=== PATIENT | male | born 1955 | race Caucasian/White ===

== ENCOUNTER 2017-02-24 18:42 | Inpatient (IN) | payer MEDICARE ==
[~2017-02-24] VITALS: Ht 177.8 cm; Wt 99.8 kg
[~2017-02-24 18:42] MED LIST: ACET-1574 PO; ACET325T9 PO; ACET500T68 PO; ATOR20TA58 PO; BUPR150T15 PO; BUSP10TA PO; CHLO15MO2 SWSP; CHOL20002 PO; CHOL4000 PO; CLON0.5T3 PO; CYAN10002 IM; DIVA125C3 PO; FLUV100T2 PO; HALO0.5T PO; HALO1TAB PO; HYDR-2758 PO; HYDR-2762 PO; HYDR25CA PO; HYDR25CA75 PO; HYDR25TA PO; LEVO112T4 PO; LEVO125T5 PO; LEVO175T5 PO; LEVO200T5 PO; LEVO750T31 PO; LEVO75TA5 PO; LORA0.5T PO; LORA1TAB PO; LORA2ORA8 PO; LORA2ORA8 SL; LORA2TAB PO; MAG30ORA2 PO; MAG355OR17 PO; MAGN2400 PO; MAGN400O7 PO; METH29OI TP; MIRT15TA PO; OLAN2.5T3 PO; OLAN5TAB5 PO; QUET25TA5 PO; TOPI25CA6 PO; TRAZ-90 PO; TRAZ50TA15 PO; TROL85CR14 TP; TROL90CR TP; VENL37.56 PO; VENL75CA PO; VENL75TA PO; [UNRECOGNIZED DRUG - CODE] TP
--- NOTE | 2017-02-24 19:00 | PHYS DOC ---
Past History Past Medical History: Anxiety, Dementia, High Cholesterol, Hypothyroid, Other Past Surgical History: Other Alcohol Use: None Drug Use: None Adult General Chief Complaint Chief Complaint: PSYCH EVALUATION HPI HPI Patient is a 61 year old male who presents to the emergency department for medical clearance prior to admission to psychiatric unit. Patient does not report any complaints at this time. The patient per report from [facility] in [place] has had behavioral disturbance with increase in aggressive behavior including yelling, crying, and trying to strike other patients and staff. He has history of Love's disease. Patient states that he did engage in this behavior because he was very angry. Patient also reportedly had a fall onto his knees. It is unclear if patient struck his head but there are no reports that patient had any known loss of consciousness. Patient denies any shortness of breath, chest pain, vomiting, or abdominal pain. The patient was accepted to the geropsychiatric unit here at [facility] and is in the emergency department to receive medical clearance. Review of Systems Review of Systems Constitutional: Denies fever or chills [] Eyes: Denies change in visual acuity, redness, or eye pain [] HENT: Denies nasal congestion or sore throat [] Respiratory: Denies cough or shortness of breath [] Cardiovascular: Denies chest pain or edema [] GI: Denies abdominal pain, nausea, vomiting, bloody stools or diarrhea [] : Denies dysuria or hematuria [] Musculoskeletal: Denies back pain or joint pain [] Integument: Denies rash or skin lesions [] Neurologic: Denies headache, focal weakness or sensory changes [] Allergies Allergies Allergies Coded Allergies Type Severity Reaction Last Updated Verified No Known Drug Allergies 12/27/13 No Physical Exam Physical Exam Constitutional: Alert, afebrile, cooperative with exam, no acute distress. [] HENT: Normocephalic, atraumatic, bilateral external ears normal, oropharynx moist, no oral exudates, nose normal. [] Eyes: PERRLA, EOMI, conjunctiva normal, no discharge. [] Neck: Normal range of motion, no tenderness, supple, no stridor. [] Cardiovascular:Heart rate regular rhythm, no murmur [] Lungs & Thorax: Bilateral breath sounds clear to auscultation [] Abdomen: Bowel sounds normal, soft, no tenderness, no masses, no pulsatile masses. [] Skin: Warm, dry, no erythema, no rash. [] Back: No tenderness, no CVA tenderness. [] Extremities: Superficial abrasions to bilateral knees, no tenderness, no cyanosis, no clubbing, ROM intact, no edema. [] Neurologic: Alert and oriented X 3, normal motor function, normal sensory function, no focal deficits noted. [] Current Patient Data Vital Signs Vital Signs Date Time Temp Pulse Resp B/P (MAP) Pulse Ox O2 Delivery O2 Flow Rate FiO2 02/24/17 21:02 97.8 83 18 147/91 (109) 93 Room Air Lab Results Laboratory Tests Test 02/24/17 18:55 White Blood Count 8.3 x10^3/uL Red Blood Count 4.59 x10^6/uL Hemoglobin 13.5 g/dL Hematocrit 40.3 % Mean Corpuscular Volume 88 fL Mean Corpuscular Hemoglobin 29 pg Mean Corpuscular Hemoglobin Concent 34 g/dL Red Cell Distribution Width 15.6 % Platelet Count 206 x10^3/uL Neutrophils (%) (Auto) 58 % Lymphocytes (%) (Auto) 24 % Monocytes (%) (Auto) 13 % Eosinophils (%) (Auto) 4 % Basophils (%) (Auto) 1 % Neutrophils # (Auto) 4.8 x10^3uL Lymphocytes # (Auto) 2.0 x10^3/uL Monocytes # (Auto) 1.1 x10^3/uL Eosinophils # (Auto) 0.3 x10^3/uL Basophils # (Auto) 0.1 x10^3/uL Sodium Level 140 mmol/L Potassium Level 4.5 mmol/L Chloride Level 101 mmol/L Carbon Dioxide Level 33 mmol/L Anion Gap 6 Blood Urea Nitrogen 19 mg/dL Creatinine 1.1 mg/dL Estimated GFR (Cockcroft-Gault) 68.5 Glucose Level 146 mg/dL Calcium Level 8.9 mg/dL Magnesium Level 1.9 mg/dL Total Bilirubin 0.2 mg/dL Direct Bilirubin 0.1 mg/dL Aspartate Amino Transf (AST/SGOT) 11 U/L Alanine Aminotransferase (ALT/SGPT) 16 U/L Alkaline Phosphatase 91 U/L Total Protein 7.4 g/dL Albumin 3.6 g/dL Urine Opiates Screen Neg Urine Methadone Screen Neg Urine Barbiturates Neg Phenytoin (Dilantin) Level 0.5 mcg/mL Phenytoin Last Dose Date 02/24/17 Phenytoin Last Dose Time 0800 Urine Phencyclidine Screen Neg Urine Amphetamine/Methamphetamine Neg Urine Benzodiazepines Screen Neg Urine Cocaine Screen Neg Urine Cannabinoids Screen Neg Urine Ethyl Alcohol Neg EKG EKG Interpreted by me: Heart rate 89, sinus rhythm, normal intervals, normal axis, no acute ST/T-wave abnormalities present [] Radiology/Procedures Radiology/Procedures [address] [address] IMAGING REPORT Signed PATIENT: YOGI CAMACHO ACCOUNT: [id number] : 1955 LOCATION: ER AGE: 61 SEX: M EXAM STATUS: PRE ER ORD. PHYSICIAN: SILVIA SIMMONS MD REASON: behavioral disturbance, reported fall earlier today PROCEDURE: CT HEAD WO CONTRAST CT head without intravenous contrast History: Behavioral issues, fall, dementia, Ashwini's. Comparison: None. Technique: Axial images are obtained of the head from the skull base through the vertex without IV contrast. Exposure: One or more of the following individualized dose reduction techniques were utilized for this examination: 1. Automated exposure control 2. Adjustment of the mA and/or kV according to patient size 3. Use of iterative reconstruction technique Findings: There is mild diffuse cerebral volume loss, greater than expected for patient age. The ventricles are otherwise appropriate. No obvious intracranial mass, mass-effect, midline shift, hemorrhage or obvious acute infarction is identified. Basilar cisterns are patent. Bone windows demonstrate no acute calvarial abnormality. The visualized paranasal sinuses appear clear. Mild left supraorbital scalp soft tissue swelling is seen. Impression: No acute intracranial process. Please note that CT can be relatively insensitive to acute ischemic infarction for up to 24 hours after symptom onset. Electronically signed by: Sergio Trujillo MD (02/24/2017 7:27 PM) DICTATED AND SIGNED BY: SERGIO TRUJILLO MD DATE: 02/24/171925 CC: SILVIA SIMMONS MD; FLORENCIA MATTHEWS ~ [] Course & Med Decision Making Course & Med Decision Making Pertinent Labs and Imaging studies reviewed. (See chart for details) Patient was observed in the emergency room with no remarkable events reported. Patient's initial lab work shows no significant acute abnormalities. The patient is medically cleared at this time to proceed to the geropsychiatric unit for further evaluation and care. Dragon Disclaimer Dragon Disclaimer This chart was dictated in whole or in part using Voice Recognition software in a busy, high-work load, and often noisy Emergency Department environment. It may contain unintended and wholly unrecognized errors or omissions. 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
[2017-02-24 19:17] LABS: BASO # 0.1 x10^3/uL (0.0-0.2); BASO % 1 % (0-3); EOS # 0.3 x10^3/uL (0.0-0.7); EOS % 4 % (0-3); HEMATOCRIT 40.3 % (39.0-53.0); HEMOGLOBIN 13.5 g/dL (13.0-17.5); LYMPH % 24 % (24-48); MEAN CORPUSCULAR HEMOGLOBIN 29 pg (25-35); MEAN CORPUSCULAR HGB CONC 34 g/dL (31-37); MEAN CORPUSCULAR VOLUME 88 fL (79-100); MONO # 1.1 x10^3/uL (0.0-1.1); MONO % 13 % (0-9); NEUT # 4.8 x10^3uL (1.8-7.7); NEUT % 58 % (31-73); PLATELET COUNT 206 x10^3/uL (140-400); RED BLOOD COUNT 4.59 x10^6/uL (4.30-5.70); RED CELL DISTRIBUTION WIDTH 15.6 % (11.5-14.5); WHITE BLOOD COUNT 8.3 x10^3/uL (4.0-11.0)
[2017-02-24 19:30] LABS: ALBUMIN 3.6 g/dL (3.4-5.0); ALK PHOS 91 U/L (46-116); ALT (SGPT) 16 U/L (16-63); ANION GAP 6 (6-14); AST (SGOT) 11 U/L (15-37); BLOOD UREA NITROGEN 19 mg/dL (8-26); CALCIUM 8.9 mg/dL (8.5-10.1); CARBON DIOXIDE 33 mmol/L (21-32); CHLORIDE 101 mmol/L (98-107); CREATININE 1.1 mg/dL (0.7-1.3); DIRECT BILIRUBIN 0.1 mg/dL (0.0-0.2); GFR 68.5; GLUCOSE 146 mg/dL (70-99); MAGNESIUM 1.9 mg/dL (1.8-2.4); PHENY 0.5 mcg/mL (10.0-20.0); POTASSIUM 4.5 mmol/L (3.5-5.1); SODIUM 140 mmol/L (136-145); TOTAL BILIRUBIN 0.2 mg/dL (0.2-1.0); TOTAL PROTEIN 7.4 g/dL (6.4-8.2)
--- NOTE | 2017-02-24 19:31 | RAD ---
CT head without intravenous contrast History: Behavioral issues, fall, dementia, Ashwini's. Comparison: None. Technique: Axial images are obtained of the head from the skull base through the vertex without IV contrast. Exposure: One or more of the following individualized dose reduction techniques were utilized for this examination: 1. Automated exposure control 2. Adjustment of the mA and/or kV according to patient size 3. Use of iterative reconstruction technique Findings: There is mild diffuse cerebral volume loss, greater than expected for patient age. The ventricles are otherwise appropriate. No obvious intracranial mass, mass-effect, midline shift, hemorrhage or obvious acute infarction is identified. Basilar cisterns are patent. Bone windows demonstrate no acute calvarial abnormality. The visualized paranasal sinuses appear clear. Mild left supraorbital scalp soft tissue swelling is seen. Impression: No acute intracranial process. Please note that CT can be relatively insensitive to acute ischemic infarction for up to 24 hours after symptom onset. Electronically signed by: Sergio Boone MD (02/24/2017 7:27 PM)
[2017-02-24 19:33] LABS: AMPHETAMINE/METHAMPHETAMINE NEG (NEG); BARBITURATES NEG (NEG); BENZODIAZEPINES NEG (NEG); CANNABINOIDS NEG (NEG); COCAINE NEG (NEG); METHADONE NEG (NEG); OPIATES NEG (NEG); PHENCYCLIDINE NEG (NEG)
--- NOTE | 2017-02-24 19:36 | EKG ---
[address] [address] Test Date: 2017-02-24 Test Time: 19:06:02 Pat Name: YOGI CAMACHO Department: Room: Gender: M [employer] Specialist: : 1955 Requested By: SILVIA SIMMONS Order Number: [id number] Reading MD: Measurements Intervals [place] Rate: 89 P: 31 TX: 164 QRS: 4 QRSD: 86 T: 10 QT: 404 QTc: 493 Interpretive Statements SINUS RHYTHM LOW LIMB LEAD VOLTAGE NON SPECIFIC T ABNORMALITY PROLONGED QT RI6.01 Unconfirmed report No previous ECG available for comparison
[2017-02-24 21:02] VITALS: BP 147/91
[2017-02-24] MEDS ORDERED: TAMS0.4C2 PO (21:06)
[2017-02-24] MEDS ORDERED: DEXT1CAP PO (21:06)
[2017-02-24] MEDS ORDERED: POTA10CA PO (21:06)
[2017-02-24] MEDS ORDERED: QUET100T4 PO (21:06)
[2017-02-24] MEDS ORDERED: CELE100C PO (21:06)
[2017-02-24] MEDS ORDERED: FURO40TA4 PO (21:06)
[2017-02-24] MEDS ORDERED: ACET500T68 PO (21:06)
[2017-02-24] MEDS ORDERED: SENN-6 PO (21:06)
[2017-02-24] MEDS ORDERED: CHOL5000 PO (21:06)
[2017-02-24] MEDS ORDERED: OLAN20TA7 PO (21:06)
[2017-02-24] MEDS ORDERED: SPIR25TA3 PO (21:06)
[2017-02-24] MEDS ORDERED: BUPR75TA6 PO (21:06)
[2017-02-24] MEDS ORDERED: METHYL SALICYLATE/MENTHOL TOPICAL OINTMENT 29GM TUBE. TP PRN (21:15)
[2017-02-24] MEDS ORDERED: MAGNESIUM HYDROXIDE 2,400 MG/30 ML ORAL.SUSP. PO PRN (21:15)
[2017-02-24] MEDS ORDERED: MAG HYDROX/AL HYDROX/SIMETH 30 ML ORAL.SUSP PO PRN (21:15)
[2017-02-24] MEDS: buPROPion 75 MG TABLET PO SCH (22:16)
[2017-02-24] MEDS: MIRTAZAPINE 7.5 MG TABLET. PO SCH (22:16)
[2017-02-25 06:15] VITALS: BP 139/81
[2017-02-25] MEDS: LEVOTHYROXINE 175 MCG TABLET PO SCH (06:39)
[2017-02-25 07:10] LABS: VAL ACID 60 mcg/mL (50-100)
[2017-02-25] MEDS: SENNOSIDES/DOCUSATE 8.6/50MG TABLET. PO SCH ×2 (08:23→17:59)
[2017-02-25] MEDS: busPIRone 10 MG TABLET. PO SCH ×3 (08:23→17:59)
[2017-02-25] MEDS: buPROPion 75 MG TABLET PO SCH ×2 (08:23→20:42)
[2017-02-25] MEDS: FUROSEMIDE 40 MG TABLET PO SCH (08:23)
[2017-02-25] MEDS: QUEtiapine 100 MG TABLET. PO SCH ×3 (08:23→17:59)
[2017-02-25] MEDS: LORazepam 1 MG TABLET PO SCH ×2 (08:23→17:59)
[2017-02-25] MEDS: OLANZapine 10 MG TABLET PO SCH (08:23)
[2017-02-25] MEDS: DEXTROMETHORPHAN HBR/QUINIDINE 1 CAPSULE. PO SCH ×2 (08:24→17:59)
[2017-02-25] MEDS: DIVALPROEX 125 MG CAP.SPRINK PO SCH ×2 (08:24→17:58)
[2017-02-25] MEDS: ACETAMINOPHEN 500 MG TABLET PO SCH ×4 (08:25→20:42)
[2017-02-25] MEDS: CELECOXIB 100 MG CAPSULE PO SCH ×2 (08:29→17:59)
[2017-02-25 12:35] VITALS: BP 116/80
[2017-02-25] MEDS: TAMSULOSIN 0.4 MG CAP.ER.24H. PO SCH (12:39)
[2017-02-25] MEDS: SPIRONOLACTONE 25 MG TABLET PO SCH (12:40)
[2017-02-25] MEDS: POTASSIUM CHLORIDE 10 MEQ TABLET.ER. PO SCH (12:40)
[2017-02-25 13:50] LABS: BACTERIA,URINE 0 /HPF (0-FEW); BILIRUBIN,URINE NEG (NEG); CLARITY,URINE CLEAR; COLOR,URINE YELLOW; GLUCOSE,URINE NEG (NEG); NITRITE,URINE NEG (NEG); SQUAMOUS EPITHELIAL CELL,UR OCC /LPF; UROBILINOGEN,URINE 0.2 mg/dL (0.2 mg/dL)
[2017-02-25 13:51] LABS: HYALINE CASTS, URINE FEW /HPF
[2017-02-25 15:21] VITALS: BP 129/85
[2017-02-25] MEDS: CHOLECALCIFEROL (VITAMIN D3) 1,000 UNIT TABLET PO SCH (17:58)
[2017-02-25 19:10] LABS: T3 TOTAL 92 ng/dL (71-180); THYROXINE 7.6 ug/dL (4.5-12.0)
[2017-02-25] MEDS: MIRTAZAPINE 7.5 MG TABLET. PO SCH (20:42)
[2017-02-25] MEDS: ATORVASTATIN CALCIUM 20 MG TABLET PO SCH (20:47)
[2017-02-26] MEDS: LEVOTHYROXINE 175 MCG TABLET PO SCH (05:40)
[2017-02-26 05:43] VITALS: BP 138/89
[2017-02-26] MEDS: DEXTROMETHORPHAN HBR/QUINIDINE 1 CAPSULE. PO SCH ×2 (08:14→16:31)
[2017-02-26] MEDS: SENNOSIDES/DOCUSATE 8.6/50MG TABLET. PO SCH ×2 (08:14→16:30)
[2017-02-26] MEDS: OLANZapine 10 MG TABLET PO SCH (08:14)
[2017-02-26] MEDS: DIVALPROEX 125 MG CAP.SPRINK PO SCH ×2 (08:14→19:39)
[2017-02-26] MEDS: ACETAMINOPHEN 500 MG TABLET PO SCH ×4 (08:14→19:39)
[2017-02-26] MEDS: busPIRone 10 MG TABLET. PO SCH ×3 (08:14→16:30)
[2017-02-26] MEDS: FUROSEMIDE 40 MG TABLET PO SCH (08:14)
[2017-02-26] MEDS: CELECOXIB 100 MG CAPSULE PO SCH ×2 (08:14→16:31)
[2017-02-26] MEDS: QUEtiapine 100 MG TABLET. PO SCH ×3 (08:14→16:30)
[2017-02-26] MEDS: buPROPion 75 MG TABLET PO SCH ×2 (08:15→19:37)
[2017-02-26] MEDS: LORazepam 1 MG TABLET PO SCH ×2 (08:16→16:30)
[2017-02-26] MEDS: TAMSULOSIN 0.4 MG CAP.ER.24H. PO SCH (12:54)
[2017-02-26] MEDS: SPIRONOLACTONE 25 MG TABLET PO SCH (12:54)
[2017-02-26] MEDS: POTASSIUM CHLORIDE 10 MEQ TABLET.ER. PO SCH (12:54)
[2017-02-26 16:00] VITALS: BP 128/89
[2017-02-26] MEDS: CHOLECALCIFEROL (VITAMIN D3) 1,000 UNIT TABLET PO SCH (16:30)
[2017-02-26] MEDS: ATORVASTATIN CALCIUM 20 MG TABLET PO SCH (19:36)
[2017-02-26] MEDS: MIRTAZAPINE 7.5 MG TABLET. PO SCH (19:36)
[2017-02-27 05:58] VITALS: BP 135/85
[2017-02-27] MEDS: LEVOTHYROXINE 175 MCG TABLET PO SCH (05:59)
[2017-02-27] MEDS: FUROSEMIDE 40 MG TABLET PO SCH (08:09)
[2017-02-27] MEDS: busPIRone 10 MG TABLET. PO SCH ×3 (08:09→17:11)
[2017-02-27] MEDS: SENNOSIDES/DOCUSATE 8.6/50MG TABLET. PO SCH ×2 (08:09→17:11)
[2017-02-27] MEDS: buPROPion 75 MG TABLET PO SCH ×2 (08:10→20:35)
[2017-02-27] MEDS: ACETAMINOPHEN 500 MG TABLET PO SCH ×4 (08:10→21:56)
[2017-02-27] MEDS: QUEtiapine 100 MG TABLET. PO SCH ×3 (08:10→17:11)
[2017-02-27] MEDS: OLANZapine 10 MG TABLET PO SCH (08:11)
[2017-02-27] MEDS: DIVALPROEX 125 MG CAP.SPRINK PO SCH ×2 (08:13→20:35)
[2017-02-27] MEDS: DEXTROMETHORPHAN HBR/QUINIDINE 1 CAPSULE. PO SCH ×2 (08:14→17:12)
[2017-02-27] MEDS: CELECOXIB 100 MG CAPSULE PO SCH ×2 (08:14→17:11)
[2017-02-27] MEDS: LORazepam 1 MG TABLET PO SCH ×2 (08:14→17:11)
[2017-02-27] MEDS: SPIRONOLACTONE 25 MG TABLET PO SCH (12:37)
[2017-02-27] MEDS: TAMSULOSIN 0.4 MG CAP.ER.24H. PO SCH (12:37)
[2017-02-27] MEDS: POTASSIUM CHLORIDE 10 MEQ TABLET.ER. PO SCH (12:38)
--- NOTE | 2017-02-27 13:00 | PDOC ---
Exam Bran Demential Exam: Bran Note: Please also refer to the separate dictated note~for this date of service dictated separately.~Patient seen individually. Discussed the patient with Nursing staff reviewed the chart.~Reviewed interim history and current functioning. Reviewed vital signs,~Labs/ Radiology~and current medications noted below. Continue current treatment with the changes noted in the dictated addendum note Assessment: Vital Signs: Vital Signs Date Time Temp Pulse Resp B/P (MAP) Pulse Ox O2 Delivery O2 Flow Rate FiO2 02/27/17 05:58 97.3 97 16 135/85 (102) 98 02/26/17 05:43 Room Air I&O Intake and Output 02/27/17 07:00 Intake Total 3120 ml Balance 3120 ml Intake Oral 3120 ml Current Medications: Meds: Current Medications Fluvoxamine Maleate (Luvox) 150 mg BID PO Last administered on 02/27/17 08:08; Start 02/24/17 at 22:00 Mirtazapine (Remeron) 7.5 mg QHS PO Last administered on 02/26/17 19:36; Start 02/24/17 at 22:00 Olanzapine (ZyPREXA) 20 mg DAILY PO Last administered on 02/27/17 08:11; Start 02/25/17 at 09:00 Bupropion HCl (Wellbutrin) 75 mg BID PO Last administered on 02/27/17 08:10; Start 02/24/17 at 22:00 Buspirone HCl (Buspar) 10 mg TIDWMEALS PO Last administered on 02/27/17 12:37; Start 02/25/17 at 08:00 Divalproex Sodium (Depakote Sprinkles) 750 mg BID94 PO Last administered on 08:14; Start 02/25/17 at 09:00; Stop 02/26/17 at 14:46; Status DC Lorazepam (Ativan) 1 mg BID94 PO Last administered on 02/27/17 08:14; Start at 09:00 Quetiapine Fumarate (SEROquel) 100 mg TIDWMEALS PO Last administered on 12:39; Start 02/25/17 at 08:00 Acetaminophen (Tylenol) 650 mg PRN Q6HRS PRN PO PAIN / TEMP; Start 02/24/17 at 21:15 Multi-Ingredient Ointment (Analgesic [place]) 1 alistair PRN QID PRN TP MUSCLE PAIN; Start 02/24/17 at 21:15 Al Hydroxide/Mg Hydroxide (Mylanta Plus Xs) 15 ml PRN AFTMEALHC PRN PO DYSPEPSIA; Start 02/24/17 at 21:15 Magnesium Hydroxide (Milk Of Magnesia) 2,400 mg PRN QHS PRN PO CONSTIPATION; Start 02/24/17 at 21:15 Acetaminophen (Tylenol) 1,000 mg TIDWMEALHC PO Last administered on 02/27/17 12 :37; Start 02/25/17 at 08:00 Atorvastatin Calcium (Lipitor) 20 mg HS PO Last administered on 02/26/17 19:36 ; Start 02/25/17 at 21:00 Celecoxib (CeleBREX) 100 mg BIDWMEALS PO Last administered on 02/27/17 08:14; Start 02/25/17 at 08:00 Furosemide (Lasix) 40 mg DAILY PO Last administered on 02/27/17 08:09; Start at 09:00 Levothyroxine Sodium (Synthroid) 175 mcg DAILY06 PO Last administered on 05:59; Start 02/25/17 at 06:00 Potassium Chloride (Klor-Con) 10 meq DAILYWLUN PO Last administered on 12:38; Start 02/25/17 at 12:00 Senna/Docusate Sodium (Senna Plus) 1 tab BID94 PO Last administered on 08:09; Start 02/25/17 at 09:00 Spironolactone (Aldactone) 25 mg DAILYWLUN PO Last administered on 02/27/17 12: 37; Start 02/25/17 at 12:00 Tamsulosin HCl (Flomax) 0.4 mg DAILYWLUN PO Last administered on 02/27/17 12:37 ; Start 02/25/17 at 12:00 Vitamin D (Vitamin D3) 5,000 unit DAILY16 PO Last administered on 02/26/17 16: 30; Start 02/25/17 at 16:00 Divalproex Sodium (Depakote Sprinkles) 750 mg DAILY PO Last administered on 02/27 08:13; Start 02/27/17 at 09:00 Divalproex Sodium (Depakote Sprinkles) 1,000 mg HS PO Last administered on 02/26 19:39; Start 02/26/17 at 21:00 Active Scripts Active Reported Olanzapine 20 Mg Tablet 20 Mg PO DAILY Celebrex (Celecoxib) 100 Mg Capsule 100 Mg PO BID Potassium Chloride 10 Meq Capsule.er 10 Meq PO DAILYWLUN Spironolactone 25 Mg Tablet 25 Mg PO DAILYWLUN Senna S Tablet (Sennosides/Docusate Sodium) 1 Each Tablet 1 Tab PO BID94 Furosemide 40 Mg Tablet 40 Mg PO DAILY Tamsulosin Hcl 0.4 Mg Cap.er.24h 0.4 Mg PO DAILYWLUN Nuedexta 20-10 Mg Capsule (Dextromethorphan Hbr/Quinidine) 1 Each Capsule 1 Cap PO BID94 Seroquel (Quetiapine Fumarate) 100 Mg Tablet 100 Mg PO TIDWMEALS Bupropion Hcl 75 Mg Tablet 75 Mg PO BID Acetaminophen 500 Mg Tablet 1,000 Mg PO TIDWMEALHC Vitamin D3 (Cholecalciferol (Vitamin D3)) 5,000 Unit Capsule 5,000 Unit PO DAILY16 Buspirone Hcl 10 Mg Tablet 10 Mg PO TIDWMEALS Remeron (Mirtazapine) 15 Mg Tablet 7.5 Mg PO QHS Levothyroxine Sodium 175 Mcg Tablet 175 Mcg PO DAILY06 Lorazepam 1 Mg Tablet 1 Mg PO BID94 Fluvoxamine Maleate 100 Mg Tablet 150 Mg PO BID Atorvastatin Calcium 20 Mg Tablet 20 Mg PO HS Divalproex Sodium 125 Mg Cap.sprink 750 Mg PO BID94 Diagnosis: Problems: (1) [place]'s chorea (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
[2017-02-27 16:20] VITALS: BP 124/75
[2017-02-27] MEDS: CHOLECALCIFEROL (VITAMIN D3) 1,000 UNIT TABLET PO SCH (17:11)
[2017-02-27] MEDS: MIRTAZAPINE 7.5 MG TABLET. PO SCH (20:35)
[2017-02-27] MEDS: ATORVASTATIN CALCIUM 20 MG TABLET PO SCH (20:35)
--- NOTE | 2017-02-27 21:32 | PDOC ---
Exam Bran Demential Exam: Bran Note: Please also refer to the separate dictated note~for this date of service dictated separately.~Patient seen individually. Discussed the patient with Nursing staff reviewed the chart.~Reviewed interim history and current functioning. Reviewed vital signs,~Labs/ Radiology~and current medications noted below. Continue current treatment with the changes noted in the dictated addendum note Assessment: Vital Signs: Vital Signs Date Time Temp Pulse Resp B/P (MAP) Pulse Ox O2 Delivery O2 Flow Rate FiO2 02/27/17 16:20 97.9 89 18 124/75 (91) 94 02/26/17 05:43 Room Air I&O Intake and Output 02/27/17 07:00 Intake Total 3120 ml Balance 3120 ml Intake Oral 3120 ml Current Medications: Meds: Current Medications Fluvoxamine Maleate (Luvox) 150 mg BID PO Last administered on 02/27/17 20:35; Start 02/24/17 at 22:00 Mirtazapine (Remeron) 7.5 mg QHS PO Last administered on 02/27/17 20:35; Start 02/24/17 at 22:00 Olanzapine (ZyPREXA) 20 mg DAILY PO Last administered on 02/27/17 08:11; Start 02/25/17 at 09:00 Bupropion HCl (Wellbutrin) 75 mg BID PO Last administered on 02/27/17 20:35; Start 02/24/17 at 22:00 Buspirone HCl (Buspar) 10 mg TIDWMEALS PO Last administered on 02/27/17 17:11; Start 02/25/17 at 08:00 Divalproex Sodium (Depakote Sprinkles) 750 mg BID94 PO Last administered on 08:14; Start 02/25/17 at 09:00; Stop 02/26/17 at 14:46; Status DC Lorazepam (Ativan) 1 mg BID94 PO Last administered on 02/27/17 17:11; Start at 09:00 Quetiapine Fumarate (SEROquel) 100 mg TIDWMEALS PO Last administered on 17:11; Start 02/25/17 at 08:00 Acetaminophen (Tylenol) 650 mg PRN Q6HRS PRN PO PAIN / TEMP; Start 02/24/17 at 21:15 Multi-Ingredient Ointment (Analgesic [place]) 1 alistair PRN QID PRN TP MUSCLE PAIN; Start 02/24/17 at 21:15 Al Hydroxide/Mg Hydroxide (Mylanta Plus Xs) 15 ml PRN AFTMEALHC PRN PO DYSPEPSIA; Start 02/24/17 at 21:15 Magnesium Hydroxide (Milk Of Magnesia) 2,400 mg PRN QHS PRN PO CONSTIPATION; Start 02/24/17 at 21:15 Acetaminophen (Tylenol) 1,000 mg TIDWMEALHC PO Last administered on 02/27/17 17 :19; Start 02/25/17 at 08:00 Atorvastatin Calcium (Lipitor) 20 mg HS PO Last administered on 02/27/17 20:35 ; Start 02/25/17 at 21:00 Celecoxib (CeleBREX) 100 mg BIDWMEALS PO Last administered on 02/27/17 17:11; Start 02/25/17 at 08:00 Furosemide (Lasix) 40 mg DAILY PO Last administered on 02/27/17 08:09; Start at 09:00 Levothyroxine Sodium (Synthroid) 175 mcg DAILY06 PO Last administered on 05:59; Start 02/25/17 at 06:00 Potassium Chloride (Klor-Con) 10 meq DAILYWLUN PO Last administered on 12:38; Start 02/25/17 at 12:00 Senna/Docusate Sodium (Senna Plus) 1 tab BID94 PO Last administered on 17:11; Start 02/25/17 at 09:00 Spironolactone (Aldactone) 25 mg DAILYWLUN PO Last administered on 02/27/17 12: 37; Start 02/25/17 at 12:00 Tamsulosin HCl (Flomax) 0.4 mg DAILYWLUN PO Last administered on 02/27/17 12:37 ; Start 02/25/17 at 12:00 Vitamin D (Vitamin D3) 5,000 unit DAILY16 PO Last administered on 02/27/17 17: 11; Start 02/25/17 at 16:00 Divalproex Sodium (Depakote Sprinkles) 750 mg DAILY PO Last administered on 02/27 08:13; Start 02/27/17 at 09:00 Divalproex Sodium (Depakote Sprinkles) 1,000 mg HS PO Last administered on 20:35; Start 02/26/17 at 21:00 Active Scripts Active Reported Olanzapine 20 Mg Tablet 20 Mg PO DAILY Celebrex (Celecoxib) 100 Mg Capsule 100 Mg PO BID Potassium Chloride 10 Meq Capsule.er 10 Meq PO DAILYWLUN Spironolactone 25 Mg Tablet 25 Mg PO DAILYWLUN Senna S Tablet (Sennosides/Docusate Sodium) 1 Each Tablet 1 Tab PO BID94 Furosemide 40 Mg Tablet 40 Mg PO DAILY Tamsulosin Hcl 0.4 Mg Cap.er.24h 0.4 Mg PO DAILYWLUN Nuedexta 20-10 Mg Capsule (Dextromethorphan Hbr/Quinidine) 1 Each Capsule 1 Cap PO BID94 Seroquel (Quetiapine Fumarate) 100 Mg Tablet 100 Mg PO TIDWMEALS Bupropion Hcl 75 Mg Tablet 75 Mg PO BID Acetaminophen 500 Mg Tablet 1,000 Mg PO TIDWMEALHC Vitamin D3 (Cholecalciferol (Vitamin D3)) 5,000 Unit Capsule 5,000 Unit PO DAILY16 Buspirone Hcl 10 Mg Tablet 10 Mg PO TIDWMEALS Remeron (Mirtazapine) 15 Mg Tablet 7.5 Mg PO QHS Levothyroxine Sodium 175 Mcg Tablet 175 Mcg PO DAILY06 Lorazepam 1 Mg Tablet 1 Mg PO BID94 Fluvoxamine Maleate 100 Mg Tablet 150 Mg PO BID Atorvastatin Calcium 20 Mg Tablet 20 Mg PO HS Divalproex Sodium 125 Mg Cap.sprink 750 Mg PO BID94 Diagnosis: Problems: (1) Dementia in [place]'s disease with behavioral disturbance (2) Anxiety disorder (3) Impulse control disorder (4) Major depressive disorder, recurrent episode (5) Dementia due to [place] chorea (6) [place]'s chorea LIDIA GARRIDO MD Feb 27, 2017 21:32
[2017-02-28] MEDS: LEVOTHYROXINE 175 MCG TABLET PO SCH (05:14)
[2017-02-28 06:19] VITALS: BP 151/81
[2017-02-28] MEDS: LORazepam 1 MG TABLET PO SCH ×2 (07:25→16:15)
[2017-02-28] MEDS: CELECOXIB 100 MG CAPSULE PO SCH ×2 (07:26→16:16)
[2017-02-28] MEDS: DEXTROMETHORPHAN HBR/QUINIDINE 1 CAPSULE. PO SCH ×2 (07:26→16:16)
[2017-02-28] MEDS: OLANZapine 10 MG TABLET PO SCH (07:26)
[2017-02-28] MEDS: QUEtiapine 100 MG TABLET. PO SCH ×3 (07:26→16:16)
[2017-02-28] MEDS: DIVALPROEX 125 MG CAP.SPRINK PO SCH ×2 (07:26→20:29)
[2017-02-28] MEDS: ACETAMINOPHEN 500 MG TABLET PO SCH ×4 (07:26→20:31)
[2017-02-28] MEDS: busPIRone 10 MG TABLET. PO SCH ×3 (07:26→16:15)
[2017-02-28] MEDS: FUROSEMIDE 40 MG TABLET PO SCH (07:26)
[2017-02-28] MEDS: buPROPion 75 MG TABLET PO SCH ×2 (07:26→20:29)
[2017-02-28] MEDS: SENNOSIDES/DOCUSATE 8.6/50MG TABLET. PO SCH ×2 (07:26→16:15)
[2017-02-28] MEDS: TAMSULOSIN 0.4 MG CAP.ER.24H. PO SCH (12:00)
[2017-02-28] MEDS: POTASSIUM CHLORIDE 10 MEQ TABLET.ER. PO SCH (12:00)
[2017-02-28] MEDS: SPIRONOLACTONE 25 MG TABLET PO SCH (12:00)
[2017-02-28 15:57] VITALS: BP 133/75
[2017-02-28] MEDS: CHOLECALCIFEROL (VITAMIN D3) 1,000 UNIT TABLET PO SCH (16:15)
[2017-02-28] MEDS: ATORVASTATIN CALCIUM 20 MG TABLET PO SCH (20:29)
[2017-02-28] MEDS: MIRTAZAPINE 7.5 MG TABLET. PO SCH (20:29)
--- NOTE | 2017-02-28 21:08 | PDOC ---
Exam Bran Demential Exam: Bran Note: Please also refer to the separate dictated note~for this date of service dictated separately.~Patient seen individually. Discussed the patient with Nursing staff reviewed the chart.~Reviewed interim history and current functioning. Reviewed vital signs,~Labs/ Radiology~and current medications noted below. Continue current treatment with the changes noted in the dictated addendum note Assessment: Vital Signs: Vital Signs Date Time Temp Pulse Resp B/P (MAP) Pulse Ox O2 Delivery O2 Flow Rate FiO2 02/28/17 15:57 97.8 102 16 133/75 (94) 99 02/26/17 05:43 Room Air I&O Intake and Output 02/28/17 07:00 Intake Total 1580 ml Balance 1580 ml Intake Oral 1580 ml Current Medications: Meds: Current Medications Fluvoxamine Maleate (Luvox) 150 mg BID PO Last administered on 02/28/17 20:29; Start 02/24/17 at 22:00 Mirtazapine (Remeron) 7.5 mg QHS PO Last administered on 02/28/17 20:29; Start 02/24/17 at 22:00 Olanzapine (ZyPREXA) 20 mg DAILY PO Last administered on 02/28/17 07:26; Start 02/25/17 at 09:00 Bupropion HCl (Wellbutrin) 75 mg BID PO Last administered on 02/28/17 20:29; Start 02/24/17 at 22:00 Buspirone HCl (Buspar) 10 mg TIDWMEALS PO Last administered on 02/28/17 16:15; Start 02/25/17 at 08:00 Divalproex Sodium (Depakote Sprinkles) 750 mg BID94 PO Last administered on 08:14; Start 02/25/17 at 09:00; Stop 02/26/17 at 14:46; Status DC Lorazepam (Ativan) 1 mg BID94 PO Last administered on 02/28/17 16:15; Start at 09:00 Quetiapine Fumarate (SEROquel) 100 mg TIDWMEALS PO Last administered on 16:16; Start 02/25/17 at 08:00 Acetaminophen (Tylenol) 650 mg PRN Q6HRS PRN PO PAIN / TEMP; Start 02/24/17 at 21:15 Multi-Ingredient Ointment (Analgesic [place]) 1 alistair PRN QID PRN TP MUSCLE PAIN; Start 02/24/17 at 21:15 Al Hydroxide/Mg Hydroxide (Mylanta Plus Xs) 15 ml PRN AFTMEALHC PRN PO DYSPEPSIA; Start 02/24/17 at 21:15 Magnesium Hydroxide (Milk Of Magnesia) 2,400 mg PRN QHS PRN PO CONSTIPATION; Start 02/24/17 at 21:15 Acetaminophen (Tylenol) 1,000 mg TIDWMEALHC PO Last administered on 02/28/17 20 :31; Start 02/25/17 at 08:00 Atorvastatin Calcium (Lipitor) 20 mg HS PO Last administered on 02/28/17 20:29 ; Start 02/25/17 at 21:00 Celecoxib (CeleBREX) 100 mg BIDWMEALS PO Last administered on 02/28/17 16:16; Start 02/25/17 at 08:00 Furosemide (Lasix) 40 mg DAILY PO Last administered on 02/28/17 07:26; Start at 09:00 Levothyroxine Sodium (Synthroid) 175 mcg DAILY06 PO Last administered on 05:14; Start 02/25/17 at 06:00 Potassium Chloride (Klor-Con) 10 meq DAILYWLUN PO Last administered on 12:00; Start 02/25/17 at 12:00 Senna/Docusate Sodium (Senna Plus) 1 tab BID94 PO Last administered on 16:15; Start 02/25/17 at 09:00 Spironolactone (Aldactone) 25 mg DAILYWLUN PO Last administered on 02/28/17 12: 00; Start 02/25/17 at 12:00 Tamsulosin HCl (Flomax) 0.4 mg DAILYWLUN PO Last administered on 02/28/17 12:00 ; Start 02/25/17 at 12:00 Vitamin D (Vitamin D3) 5,000 unit DAILY16 PO Last administered on 02/28/17 16: 15; Start 02/25/17 at 16:00 Divalproex Sodium (Depakote Sprinkles) 750 mg DAILY PO Last administered on 02/28 07:26; Start 02/27/17 at 09:00 Divalproex Sodium (Depakote Sprinkles) 1,000 mg HS PO Last administered on 20:29; Start 02/26/17 at 21:00 Active Scripts Active Reported Olanzapine 20 Mg Tablet 20 Mg PO DAILY Celebrex (Celecoxib) 100 Mg Capsule 100 Mg PO BID Potassium Chloride 10 Meq Capsule.er 10 Meq PO DAILYWLUN Spironolactone 25 Mg Tablet 25 Mg PO DAILYWLUN Senna S Tablet (Sennosides/Docusate Sodium) 1 Each Tablet 1 Tab PO BID94 Furosemide 40 Mg Tablet 40 Mg PO DAILY Tamsulosin Hcl 0.4 Mg Cap.er.24h 0.4 Mg PO DAILYWLUN Nuedexta 20-10 Mg Capsule (Dextromethorphan Hbr/Quinidine) 1 Each Capsule 1 Cap PO BID94 Seroquel (Quetiapine Fumarate) 100 Mg Tablet 100 Mg PO TIDWMEALS Bupropion Hcl 75 Mg Tablet 75 Mg PO BID Acetaminophen 500 Mg Tablet 1,000 Mg PO TIDWMEALHC Vitamin D3 (Cholecalciferol (Vitamin D3)) 5,000 Unit Capsule 5,000 Unit PO DAILY16 Buspirone Hcl 10 Mg Tablet 10 Mg PO TIDWMEALS Remeron (Mirtazapine) 15 Mg Tablet 7.5 Mg PO QHS Levothyroxine Sodium 175 Mcg Tablet 175 Mcg PO DAILY06 Lorazepam 1 Mg Tablet 1 Mg PO BID94 Fluvoxamine Maleate 100 Mg Tablet 150 Mg PO BID Atorvastatin Calcium 20 Mg Tablet 20 Mg PO HS Divalproex Sodium 125 Mg Cap.sprink 750 Mg PO BID94 Diagnosis: Problems: (1) Dementia in [place]'s disease with behavioral disturbance (2) Anxiety disorder (3) Impulse control disorder (4) Major depressive disorder, recurrent episode (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
[2017-03-01] MEDS: LEVOTHYROXINE 175 MCG TABLET PO SCH (05:45)
[2017-03-01 06:44] VITALS: BP 154/99
[2017-03-01 07:47] LABS: BASO # 0.1 x10^3/uL (0.0-0.2); BASO % 1 % (0-3); EOS # 0.3 x10^3/uL (0.0-0.7); EOS % 3 % (0-3); HEMATOCRIT 42.4 % (39.0-53.0); HEMOGLOBIN 14.1 g/dL (13.0-17.5); LYMPH # 1.1 x10^3/uL (1.0-4.8); LYMPH % 14 % (24-48); MEAN CORPUSCULAR HEMOGLOBIN 29 pg (25-35); MEAN CORPUSCULAR HGB CONC 33 g/dL (31-37); MEAN CORPUSCULAR VOLUME 87 fL (79-100); MONO # 1.2 x10^3/uL (0.0-1.1); MONO % 14 % (0-9); NEUT # 5.7 x10^3uL (1.8-7.7); NEUT % 68 % (31-73); PLATELET COUNT 228 x10^3/uL (140-400); RED BLOOD COUNT 4.88 x10^6/uL (4.30-5.70); RED CELL DISTRIBUTION WIDTH 15.4 % (11.5-14.5); WHITE BLOOD COUNT 8.4 x10^3/uL (4.0-11.0)
[2017-03-01 07:57] LABS: ALBUMIN 3.7 g/dL (3.4-5.0); ALBUMIN/GLOBULIN RATIO 0.9 (1.0-1.7); ALK PHOS 87 U/L (46-116); ALT (SGPT) 15 U/L (16-63); ANION GAP 6 (6-14); AST (SGOT) 8 U/L (15-37); BLOOD UREA NITROGEN 18 mg/dL (8-26); BUN/CREATININE RATIO 18 (6-20); CALCIUM 9.2 mg/dL (8.5-10.1); CARBON DIOXIDE 33 mmol/L (21-32); CHLORIDE 100 mmol/L (98-107); GFR 76.5; GLUCOSE 123 mg/dL (70-99); POTASSIUM 5.1 mmol/L (3.5-5.1); SODIUM 139 mmol/L (136-145); TOTAL BILIRUBIN 0.2 mg/dL (0.2-1.0); TOTAL PROTEIN 7.7 g/dL (6.4-8.2)
[2017-03-01 08:00] LABS: VAL ACID 81 mcg/mL (50-100)
[2017-03-01] MEDS: buPROPion 75 MG TABLET PO SCH ×2 (09:17→19:33)
[2017-03-01] MEDS: DEXTROMETHORPHAN HBR/QUINIDINE 1 CAPSULE. PO SCH ×2 (09:18→17:18)
[2017-03-01] MEDS: FUROSEMIDE 40 MG TABLET PO SCH (09:18)
[2017-03-01] MEDS: busPIRone 10 MG TABLET. PO SCH ×4 (09:18→19:34)
[2017-03-01] MEDS: SENNOSIDES/DOCUSATE 8.6/50MG TABLET. PO SCH ×2 (09:18→17:18)
[2017-03-01] MEDS: CELECOXIB 100 MG CAPSULE PO SCH ×2 (09:18→17:18)
[2017-03-01] MEDS: OLANZapine 10 MG TABLET PO SCH (09:18)
[2017-03-01] MEDS: ACETAMINOPHEN 500 MG TABLET PO SCH ×4 (09:18→19:35)
[2017-03-01] MEDS: QUEtiapine 100 MG TABLET. PO SCH ×4 (09:18→19:34)
[2017-03-01] MEDS: DIVALPROEX 125 MG CAP.SPRINK PO SCH ×2 (09:19→19:33)
[2017-03-01] MEDS: LORazepam 1 MG TABLET PO SCH ×2 (09:22→17:18)
[2017-03-01 12:56] VITALS: BP 127/91
[2017-03-01] MEDS: SPIRONOLACTONE 25 MG TABLET PO SCH (12:57)
[2017-03-01] MEDS: TAMSULOSIN 0.4 MG CAP.ER.24H. PO SCH (12:57)
[2017-03-01] MEDS: POTASSIUM CHLORIDE 10 MEQ TABLET.ER. PO SCH (12:58)
[2017-03-01 15:50] VITALS: BP 102/75
[2017-03-01] MEDS: CHOLECALCIFEROL (VITAMIN D3) 1,000 UNIT TABLET PO SCH (17:18)
[2017-03-01] MEDS: MIRTAZAPINE 7.5 MG TABLET. PO SCH (19:33)
[2017-03-01] MEDS: ATORVASTATIN CALCIUM 20 MG TABLET PO SCH (19:34)
--- NOTE | 2017-03-01 20:45 | PDOC ---
Exam Bran Demential Exam: Bran Note: Please also refer to the separate dictated note~for this date of service dictated separately.~Patient seen individually. Discussed the patient with Nursing staff reviewed the chart.~Reviewed interim history and current functioning. Reviewed vital signs,~Labs/ Radiology~and current medications noted below. Continue current treatment with the changes noted in the dictated addendum note S/O: This is late entry for date of service 02/27/2017. This note covers elements not covered in my note of February 27. Reviewed information with Dr. Christianson. The patient is being tearful, labile in his mood, anxious, repeatedly stating that he wanted "tea". He is compliant with his medications. He does have [place] movements in a Broda chair. Impaired ambulation. Review of Systems: No CV, , Pulmonary, Eye system symptoms on review. Reliability poor. MSE: Oriented to himself. Insight, judgment, recent memory is impaired. Language function intact. Attention span short. Mood and affect labile. Plan: Diagnosis mentioned in my note. Continue current psychotropics. Valproic acid level is 60 therapeutic. May need to increase BuSpar. Assessment: Vital Signs: Vital Signs Date Time Temp Pulse Resp B/P (MAP) Pulse Ox O2 Delivery O2 Flow Rate FiO2 03/01/17 15:50 98.2 97 20 102/75 (84) 91 Room Air I&O Intake and Output 03/01/17 07:00 Intake Total 1800 ml Balance 1800 ml Intake Oral 1800 ml # Voids 1 Labs: Laboratory Tests Test 03/01/17 07:27 White Blood Count 8.4 x10^3/uL (4.0-11.0) Red Blood Count 4.88 x10^6/uL (4.30-5.70) Hemoglobin 14.1 g/dL (13.0-17.5) Hematocrit 42.4 % (39.0-53.0) Mean Corpuscular Volume 87 fL (79-100) Mean Corpuscular Hemoglobin 29 pg (25-35) Mean Corpuscular Hemoglobin Concent 33 g/dL (31-37) Red Cell Distribution Width 15.4 % (11.5-14.5) H Platelet Count 228 x10^3/uL (140-400) Neutrophils (%) (Auto) 68 % (31-73) Lymphocytes (%) (Auto) 14 % (24-48) L Monocytes (%) (Auto) 14 % (0-9) H Eosinophils (%) (Auto) 3 % (0-3) Basophils (%) (Auto) 1 % (0-3) Neutrophils # (Auto) 5.7 x10^3uL (1.8-7.7) Lymphocytes # (Auto) 1.1 x10^3/uL (1.0-4.8) Monocytes # (Auto) 1.2 x10^3/uL (0.0-1.1) H Eosinophils # (Auto) 0.3 x10^3/uL (0.0-0.7) Basophils # (Auto) 0.1 x10^3/uL (0.0-0.2) Sodium Level 139 mmol/L (136-145) Potassium Level 5.1 mmol/L (3.5-5.1) Chloride Level 100 mmol/L (98-107) Carbon Dioxide Level 33 mmol/L (21-32) H Anion Gap 6 (6-14) Blood Urea Nitrogen 18 mg/dL (8-26) Creatinine 1.0 mg/dL (0.7-1.3) Estimated GFR (Cockcroft-Gault) 76.5 BUN/Creatinine Ratio 18 (6-20) Glucose Level 123 mg/dL (70-99) H Calcium Level 9.2 mg/dL (8.5-10.1) Total Bilirubin 0.2 mg/dL (0.2-1.0) Aspartate Amino Transferase (AST) 8 U/L (15-37) L Alanine Aminotransferase (ALT) 15 U/L (16-63) L Alkaline Phosphatase 87 U/L (46-116) Total Protein 7.7 g/dL (6.4-8.2) Albumin 3.7 g/dL (3.4-5.0) Albumin/Globulin Ratio 0.9 (1.0-1.7) L Valproic Acid Level 81 mcg/mL (50-100) Valproic Acid Last Dose Date 02/28/17 Valproic Acid Last Dose Time 2100 Current Medications: Meds: Current Medications Fluvoxamine Maleate (Luvox) 150 mg BID PO Last administered on 03/01/17t 19:34; Start 02/24/17 at 22:00 Mirtazapine (Remeron) 7.5 mg QHS PO Last administered on 03/01/17 19:33; Start 02/24/17 at 22:00 Olanzapine (ZyPREXA) 20 mg DAILY PO Last administered on 03/01/17 09:18; Start 02/25/17 at 09:00 Bupropion HCl (Wellbutrin) 75 mg BID PO Last administered on 03/01/17 19:33; Start 02/24/17 at 22:00 Buspirone HCl (Buspar) 10 mg TIDWMEALS PO Last administered on 03/01/17 17:18; Start 02/25/17 at 08:00; Stop 03/01/17 at 18:03; Status DC Divalproex Sodium (Depakote Sprinkles) 750 mg BID94 PO Last administered on 08:14; Start 02/25/17 at 09:00; Stop 02/26/17 at 14:46; Status DC Lorazepam (Ativan) 1 mg BID94 PO Last administered on 03/01/17 17:18; Start at 09:00 Quetiapine Fumarate (SEROquel) 100 mg TIDWMEALS PO Last administered on 17:18; Start 02/25/17 at 08:00; Stop 03/01/17 at 18:03; Status DC Acetaminophen (Tylenol) 650 mg PRN Q6HRS PRN PO PAIN / TEMP; Start 02/24/17 at 21:15 Multi-Ingredient Ointment (Analgesic [place]) 1 alistair PRN QID PRN TP MUSCLE PAIN; Start 02/24/17 at 21:15 Al Hydroxide/Mg Hydroxide (Mylanta Plus Xs) 15 ml PRN AFTMEALHC PRN PO DYSPEPSIA; Start 02/24/17 at 21:15 Magnesium Hydroxide (Milk Of Magnesia) 2,400 mg PRN QHS PRN PO CONSTIPATION; Start 02/24/17 at 21:15 Acetaminophen (Tylenol) 1,000 mg TIDWMEALHC PO Last administered on 03/01/17 19 :35; Start 02/25/17 at 08:00 Atorvastatin Calcium (Lipitor) 20 mg HS PO Last administered on 03/01/17 19:34 ; Start 02/25/17 at 21:00 Celecoxib (CeleBREX) 100 mg BIDWMEALS PO Last administered on 03/01/17 17:18; Start 02/25/17 at 08:00 Furosemide (Lasix) 40 mg DAILY PO Last administered on 03/01/17 09:18; Start at 09:00 Levothyroxine Sodium (Synthroid) 175 mcg DAILY06 PO Last administered on 05:45; Start 02/25/17 at 06:00 Potassium Chloride (Klor-Con) 10 meq DAILYWLUN PO Last administered on 12:58; Start 02/25/17 at 12:00 Senna/Docusate Sodium (Senna Plus) 1 tab BID94 PO Last administered on 17:18; Start 02/25/17 at 09:00 Spironolactone (Aldactone) 25 mg DAILYWLUN PO Last administered on 03/01/17 12: 57; Start 02/25/17 at 12:00 Tamsulosin HCl (Flomax) 0.4 mg DAILYWLUN PO Last administered on 03/01/17 12:57 ; Start 02/25/17 at 12:00 Vitamin D (Vitamin D3) 5,000 unit DAILY16 PO Last administered on 03/01/17 17: 18; Start 02/25/17 at 16:00 Divalproex Sodium (Depakote Sprinkles) 750 mg DAILY PO Last administered on 03/01 09:19; Start 02/27/17 at 09:00 Divalproex Sodium (Depakote Sprinkles) 1,000 mg HS PO Last administered on 19:33; Start 02/26/17 at 21:00 Lorazepam (Ativan) 0.25 mg PRN Q2HR PRN PO ANXIETY / AGITATION; Start 02/28/17 at 22:15 Buspirone HCl (Buspar) 10 mg BID@1400,2100 PO Last administered on 03/01/17 19: 34; Start 03/01/17 at 21:00 Quetiapine Fumarate (SEROquel) 100 mg QHS PO Last administered on 03/01/17 19: 34; Start 03/01/17 at 21:00 Buspirone HCl (Buspar) 15 mg DAILY PO ; Start 03/02/17 at 09:00 Quetiapine Fumarate (SEROquel) 100 mg QHS PO ; Start 03/01/17 at 21:00; Status UNV Quetiapine Fumarate (SEROquel) 112.5 mg BID92 PO ; Start 03/02/17 at 09:00 Active Scripts Active Reported Olanzapine 20 Mg Tablet 20 Mg PO DAILY Celebrex (Celecoxib) 100 Mg Capsule 100 Mg PO BID Potassium Chloride 10 Meq Capsule.er 10 Meq PO DAILYWLUN Spironolactone 25 Mg Tablet 25 Mg PO DAILYWLUN Senna S Tablet (Sennosides/Docusate Sodium) 1 Each Tablet 1 Tab PO BID94 Furosemide 40 Mg Tablet 40 Mg PO DAILY Tamsulosin Hcl 0.4 Mg Cap.er.24h 0.4 Mg PO DAILYWLUN Nuedexta 20-10 Mg Capsule (Dextromethorphan Hbr/Quinidine) 1 Each Capsule 1 Cap PO BID94 Seroquel (Quetiapine Fumarate) 100 Mg Tablet 100 Mg PO TIDWMEALS Bupropion Hcl 75 Mg Tablet 75 Mg PO BID Acetaminophen 500 Mg Tablet 1,000 Mg PO TIDWMEALHC Vitamin D3 (Cholecalciferol (Vitamin D3)) 5,000 Unit Capsule 5,000 Unit PO DAILY16 Buspirone Hcl 10 Mg Tablet 10 Mg PO TIDWMEALS Remeron (Mirtazapine) 15 Mg Tablet 7.5 Mg PO QHS Levothyroxine Sodium 175 Mcg Tablet 175 Mcg PO DAILY06 Lorazepam 1 Mg Tablet 1 Mg PO BID94 Fluvoxamine Maleate 100 Mg Tablet 150 Mg PO BID Atorvastatin Calcium 20 Mg Tablet 20 Mg PO HS Divalproex Sodium 125 Mg Cap.sprink 750 Mg PO BID94 LIDIA GARRIDO MD Mar 01, 2017 20:45
[2017-03-01] MEDS ORDERED: QUEtiapine 25 MG TABLET. PO SCH (21:00)
[2017-03-02] MEDS: LEVOTHYROXINE 175 MCG TABLET PO SCH (05:27)
[2017-03-02 06:01] VITALS: BP 132/89
[2017-03-02] MEDS: OLANZapine 10 MG TABLET PO SCH (07:55)
[2017-03-02] MEDS: buPROPion 75 MG TABLET PO SCH ×2 (07:55→19:36)
[2017-03-02] MEDS: FUROSEMIDE 40 MG TABLET PO SCH (07:55)
[2017-03-02] MEDS: SENNOSIDES/DOCUSATE 8.6/50MG TABLET. PO SCH ×2 (07:55→16:56)
[2017-03-02] MEDS: DIVALPROEX 125 MG CAP.SPRINK PO SCH ×2 (07:56→19:35)
[2017-03-02] MEDS: ACETAMINOPHEN 500 MG TABLET PO SCH ×4 (07:57→19:38)
[2017-03-02] MEDS: CELECOXIB 100 MG CAPSULE PO SCH ×2 (07:58→16:56)
[2017-03-02] MEDS: LORazepam 1 MG TABLET PO SCH ×2 (08:00→16:56)
[2017-03-02] MEDS: QUEtiapine 25 MG TABLET. PO SCH ×2 (08:00→15:06)
[2017-03-02] MEDS: busPIRone 15 MG TABLET. PO SCH (08:00)
[2017-03-02] MEDS: busPIRone 10 MG TABLET. PO SCH ×2 (15:05→19:35)
[2017-03-02] MEDS: TAMSULOSIN 0.4 MG CAP.ER.24H. PO SCH (15:05)
[2017-03-02] MEDS: SPIRONOLACTONE 25 MG TABLET PO SCH (15:05)
[2017-03-02] MEDS: POTASSIUM CHLORIDE 10 MEQ TABLET.ER. PO SCH (15:07)
[2017-03-02 16:22] VITALS: BP 125/85
[2017-03-02] MEDS: CHOLECALCIFEROL (VITAMIN D3) 1,000 UNIT TABLET PO SCH (16:57)
[2017-03-02] MEDS: ATORVASTATIN CALCIUM 20 MG TABLET PO SCH (19:36)
[2017-03-02] MEDS: MIRTAZAPINE 7.5 MG TABLET. PO SCH (19:36)
[2017-03-02] MEDS: QUEtiapine 100 MG TABLET. PO SCH (19:36)
--- NOTE | 2017-03-02 20:03 | PDOC ---
Exam Bran Demential Exam: Bran Note: Please also refer to the separate dictated note~for this date of service dictated separately.~Patient seen individually. Discussed the patient with Nursing staff reviewed the chart.~Reviewed interim history and current functioning. Reviewed vital signs,~Labs/ Radiology~and current medications noted below. Continue current treatment with the changes noted in the dictated addendum note DATE OF SERVICE: 02/28/2017. PSYCHIATRIC PROGRESS NOTE This is a late entry for Date of Service 02/28/2017 and covers elements not covered in my initial note of 02/28/2017. Per nursing report the patient has been anxious, crying, tearful, restless at times, paranoid, does not want to . Thinks staff is going to kill him. No p.r.n. is given today. REVIEW OF SYSTEMS: Ambulation impaired and has wheelchair. No CV, , pulmonary, eye, ENT systems symptoms, on review. Reliability poor. MENTAL STATUS EXAM: Oriented to himself. Insight and judgment, recent and remote memory, attention and concentration, fund of knowledge poor consistent with his diagnoses mentioned in my initial note. IMPRESSION: Major neurocognitive disorder, multifactorial, secondary to [place]; Alzheimer vascular with delusion, depression, behavioral disturbance; obsessive compulsive disorder; anxiety disorder, unspecified; impulse control disorder, unspecified. PLAN: Continue current psychotropics mentioned in my initial note. Add Ativan p.r.n. Valproic acid level is 60. Continue Depakote at current dosage. May need to increase Seroquel in due course. Assessment: Vital Signs: Vital Signs Date Time Temp Pulse Resp B/P (MAP) Pulse Ox O2 Delivery O2 Flow Rate FiO2 03/02/17 16:22 97.8 101 22 125/85 (98) 93 03/01/17 15:50 Room Air I&O Intake and Output 03/02/17 07:00 Intake Total 1680 ml Balance 1680 ml Intake Oral 1680 ml # Bowel Movements 1 Current Medications: Meds: Current Medications Fluvoxamine Maleate (Luvox) 150 mg BID PO Last administered on 03/02/17 19:35; Start 02/24/17 at 22:00 Mirtazapine (Remeron) 7.5 mg QHS PO Last administered on 03/02/17 19:36; Start 02/24/17 at 22:00 Olanzapine (ZyPREXA) 20 mg DAILY PO Last administered on 03/02/17 07:55; Start 02/25/17 at 09:00 Bupropion HCl (Wellbutrin) 75 mg BID PO Last administered on 03/02/17 19:36; Start 02/24/17 at 22:00 Buspirone HCl (Buspar) 10 mg TIDWMEALS PO Last administered on 03/01/17 17:18; Start 02/25/17 at 08:00; Stop 03/01/17 at 18:03; Status DC Divalproex Sodium (Depakote Sprinkles) 750 mg BID94 PO Last administered on 08:14; Start 02/25/17 at 09:00; Stop 02/26/17 at 14:46; Status DC Lorazepam (Ativan) 1 mg BID94 PO Last administered on 03/02/17 16:56; Start at 09:00 Quetiapine Fumarate (SEROquel) 100 mg TIDWMEALS PO Last administered on 17:18; Start 02/25/17 at 08:00; Stop 03/01/17 at 18:03; Status DC Acetaminophen (Tylenol) 650 mg PRN Q6HRS PRN PO PAIN / TEMP; Start 02/24/17 at 21:15 Multi-Ingredient Ointment (Analgesic [place]) 1 alistair PRN QID PRN TP MUSCLE PAIN; Start 02/24/17 at 21:15 Al Hydroxide/Mg Hydroxide (Mylanta Plus Xs) 15 ml PRN AFTMEALHC PRN PO DYSPEPSIA; Start 02/24/17 at 21:15 Magnesium Hydroxide (Milk Of Magnesia) 2,400 mg PRN QHS PRN PO CONSTIPATION; Start 02/24/17 at 21:15 Acetaminophen (Tylenol) 1,000 mg TIDWMEALHC PO Last administered on 03/02/17 19 :38; Start 02/25/17 at 08:00 Atorvastatin Calcium (Lipitor) 20 mg HS PO Last administered on 03/02/17 19:36 ; Start 02/25/17 at 21:00 Celecoxib (CeleBREX) 100 mg BIDWMEALS PO Last administered on 03/02/17 16:56; Start 02/25/17 at 08:00 Furosemide (Lasix) 40 mg DAILY PO Last administered on 03/02/17 07:55; Start at 09:00 Levothyroxine Sodium (Synthroid) 175 mcg DAILY06 PO Last administered on 05:27; Start 02/25/17 at 06:00 Potassium Chloride (Klor-Con) 10 meq DAILYWLUN PO Last administered on 15:07; Start 02/25/17 at 12:00 Senna/Docusate Sodium (Senna Plus) 1 tab BID94 PO Last administered on 16:56; Start 02/25/17 at 09:00 Spironolactone (Aldactone) 25 mg DAILYWLUN PO Last administered on 03/02/17 15: 05; Start 02/25/17 at 12:00 Tamsulosin HCl (Flomax) 0.4 mg DAILYWLUN PO Last administered on 03/02/17 15:05 ; Start 02/25/17 at 12:00 Vitamin D (Vitamin D3) 5,000 unit DAILY16 PO Last administered on 03/02/17 16: 57; Start 02/25/17 at 16:00 Divalproex Sodium (Depakote Sprinkles) 750 mg DAILY PO Last administered on 03/02 07:56; Start 02/27/17 at 09:00 Divalproex Sodium (Depakote Sprinkles) 1,000 mg HS PO Last administered on 19:35; Start 02/26/17 at 21:00 Lorazepam (Ativan) 0.25 mg PRN Q2HR PRN PO ANXIETY / AGITATION; Start 02/28/17 at 22:15 Buspirone HCl (Buspar) 10 mg BID@1400,2100 PO Last administered on 03/02/17 19: 35; Start 03/01/17 at 21:00 Quetiapine Fumarate (SEROquel) 100 mg QHS PO Last administered on 03/02/17 19: 36; Start 03/01/17 at 21:00 Buspirone HCl (Buspar) 15 mg DAILY PO Last administered on 03/02/17 08:00; Start 03/02/17 at 09:00 Quetiapine Fumarate (SEROquel) 100 mg QHS PO ; Start 03/01/17 at 21:00; Status UNV Quetiapine Fumarate (SEROquel) 112.5 mg BID92 PO Last administered on 03/02/17t 15:06; Start 03/02/17 at 09:00 Active Scripts Active Reported Olanzapine 20 Mg Tablet 20 Mg PO DAILY Celebrex (Celecoxib) 100 Mg Capsule 100 Mg PO BID Potassium Chloride 10 Meq Capsule.er 10 Meq PO DAILYWLUN Spironolactone 25 Mg Tablet 25 Mg PO DAILYWLUN Senna S Tablet (Sennosides/Docusate Sodium) 1 Each Tablet 1 Tab PO BID94 Furosemide 40 Mg Tablet 40 Mg PO DAILY Tamsulosin Hcl 0.4 Mg Cap.er.24h 0.4 Mg PO DAILYWLUN Nuedexta 20-10 Mg Capsule (Dextromethorphan Hbr/Quinidine) 1 Each Capsule 1 Cap PO BID94 Seroquel (Quetiapine Fumarate) 100 Mg Tablet 100 Mg PO TIDWMEALS Bupropion Hcl 75 Mg Tablet 75 Mg PO BID Acetaminophen 500 Mg Tablet 1,000 Mg PO TIDWMEALHC Vitamin D3 (Cholecalciferol (Vitamin D3)) 5,000 Unit Capsule 5,000 Unit PO DAILY16 Buspirone Hcl 10 Mg Tablet 10 Mg PO TIDWMEALS Remeron (Mirtazapine) 15 Mg Tablet 7.5 Mg PO QHS Levothyroxine Sodium 175 Mcg Tablet 175 Mcg PO DAILY06 Lorazepam 1 Mg Tablet 1 Mg PO BID94 Fluvoxamine Maleate 100 Mg Tablet 150 Mg PO BID Atorvastatin Calcium 20 Mg Tablet 20 Mg PO HS Divalproex Sodium 125 Mg Cap.sprink 750 Mg PO BID94 LIDIA GARRIDO MD Mar 02, 2017 20:03
--- NOTE | 2017-03-02 20:43 | PDOC ---
Exam Bran Demential Exam: Bran Note: Please also refer to the separate dictated note~for this date of service dictated separately.~Patient seen individually. Discussed the patient with Nursing staff reviewed the chart.~Reviewed interim history and current functioning. Reviewed vital signs,~Labs/ Radiology~and current medications noted below. Continue current treatment with the changes noted in the dictated addendum note Assessment: Vital Signs: Vital Signs Date Time Temp Pulse Resp B/P (MAP) Pulse Ox O2 Delivery O2 Flow Rate FiO2 03/02/17 16:22 97.8 101 22 125/85 (98) 93 03/01/17 15:50 Room Air I&O Intake and Output 03/02/17 07:00 Intake Total 1680 ml Balance 1680 ml Intake Oral 1680 ml # Bowel Movements 1 Current Medications: Meds: Current Medications Fluvoxamine Maleate (Luvox) 150 mg BID PO Last administered on 03/02/17 19:35; Start 02/24/17 at 22:00 Mirtazapine (Remeron) 7.5 mg QHS PO Last administered on 03/02/17 19:36; Start 02/24/17 at 22:00 Olanzapine (ZyPREXA) 20 mg DAILY PO Last administered on 03/02/17 07:55; Start 02/25/17 at 09:00 Bupropion HCl (Wellbutrin) 75 mg BID PO Last administered on 03/02/17 19:36; Start 02/24/17 at 22:00 Buspirone HCl (Buspar) 10 mg TIDWMEALS PO Last administered on 03/01/17 17:18; Start 02/25/17 at 08:00; Stop 03/01/17 at 18:03; Status DC Divalproex Sodium (Depakote Sprinkles) 750 mg BID94 PO Last administered on 08:14; Start 02/25/17 at 09:00; Stop 02/26/17 at 14:46; Status DC Lorazepam (Ativan) 1 mg BID94 PO Last administered on 03/02/17 16:56; Start at 09:00 Quetiapine Fumarate (SEROquel) 100 mg TIDWMEALS PO Last administered on 17:18; Start 02/25/17 at 08:00; Stop 03/01/17 at 18:03; Status DC Acetaminophen (Tylenol) 650 mg PRN Q6HRS PRN PO PAIN / TEMP; Start 02/24/17 at 21:15 Multi-Ingredient Ointment (Analgesic [place]) 1 alistair PRN QID PRN TP MUSCLE PAIN; Start 02/24/17 at 21:15 Al Hydroxide/Mg Hydroxide (Mylanta Plus Xs) 15 ml PRN AFTMEALHC PRN PO DYSPEPSIA; Start 02/24/17 at 21:15 Magnesium Hydroxide (Milk Of Magnesia) 2,400 mg PRN QHS PRN PO CONSTIPATION; Start 02/24/17 at 21:15 Acetaminophen (Tylenol) 1,000 mg TIDWMEALHC PO Last administered on 03/02/17 19 :38; Start 02/25/17 at 08:00 Atorvastatin Calcium (Lipitor) 20 mg HS PO Last administered on 03/02/17 19:36 ; Start 02/25/17 at 21:00 Celecoxib (CeleBREX) 100 mg BIDWMEALS PO Last administered on 03/02/17 16:56; Start 02/25/17 at 08:00 Furosemide (Lasix) 40 mg DAILY PO Last administered on 03/02/17 07:55; Start at 09:00 Levothyroxine Sodium (Synthroid) 175 mcg DAILY06 PO Last administered on 05:27; Start 02/25/17 at 06:00 Potassium Chloride (Klor-Con) 10 meq DAILYWLUN PO Last administered on 15:07; Start 02/25/17 at 12:00 Senna/Docusate Sodium (Senna Plus) 1 tab BID94 PO Last administered on 16:56; Start 02/25/17 at 09:00 Spironolactone (Aldactone) 25 mg DAILYWLUN PO Last administered on 03/02/17 15: 05; Start 02/25/17 at 12:00 Tamsulosin HCl (Flomax) 0.4 mg DAILYWLUN PO Last administered on 03/02/17 15:05 ; Start 02/25/17 at 12:00 Vitamin D (Vitamin D3) 5,000 unit DAILY16 PO Last administered on 03/02/17 16: 57; Start 02/25/17 at 16:00 Divalproex Sodium (Depakote Sprinkles) 750 mg DAILY PO Last administered on 03/02 07:56; Start 02/27/17 at 09:00 Divalproex Sodium (Depakote Sprinkles) 1,000 mg HS PO Last administered on 19:35; Start 02/26/17 at 21:00 Lorazepam (Ativan) 0.25 mg PRN Q2HR PRN PO ANXIETY / AGITATION; Start 02/28/17 at 22:15 Buspirone HCl (Buspar) 10 mg BID@1400,2100 PO Last administered on 03/02/17 19: 35; Start 03/01/17 at 21:00 Quetiapine Fumarate (SEROquel) 100 mg QHS PO Last administered on 03/02/17 19: 36; Start 03/01/17 at 21:00 Buspirone HCl (Buspar) 15 mg DAILY PO Last administered on 03/02/17 08:00; Start 03/02/17 at 09:00 Quetiapine Fumarate (SEROquel) 100 mg QHS PO ; Start 03/01/17 at 21:00; Status UNV Quetiapine Fumarate (SEROquel) 112.5 mg BID92 PO Last administered on 03/02/17 15:06; Start 03/02/17 at 09:00 Active Scripts Active Reported Olanzapine 20 Mg Tablet 20 Mg PO DAILY Celebrex (Celecoxib) 100 Mg Capsule 100 Mg PO BID Potassium Chloride 10 Meq Capsule.er 10 Meq PO DAILYWLUN Spironolactone 25 Mg Tablet 25 Mg PO DAILYWLUN Senna S Tablet (Sennosides/Docusate Sodium) 1 Each Tablet 1 Tab PO BID94 Furosemide 40 Mg Tablet 40 Mg PO DAILY Tamsulosin Hcl 0.4 Mg Cap.er.24h 0.4 Mg PO DAILYWLUN Nuedexta 20-10 Mg Capsule (Dextromethorphan Hbr/Quinidine) 1 Each Capsule 1 Cap PO BID94 Seroquel (Quetiapine Fumarate) 100 Mg Tablet 100 Mg PO TIDWMEALS Bupropion Hcl 75 Mg Tablet 75 Mg PO BID Acetaminophen 500 Mg Tablet 1,000 Mg PO TIDWMEALHC Vitamin D3 (Cholecalciferol (Vitamin D3)) 5,000 Unit Capsule 5,000 Unit PO DAILY16 Buspirone Hcl 10 Mg Tablet 10 Mg PO TIDWMEALS Remeron (Mirtazapine) 15 Mg Tablet 7.5 Mg PO QHS Levothyroxine Sodium 175 Mcg Tablet 175 Mcg PO DAILY06 Lorazepam 1 Mg Tablet 1 Mg PO BID94 Fluvoxamine Maleate 100 Mg Tablet 150 Mg PO BID Atorvastatin Calcium 20 Mg Tablet 20 Mg PO HS Divalproex Sodium 125 Mg Cap.sprink 750 Mg PO BID94 Diagnosis: Problems: (1) Dementia in [place]'s disease with behavioral disturbance (2) Anxiety disorder (3) Impulse control disorder (4) Major depressive disorder, recurrent episode (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
[2017-03-03] MEDS: LEVOTHYROXINE 175 MCG TABLET PO SCH (05:01)
[2017-03-03 05:59] VITALS: BP 152/90
[2017-03-03] MEDS: ACETAMINOPHEN 500 MG TABLET PO SCH ×4 (07:55→19:59)
[2017-03-03] MEDS: SENNOSIDES/DOCUSATE 8.6/50MG TABLET. PO SCH ×2 (07:55→16:06)
[2017-03-03] MEDS: DIVALPROEX 125 MG CAP.SPRINK PO SCH ×2 (07:56→19:58)
[2017-03-03] MEDS: QUEtiapine 25 MG TABLET. PO SCH ×2 (07:56→16:06)
[2017-03-03] MEDS: OLANZapine 10 MG TABLET PO SCH (07:56)
[2017-03-03] MEDS: busPIRone 15 MG TABLET. PO SCH (07:56)
[2017-03-03] MEDS: buPROPion 75 MG TABLET PO SCH ×2 (07:56→19:58)
[2017-03-03] MEDS: FUROSEMIDE 40 MG TABLET PO SCH (07:57)
[2017-03-03] MEDS: LORazepam 1 MG TABLET PO SCH ×2 (07:58→16:06)
[2017-03-03] MEDS: CELECOXIB 100 MG CAPSULE PO SCH ×2 (07:58→16:07)
[2017-03-03] MEDS: POTASSIUM CHLORIDE 10 MEQ TABLET.ER. PO SCH (12:00)
[2017-03-03] MEDS: SPIRONOLACTONE 25 MG TABLET PO SCH (12:04)
[2017-03-03] MEDS: TAMSULOSIN 0.4 MG CAP.ER.24H. PO SCH (12:04)
[2017-03-03 13:07] LABS: BASO # 0.1 x10^3/uL (0.0-0.2); BASO % 1 % (0-3); EOS # 0.4 x10^3/uL (0.0-0.7); EOS % 4 % (0-3); HEMATOCRIT 41.4 % (39.0-53.0); HEMOGLOBIN 13.8 g/dL (13.0-17.5); LYMPH % 21 % (24-48); MEAN CORPUSCULAR HEMOGLOBIN 29 pg (25-35); MEAN CORPUSCULAR HGB CONC 33 g/dL (31-37); MEAN CORPUSCULAR VOLUME 88 fL (79-100); MONO # 1.1 x10^3/uL (0.0-1.1); MONO % 12 % (0-9); NEUT # 5.8 x10^3uL (1.8-7.7); NEUT % 62 % (31-73); PLATELET COUNT 223 x10^3/uL (140-400); RED BLOOD COUNT 4.71 x10^6/uL (4.30-5.70); RED CELL DISTRIBUTION WIDTH 15.4 % (11.5-14.5); WHITE BLOOD COUNT 9.4 x10^3/uL (4.0-11.0)
[2017-03-03 13:14] LABS: ALBUMIN 3.6 g/dL (3.4-5.0); ALBUMIN/GLOBULIN RATIO 0.9 (1.0-1.7); CALCIUM 8.9 mg/dL (8.5-10.1); CREATININE 1.1 mg/dL (0.7-1.3); GFR 68.5; POTASSIUM 4.4 mmol/L (3.5-5.1); TOTAL BILIRUBIN 0.2 mg/dL (0.2-1.0); TOTAL PROTEIN 7.5 g/dL (6.4-8.2)
--- NOTE | 2017-03-03 13:48 | RAD ---
Portable chest, 03/03/2017: History: Possible aspiration Comparison is made to a study from 07/09/2016. The patient positioning is kyphotic and rotated. The heart is probably within normal limits in size. The pulmonary vascularity is normal. There are mild streaky pulmonary opacities in the perihilar regions and lung bases suggesting atelectasis/infiltrate. Pleural thickening inferolaterally on the left was also present on the previous study and may be due to scarring or pleural fluid. The right lateral costophrenic angle is obscured. IMPRESSION: 1. Mild bilateral streaky atelectasis/infiltrate. 2. Possible small pleural effusions.
[2017-03-03] MEDS: busPIRone 10 MG TABLET. PO SCH ×2 (16:06→19:57)
[2017-03-03] MEDS: CHOLECALCIFEROL (VITAMIN D3) 1,000 UNIT TABLET PO SCH (16:06)
[2017-03-03 16:10] VITALS: BP 118/82
--- NOTE | 2017-03-03 19:50 | PDOC ---
Exam Bran Demential Exam: Bran Note: Please also refer to the separate dictated note~for this date of service dictated separately.~Patient seen individually. Discussed the patient with Nursing staff reviewed the chart.~Reviewed interim history and current functioning. Reviewed vital signs,~Labs/ Radiology~and current medications noted below. Continue current treatment with the changes noted in the dictated addendum note Assessment: Vital Signs: Vital Signs Date Time Temp Pulse Resp B/P (MAP) Pulse Ox O2 Delivery O2 Flow Rate FiO2 03/03/17 16:10 97.8 85 20 118/82 (94) 92 03/01/17 15:50 Room Air I&O Intake and Output 03/03/17 07:00 Intake Total 2160 ml Balance 2160 ml Intake Oral 2160 ml Labs: Laboratory Tests Test 03/03/17 12:52 White Blood Count 9.4 x10^3/uL (4.0-11.0) Red Blood Count 4.71 x10^6/uL (4.30-5.70) Hemoglobin 13.8 g/dL (13.0-17.5) Hematocrit 41.4 % (39.0-53.0) Mean Corpuscular Volume 88 fL (79-100) Mean Corpuscular Hemoglobin 29 pg (25-35) Mean Corpuscular Hemoglobin Concent 33 g/dL (31-37) Red Cell Distribution Width 15.4 % (11.5-14.5) H Platelet Count 223 x10^3/uL (140-400) Neutrophils (%) (Auto) 62 % (31-73) Lymphocytes (%) (Auto) 21 % (24-48) L Monocytes (%) (Auto) 12 % (0-9) H Eosinophils (%) (Auto) 4 % (0-3) H Basophils (%) (Auto) 1 % (0-3) Neutrophils # (Auto) 5.8 x10^3uL (1.8-7.7) Lymphocytes # (Auto) 2.0 x10^3/uL (1.0-4.8) Monocytes # (Auto) 1.1 x10^3/uL (0.0-1.1) Eosinophils # (Auto) 0.4 x10^3/uL (0.0-0.7) Basophils # (Auto) 0.1 x10^3/uL (0.0-0.2) Sodium Level 142 mmol/L (136-145) Potassium Level 4.4 mmol/L (3.5-5.1) Chloride Level 102 mmol/L (98-107) Carbon Dioxide Level 34 mmol/L (21-32) H Anion Gap 6 (6-14) Blood Urea Nitrogen 24 mg/dL (8-26) Creatinine 1.1 mg/dL (0.7-1.3) Estimated GFR (Cockcroft-Gault) 68.5 BUN/Creatinine Ratio 22 (6-20) H Glucose Level 126 mg/dL (70-99) H Calcium Level 8.9 mg/dL (8.5-10.1) Total Bilirubin 0.2 mg/dL (0.2-1.0) Aspartate Amino Transferase (AST) 12 U/L (15-37) L Alanine Aminotransferase (ALT) 16 U/L (16-63) Alkaline Phosphatase 86 U/L (46-116) Total Protein 7.5 g/dL (6.4-8.2) Albumin 3.6 g/dL (3.4-5.0) Albumin/Globulin Ratio 0.9 (1.0-1.7) L Current Medications: Meds: Current Medications Fluvoxamine Maleate (Luvox) 150 mg BID PO Last administered on 03/03/17 07:56; Start 02/24/17 at 22:00 Mirtazapine (Remeron) 7.5 mg QHS PO Last administered on 03/02/17 19:36; Start 02/24/17 at 22:00 Olanzapine (ZyPREXA) 20 mg DAILY PO Last administered on 03/03/17 07:56; Start 02/25/17 at 09:00 Bupropion HCl (Wellbutrin) 75 mg BID PO Last administered on 03/03/17 07:56; Start 02/24/17 at 22:00 Buspirone HCl (Buspar) 10 mg TIDWMEALS PO Last administered on 03/01/17 17:18; Start 02/25/17 at 08:00; Stop 03/01/17 at 18:03; Status DC Divalproex Sodium (Depakote Sprinkles) 750 mg BID94 PO Last administered on 08:14; Start 02/25/17 at 09:00; Stop 02/26/17 at 14:46; Status DC Lorazepam (Ativan) 1 mg BID94 PO Last administered on 03/03/17 16:06; Start at 09:00 Quetiapine Fumarate (SEROquel) 100 mg TIDWMEALS PO Last administered on 17:18; Start 02/25/17 at 08:00; Stop 03/01/17 at 18:03; Status DC Acetaminophen (Tylenol) 650 mg PRN Q6HRS PRN PO PAIN / TEMP; Start 02/24/17 at 21:15 Multi-Ingredient Ointment (Analgesic [place]) 1 alistair PRN QID PRN TP MUSCLE PAIN; Start 02/24/17 at 21:15 Al Hydroxide/Mg Hydroxide (Mylanta Plus Xs) 15 ml PRN AFTMEALHC PRN PO DYSPEPSIA; Start 02/24/17 at 21:15 Magnesium Hydroxide (Milk Of Magnesia) 2,400 mg PRN QHS PRN PO CONSTIPATION; Start 02/24/17 at 21:15 Acetaminophen (Tylenol) 1,000 mg TIDWMEALHC PO Last administered on 03/03/17 16 :06; Start 02/25/17 at 08:00 Atorvastatin Calcium (Lipitor) 20 mg HS PO Last administered on 03/02/17 19:36 ; Start 02/25/17 at 21:00 Celecoxib (CeleBREX) 100 mg BIDWMEALS PO Last administered on 03/03/17 16:07; Start 02/25/17 at 08:00 Furosemide (Lasix) 40 mg DAILY PO Last administered on 03/03/17 07:57; Start at 09:00 Levothyroxine Sodium (Synthroid) 175 mcg DAILY06 PO Last administered on 05:01; Start 02/25/17 at 06:00 Potassium Chloride (Klor-Con) 10 meq DAILYWLUN PO Last administered on 15:07; Start 02/25/17 at 12:00 Senna/Docusate Sodium (Senna Plus) 1 tab BID94 PO Last administered on 16:06; Start 02/25/17 at 09:00 Spironolactone (Aldactone) 25 mg DAILYWLUN PO Last administered on 03/03/17 12: 04; Start 02/25/17 at 12:00 Tamsulosin HCl (Flomax) 0.4 mg DAILYWLUN PO Last administered on 03/03/17 12:04 ; Start 02/25/17 at 12:00 Vitamin D (Vitamin D3) 5,000 unit DAILY16 PO Last administered on 03/03/17 16: 06; Start 02/25/17 at 16:00 Divalproex Sodium (Depakote Sprinkles) 750 mg DAILY PO Last administered on 03/03 07:56; Start 02/27/17 at 09:00 Divalproex Sodium (Depakote Sprinkles) 1,000 mg HS PO Last administered on 19:35; Start 02/26/17 at 21:00 Lorazepam (Ativan) 0.25 mg PRN Q2HR PRN PO ANXIETY / AGITATION; Start 02/28/17 at 22:15 Buspirone HCl (Buspar) 10 mg BID@1400,2100 PO Last administered on 03/03/17 16: 06; Start 03/01/17 at 21:00 Quetiapine Fumarate (SEROquel) 100 mg QHS PO Last administered on 03/02/17 19: 36; Start 03/01/17 at 21:00 Buspirone HCl (Buspar) 15 mg DAILY PO Last administered on 03/03/17 07:56; Start 03/02/17 at 09:00 Quetiapine Fumarate (SEROquel) 100 mg QHS PO ; Start 03/01/17 at 21:00; Status UNV Quetiapine Fumarate (SEROquel) 112.5 mg BID92 PO Last administered on 03/03/17 16:06; Start 03/02/17 at 09:00 Active Scripts Active Reported Olanzapine 20 Mg Tablet 20 Mg PO DAILY Celebrex (Celecoxib) 100 Mg Capsule 100 Mg PO BID Potassium Chloride 10 Meq Capsule.er 10 Meq PO DAILYWLUN Spironolactone 25 Mg Tablet 25 Mg PO DAILYWLUN Senna S Tablet (Sennosides/Docusate Sodium) 1 Each Tablet 1 Tab PO BID94 Furosemide 40 Mg Tablet 40 Mg PO DAILY Tamsulosin Hcl 0.4 Mg Cap.er.24h 0.4 Mg PO DAILYWLUN Nuedexta 20-10 Mg Capsule (Dextromethorphan Hbr/Quinidine) 1 Each Capsule 1 Cap PO BID94 Seroquel (Quetiapine Fumarate) 100 Mg Tablet 100 Mg PO TIDWMEALS Bupropion Hcl 75 Mg Tablet 75 Mg PO BID Acetaminophen 500 Mg Tablet 1,000 Mg PO TIDWMEALHC Vitamin D3 (Cholecalciferol (Vitamin D3)) 5,000 Unit Capsule 5,000 Unit PO DAILY16 Buspirone Hcl 10 Mg Tablet 10 Mg PO TIDWMEALS Remeron (Mirtazapine) 15 Mg Tablet 7.5 Mg PO QHS Levothyroxine Sodium 175 Mcg Tablet 175 Mcg PO DAILY06 Lorazepam 1 Mg Tablet 1 Mg PO BID94 Fluvoxamine Maleate 100 Mg Tablet 150 Mg PO BID Atorvastatin Calcium 20 Mg Tablet 20 Mg PO HS Divalproex Sodium 125 Mg Cap.sprink 750 Mg PO BID94 Diagnosis: Problems: (1) Dementia in [place]'s disease with behavioral disturbance (2) Anxiety disorder (3) Impulse control disorder (4) Major depressive disorder, recurrent episode LIDIA GARRIDO MD Mar 03, 2017 19:50
[2017-03-03] MEDS: MIRTAZAPINE 7.5 MG TABLET. PO SCH (19:58)
[2017-03-03] MEDS: ATORVASTATIN CALCIUM 20 MG TABLET PO SCH (19:58)
[2017-03-03] MEDS: QUEtiapine 100 MG TABLET. PO SCH (19:58)
[2017-03-04] MEDS: LEVOTHYROXINE 175 MCG TABLET PO SCH (05:09)
[2017-03-04 06:07] VITALS: BP 139/94
[2017-03-04] MEDS: busPIRone 15 MG TABLET. PO SCH (08:40)
[2017-03-04] MEDS: CELECOXIB 100 MG CAPSULE PO SCH ×2 (08:40→15:52)
[2017-03-04] MEDS: LORazepam 1 MG TABLET PO SCH ×2 (08:40→15:53)
[2017-03-04] MEDS: DIVALPROEX 125 MG CAP.SPRINK PO SCH ×2 (08:41→19:42)
[2017-03-04] MEDS: QUEtiapine 25 MG TABLET. PO SCH ×2 (08:41→14:15)
[2017-03-04] MEDS: FUROSEMIDE 40 MG TABLET PO SCH (08:42)
[2017-03-04] MEDS: OLANZapine 10 MG TABLET PO SCH (08:43)
[2017-03-04] MEDS: buPROPion 75 MG TABLET PO SCH ×2 (08:44→19:42)
[2017-03-04] MEDS: SENNOSIDES/DOCUSATE 8.6/50MG TABLET. PO SCH ×2 (08:44→15:52)
[2017-03-04] MEDS: ACETAMINOPHEN 500 MG TABLET PO SCH ×4 (08:44→19:42)
[2017-03-04] MEDS: POTASSIUM CHLORIDE 10 MEQ TABLET.ER. PO SCH (12:23)
[2017-03-04] MEDS: TAMSULOSIN 0.4 MG CAP.ER.24H. PO SCH (12:23)
[2017-03-04] MEDS: SPIRONOLACTONE 25 MG TABLET PO SCH (12:23)
[2017-03-04] MEDS: busPIRone 10 MG TABLET. PO SCH ×2 (14:14→19:41)
[2017-03-04] MEDS: LORazepam 0.5 MG TABLET PO PRN (14:15)
[2017-03-04 15:30] VITALS: BP 119/82
[2017-03-04] MEDS: CHOLECALCIFEROL (VITAMIN D3) 1,000 UNIT TABLET PO SCH (15:52)
[2017-03-04] MEDS: QUEtiapine 100 MG TABLET. PO SCH (19:42)
[2017-03-04] MEDS: MIRTAZAPINE 7.5 MG TABLET. PO SCH (19:42)
[2017-03-04] MEDS: ATORVASTATIN CALCIUM 20 MG TABLET PO SCH (19:42)
--- NOTE | 2017-03-04 20:09 | PDOC ---
Exam Bran Demential Exam: Bran Note: Please also refer to the separate dictated note~for this date of service dictated separately.~Patient seen individually. Discussed the patient with Nursing staff reviewed the chart.~Reviewed interim history and current functioning. Reviewed vital signs,~Labs/ Radiology~and current medications noted below. Continue current treatment with the changes noted in the dictated addendum note S/O: This is a late entry for date of service 03/01/2017. This note covers elements not covered in my initial note of March 01. The patient slept 7 hours last night, was agitated this morning, swinging at nursing staff and later apologizing because of his impulsivity. He has been tearful, compliant with his medications, quite labile, aggressive at times. His daughter visited this evening and I met with him late this evening of March 01. Review of Systems: Ambulation impaired in [place]da chair. No CV, , Pulmonary, Eye, ENT system symptoms on review. Reliability poor. MSE: Oriented to himself. Insight, judgment, recent and remote memory, attention, concentration, fund of knowledge are poor consistent with his diagnosis, unchanged from initial note. Plan: Increase Seroquel from 100 mg three times a day to 112.5 mg morning and afternoon, 100 mg in the evening and BuSpar from 10 mg three times a day to 15 mg in the morning and 10 mg twice a day. Continue rest of the psychotropics, adjust as clinically indicated. Assessment: Vital Signs: Vital Signs Date Time Temp Pulse Resp B/P (MAP) Pulse Ox O2 Delivery O2 Flow Rate FiO2 03/04/17 15:30 97.3 87 20 119/82 (94) 94 03/04/17 06:07 Room Air I&O Intake and Output 03/04/17 07:00 Intake Total 1440 ml Balance 1440 ml Intake Oral 1440 ml # Bowel Movements 1 Current Medications: Meds: Current Medications Fluvoxamine Maleate (Luvox) 150 mg BID PO Last administered on 03/04/17 19:42; Start 02/24/17 at 22:00 Mirtazapine (Remeron) 7.5 mg QHS PO Last administered on 03/04/17 19:42; Start 02/24/17 at 22:00 Olanzapine (ZyPREXA) 20 mg DAILY PO Last administered on 03/04/17 08:43; Start 02/25/17 at 09:00 Bupropion HCl (Wellbutrin) 75 mg BID PO Last administered on 03/04/17 19:42; Start 02/24/17 at 22:00 Buspirone HCl (Buspar) 10 mg TIDWMEALS PO Last administered on 03/01/17 17:18; Start 02/25/17 at 08:00; Stop 03/01/17 at 18:03; Status DC Divalproex Sodium (Depakote Sprinkles) 750 mg BID94 PO Last administered on 08:14; Start 02/25/17 at 09:00; Stop 02/26/17 at 14:46; Status DC Lorazepam (Ativan) 1 mg BID94 PO Last administered on 03/04/17 15:53; Start at 09:00 Quetiapine Fumarate (SEROquel) 100 mg TIDWMEALS PO Last administered on 17:18; Start 02/25/17 at 08:00; Stop 03/01/17 at 18:03; Status DC Acetaminophen (Tylenol) 650 mg PRN Q6HRS PRN PO PAIN / TEMP; Start 02/24/17 at 21:15 Multi-Ingredient Ointment (Analgesic [place]) 1 alistair PRN QID PRN TP MUSCLE PAIN; Start 02/24/17 at 21:15 Al Hydroxide/Mg Hydroxide (Mylanta Plus Xs) 15 ml PRN AFTMEALHC PRN PO DYSPEPSIA; Start 02/24/17 at 21:15 Magnesium Hydroxide (Milk Of Magnesia) 2,400 mg PRN QHS PRN PO CONSTIPATION; Start 02/24/17 at 21:15 Acetaminophen (Tylenol) 1,000 mg TIDWMEALHC PO Last administered on 03/04/17 19 :42; Start 02/25/17 at 08:00 Atorvastatin Calcium (Lipitor) 20 mg HS PO Last administered on 03/04/17 19:42 ; Start 02/25/17 at 21:00 Celecoxib (CeleBREX) 100 mg BIDWMEALS PO Last administered on 03/04/17 15:52; Start 02/25/17 at 08:00 Furosemide (Lasix) 40 mg DAILY PO Last administered on 03/04/17 08:42; Start at 09:00 Levothyroxine Sodium (Synthroid) 175 mcg DAILY06 PO Last administered on 05:09; Start 02/25/17 at 06:00 Potassium Chloride (Klor-Con) 10 meq DAILYWLUN PO Last administered on 12:23; Start 02/25/17 at 12:00 Senna/Docusate Sodium (Senna Plus) 1 tab BID94 PO Last administered on 15:52; Start 02/25/17 at 09:00 Spironolactone (Aldactone) 25 mg DAILYWLUN PO Last administered on 03/04/17 12: 23; Start 02/25/17 at 12:00 Tamsulosin HCl (Flomax) 0.4 mg DAILYWLUN PO Last administered on 03/04/17 12:23 ; Start 02/25/17 at 12:00 Vitamin D (Vitamin D3) 5,000 unit DAILY16 PO Last administered on 03/04/17 15: 52; Start 02/25/17 at 16:00 Divalproex Sodium (Depakote Sprinkles) 750 mg DAILY PO Last administered on 03/04 08:41; Start 02/27/17 at 09:00 Divalproex Sodium (Depakote Sprinkles) 1,000 mg HS PO Last administered on 19:42; Start 02/26/17 at 21:00 Lorazepam (Ativan) 0.25 mg PRN Q2HR PRN PO ANXIETY / AGITATION Last administered on 03/04/17 14:15; Start 02/28/17 at 22:15 Buspirone HCl (Buspar) 10 mg BID@1400,2100 PO Last administered on 03/04/17 19: 41; Start 03/01/17 at 21:00 Quetiapine Fumarate (SEROquel) 100 mg QHS PO Last administered on 03/04/17 19: 42; Start 03/01/17 at 21:00 Buspirone HCl (Buspar) 15 mg DAILY PO Last administered on 03/04/17 08:40; Start 03/02/17 at 09:00 Quetiapine Fumarate (SEROquel) 100 mg QHS PO ; Start 03/01/17 at 21:00; Status UNV Quetiapine Fumarate (SEROquel) 112.5 mg BID92 PO Last administered on 03/04/17t 14:15; Start 03/02/17 at 09:00; Stop 03/04/17 at 18:48; Status DC Quetiapine Fumarate (SEROquel) 125 mg BID92 PO ; Start 03/05/17 at 09:00 Active Scripts Active Reported Olanzapine 20 Mg Tablet 20 Mg PO DAILY Celebrex (Celecoxib) 100 Mg Capsule 100 Mg PO BID Potassium Chloride 10 Meq Capsule.er 10 Meq PO DAILYWLUN Spironolactone 25 Mg Tablet 25 Mg PO DAILYWLUN Senna S Tablet (Sennosides/Docusate Sodium) 1 Each Tablet 1 Tab PO BID94 Furosemide 40 Mg Tablet 40 Mg PO DAILY Tamsulosin Hcl 0.4 Mg Cap.er.24h 0.4 Mg PO DAILYWLUN Nuedexta 20-10 Mg Capsule (Dextromethorphan Hbr/Quinidine) 1 Each Capsule 1 Cap PO BID94 Seroquel (Quetiapine Fumarate) 100 Mg Tablet 100 Mg PO TIDWMEALS Bupropion Hcl 75 Mg Tablet 75 Mg PO BID Acetaminophen 500 Mg Tablet 1,000 Mg PO TIDWMEALHC Vitamin D3 (Cholecalciferol (Vitamin D3)) 5,000 Unit Capsule 5,000 Unit PO DAILY16 Buspirone Hcl 10 Mg Tablet 10 Mg PO TIDWMEALS Remeron (Mirtazapine) 15 Mg Tablet 7.5 Mg PO QHS Levothyroxine Sodium 175 Mcg Tablet 175 Mcg PO DAILY06 Lorazepam 1 Mg Tablet 1 Mg PO BID94 Fluvoxamine Maleate 100 Mg Tablet 150 Mg PO BID Atorvastatin Calcium 20 Mg Tablet 20 Mg PO HS Divalproex Sodium 125 Mg Cap.sprink 750 Mg PO BID94 LIDIA GARRIDO MD Mar 04, 2017 20:09
--- NOTE | 2017-03-04 20:36 | PDOC ---
Exam Bran Demential Exam: Bran Note: Please also refer to the separate dictated note~for this date of service dictated separately.~Patient seen individually. Discussed the patient with Nursing staff reviewed the chart.~Reviewed interim history and current functioning. Reviewed vital signs,~Labs/ Radiology~and current medications noted below. Continue current treatment with the changes noted in the dictated addendum note DATE OF SERVICE: 03/02/2017. PSYCHIATRIC PROGRESS NOTE This is a late entry for Date of Service 03/02/2017. The patient seen individually on rounds the evening of 03/02/2017. Discussed with nursing staff. Reviewed the chart. Per nursing report the patient was tearful in the morning but not aggressive. He has been somewhat drowsy later in the morning but quite alert, awake as I met with him in the evening of March 02, 2017. REVIEW OF SYSTEMS Ambulation impaired. No CV, , pulmonary, eye, ENT systems symptoms on review. Reliability varies. MENTAL STATUS EXAM: The patient knew it was March 02, 2017, , . He has the movement disorder consequent to [place]. Abstraction fair. Computation impaired. Language function intact. Short-term memory is impaired. Mood and affect lability is improved. LABS Reviewed. IMPRESSION: Unchanged from initial note. PLAN: Continue psychotropics mentioned in my initial note. Assessment: Vital Signs: Vital Signs Date Time Temp Pulse Resp B/P (MAP) Pulse Ox O2 Delivery O2 Flow Rate FiO2 03/04/17 15:30 97.3 87 20 119/82 (94) 94 03/04/17 06:07 Room Air I&O Intake and Output 03/04/17 07:00 Intake Total 1440 ml Balance 1440 ml Intake Oral 1440 ml # Bowel Movements 1 Current Medications: Meds: Current Medications Fluvoxamine Maleate (Luvox) 150 mg BID PO Last administered on 03/04/17 19:42; Start 02/24/17 at 22:00 Mirtazapine (Remeron) 7.5 mg QHS PO Last administered on 03/04/17 19:42; Start 02/24/17 at 22:00 Olanzapine (ZyPREXA) 20 mg DAILY PO Last administered on 03/04/17 08:43; Start 02/25/17 at 09:00 Bupropion HCl (Wellbutrin) 75 mg BID PO Last administered on 03/04/17 19:42; Start 02/24/17 at 22:00 Buspirone HCl (Buspar) 10 mg TIDWMEALS PO Last administered on 03/01/17 17:18; Start 02/25/17 at 08:00; Stop 03/01/17 at 18:03; Status DC Divalproex Sodium (Depakote Sprinkles) 750 mg BID94 PO Last administered on 08:14; Start 02/25/17 at 09:00; Stop 02/26/17 at 14:46; Status DC Lorazepam (Ativan) 1 mg BID94 PO Last administered on 03/04/17 15:53; Start at 09:00 Quetiapine Fumarate (SEROquel) 100 mg TIDWMEALS PO Last administered on 17:18; Start 02/25/17 at 08:00; Stop 03/01/17 at 18:03; Status DC Acetaminophen (Tylenol) 650 mg PRN Q6HRS PRN PO PAIN / TEMP; Start 02/24/17 at 21:15 Multi-Ingredient Ointment (Analgesic [place]) 1 alistair PRN QID PRN TP MUSCLE PAIN; Start 02/24/17 at 21:15 Al Hydroxide/Mg Hydroxide (Mylanta Plus Xs) 15 ml PRN AFTMEALHC PRN PO DYSPEPSIA; Start 02/24/17 at 21:15 Magnesium Hydroxide (Milk Of Magnesia) 2,400 mg PRN QHS PRN PO CONSTIPATION; Start 02/24/17 at 21:15 Acetaminophen (Tylenol) 1,000 mg TIDWMEALHC PO Last administered on 03/04/17 19 :42; Start 02/25/17 at 08:00 Atorvastatin Calcium (Lipitor) 20 mg HS PO Last administered on 03/04/17 19:42 ; Start 02/25/17 at 21:00 Celecoxib (CeleBREX) 100 mg BIDWMEALS PO Last administered on 03/04/17 15:52; Start 02/25/17 at 08:00 Furosemide (Lasix) 40 mg DAILY PO Last administered on 03/04/17 08:42; Start at 09:00 Levothyroxine Sodium (Synthroid) 175 mcg DAILY06 PO Last administered on 05:09; Start 02/25/17 at 06:00 Potassium Chloride (Klor-Con) 10 meq DAILYWLUN PO Last administered on 12:23; Start 02/25/17 at 12:00 Senna/Docusate Sodium (Senna Plus) 1 tab BID94 PO Last administered on 15:52; Start 02/25/17 at 09:00 Spironolactone (Aldactone) 25 mg DAILYWLUN PO Last administered on 03/04/17 12: 23; Start 02/25/17 at 12:00 Tamsulosin HCl (Flomax) 0.4 mg DAILYWLUN PO Last administered on 03/04/17 12:23 ; Start 02/25/17 at 12:00 Vitamin D (Vitamin D3) 5,000 unit DAILY16 PO Last administered on 03/04/17 15: 52; Start 02/25/17 at 16:00 Divalproex Sodium (Depakote Sprinkles) 750 mg DAILY PO Last administered on 03/04 08:41; Start 02/27/17 at 09:00 Divalproex Sodium (Depakote Sprinkles) 1,000 mg HS PO Last administered on 19:42; Start 02/26/17 at 21:00 Lorazepam (Ativan) 0.25 mg PRN Q2HR PRN PO ANXIETY / AGITATION Last administered on 03/04/17 14:15; Start 02/28/17 at 22:15 Buspirone HCl (Buspar) 10 mg BID@1400,2100 PO Last administered on 03/04/17 19: 41; Start 03/01/17 at 21:00 Quetiapine Fumarate (SEROquel) 100 mg QHS PO Last administered on 03/04/17 19: 42; Start 03/01/17 at 21:00 Buspirone HCl (Buspar) 15 mg DAILY PO Last administered on 03/04/17 08:40; Start 03/02/17 at 09:00 Quetiapine Fumarate (SEROquel) 100 mg QHS PO ; Start 03/01/17 at 21:00; Status UNV Quetiapine Fumarate (SEROquel) 112.5 mg BID92 PO Last administered on 03/04/17t 14:15; Start 03/02/17 at 09:00; Stop 03/04/17 at 18:48; Status DC Quetiapine Fumarate (SEROquel) 125 mg BID92 PO ; Start 03/05/17 at 09:00 Active Scripts Active Reported Olanzapine 20 Mg Tablet 20 Mg PO DAILY Celebrex (Celecoxib) 100 Mg Capsule 100 Mg PO BID Potassium Chloride 10 Meq Capsule.er 10 Meq PO DAILYWLUN Spironolactone 25 Mg Tablet 25 Mg PO DAILYWLUN Senna S Tablet (Sennosides/Docusate Sodium) 1 Each Tablet 1 Tab PO BID94 Furosemide 40 Mg Tablet 40 Mg PO DAILY Tamsulosin Hcl 0.4 Mg Cap.er.24h 0.4 Mg PO DAILYWLUN Nuedexta 20-10 Mg Capsule (Dextromethorphan Hbr/Quinidine) 1 Each Capsule 1 Cap PO BID94 Seroquel (Quetiapine Fumarate) 100 Mg Tablet 100 Mg PO TIDWMEALS Bupropion Hcl 75 Mg Tablet 75 Mg PO BID Acetaminophen 500 Mg Tablet 1,000 Mg PO TIDWMEALHC Vitamin D3 (Cholecalciferol (Vitamin D3)) 5,000 Unit Capsule 5,000 Unit PO DAILY16 Buspirone Hcl 10 Mg Tablet 10 Mg PO TIDWMEALS Remeron (Mirtazapine) 15 Mg Tablet 7.5 Mg PO QHS Levothyroxine Sodium 175 Mcg Tablet 175 Mcg PO DAILY06 Lorazepam 1 Mg Tablet 1 Mg PO BID94 Fluvoxamine Maleate 100 Mg Tablet 150 Mg PO BID Atorvastatin Calcium 20 Mg Tablet 20 Mg PO HS Divalproex Sodium 125 Mg Cap.sprink 750 Mg PO BID94 LIDIA GARRIDO MD Mar 04, 2017 20:36
--- NOTE | 2017-03-04 21:15 | PDOC ---
Exam Bran Demential Exam: Bran Note: Please also refer to the separate dictated note~for this date of service dictated separately.~Patient seen individually. Discussed the patient with Nursing staff reviewed the chart.~Reviewed interim history and current functioning. Reviewed vital signs,~Labs/ Radiology~and current medications noted below. Continue current treatment with the changes noted in the dictated addendum note Assessment: Vital Signs: Vital Signs Date Time Temp Pulse Resp B/P (MAP) Pulse Ox O2 Delivery O2 Flow Rate FiO2 03/04/17 15:30 97.3 87 20 119/82 (94) 94 03/04/17 06:07 Room Air I&O Intake and Output 03/04/17 07:00 Intake Total 1440 ml Balance 1440 ml Intake Oral 1440 ml # Bowel Movements 1 Current Medications: Meds: Current Medications Fluvoxamine Maleate (Luvox) 150 mg BID PO Last administered on 03/04/17 19:42; Start 02/24/17 at 22:00 Mirtazapine (Remeron) 7.5 mg QHS PO Last administered on 03/04/17 19:42; Start 02/24/17 at 22:00 Olanzapine (ZyPREXA) 20 mg DAILY PO Last administered on 03/04/17 08:43; Start 02/25/17 at 09:00 Bupropion HCl (Wellbutrin) 75 mg BID PO Last administered on 03/04/17 19:42; Start 02/24/17 at 22:00 Buspirone HCl (Buspar) 10 mg TIDWMEALS PO Last administered on 03/01/17 17:18; Start 02/25/17 at 08:00; Stop 03/01/17 at 18:03; Status DC Divalproex Sodium (Depakote Sprinkles) 750 mg BID94 PO Last administered on 08:14; Start 02/25/17 at 09:00; Stop 02/26/17 at 14:46; Status DC Lorazepam (Ativan) 1 mg BID94 PO Last administered on 03/04/17 15:53; Start at 09:00 Quetiapine Fumarate (SEROquel) 100 mg TIDWMEALS PO Last administered on 17:18; Start 02/25/17 at 08:00; Stop 03/01/17 at 18:03; Status DC Acetaminophen (Tylenol) 650 mg PRN Q6HRS PRN PO PAIN / TEMP; Start 02/24/17 at 21:15 Multi-Ingredient Ointment (Analgesic [place]) 1 alistair PRN QID PRN TP MUSCLE PAIN; Start 02/24/17 at 21:15 Al Hydroxide/Mg Hydroxide (Mylanta Plus Xs) 15 ml PRN AFTMEALHC PRN PO DYSPEPSIA; Start 02/24/17 at 21:15 Magnesium Hydroxide (Milk Of Magnesia) 2,400 mg PRN QHS PRN PO CONSTIPATION; Start 02/24/17 at 21:15 Acetaminophen (Tylenol) 1,000 mg TIDWMEALHC PO Last administered on 03/04/17 19 :42; Start 02/25/17 at 08:00 Atorvastatin Calcium (Lipitor) 20 mg HS PO Last administered on 03/04/17 19:42 ; Start 02/25/17 at 21:00 Celecoxib (CeleBREX) 100 mg BIDWMEALS PO Last administered on 03/04/17 15:52; Start 02/25/17 at 08:00 Furosemide (Lasix) 40 mg DAILY PO Last administered on 03/04/17 08:42; Start at 09:00 Levothyroxine Sodium (Synthroid) 175 mcg DAILY06 PO Last administered on 05:09; Start 02/25/17 at 06:00 Potassium Chloride (Klor-Con) 10 meq DAILYWLUN PO Last administered on 12:23; Start 02/25/17 at 12:00 Senna/Docusate Sodium (Senna Plus) 1 tab BID94 PO Last administered on 15:52; Start 02/25/17 at 09:00 Spironolactone (Aldactone) 25 mg DAILYWLUN PO Last administered on 03/04/17 12: 23; Start 02/25/17 at 12:00 Tamsulosin HCl (Flomax) 0.4 mg DAILYWLUN PO Last administered on 03/04/17 12:23 ; Start 02/25/17 at 12:00 Vitamin D (Vitamin D3) 5,000 unit DAILY16 PO Last administered on 03/04/17 15: 52; Start 02/25/17 at 16:00 Divalproex Sodium (Depakote Sprinkles) 750 mg DAILY PO Last administered on 03/04 08:41; Start 02/27/17 at 09:00 Divalproex Sodium (Depakote Sprinkles) 1,000 mg HS PO Last administered on 19:42; Start 02/26/17 at 21:00 Lorazepam (Ativan) 0.25 mg PRN Q2HR PRN PO ANXIETY / AGITATION Last administered on 03/04/17 14:15; Start 02/28/17 at 22:15 Buspirone HCl (Buspar) 10 mg BID@1400,2100 PO Last administered on 03/04/17 19: 41; Start 03/01/17 at 21:00 Quetiapine Fumarate (SEROquel) 100 mg QHS PO Last administered on 03/04/17 19: 42; Start 03/01/17 at 21:00 Buspirone HCl (Buspar) 15 mg DAILY PO Last administered on 03/04/17 08:40; Start 03/02/17 at 09:00 Quetiapine Fumarate (SEROquel) 100 mg QHS PO ; Start 03/01/17 at 21:00; Status UNV Quetiapine Fumarate (SEROquel) 112.5 mg BID92 PO Last administered on 03/04/17 14:15; Start 03/02/17 at 09:00; Stop 03/04/17 at 18:48; Status DC Quetiapine Fumarate (SEROquel) 125 mg BID92 PO ; Start 03/05/17 at 09:00 Active Scripts Active Reported Olanzapine 20 Mg Tablet 20 Mg PO DAILY Celebrex (Celecoxib) 100 Mg Capsule 100 Mg PO BID Potassium Chloride 10 Meq Capsule.er 10 Meq PO DAILYWLUN Spironolactone 25 Mg Tablet 25 Mg PO DAILYWLUN Senna S Tablet (Sennosides/Docusate Sodium) 1 Each Tablet 1 Tab PO BID94 Furosemide 40 Mg Tablet 40 Mg PO DAILY Tamsulosin Hcl 0.4 Mg Cap.er.24h 0.4 Mg PO DAILYWLUN Nuedexta 20-10 Mg Capsule (Dextromethorphan Hbr/Quinidine) 1 Each Capsule 1 Cap PO BID94 Seroquel (Quetiapine Fumarate) 100 Mg Tablet 100 Mg PO TIDWMEALS Bupropion Hcl 75 Mg Tablet 75 Mg PO BID Acetaminophen 500 Mg Tablet 1,000 Mg PO TIDWMEALHC Vitamin D3 (Cholecalciferol (Vitamin D3)) 5,000 Unit Capsule 5,000 Unit PO DAILY16 Buspirone Hcl 10 Mg Tablet 10 Mg PO TIDWMEALS Remeron (Mirtazapine) 15 Mg Tablet 7.5 Mg PO QHS Levothyroxine Sodium 175 Mcg Tablet 175 Mcg PO DAILY06 Lorazepam 1 Mg Tablet 1 Mg PO BID94 Fluvoxamine Maleate 100 Mg Tablet 150 Mg PO BID Atorvastatin Calcium 20 Mg Tablet 20 Mg PO HS Divalproex Sodium 125 Mg Cap.sprink 750 Mg PO BID94 Diagnosis: Problems: (1) Dementia in [place]'s disease with behavioral disturbance (2) Anxiety disorder (3) Impulse control disorder (4) Major depressive disorder, recurrent episode LIDIA GARRIDO MD Mar 04, 2017 21:15
[2017-03-05] MEDS: LEVOTHYROXINE 175 MCG TABLET PO SCH (05:01)
[2017-03-05 05:44] VITALS: BP 133/88
[2017-03-05] MEDS: SENNOSIDES/DOCUSATE 8.6/50MG TABLET. PO SCH ×2 (08:34→17:25)
[2017-03-05] MEDS: ACETAMINOPHEN 500 MG TABLET PO SCH ×4 (08:34→20:03)
[2017-03-05] MEDS: LORazepam 1 MG TABLET PO SCH ×2 (08:34→17:23)
[2017-03-05] MEDS: OLANZapine 10 MG TABLET PO SCH (08:34)
[2017-03-05] MEDS: FUROSEMIDE 40 MG TABLET PO SCH (08:35)
[2017-03-05] MEDS: busPIRone 15 MG TABLET. PO SCH (08:35)
[2017-03-05] MEDS: DIVALPROEX 125 MG CAP.SPRINK PO SCH ×2 (08:35→20:02)
[2017-03-05] MEDS: buPROPion 75 MG TABLET PO SCH ×2 (08:35→20:03)
[2017-03-05] MEDS: QUEtiapine 25 MG TABLET. PO SCH ×2 (08:38→14:36)
[2017-03-05] MEDS: CELECOXIB 100 MG CAPSULE PO SCH ×2 (08:39→17:24)
[2017-03-05] MEDS: LORazepam 0.5 MG TABLET PO PRN (10:54)
[2017-03-05] MEDS: POTASSIUM CHLORIDE 10 MEQ TABLET.ER. PO SCH (12:02)
[2017-03-05] MEDS: TAMSULOSIN 0.4 MG CAP.ER.24H. PO SCH (12:02)
[2017-03-05] MEDS: SPIRONOLACTONE 25 MG TABLET PO SCH (12:03)
[2017-03-05] MEDS: busPIRone 10 MG TABLET. PO SCH ×2 (14:36→20:03)
[2017-03-05 15:52] VITALS: BP 113/83
[2017-03-05] MEDS: CHOLECALCIFEROL (VITAMIN D3) 1,000 UNIT TABLET PO SCH (17:25)
[2017-03-05] MEDS: ATORVASTATIN CALCIUM 20 MG TABLET PO SCH (20:02)
[2017-03-05] MEDS: MIRTAZAPINE 7.5 MG TABLET. PO SCH (20:03)
[2017-03-05] MEDS: QUEtiapine 100 MG TABLET. PO SCH (20:03)
--- NOTE | 2017-03-05 20:06 | PDOC ---
Exam Bran Demential Exam: Bran Note: Please also refer to the separate dictated note~for this date of service dictated separately.~Patient seen individually. Discussed the patient with Nursing staff reviewed the chart.~Reviewed interim history and current functioning. Reviewed vital signs,~Labs/ Radiology~and current medications noted below. Continue current treatment with the changes noted in the dictated addendum note Assessment: Vital Signs: Vital Signs Date Time Temp Pulse Resp B/P (MAP) Pulse Ox O2 Delivery O2 Flow Rate FiO2 03/05/17 15:52 97.3 69 18 113/83 (93) 97 03/04/17 06:07 Room Air I&O Intake and Output 03/05/17 07:00 Intake Total 600 ml Balance 600 ml Intake Oral 600 ml # Voids 1 # Bowel Movements 3 Current Medications: Meds: Current Medications Fluvoxamine Maleate (Luvox) 150 mg BID PO Last administered on 03/05/17 20:03; Start 02/24/17 at 22:00 Mirtazapine (Remeron) 7.5 mg QHS PO Last administered on 03/05/17 20:03; Start 02/24/17 at 22:00 Olanzapine (ZyPREXA) 20 mg DAILY PO Last administered on 03/05/17 08:34; Start 02/25/17 at 09:00 Bupropion HCl (Wellbutrin) 75 mg BID PO Last administered on 03/05/17 20:03; Start 02/24/17 at 22:00 Buspirone HCl (Buspar) 10 mg TIDWMEALS PO Last administered on 03/01/17 17:18; Start 02/25/17 at 08:00; Stop 03/01/17 at 18:03; Status DC Divalproex Sodium (Depakote Sprinkles) 750 mg BID94 PO Last administered on 08:14; Start 02/25/17 at 09:00; Stop 02/26/17 at 14:46; Status DC Lorazepam (Ativan) 1 mg BID94 PO Last administered on 03/05/17 17:23; Start at 09:00 Quetiapine Fumarate (SEROquel) 100 mg TIDWMEALS PO Last administered on 17:18; Start 02/25/17 at 08:00; Stop 03/01/17 at 18:03; Status DC Acetaminophen (Tylenol) 650 mg PRN Q6HRS PRN PO PAIN / TEMP; Start 02/24/17 at 21:15 Multi-Ingredient Ointment (Analgesic [place]) 1 alistair PRN QID PRN TP MUSCLE PAIN; Start 02/24/17 at 21:15 Al Hydroxide/Mg Hydroxide (Mylanta Plus Xs) 15 ml PRN AFTMEALHC PRN PO DYSPEPSIA; Start 02/24/17 at 21:15 Magnesium Hydroxide (Milk Of Magnesia) 2,400 mg PRN QHS PRN PO CONSTIPATION; Start 02/24/17 at 21:15 Acetaminophen (Tylenol) 1,000 mg TIDWMEALHC PO Last administered on 03/05/17 20 :03; Start 02/25/17 at 08:00 Atorvastatin Calcium (Lipitor) 20 mg HS PO Last administered on 03/05/17 20:02 ; Start 02/25/17 at 21:00 Celecoxib (CeleBREX) 100 mg BIDWMEALS PO Last administered on 03/05/17 17:24; Start 02/25/17 at 08:00 Furosemide (Lasix) 40 mg DAILY PO Last administered on 03/05/17 08:35; Start at 09:00 Levothyroxine Sodium (Synthroid) 175 mcg DAILY06 PO Last administered on 05:01; Start 02/25/17 at 06:00 Potassium Chloride (Klor-Con) 10 meq DAILYWLUN PO Last administered on 12:02; Start 02/25/17 at 12:00 Senna/Docusate Sodium (Senna Plus) 1 tab BID94 PO Last administered on 17:25; Start 02/25/17 at 09:00 Spironolactone (Aldactone) 25 mg DAILYWLUN PO Last administered on 03/05/17 12: 03; Start 02/25/17 at 12:00 Tamsulosin HCl (Flomax) 0.4 mg DAILYWLUN PO Last administered on 03/05/17 12:02 ; Start 02/25/17 at 12:00 Vitamin D (Vitamin D3) 5,000 unit DAILY16 PO Last administered on 03/05/17 17: 25; Start 02/25/17 at 16:00 Divalproex Sodium (Depakote Sprinkles) 750 mg DAILY PO Last administered on 03/05 08:35; Start 02/27/17 at 09:00 Divalproex Sodium (Depakote Sprinkles) 1,000 mg HS PO Last administered on 20:02; Start 02/26/17 at 21:00 Lorazepam (Ativan) 0.25 mg PRN Q2HR PRN PO ANXIETY / AGITATION Last administered on 03/05/17 10:54; Start 02/28/17 at 22:15 Buspirone HCl (Buspar) 10 mg BID@1400,2100 PO Last administered on 03/05/17 20: 03; Start 03/01/17 at 21:00 Quetiapine Fumarate (SEROquel) 100 mg QHS PO Last administered on 03/05/17 20: 03; Start 03/01/17 at 21:00 Buspirone HCl (Buspar) 15 mg DAILY PO Last administered on 03/05/17 08:35; Start 03/02/17 at 09:00 Quetiapine Fumarate (SEROquel) 100 mg QHS PO ; Start 03/01/17 at 21:00; Status UNV Quetiapine Fumarate (SEROquel) 112.5 mg BID92 PO Last administered on 03/04/17 14:15; Start 03/02/17 at 09:00; Stop 03/04/17 at 18:48; Status DC Quetiapine Fumarate (SEROquel) 125 mg BID92 PO Last administered on 03/05/17 14 :36; Start 03/05/17 at 09:00 Active Scripts Active Reported Olanzapine 20 Mg Tablet 20 Mg PO DAILY Celebrex (Celecoxib) 100 Mg Capsule 100 Mg PO BID Potassium Chloride 10 Meq Capsule.er 10 Meq PO DAILYWLUN Spironolactone 25 Mg Tablet 25 Mg PO DAILYWLUN Senna S Tablet (Sennosides/Docusate Sodium) 1 Each Tablet 1 Tab PO BID94 Furosemide 40 Mg Tablet 40 Mg PO DAILY Tamsulosin Hcl 0.4 Mg Cap.er.24h 0.4 Mg PO DAILYWLUN Nuedexta 20-10 Mg Capsule (Dextromethorphan Hbr/Quinidine) 1 Each Capsule 1 Cap PO BID94 Seroquel (Quetiapine Fumarate) 100 Mg Tablet 100 Mg PO TIDWMEALS Bupropion Hcl 75 Mg Tablet 75 Mg PO BID Acetaminophen 500 Mg Tablet 1,000 Mg PO TIDWMEALHC Vitamin D3 (Cholecalciferol (Vitamin D3)) 5,000 Unit Capsule 5,000 Unit PO DAILY16 Buspirone Hcl 10 Mg Tablet 10 Mg PO TIDWMEALS Remeron (Mirtazapine) 15 Mg Tablet 7.5 Mg PO QHS Levothyroxine Sodium 175 Mcg Tablet 175 Mcg PO DAILY06 Lorazepam 1 Mg Tablet 1 Mg PO BID94 Fluvoxamine Maleate 100 Mg Tablet 150 Mg PO BID Atorvastatin Calcium 20 Mg Tablet 20 Mg PO HS Divalproex Sodium 125 Mg Cap.sprink 750 Mg PO BID94 Diagnosis: Problems: (1) Anxiety disorder (2) Dementia in [place]'s disease with behavioral disturbance (3) Impulse control disorder (4) Major depressive disorder, recurrent episode (5) Disorder of vitamin D LIDIA GARRIDO MD Mar 05, 2017 20:06
[2017-03-06] MEDS: LEVOTHYROXINE 175 MCG TABLET PO SCH (06:07)
[2017-03-06 06:11] VITALS: BP 144/96
[2017-03-06] MEDS: CELECOXIB 100 MG CAPSULE PO SCH ×2 (07:37→17:03)
[2017-03-06] MEDS: buPROPion 75 MG TABLET PO SCH ×2 (07:37→19:56)
[2017-03-06] MEDS: busPIRone 15 MG TABLET. PO SCH (07:37)
[2017-03-06] MEDS: QUEtiapine 25 MG TABLET. PO SCH ×2 (07:37→12:25)
[2017-03-06] MEDS: ACETAMINOPHEN 500 MG TABLET PO SCH ×4 (07:37→19:57)
[2017-03-06] MEDS: FUROSEMIDE 40 MG TABLET PO SCH (07:37)
[2017-03-06] MEDS: SENNOSIDES/DOCUSATE 8.6/50MG TABLET. PO SCH ×2 (07:37→17:03)
[2017-03-06] MEDS: DIVALPROEX 125 MG CAP.SPRINK PO SCH ×2 (07:38→19:56)
[2017-03-06] MEDS: LORazepam 1 MG TABLET PO SCH ×2 (07:40→17:03)
[2017-03-06] MEDS: OLANZapine 10 MG TABLET PO SCH (07:40)
[2017-03-06] MEDS: busPIRone 10 MG TABLET. PO SCH ×2 (12:24→19:56)
[2017-03-06] MEDS: SPIRONOLACTONE 25 MG TABLET PO SCH (12:24)
[2017-03-06] MEDS: ACETAMINOPHEN 325 MG TABLET PO PRN ×2 (12:24→12:25)
[2017-03-06] MEDS: TAMSULOSIN 0.4 MG CAP.ER.24H. PO SCH (12:24)
[2017-03-06] MEDS: POTASSIUM CHLORIDE 10 MEQ TABLET.ER. PO SCH (12:24)
[2017-03-06 15:53] VITALS: BP 128/83
[2017-03-06] MEDS: CHOLECALCIFEROL (VITAMIN D3) 1,000 UNIT TABLET PO SCH (17:04)
[2017-03-06] MEDS: MIRTAZAPINE 7.5 MG TABLET. PO SCH (19:56)
[2017-03-06] MEDS: QUEtiapine 100 MG TABLET. PO SCH (19:56)
[2017-03-06] MEDS: ATORVASTATIN CALCIUM 20 MG TABLET PO SCH (19:56)
--- NOTE | 2017-03-06 23:20 | PDOC ---
Exam Bran Demential Exam: Bran Note: Please also refer to the separate dictated note~for this date of service dictated separately.~Patient seen individually. Discussed the patient with Nursing staff reviewed the chart.~Reviewed interim history and current functioning. Reviewed vital signs,~Labs/ Radiology~and current medications noted below. Continue current treatment with the changes noted in the dictated addendum note Assessment: Vital Signs: Vital Signs Date Time Temp Pulse Resp B/P (MAP) Pulse Ox O2 Delivery O2 Flow Rate FiO2 03/06/17 15:53 98.9 82 16 128/83 (98) 93 Room Air I&O Intake and Output 03/06/17 07:00 Intake Total 1440 ml Balance 1440 ml Intake Oral 1440 ml # Voids 1 # Bowel Movements 2 Current Medications: Meds: Current Medications Fluvoxamine Maleate (Luvox) 150 mg BID PO Last administered on 03/06/17 19:56; Start 02/24/17 at 22:00 Mirtazapine (Remeron) 7.5 mg QHS PO Last administered on 03/06/17 19:56; Start 02/24/17 at 22:00 Olanzapine (ZyPREXA) 20 mg DAILY PO Last administered on 03/06/17 07:40; Start 02/25/17 at 09:00 Bupropion HCl (Wellbutrin) 75 mg BID PO Last administered on 03/06/17 19:56; Start 02/24/17 at 22:00 Buspirone HCl (Buspar) 10 mg TIDWMEALS PO Last administered on 03/01/17 17:18; Start 02/25/17 at 08:00; Stop 03/01/17 at 18:03; Status DC Divalproex Sodium (Depakote Sprinkles) 750 mg BID94 PO Last administered on 08:14; Start 02/25/17 at 09:00; Stop 02/26/17 at 14:46; Status DC Lorazepam (Ativan) 1 mg BID94 PO Last administered on 03/06/17 17:03; Start at 09:00 Quetiapine Fumarate (SEROquel) 100 mg TIDWMEALS PO Last administered on 17:18; Start 02/25/17 at 08:00; Stop 03/01/17 at 18:03; Status DC Acetaminophen (Tylenol) 650 mg PRN Q6HRS PRN PO PAIN / TEMP; Start 02/24/17 at 21:15 Multi-Ingredient Ointment (Analgesic [place]) 1 alistair PRN QID PRN TP MUSCLE PAIN; Start 02/24/17 at 21:15 Al Hydroxide/Mg Hydroxide (Mylanta Plus Xs) 15 ml PRN AFTMEALHC PRN PO DYSPEPSIA; Start 02/24/17 at 21:15 Magnesium Hydroxide (Milk Of Magnesia) 2,400 mg PRN QHS PRN PO CONSTIPATION; Start 02/24/17 at 21:15 Acetaminophen (Tylenol) 1,000 mg TIDWMEALHC PO Last administered on 03/06/17 19 :57; Start 02/25/17 at 08:00 Atorvastatin Calcium (Lipitor) 20 mg HS PO Last administered on 03/06/17 19:56 ; Start 02/25/17 at 21:00 Celecoxib (CeleBREX) 100 mg BIDWMEALS PO Last administered on 03/06/17 17:03; Start 02/25/17 at 08:00 Furosemide (Lasix) 40 mg DAILY PO Last administered on 03/06/17 07:37; Start at 09:00 Levothyroxine Sodium (Synthroid) 175 mcg DAILY06 PO Last administered on 06:07; Start 02/25/17 at 06:00 Potassium Chloride (Klor-Con) 10 meq DAILYWLUN PO Last administered on 12:24; Start 02/25/17 at 12:00 Senna/Docusate Sodium (Senna Plus) 1 tab BID94 PO Last administered on 17:03; Start 02/25/17 at 09:00 Spironolactone (Aldactone) 25 mg DAILYWLUN PO Last administered on 03/06/17 12: 24; Start 02/25/17 at 12:00 Tamsulosin HCl (Flomax) 0.4 mg DAILYWLUN PO Last administered on 03/06/17 12:24 ; Start 02/25/17 at 12:00 Vitamin D (Vitamin D3) 5,000 unit DAILY16 PO Last administered on 03/06/17 17: 04; Start 02/25/17 at 16:00 Divalproex Sodium (Depakote Sprinkles) 750 mg DAILY PO Last administered on 03/06 07:38; Start 02/27/17 at 09:00 Divalproex Sodium (Depakote Sprinkles) 1,000 mg HS PO Last administered on 19:56; Start 02/26/17 at 21:00 Lorazepam (Ativan) 0.25 mg PRN Q2HR PRN PO ANXIETY / AGITATION Last administered on 03/05/17 10:54; Start 02/28/17 at 22:15 Buspirone HCl (Buspar) 10 mg BID@1400,2100 PO Last administered on 03/06/17 19: 56; Start 03/01/17 at 21:00; Stop 03/06/17 at 21:28; Status DC Quetiapine Fumarate (SEROquel) 100 mg QHS PO Last administered on 03/06/17 19: 56; Start 03/01/17 at 21:00 Buspirone HCl (Buspar) 15 mg DAILY PO Last administered on 03/06/17 07:37; Start 03/02/17 at 09:00 Quetiapine Fumarate (SEROquel) 100 mg QHS PO ; Start 03/01/17 at 21:00; Status UNV Quetiapine Fumarate (SEROquel) 112.5 mg BID92 PO Last administered on 03/04/17 14:15; Start 03/02/17 at 09:00; Stop 03/04/17 at 18:48; Status DC Quetiapine Fumarate (SEROquel) 125 mg BID92 PO Last administered on 03/06/17 12 :25; Start 03/05/17 at 09:00 Buspirone HCl (Buspar) 15 mg BID@1400,2100 PO ; Start 03/07/17 at 14:00 Active Scripts Active Reported Olanzapine 20 Mg Tablet 20 Mg PO DAILY Celebrex (Celecoxib) 100 Mg Capsule 100 Mg PO BID Potassium Chloride 10 Meq Capsule.er 10 Meq PO DAILYWLUN Spironolactone 25 Mg Tablet 25 Mg PO DAILYWLUN Senna S Tablet (Sennosides/Docusate Sodium) 1 Each Tablet 1 Tab PO BID94 Furosemide 40 Mg Tablet 40 Mg PO DAILY Tamsulosin Hcl 0.4 Mg Cap.er.24h 0.4 Mg PO DAILYWLUN Nuedexta 20-10 Mg Capsule (Dextromethorphan Hbr/Quinidine) 1 Each Capsule 1 Cap PO BID94 Seroquel (Quetiapine Fumarate) 100 Mg Tablet 100 Mg PO TIDWMEALS Bupropion Hcl 75 Mg Tablet 75 Mg PO BID Acetaminophen 500 Mg Tablet 1,000 Mg PO TIDWMEALHC Vitamin D3 (Cholecalciferol (Vitamin D3)) 5,000 Unit Capsule 5,000 Unit PO DAILY16 Buspirone Hcl 10 Mg Tablet 10 Mg PO TIDWMEALS Remeron (Mirtazapine) 15 Mg Tablet 7.5 Mg PO QHS Levothyroxine Sodium 175 Mcg Tablet 175 Mcg PO DAILY06 Lorazepam 1 Mg Tablet 1 Mg PO BID94 Fluvoxamine Maleate 100 Mg Tablet 150 Mg PO BID Atorvastatin Calcium 20 Mg Tablet 20 Mg PO HS Divalproex Sodium 125 Mg Cap.sprink 750 Mg PO BID94 Diagnosis: Problems: (1) Dementia in [place] disease with behavioral disturbance (2) Anxiety disorder (3) Impulse control disorder (4) Major depressive disorder, recurrent episode (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
[2017-03-07] MEDS: LEVOTHYROXINE 175 MCG TABLET PO SCH (05:56)
[2017-03-07 06:18] VITALS: BP 141/86
[2017-03-07] MEDS: ACETAMINOPHEN 500 MG TABLET PO SCH ×4 (07:38→19:56)
[2017-03-07] MEDS: busPIRone 15 MG TABLET. PO SCH (07:38)
[2017-03-07] MEDS: buPROPion 75 MG TABLET PO SCH ×2 (07:38→19:54)
[2017-03-07] MEDS: LORazepam 1 MG TABLET PO SCH ×2 (07:38→16:24)
[2017-03-07] MEDS: CELECOXIB 100 MG CAPSULE PO SCH ×2 (07:38→16:25)
[2017-03-07] MEDS: FUROSEMIDE 40 MG TABLET PO SCH (07:38)
[2017-03-07] MEDS: SENNOSIDES/DOCUSATE 8.6/50MG TABLET. PO SCH ×2 (07:38→16:24)
[2017-03-07] MEDS: QUEtiapine 25 MG TABLET. PO SCH ×2 (07:38→12:40)
[2017-03-07] MEDS: DIVALPROEX 125 MG CAP.SPRINK PO SCH ×2 (07:39→19:54)
[2017-03-07] MEDS: OLANZapine 10 MG TABLET PO SCH (07:39)
[2017-03-07] MEDS: TAMSULOSIN 0.4 MG CAP.ER.24H. PO SCH (12:39)
[2017-03-07] MEDS: SPIRONOLACTONE 25 MG TABLET PO SCH (12:40)
[2017-03-07] MEDS: POTASSIUM CHLORIDE 10 MEQ TABLET.ER. PO SCH (12:40)
[2017-03-07] MEDS: busPIRone 10 MG TABLET. PO SCH ×2 (12:42→19:54)
[2017-03-07] MEDS: CHOLECALCIFEROL (VITAMIN D3) 1,000 UNIT TABLET PO SCH (16:24)
[2017-03-07 16:39] VITALS: BP 113/81
[2017-03-07] MEDS: ATORVASTATIN CALCIUM 20 MG TABLET PO SCH (19:53)
[2017-03-07] MEDS: MIRTAZAPINE 7.5 MG TABLET. PO SCH (19:55)
[2017-03-07] MEDS: QUEtiapine 100 MG TABLET. PO SCH (19:55)
--- NOTE | 2017-03-07 20:14 | PDOC ---
Exam Bran Demential Exam: Bran Note: Please also refer to the separate dictated note~for this date of service dictated separately.~Patient seen individually. Discussed the patient with Nursing staff reviewed the chart.~Reviewed interim history and current functioning. Reviewed vital signs,~Labs/ Radiology~and current medications noted below. Continue current treatment with the changes noted in the dictated addendum note Assessment: Vital Signs: Vital Signs Date Time Temp Pulse Resp B/P (MAP) Pulse Ox O2 Delivery O2 Flow Rate FiO2 03/07/17 16:39 96.7 92 18 113/81 (92) 92 03/07/17 06:18 Room Air I&O Intake and Output 03/07/17 07:00 Intake Total 1240 ml Balance 1240 ml Intake Oral 1240 ml # Voids 2 # Bowel Movements 1 Current Medications: Meds: Current Medications Fluvoxamine Maleate (Luvox) 150 mg BID PO Last administered on 03/07/17 19:54; Start 02/24/17 at 22:00 Mirtazapine (Remeron) 7.5 mg QHS PO Last administered on 03/07/17 19:55; Start 02/24/17 at 22:00 Olanzapine (ZyPREXA) 20 mg DAILY PO Last administered on 03/07/17 07:39; Start 02/25/17 at 09:00 Bupropion HCl (Wellbutrin) 75 mg BID PO Last administered on 03/07/17 19:54; Start 02/24/17 at 22:00 Buspirone HCl (Buspar) 10 mg TIDWMEALS PO Last administered on 03/01/17 17:18; Start 02/25/17 at 08:00; Stop 03/01/17 at 18:03; Status DC Divalproex Sodium (Depakote Sprinkles) 750 mg BID94 PO Last administered on 08:14; Start 02/25/17 at 09:00; Stop 02/26/17 at 14:46; Status DC Lorazepam (Ativan) 1 mg BID94 PO Last administered on 03/07/17 16:24; Start at 09:00 Quetiapine Fumarate (SEROquel) 100 mg TIDWMEALS PO Last administered on 17:18; Start 02/25/17 at 08:00; Stop 03/01/17 at 18:03; Status DC Acetaminophen (Tylenol) 650 mg PRN Q6HRS PRN PO PAIN / TEMP; Start 02/24/17 at 21:15 Multi-Ingredient Ointment (Analgesic [place]) 1 alistair PRN QID PRN TP MUSCLE PAIN; Start 02/24/17 at 21:15 Al Hydroxide/Mg Hydroxide (Mylanta Plus Xs) 15 ml PRN AFTMEALHC PRN PO DYSPEPSIA; Start 02/24/17 at 21:15 Magnesium Hydroxide (Milk Of Magnesia) 2,400 mg PRN QHS PRN PO CONSTIPATION; Start 02/24/17 at 21:15 Acetaminophen (Tylenol) 1,000 mg TIDWMEALHC PO Last administered on 03/07/17 19 :56; Start 02/25/17 at 08:00 Atorvastatin Calcium (Lipitor) 20 mg HS PO Last administered on 03/07/17 19:53 ; Start 02/25/17 at 21:00 Celecoxib (CeleBREX) 100 mg BIDWMEALS PO Last administered on 03/07/17 16:25; Start 02/25/17 at 08:00 Furosemide (Lasix) 40 mg DAILY PO Last administered on 03/07/17 07:38; Start at 09:00 Levothyroxine Sodium (Synthroid) 175 mcg DAILY06 PO Last administered on 05:56; Start 02/25/17 at 06:00 Potassium Chloride (Klor-Con) 10 meq DAILYWLUN PO Last administered on 12:40; Start 02/25/17 at 12:00 Senna/Docusate Sodium (Senna Plus) 1 tab BID94 PO Last administered on 16:24; Start 02/25/17 at 09:00 Spironolactone (Aldactone) 25 mg DAILYWLUN PO Last administered on 03/07/17 12: 40; Start 02/25/17 at 12:00 Tamsulosin HCl (Flomax) 0.4 mg DAILYWLUN PO Last administered on 03/07/17 12:39 ; Start 02/25/17 at 12:00 Vitamin D (Vitamin D3) 5,000 unit DAILY16 PO Last administered on 03/07/17 16: 24; Start 02/25/17 at 16:00 Divalproex Sodium (Depakote Sprinkles) 750 mg DAILY PO Last administered on 03/07 07:39; Start 02/27/17 at 09:00 Divalproex Sodium (Depakote Sprinkles) 1,000 mg HS PO Last administered on 19:54; Start 02/26/17 at 21:00 Lorazepam (Ativan) 0.25 mg PRN Q2HR PRN PO ANXIETY / AGITATION Last administered on 03/05/17 10:54; Start 02/28/17 at 22:15 Buspirone HCl (Buspar) 10 mg BID@1400,2100 PO Last administered on 03/06/17 19: 56; Start 03/01/17 at 21:00; Stop 03/06/17 at 21:28; Status DC Quetiapine Fumarate (SEROquel) 100 mg QHS PO Last administered on 03/07/17 19: 55; Start 03/01/17 at 21:00 Buspirone HCl (Buspar) 15 mg DAILY PO Last administered on 03/07/17 07:38; Start 03/02/17 at 09:00 Quetiapine Fumarate (SEROquel) 100 mg QHS PO ; Start 03/01/17 at 21:00; Status UNV Quetiapine Fumarate (SEROquel) 112.5 mg BID92 PO Last administered on 03/04/17 14:15; Start 03/02/17 at 09:00; Stop 03/04/17 at 18:48; Status DC Quetiapine Fumarate (SEROquel) 125 mg BID92 PO Last administered on 03/07/17 12 :40; Start 03/05/17 at 09:00 Buspirone HCl (Buspar) 15 mg BID@1400,2100 PO Last administered on 03/07/17 19: 54; Start 03/07/17 at 14:00 Active Scripts Active Reported Olanzapine 20 Mg Tablet 20 Mg PO DAILY Celebrex (Celecoxib) 100 Mg Capsule 100 Mg PO BID Potassium Chloride 10 Meq Capsule.er 10 Meq PO DAILYWLUN Spironolactone 25 Mg Tablet 25 Mg PO DAILYWLUN Senna S Tablet (Sennosides/Docusate Sodium) 1 Each Tablet 1 Tab PO BID94 Furosemide 40 Mg Tablet 40 Mg PO DAILY Tamsulosin Hcl 0.4 Mg Cap.er.24h 0.4 Mg PO DAILYWLUN Nuedexta 20-10 Mg Capsule (Dextromethorphan Hbr/Quinidine) 1 Each Capsule 1 Cap PO BID94 Seroquel (Quetiapine Fumarate) 100 Mg Tablet 100 Mg PO TIDWMEALS Bupropion Hcl 75 Mg Tablet 75 Mg PO BID Acetaminophen 500 Mg Tablet 1,000 Mg PO TIDWMEALHC Vitamin D3 (Cholecalciferol (Vitamin D3)) 5,000 Unit Capsule 5,000 Unit PO DAILY16 Buspirone Hcl 10 Mg Tablet 10 Mg PO TIDWMEALS Remeron (Mirtazapine) 15 Mg Tablet 7.5 Mg PO QHS Levothyroxine Sodium 175 Mcg Tablet 175 Mcg PO DAILY06 Lorazepam 1 Mg Tablet 1 Mg PO BID94 Fluvoxamine Maleate 100 Mg Tablet 150 Mg PO BID Atorvastatin Calcium 20 Mg Tablet 20 Mg PO HS Divalproex Sodium 125 Mg Cap.sprink 750 Mg PO BID94 Diagnosis: Problems: (1) Dementia in [place]'s disease with behavioral disturbance (2) Anxiety disorder (3) Impulse control disorder (4) Major depressive disorder, recurrent episode (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
[2017-03-08 05:52] VITALS: BP 128/87
[2017-03-08] MEDS: LEVOTHYROXINE 175 MCG TABLET PO SCH (06:04)
[2017-03-08] MEDS: FUROSEMIDE 40 MG TABLET PO SCH (07:53)
[2017-03-08] MEDS: buPROPion 75 MG TABLET PO SCH ×2 (07:53→19:23)
[2017-03-08] MEDS: LORazepam 1 MG TABLET PO SCH ×2 (07:55→16:46)
[2017-03-08] MEDS: QUEtiapine 25 MG TABLET. PO SCH ×2 (07:55→13:38)
[2017-03-08] MEDS: busPIRone 15 MG TABLET. PO SCH (07:55)
[2017-03-08] MEDS: DIVALPROEX 125 MG CAP.SPRINK PO SCH ×2 (07:55→19:22)
[2017-03-08] MEDS: SENNOSIDES/DOCUSATE 8.6/50MG TABLET. PO SCH ×2 (07:55→16:45)
[2017-03-08] MEDS: OLANZapine 10 MG TABLET PO SCH (07:55)
[2017-03-08] MEDS: ACETAMINOPHEN 500 MG TABLET PO SCH ×4 (07:55→19:24)
[2017-03-08] MEDS: CELECOXIB 100 MG CAPSULE PO SCH ×2 (07:56→16:45)
[2017-03-08] MEDS: TAMSULOSIN 0.4 MG CAP.ER.24H. PO SCH (13:37)
[2017-03-08] MEDS: POTASSIUM CHLORIDE 10 MEQ TABLET.ER. PO SCH (13:37)
[2017-03-08] MEDS: SPIRONOLACTONE 25 MG TABLET PO SCH (13:37)
[2017-03-08] MEDS: busPIRone 10 MG TABLET. PO SCH (13:38)
[2017-03-08 15:33] VITALS: BP 139/81
[2017-03-08] MEDS: CHOLECALCIFEROL (VITAMIN D3) 1,000 UNIT TABLET PO SCH (16:45)
[2017-03-08] MEDS: ATORVASTATIN CALCIUM 20 MG TABLET PO SCH (19:22)
[2017-03-08] MEDS: MIRTAZAPINE 7.5 MG TABLET. PO SCH (19:23)
[2017-03-08] MEDS: QUEtiapine 100 MG TABLET. PO SCH (19:23)
--- NOTE | 2017-03-08 20:10 | PDOC ---
Exam Bran Demential Exam: Bran Note: Please also refer to the separate dictated note~for this date of service dictated separately.~Patient seen individually. Discussed the patient with Nursing staff reviewed the chart.~Reviewed interim history and current functioning. Reviewed vital signs,~Labs/ Radiology~and current medications noted below. Continue current treatment with the changes noted in the dictated addendum note Assessment: Vital Signs: Vital Signs Date Time Temp Pulse Resp B/P (MAP) Pulse Ox O2 Delivery O2 Flow Rate FiO2 03/08/17 15:33 97.0 88 17 139/81 (100) 90 03/07/17 06:18 Room Air I&O Intake and Output 03/08/17 07:00 Intake Total 1560 ml Balance 1560 ml Intake Oral 1560 ml Current Medications: Meds: Current Medications Fluvoxamine Maleate (Luvox) 150 mg BID PO Last administered on 03/08/17 19:22 ; Start 02/24/17 at 22:00 Mirtazapine (Remeron) 7.5 mg QHS PO Last administered on 03/08/17 19:23; Start 02/24/17 at 22:00 Olanzapine (ZyPREXA) 20 mg DAILY PO Last administered on 03/08/17 07:55; Start 02/25/17 at 09:00 Bupropion HCl (Wellbutrin) 75 mg BID PO Last administered on 03/08/17 19:23; Start 02/24/17 at 22:00 Buspirone HCl (Buspar) 10 mg TIDWMEALS PO Last administered on 03/01/17 17:18; Start 02/25/17 at 08:00; Stop 03/01/17 at 18:03; Status DC Divalproex Sodium (Depakote Sprinkles) 750 mg BID94 PO Last administered on 08:14; Start 02/25/17 at 09:00; Stop 02/26/17 at 14:46; Status DC Lorazepam (Ativan) 1 mg BID94 PO Last administered on 03/08/17 16:46; Start at 09:00 Quetiapine Fumarate (SEROquel) 100 mg TIDWMEALS PO Last administered on 17:18; Start 02/25/17 at 08:00; Stop 03/01/17 at 18:03; Status DC Acetaminophen (Tylenol) 650 mg PRN Q6HRS PRN PO PAIN / TEMP; Start 02/24/17 at 21:15 Multi-Ingredient Ointment (Analgesic [place]) 1 alistair PRN QID PRN TP MUSCLE PAIN; Start 02/24/17 at 21:15 Al Hydroxide/Mg Hydroxide (Mylanta Plus Xs) 15 ml PRN AFTMEALHC PRN PO DYSPEPSIA; Start 02/24/17 at 21:15 Magnesium Hydroxide (Milk Of Magnesia) 2,400 mg PRN QHS PRN PO CONSTIPATION; Start 02/24/17 at 21:15 Acetaminophen (Tylenol) 1,000 mg TIDWMEALHC PO Last administered on 03/08/17 19:24; Start 02/25/17 at 08:00 Atorvastatin Calcium (Lipitor) 20 mg HS PO Last administered on 03/08/17 19:22 ; Start 02/25/17 at 21:00 Celecoxib (CeleBREX) 100 mg BIDWMEALS PO Last administered on 03/08/17 16:45; Start 02/25/17 at 08:00 Furosemide (Lasix) 40 mg DAILY PO Last administered on 03/08/17 07:53; Start 02/25/17 at 09:00 Levothyroxine Sodium (Synthroid) 175 mcg DAILY06 PO Last administered on 06:04; Start 02/25/17 at 06:00 Potassium Chloride (Klor-Con) 10 meq DAILYWLUN PO Last administered on 13:37; Start 02/25/17 at 12:00 Senna/Docusate Sodium (Senna Plus) 1 tab BID94 PO Last administered on 16:45; Start 02/25/17 at 09:00 Spironolactone (Aldactone) 25 mg DAILYWLUN PO Last administered on 03/08/17 13 :37; Start 02/25/17 at 12:00 Tamsulosin HCl (Flomax) 0.4 mg DAILYWLUN PO Last administered on 03/08/17 13: 37; Start 02/25/17 at 12:00 Vitamin D (Vitamin D3) 5,000 unit DAILY16 PO Last administered on 03/08/17 16: 45; Start 02/25/17 at 16:00 Divalproex Sodium (Depakote Sprinkles) 750 mg DAILY PO Last administered on 07:55; Start 02/27/17 at 09:00 Divalproex Sodium (Depakote Sprinkles) 1,000 mg HS PO Last administered on 03/08 19:22; Start 02/26/17 at 21:00 Lorazepam (Ativan) 0.25 mg PRN Q2HR PRN PO ANXIETY / AGITATION Last administered on 03/05/17 10:54; Start 02/28/17 at 22:15 Buspirone HCl (Buspar) 10 mg BID@1400,2100 PO Last administered on 03/06/17 19: 56; Start 03/01/17 at 21:00; Stop 03/06/17 at 21:28; Status DC Quetiapine Fumarate (SEROquel) 100 mg QHS PO Last administered on 03/08/17 19: 23; Start 03/01/17 at 21:00 Buspirone HCl (Buspar) 15 mg DAILY PO Last administered on 03/08/17 07:55; Start 03/02/17 at 09:00 Quetiapine Fumarate (SEROquel) 100 mg QHS PO ; Start 03/01/17 at 21:00; Status UNV Quetiapine Fumarate (SEROquel) 112.5 mg BID92 PO Last administered on 03/04/17 14:15; Start 03/02/17 at 09:00; Stop 03/04/17 at 18:48; Status DC Quetiapine Fumarate (SEROquel) 125 mg BID92 PO Last administered on 03/08/17 13:38; Start 03/05/17 at 09:00 Buspirone HCl (Buspar) 15 mg BID@1400,2100 PO Last administered on 03/08/17 13 :38; Start 03/07/17 at 14:00; Stop 03/08/17 at 14:20; Status DC Buspirone HCl (Buspar) 15 mg BID@1400,2100 PO Last administered on 03/08/17 19 :21; Start 03/08/17 at 21:00 Active Scripts Active Reported Olanzapine 20 Mg Tablet 20 Mg PO DAILY Celebrex (Celecoxib) 100 Mg Capsule 100 Mg PO BID Potassium Chloride 10 Meq Capsule.er 10 Meq PO DAILYWLUN Spironolactone 25 Mg Tablet 25 Mg PO DAILYWLUN Senna S Tablet (Sennosides/Docusate Sodium) 1 Each Tablet 1 Tab PO BID94 Furosemide 40 Mg Tablet 40 Mg PO DAILY Tamsulosin Hcl 0.4 Mg Cap.er.24h 0.4 Mg PO DAILYWLUN Nuedexta 20-10 Mg Capsule (Dextromethorphan Hbr/Quinidine) 1 Each Capsule 1 Cap PO BID94 Seroquel (Quetiapine Fumarate) 100 Mg Tablet 100 Mg PO TIDWMEALS Bupropion Hcl 75 Mg Tablet 75 Mg PO BID Acetaminophen 500 Mg Tablet 1,000 Mg PO TIDWMEALHC Vitamin D3 (Cholecalciferol (Vitamin D3)) 5,000 Unit Capsule 5,000 Unit PO DAILY16 Buspirone Hcl 10 Mg Tablet 10 Mg PO TIDWMEALS Remeron (Mirtazapine) 15 Mg Tablet 7.5 Mg PO QHS Levothyroxine Sodium 175 Mcg Tablet 175 Mcg PO DAILY06 Lorazepam 1 Mg Tablet 1 Mg PO BID94 Fluvoxamine Maleate 100 Mg Tablet 150 Mg PO BID Atorvastatin Calcium 20 Mg Tablet 20 Mg PO HS Divalproex Sodium 125 Mg Cap.sprink 750 Mg PO BID94 Diagnosis: Problems: (1) Dementia in [place]'s disease with behavioral disturbance (2) Anxiety disorder (3) Impulse control disorder (4) Major depressive disorder, recurrent episode (

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
[2017-03-08] MEDS ORDERED: busPIRone 15 MG TABLET. PO SCH (21:00)
[2017-03-08] MEDS ORDERED: BUSP15TA PO ×2 (22:00→22:02)
[2017-03-08] MEDS ORDERED: DIVA125C PO (22:05)
[2017-03-08] MEDS ORDERED: ACET325T9 PO (22:06)
[2017-03-08] MEDS ORDERED: LORA0.5T PO (22:08)
[2017-03-08] MEDS ORDERED: MAG30ORA PO (22:09)
[2017-03-08] MEDS ORDERED: MAGN2400 PO (22:10)
[2017-03-08] MEDS ORDERED: METH29OI TP (22:11)
[2017-03-08] MEDS ORDERED: QUET50TA5 PO (22:14)
[2017-03-09] MEDS: LEVOTHYROXINE 175 MCG TABLET PO SCH (05:37)
[2017-03-09 06:04] VITALS: BP 171/94
[2017-03-09] MEDS: QUEtiapine 25 MG TABLET. PO SCH (08:08)
[2017-03-09] MEDS: OLANZapine 10 MG TABLET PO SCH (08:08)
[2017-03-09] MEDS: ACETAMINOPHEN 500 MG TABLET PO SCH (08:08)
[2017-03-09] MEDS: DIVALPROEX 125 MG CAP.SPRINK PO SCH (08:08)
[2017-03-09] MEDS: buPROPion 75 MG TABLET PO SCH (08:09)
[2017-03-09] MEDS: FUROSEMIDE 40 MG TABLET PO SCH (08:10)
[2017-03-09] MEDS: busPIRone 15 MG TABLET. PO SCH (08:10)
[2017-03-09] MEDS: SENNOSIDES/DOCUSATE 8.6/50MG TABLET. PO SCH (08:10)
[2017-03-09] MEDS: CELECOXIB 100 MG CAPSULE PO SCH (08:11)
[2017-03-09] MEDS: LORazepam 1 MG TABLET PO SCH (08:11)
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
--- NOTE | 2017-03-09 21:20 | PDOC ---
Exam Bran Demential Exam: Bran Note: Please also refer to the separate dictated note~for this date of service dictated separately.~Patient seen individually. Discussed the patient with Nursing staff reviewed the chart.~Reviewed interim history and current functioning. Reviewed vital signs,~Labs/ Radiology~and current medications noted below. Continue current treatment with the changes noted in the dictated addendum note S/O: This is a late entry for date of service 03/05/2017. The patient was seen individually in the evening of March 05, discussed with nursing staff, and reviewed the chart. This note covers elements not covered in my initial note. Per nursing report, the patient received p.r.n. Ativan earlier in the day. He has not been physically striking out at others. His daughter visited him in the afternoon. Review of Systems: Ambulation impaired, in his wheelchair. No CV, , Pulmonary, Eye system symptoms on review. Reliability poor. MSE: Oriented to himself, at times to situation. Speech often responses monosyllabic. Abstraction fair. Computation impaired. Language function intact. Mood and affect somewhat labile. Labs: Reviewed. Imp: Unchanged from initial note. Plan: Continue current psychotropics mentioned in my initial note. Assessment: Vital Signs: Vital Signs Date Time Temp Pulse Resp B/P (MAP) Pulse Ox O2 Delivery O2 Flow Rate FiO2 03/09/17 06:04 97.4 95 20 171/94 (119) 92 03/07/17 06:18 Room Air I&O Intake and Output 03/09/17 07:00 Intake Total 1440 ml Output Total 1 ml Balance 1439 ml Intake Oral 1440 ml Output Stool Total 1 ml # Bowel Movements 3 Current Medications: Meds: Current Medications Fluvoxamine Maleate (Luvox) 150 mg BID PO Last administered on 03/09/17 08:09 ; Start 02/24/17 at 22:00; Stop 03/09/17 at 11:13; Status DC Mirtazapine (Remeron) 7.5 mg QHS PO Last administered on 03/08/17 19:23; Start 02/24/17 at 22:00; Stop 03/09/17 at 11:13; Status DC Olanzapine (ZyPREXA) 20 mg DAILY PO Last administered on 03/09/17 08:08; Start 02/25/17 at 09:00; Stop 03/09/17 at 11:13; Status DC Bupropion HCl (Wellbutrin) 75 mg BID PO Last administered on 03/09/17 08:09; Start 02/24/17 at 22:00; Stop 03/09/17 at 11:13; Status DC Buspirone HCl (Buspar) 10 mg TIDWMEALS PO Last administered on 03/01/17 17:18; Start 02/25/17 at 08:00; Stop 03/01/17 at 18:03; Status DC Divalproex Sodium (Depakote Sprinkles) 750 mg BID94 PO Last administered on 08:14; Start 02/25/17 at 09:00; Stop 02/26/17 at 14:46; Status DC Lorazepam (Ativan) 1 mg BID94 PO Last administered on 03/09/17 08:11; Start at 09:00; Stop 03/09/17 at 11:13; Status DC Quetiapine Fumarate (SEROquel) 100 mg TIDWMEALS PO Last administered on 17:18; Start 02/25/17 at 08:00; Stop 03/01/17 at 18:03; Status DC Acetaminophen (Tylenol) 650 mg PRN Q6HRS PRN PO PAIN / TEMP; Start 02/24/17 at 21:15; Stop 03/09/17 at 11:13; Status DC Multi-Ingredient Ointment (Analgesic [place]) 1 berkley PRN QID PRN TP MUSCLE PAIN; Start 02/24/17 at 21:15; Stop 03/09/17 at 11:13; Status DC Al Hydroxide/Mg Hydroxide (Mylanta Plus Xs) 15 ml PRN AFTMEALHC PRN PO DYSPEPSIA; Start 02/24/17 at 21:15; Stop 03/09/17 at 11:13; Status DC Magnesium Hydroxide (Milk Of Magnesia) 2,400 mg PRN QHS PRN PO CONSTIPATION; Start 02/24/17 at 21:15; Stop 03/09/17 at 11:13; Status DC Acetaminophen (Tylenol) 1,000 mg TIDWMEALHC PO Last administered on 03/09/17 08:08; Start 02/25/17 at 08:00; Stop 03/09/17 at 11:13; Status DC Atorvastatin Calcium (Lipitor) 20 mg HS PO Last administered on 03/08/17 19:22 ; Start 02/25/17 at 21:00; Stop 03/09/17 at 11:13; Status DC Celecoxib (CeleBREX) 100 mg BIDWMEALS PO Last administered on 03/09/17 08:11; Start 02/25/17 at 08:00; Stop 03/09/17 at 11:13; Status DC Furosemide (Lasix) 40 mg DAILY PO Last administered on 03/09/17 08:10; Start 02/25/17 at 09:00; Stop 03/09/17 at 11:13; Status DC Levothyroxine Sodium (Synthroid) 175 mcg DAILY06 PO Last administered on 05:37; Start 02/25/17 at 06:00; Stop 03/09/17 at 11:13; Status DC Potassium Chloride (Klor-Con) 10 meq DAILYWLUN PO Last administered on 13:37; Start 02/25/17 at 12:00; Stop 03/09/17 at 11:13; Status DC Senna/Docusate Sodium (Senna Plus) 1 tab BID94 PO Last administered on 08:10; Start 02/25/17 at 09:00; Stop 03/09/17 at 11:13; Status DC Spironolactone (Aldactone) 25 mg DAILYWLUN PO Last administered on 03/08/17 13 :37; Start 02/25/17 at 12:00; Stop 03/09/17 at 11:13; Status DC Tamsulosin HCl (Flomax) 0.4 mg DAILYWLUN PO Last administered on 03/08/17 13: 37; Start 02/25/17 at 12:00; Stop 03/09/17 at 11:13; Status DC Vitamin D (Vitamin D3) 5,000 unit DAILY16 PO Last administered on 03/08/17 16: 45; Start 02/25/17 at 16:00; Stop 03/09/17 at 11:13; Status DC Divalproex Sodium (Depakote Sprinkles) 750 mg DAILY PO Last administered on 08:08; Start 02/27/17 at 09:00; Stop 03/09/17 at 11:13; Status DC Divalproex Sodium (Depakote Sprinkles) 1,000 mg HS PO Last administered on 03/08 19:22; Start 02/26/17 at 21:00; Stop 03/09/17 at 11:13; Status DC Lorazepam (Ativan) 0.25 mg PRN Q2HR PRN PO ANXIETY / AGITATION Last administered on 03/05/17 10:54; Start 02/28/17 at 22:15; Stop 03/09/17 at 11:13; Status DC Buspirone HCl (Buspar) 10 mg BID@1400,2100 PO Last administered on 03/06/17 19: 56; Start 03/01/17 at 21:00; Stop 03/06/17 at 21:28; Status DC Quetiapine Fumarate (SEROquel) 100 mg QHS PO Last administered on 03/08/17 19: 23; Start 03/01/17 at 21:00; Stop 03/09/17 at 11:13; Status DC Buspirone HCl (Buspar) 15 mg DAILY PO Last administered on 03/09/17 08:10; Start 03/02/17 at 09:00; Stop 03/09/17 at 11:13; Status DC Quetiapine Fumarate (SEROquel) 100 mg QHS PO ; Start 03/01/17 at 21:00; Status UNV Quetiapine Fumarate (SEROquel) 112.5 mg BID92 PO Last administered on 03/04/17 14:15; Start 03/02/17 at 09:00; Stop 03/04/17 at 18:48; Status DC Quetiapine Fumarate (SEROquel) 125 mg BID92 PO Last administered on 03/09/17 08:08; Start 03/05/17 at 09:00; Stop 03/09/17 at 11:13; Status DC Buspirone HCl (Buspar) 15 mg BID@1400,2100 PO Last administered on 03/08/17 13 :38; Start 03/07/17 at 14:00; Stop 03/08/17 at 14:20; Status DC Buspirone HCl (Buspar) 15 mg BID@1400,2100 PO Last administered on 03/08/17t 19 :21; Start 03/08/17 at 21:00; Stop 03/09/17 at 11:13; Status DC Active Scripts Active Reported Seroquel (Quetiapine Fumarate) 50 Mg Tablet 125 Mg PO BID92 Analgesic [place] (Methyl Salicylate/Menthol) 28 Gm Oint...g. 1 Berkley TP PRN QID PRN Milk Of Magnesia (Magnesium Hydroxide) 2,400 Mg/10 Ml Oral.susp 2,400 Mg PO PRN QHS PRN Mag-Al Plus Suspension (Mag Hydrox/Al Hydrox/Simeth) 30 Ml Oral.susp 15 Ml PO PRN AFTMEALHC PRN Lorazepam 0.5 Mg Tablet 0.25 Mg PO PRN Q4HRS PRN Tylenol (Acetaminophen) 325 Mg Tablet 650 Mg PO PRN Q6HRS PRN Depakote Sprinkle (Divalproex Sodium) 125 Mg Cap.sprink 1,000 Mg PO HS Buspirone Hcl 15 Mg Tablet 15 Mg PO BID 1400, 2100 Buspirone Hcl 15 Mg Tablet 15 Mg PO DAILY Olanzapine 20 Mg Tablet 20 Mg PO DAILY Celebrex (Celecoxib) 100 Mg Capsule 100 Mg PO BIDWMEALS Potassium Chloride 10 Meq Capsule.er 10 Meq PO DAILYWLUN Spironolactone 25 Mg Tablet 25 Mg PO DAILYWLUN Senna S Tablet (Sennosides/Docusate Sodium) 1 Each Tablet 1 Tab PO BID94 Furosemide 40 Mg Tablet 40 Mg PO DAILY Tamsulosin Hcl 0.4 Mg Cap.er.24h 0.4 Mg PO DAILYWLUN Seroquel (Quetiapine Fumarate) 100 Mg Tablet 100 Mg PO HS Bupropion Hcl 75 Mg Tablet 75 Mg PO BID Acetaminophen 500 Mg Tablet 1,000 Mg PO TIDWMEALHC Vitamin D3 (Cholecalciferol (Vitamin D3)) 5,000 Unit Capsule 5,000 Unit PO DAILY16 Remeron (Mirtazapine) 15 Mg Tablet 7.5 Mg PO QHS Levothyroxine Sodium 175 Mcg Tablet 175 Mcg PO DAILY06 Lorazepam 1 Mg Tablet 1 Mg PO BID94 Fluvoxamine Maleate 100 Mg Tablet 150 Mg PO BID Atorvastatin Calcium 20 Mg Tablet 20 Mg PO HS Divalproex Sodium 125 Mg Cap.sprink 750 Mg PO DAILY LIDIA GARRIDO MD Mar 09, 2017 21:20
--- NOTE | 2017-03-10 20:13 | PDOC ---
Exam Bran Demential Exam: Bran Note: Please also refer to the separate dictated note~for this date of service dictated separately.~Patient seen individually. Discussed the patient with Nursing staff reviewed the chart.~Reviewed interim history and current functioning. Reviewed vital signs,~Labs/ Radiology~and current medications noted below. Continue current treatment with the changes noted in the dictated addendum note S/O: This is a late entry for date of service 03/06/2017 and covers elements not covered in my initial note. Per nursing report at lunch time, the patient sat upright and swept three trays off the table, knocked meds out of the hand of the staff members. As I met with the patient, he admitted to doing this and said he got agitated and "pushed the table." The patient seems to remember these things but unable to control it at that time. Review of Systems: Ambulation impaired in wheelchair. No CV, , Pulmonary, Eye systems symptoms on review. MSE: Speech often responses monosyllabic. Insight, judgment, and recent memory have been impairing. Language function is intact. Mood and affect is somewhat anxious, labile at times. Labs: Reviewed. Impression: Unchanged from initial note. Plan: Continue current psychotropics. Increase BuSpar to 50 mg three times a day and maintain the rest unchanged. Valproic acid level is 81. Assessment: Vital Signs: Vital Signs Date Time Temp Pulse Resp B/P (MAP) Pulse Ox O2 Delivery O2 Flow Rate FiO2 03/09/17 06:04 97.4 95 20 171/94 (119) 92 03/07/17 06:18 Room Air I&O Intake and Output 03/10/17 07:00 Intake Total 360 ml Balance 360 ml Intake Oral 360 ml Current Medications: Meds: Current Medications Fluvoxamine Maleate (Luvox) 150 mg BID PO Last administered on 03/09/17 08:09 ; Start 02/24/17 at 22:00; Stop 03/09/17 at 11:13; Status DC Mirtazapine (Remeron) 7.5 mg QHS PO Last administered on 03/08/17 19:23; Start 02/24/17 at 22:00; Stop 03/09/17 at 11:13; Status DC Olanzapine (ZyPREXA) 20 mg DAILY PO Last administered on 03/09/17 08:08; Start 02/25/17 at 09:00; Stop 03/09/17 at 11:13; Status DC Bupropion HCl (Wellbutrin) 75 mg BID PO Last administered on 03/09/17 08:09; Start 02/24/17 at 22:00; Stop 03/09/17 at 11:13; Status DC Buspirone HCl (Buspar) 10 mg TIDWMEALS PO Last administered on 03/01/17 17:18; Start 02/25/17 at 08:00; Stop 03/01/17 at 18:03; Status DC Divalproex Sodium (Depakote Sprinkles) 750 mg BID94 PO Last administered on 08:14; Start 02/25/17 at 09:00; Stop 02/26/17 at 14:46; Status DC Lorazepam (Ativan) 1 mg BID94 PO Last administered on 03/09/17 08:11; Start at 09:00; Stop 03/09/17 at 11:13; Status DC Quetiapine Fumarate (SEROquel) 100 mg TIDWMEALS PO Last administered on 17:18; Start 02/25/17 at 08:00; Stop 03/01/17 at 18:03; Status DC Acetaminophen (Tylenol) 650 mg PRN Q6HRS PRN PO PAIN / TEMP; Start 02/24/17 at 21:15; Stop 03/09/17 at 11:13; Status DC Multi-Ingredient Ointment (Analgesic [place]) 1 berkley PRN QID PRN TP MUSCLE PAIN; Start 02/24/17 at 21:15; Stop 03/09/17 at 11:13; Status DC Al Hydroxide/Mg Hydroxide (Mylanta Plus Xs) 15 ml PRN AFTMEALHC PRN PO DYSPEPSIA; Start 02/24/17 at 21:15; Stop 03/09/17 at 11:13; Status DC Magnesium Hydroxide (Milk Of Magnesia) 2,400 mg PRN QHS PRN PO CONSTIPATION; Start 02/24/17 at 21:15; Stop 03/09/17 at 11:13; Status DC Acetaminophen (Tylenol) 1,000 mg TIDWMEALHC PO Last administered on 03/09/17 08:08; Start 02/25/17 at 08:00; Stop 03/09/17 at 11:13; Status DC Atorvastatin Calcium (Lipitor) 20 mg HS PO Last administered on 03/08/17 19:22 ; Start 02/25/17 at 21:00; Stop 03/09/17 at 11:13; Status DC Celecoxib (CeleBREX) 100 mg BIDWMEALS PO Last administered on 03/09/17 08:11; Start 02/25/17 at 08:00; Stop 03/09/17 at 11:13; Status DC Furosemide (Lasix) 40 mg DAILY PO Last administered on 03/09/17 08:10; Start 02/25/17 at 09:00; Stop 03/09/17 at 11:13; Status DC Levothyroxine Sodium (Synthroid) 175 mcg DAILY06 PO Last administered on 05:37; Start 02/25/17 at 06:00; Stop 03/09/17 at 11:13; Status DC Potassium Chloride (Klor-Con) 10 meq DAILYWLUN PO Last administered on 13:37; Start 02/25/17 at 12:00; Stop 03/09/17 at 11:13; Status DC Senna/Docusate Sodium (Senna Plus) 1 tab BID94 PO Last administered on 08:10; Start 02/25/17 at 09:00; Stop 03/09/17 at 11:13; Status DC Spironolactone (Aldactone) 25 mg DAILYWLUN PO Last administered on 03/08/17 13 :37; Start 02/25/17 at 12:00; Stop 03/09/17 at 11:13; Status DC Tamsulosin HCl (Flomax) 0.4 mg DAILYWLUN PO Last administered on 03/08/17 13: 37; Start 02/25/17 at 12:00; Stop 03/09/17 at 11:13; Status DC Vitamin D (Vitamin D3) 5,000 unit DAILY16 PO Last administered on 03/08/17 16: 45; Start 02/25/17 at 16:00; Stop 03/09/17 at 11:13; Status DC Divalproex Sodium (Depakote Sprinkles) 750 mg DAILY PO Last administered on 08:08; Start 02/27/17 at 09:00; Stop 03/09/17 at 11:13; Status DC Divalproex Sodium (Depakote Sprinkles) 1,000 mg HS PO Last administered on 03/08 19:22; Start 02/26/17 at 21:00; Stop 03/09/17 at 11:13; Status DC Lorazepam (Ativan) 0.25 mg PRN Q2HR PRN PO ANXIETY / AGITATION Last administered on 03/05/17 10:54; Start 02/28/17 at 22:15; Stop 03/09/17 at 11:13; Status DC Buspirone HCl (Buspar) 10 mg BID@1400,2100 PO Last administered on 03/06/17 19: 56; Start 03/01/17 at 21:00; Stop 03/06/17 at 21:28; Status DC Quetiapine Fumarate (SEROquel) 100 mg QHS PO Last administered on 03/08/17 19: 23; Start 03/01/17 at 21:00; Stop 03/09/17 at 11:13; Status DC Buspirone HCl (Buspar) 15 mg DAILY PO Last administered on 03/09/17 08:10; Start 03/02/17 at 09:00; Stop 03/09/17 at 11:13; Status DC Quetiapine Fumarate (SEROquel) 100 mg QHS PO ; Start 03/01/17 at 21:00; Status UNV Quetiapine Fumarate (SEROquel) 112.5 mg BID92 PO Last administered on 03/04/17 14:15; Start 03/02/17 at 09:00; Stop 03/04/17 at 18:48; Status DC Quetiapine Fumarate (SEROquel) 125 mg BID92 PO Last administered on 03/09/17 08:08; Start 03/05/17 at 09:00; Stop 03/09/17 at 11:13; Status DC Buspirone HCl (Buspar) 15 mg BID@1400,2100 PO Last administered on 03/08/17 13 :38; Start 03/07/17 at 14:00; Stop 03/08/17 at 14:20; Status DC Buspirone HCl (Buspar) 15 mg BID@1400,2100 PO Last administered on 03/08/17t 19 :21; Start 03/08/17 at 21:00; Stop 03/09/17 at 11:13; Status DC Active Scripts Active Reported Seroquel (Quetiapine Fumarate) 50 Mg Tablet 125 Mg PO BID92 Analgesic [place] (Methyl Salicylate/Menthol) 28 Gm Oint...g. 1 Berkley TP PRN QID PRN Milk Of Magnesia (Magnesium Hydroxide) 2,400 Mg/10 Ml Oral.susp 2,400 Mg PO PRN QHS PRN Mag-Al Plus Suspension (Mag Hydrox/Al Hydrox/Simeth) 30 Ml Oral.susp 15 Ml PO PRN AFTMEALHC PRN Lorazepam 0.5 Mg Tablet 0.25 Mg PO PRN Q4HRS PRN Tylenol (Acetaminophen) 325 Mg Tablet 650 Mg PO PRN Q6HRS PRN Depakote Sprinkle (Divalproex Sodium) 125 Mg Cap.sprink 1,000 Mg PO HS Buspirone Hcl 15 Mg Tablet 15 Mg PO BID 1400, 2100 Buspirone Hcl 15 Mg Tablet 15 Mg PO DAILY Olanzapine 20 Mg Tablet 20 Mg PO DAILY Celebrex (Celecoxib) 100 Mg Capsule 100 Mg PO BIDWMEALS Potassium Chloride 10 Meq Capsule.er 10 Meq PO DAILYWLUN Spironolactone 25 Mg Tablet 25 Mg PO DAILYWLUN Senna S Tablet (Sennosides/Docusate Sodium) 1 Each Tablet 1 Tab PO BID94 Furosemide 40 Mg Tablet 40 Mg PO DAILY Tamsulosin Hcl 0.4 Mg Cap.er.24h 0.4 Mg PO DAILYWLUN Seroquel (Quetiapine Fumarate) 100 Mg Tablet 100 Mg PO HS Bupropion Hcl 75 Mg Tablet 75 Mg PO BID Acetaminophen 500 Mg Tablet 1,000 Mg PO TIDWMEALHC Vitamin D3 (Cholecalciferol (Vitamin D3)) 5,000 Unit Capsule 5,000 Unit PO DAILY16 Remeron (Mirtazapine) 15 Mg Tablet 7.5 Mg PO QHS Levothyroxine Sodium 175 Mcg Tablet 175 Mcg PO DAILY06 Lorazepam 1 Mg Tablet 1 Mg PO BID94 Fluvoxamine Maleate 100 Mg Tablet 150 Mg PO BID Atorvastatin Calcium 20 Mg Tablet 20 Mg PO HS Divalproex Sodium 125 Mg Cap.sprink 750 Mg PO DAILY RADHIKA,MAN M MD Mar 10, 2017 20:13
--- NOTE | 2017-03-10 20:49 | PDOC ---
Exam Bran Demential Exam: Bran Note: Please also refer to the separate dictated note~for this date of service dictated separately.~Patient seen individually. Discussed the patient with Nursing staff reviewed the chart.~Reviewed interim history and current functioning. Reviewed vital signs,~Labs/ Radiology~and current medications noted below. Continue current treatment with the changes noted in the dictated addendum note S/O: This is a late entry for date of service 03/07/2017 and covers the elements that are not covered in my initial note. The patient continues to have marked mood labilities and crying spells but not agitated and aggressive today. He has had good rest of the day per nursing report. Review of Systems: Ambulation, impaired, in a Broda chair. No CV, , Eye, ENT , Pulmonary system symptoms on review. He has abnormal movements consistent with Hinds's. MSE: Oriented to himself and situation. Speech moderate, latency, often responses monosyllabic. Abstraction, fair. Computation, impaired. Language function, intact. Mood and affect lability is improved. No active suicidal or homicidal ideation. Labs: Reviewed. Imp: Unchanged from initial note. Plan: Continue psychotropics mentioned in my initial note. Assessment: Vital Signs: Vital Signs Date Time Temp Pulse Resp B/P (MAP) Pulse Ox O2 Delivery O2 Flow Rate FiO2 03/09/17 06:04 97.4 95 20 171/94 (119) 92 03/07/17 06:18 Room Air I&O Intake and Output 03/10/17 07:00 Intake Total 360 ml Balance 360 ml Intake Oral 360 ml Current Medications: Meds: Current Medications Fluvoxamine Maleate (Luvox) 150 mg BID PO Last administered on 03/09/17 08:09 ; Start 02/24/17 at 22:00; Stop 03/09/17 at 11:13; Status DC Mirtazapine (Remeron) 7.5 mg QHS PO Last administered on 03/08/17 19:23; Start 02/24/17 at 22:00; Stop 03/09/17 at 11:13; Status DC Olanzapine (ZyPREXA) 20 mg DAILY PO Last administered on 03/09/17 08:08; Start 02/25/17 at 09:00; Stop 03/09/17 at 11:13; Status DC Bupropion HCl (Wellbutrin) 75 mg BID PO Last administered on 03/09/17 08:09; Start 02/24/17 at 22:00; Stop 03/09/17 at 11:13; Status DC Buspirone HCl (Buspar) 10 mg TIDWMEALS PO Last administered on 03/01/17 17:18; Start 02/25/17 at 08:00; Stop 03/01/17 at 18:03; Status DC Divalproex Sodium (Depakote Sprinkles) 750 mg BID94 PO Last administered on 08:14; Start 02/25/17 at 09:00; Stop 02/26/17 at 14:46; Status DC Lorazepam (Ativan) 1 mg BID94 PO Last administered on 03/09/17 08:11; Start at 09:00; Stop 03/09/17 at 11:13; Status DC Quetiapine Fumarate (SEROquel) 100 mg TIDWMEALS PO Last administered on 17:18; Start 02/25/17 at 08:00; Stop 03/01/17 at 18:03; Status DC Acetaminophen (Tylenol) 650 mg PRN Q6HRS PRN PO PAIN / TEMP; Start 02/24/17 at 21:15; Stop 03/09/17 at 11:13; Status DC Multi-Ingredient Ointment (Analgesic [place]) 1 berkley PRN QID PRN TP MUSCLE PAIN; Start 02/24/17 at 21:15; Stop 03/09/17 at 11:13; Status DC Al Hydroxide/Mg Hydroxide (Mylanta Plus Xs) 15 ml PRN AFTMEALHC PRN PO DYSPEPSIA; Start 02/24/17 at 21:15; Stop 03/09/17 at 11:13; Status DC Magnesium Hydroxide (Milk Of Magnesia) 2,400 mg PRN QHS PRN PO CONSTIPATION; Start 02/24/17 at 21:15; Stop 03/09/17 at 11:13; Status DC Acetaminophen (Tylenol) 1,000 mg TIDWMEALHC PO Last administered on 03/09/17 08:08; Start 02/25/17 at 08:00; Stop 03/09/17 at 11:13; Status DC Atorvastatin Calcium (Lipitor) 20 mg HS PO Last administered on 03/08/17 19:22 ; Start 02/25/17 at 21:00; Stop 03/09/17 at 11:13; Status DC Celecoxib (CeleBREX) 100 mg BIDWMEALS PO Last administered on 03/09/17 08:11; Start 02/25/17 at 08:00; Stop 03/09/17 at 11:13; Status DC Furosemide (Lasix) 40 mg DAILY PO Last administered on 03/09/17 08:10; Start 02/25/17 at 09:00; Stop 03/09/17 at 11:13; Status DC Levothyroxine Sodium (Synthroid) 175 mcg DAILY06 PO Last administered on 05:37; Start 02/25/17 at 06:00; Stop 03/09/17 at 11:13; Status DC Potassium Chloride (Klor-Con) 10 meq DAILYWLUN PO Last administered on 13:37; Start 02/25/17 at 12:00; Stop 03/09/17 at 11:13; Status DC Senna/Docusate Sodium (Senna Plus) 1 tab BID94 PO Last administered on 08:10; Start 02/25/17 at 09:00; Stop 03/09/17 at 11:13; Status DC Spironolactone (Aldactone) 25 mg DAILYWLUN PO Last administered on 03/08/17 13 :37; Start 02/25/17 at 12:00; Stop 03/09/17 at 11:13; Status DC Tamsulosin HCl (Flomax) 0.4 mg DAILYWLUN PO Last administered on 03/08/17 13: 37; Start 02/25/17 at 12:00; Stop 03/09/17 at 11:13; Status DC Vitamin D (Vitamin D3) 5,000 unit DAILY16 PO Last administered on 03/08/17 16: 45; Start 02/25/17 at 16:00; Stop 03/09/17 at 11:13; Status DC Divalproex Sodium (Depakote Sprinkles) 750 mg DAILY PO Last administered on 08:08; Start 02/27/17 at 09:00; Stop 03/09/17 at 11:13; Status DC Divalproex Sodium (Depakote Sprinkles) 1,000 mg HS PO Last administered on 03/08 19:22; Start 02/26/17 at 21:00; Stop 03/09/17 at 11:13; Status DC Lorazepam (Ativan) 0.25 mg PRN Q2HR PRN PO ANXIETY / AGITATION Last administered on 03/05/17 10:54; Start 02/28/17 at 22:15; Stop 03/09/17 at 11:13; Status DC Buspirone HCl (Buspar) 10 mg BID@1400,2100 PO Last administered on 03/06/17 19: 56; Start 03/01/17 at 21:00; Stop 03/06/17 at 21:28; Status DC Quetiapine Fumarate (SEROquel) 100 mg QHS PO Last administered on 03/08/17 19: 23; Start 03/01/17 at 21:00; Stop 03/09/17 at 11:13; Status DC Buspirone HCl (Buspar) 15 mg DAILY PO Last administered on 03/09/17 08:10; Start 03/02/17 at 09:00; Stop 03/09/17 at 11:13; Status DC Quetiapine Fumarate (SEROquel) 100 mg QHS PO ; Start 03/01/17 at 21:00; Status UNV Quetiapine Fumarate (SEROquel) 112.5 mg BID92 PO Last administered on 03/04/17 14:15; Start 03/02/17 at 09:00; Stop 03/04/17 at 18:48; Status DC Quetiapine Fumarate (SEROquel) 125 mg BID92 PO Last administered on 03/09/17 08:08; Start 03/05/17 at 09:00; Stop 03/09/17 at 11:13; Status DC Buspirone HCl (Buspar) 15 mg BID@1400,2100 PO Last administered on 03/08/17 13 :38; Start 03/07/17 at 14:00; Stop 03/08/17 at 14:20; Status DC Buspirone HCl (Buspar) 15 mg BID@1400,2100 PO Last administered on 7/10/17at 19 :21; Start 03/08/17 at 21:00; Stop 03/09/17 at 11:13; Status DC Active Scripts Active Reported Seroquel (Quetiapine Fumarate) 50 Mg Tablet 125 Mg PO BID92 Analgesic [place] (Methyl Salicylate/Menthol) 28 Gm Oint...g. 1 [place] TP PRN QID PRN Milk Of Magnesia (Magnesium Hydroxide) 2,400 Mg/10 Ml Oral.susp 2,400 Mg PO PRN QHS PRN Mag-Al Plus Suspension (Mag Hydrox/Al Hydrox/Simeth) 30 Ml Oral.susp 15 Ml PO PRN AFTMEALHC PRN Lorazepam 0.5 Mg Tablet 0.25 Mg PO PRN Q4HRS PRN Tylenol (Acetaminophen) 325 Mg Tablet 650 Mg PO PRN Q6HRS PRN Depakote Sprinkle (Divalproex Sodium) 125 Mg Cap.sprink 1,000 Mg PO HS Buspirone Hcl 15 Mg Tablet 15 Mg PO BID 1400, 2100 Buspirone Hcl 15 Mg Tablet 15 Mg PO DAILY Olanzapine 20 Mg Tablet 20 Mg PO DAILY Celebrex (Celecoxib) 100 Mg Capsule 100 Mg PO BIDWMEALS Potassium Chloride 10 Meq Capsule.er 10 Meq PO DAILYWLUN Spironolactone 25 Mg Tablet 25 Mg PO DAILYWLUN Senna S Tablet (Sennosides/Docusate Sodium) 1 Each Tablet 1 Tab PO BID94 Furosemide 40 Mg Tablet 40 Mg PO DAILY Tamsulosin Hcl 0.4 Mg Cap.er.24h 0.4 Mg PO DAILYWLUN Seroquel (Quetiapine Fumarate) 100 Mg Tablet 100 Mg PO HS Bupropion Hcl 75 Mg Tablet 75 Mg PO BID Acetaminophen 500 Mg Tablet 1,000 Mg PO TIDWMEALHC Vitamin D3 (Cholecalciferol (Vitamin D3)) 5,000 Unit Capsule 5,000 Unit PO DAILY16 Remeron (Mirtazapine) 15 Mg Tablet 7.5 Mg PO QHS Levothyroxine Sodium 175 Mcg Tablet 175 Mcg PO DAILY06 Lorazepam 1 Mg Tablet 1 Mg PO BID94 Fluvoxamine Maleate 100 Mg Tablet 150 Mg PO BID Atorvastatin Calcium 20 Mg Tablet 20 Mg PO HS Divalproex Sodium 125 Mg Cap.sprink 750 Mg PO DAILY LIDIA GARRIDO MD Mar 10, 2017 20:49
== END 2017-03-09 11:13 | DRG 57 ==
LOC: ER 18:42 → GEROPSY 20:33
PROVIDERS: ADMIT Psychiatry & Neurology Psychiatry; ATTEND Psychiatry & Neurology Psychiatry
DX: G10 Huntington's disease (principal); F02.81 Dementia in other diseases classified elsewhere, unspecified severity, with behavioral disturbance; F33.9 Major depressive disorder, recurrent, unspecified; E03.9 Hypothyroidism, unspecified; E78.00 Pure hypercholesterolemia, unspecified; F41.9 Anxiety disorder, unspecified; F42.9 Obsessive-compulsive disorder, unspecified; F63.9 Impulse disorder, unspecified; R13.10 Dysphagia, unspecified; I50.9 Heart failure, unspecified; G30.9 Alzheimer's disease, unspecified; W19.XXXA Unspecified fall, initial encounter; Y93.89 Activity, other specified; Y92.89 Other specified places as the place of occurrence of the external cause; Y99.8 Other external cause status
CPT/HCPCS: 36415; 70450; 71010; 80048; 80053; 80061; 80076; 80164; 80185; 81001; 82306; 82607; 83036; 83540; 83550; 83735; 84436; 84443; 84480; 85027; 86592; 86593; 93005; G0481; 99285-25

== ENCOUNTER 2017-04-21 19:20 | Inpatient (IN) | payer MEDICARE ==
[~2017-04-21] VITALS: Ht 177.8 cm; Wt 99.0 kg
[~2017-04-21 19:20] MED LIST changes: +BUPR75TA6 PO; +BUSP15TA PO; +CELE100C PO; +CHOL5000 PO; +DEXT1CAP PO; +DIVA125C PO; +FURO40TA4 PO; +MAG30ORA PO; +OLAN20TA7 PO; +POTA10CA PO; +QUET100T4 PO; +QUET50TA5 PO; +SENN-6 PO; +SPIR25TA3 PO; +TAMS0.4C2 PO
[2017-04-21] MEDS ORDERED: LORazepam 2 MG/ML VIAL IM ONE (19:45)
[2017-04-21] MEDS ORDERED: OLANZapine IM 10 MG VIAL. IM ONE (19:45)
[2017-04-21 20:34] LABS: BASO # 0.1 x10^3/uL (0.0-0.2); BASO % 1 % (0-3); EOS # 0.4 x10^3/uL (0.0-0.7); EOS % 4 % (0-3); HEMOGLOBIN 13.3 g/dL (13.0-17.5); LYMPH # 1.4 x10^3/uL (1.0-4.8); LYMPH % 18 % (24-48); MEAN CORPUSCULAR HEMOGLOBIN 30 pg (25-35); MEAN CORPUSCULAR HGB CONC 33 g/dL (31-37); MEAN CORPUSCULAR VOLUME 89 fL (79-100); MONO % 13 % (0-9); NEUT # 5.2 x10^3uL (1.8-7.7); NEUT % 64 % (31-73); PLATELET COUNT 216 x10^3/uL (140-400); RED BLOOD COUNT 4.49 x10^6/uL (4.30-5.70); RED CELL DISTRIBUTION WIDTH 15.7 % (11.5-14.5); WHITE BLOOD COUNT 8.1 x10^3/uL (4.0-11.0)
[2017-04-21 20:46] LABS: ALBUMIN 3.3 g/dL (3.4-5.0); ALBUMIN/GLOBULIN RATIO 0.9 (1.0-1.7); CALCIUM 8.7 mg/dL (8.5-10.1); CREATININE 1.1 mg/dL (0.7-1.3); GFR 68.5; TOTAL BILIRUBIN 0.2 mg/dL (0.2-1.0)
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
[2017-04-21 22:00] VITALS: BP 124/78
--- NOTE | 2017-04-22 00:15 | EKG ---
[address] [address] Test Date: 2017-04-21 Test Time: 19:50:43 Pat Name: YOGI CAMACHO Department: Room: [address] [place] [address] Gender: M Pcat Instructor: : [id number] Requested By: SANDER SOTELO Order Number: [id number] Reading MD: Solo Beauchamp Measurements Intervals [place] Rate: 90 P: 43 TX: 168 QRS: 5 QRSD: 84 T: 0 QT: 346 QTc: 427 Interpretive Statements SINUS RHYTHM NON SPECIFIC T ABNORMALITY LEFT AXIS DEVIATION Electronically Signed On 04-26-2017 14:30:57 CDT by Solo Beauchamp
[2017-04-22] MEDS ORDERED: TAMS0.4C2 PO (00:49)
[2017-04-22] MEDS ORDERED: ATOR20TA58 PO (00:49)
[2017-04-22] MEDS ORDERED: DIVA125C PO (00:49)
[2017-04-22] MEDS ORDERED: LEVO175T5 PO (00:49)
[2017-04-22] MEDS ORDERED: LORA-434 PO (00:49)
[2017-04-22] MEDS ORDERED: OLAN20TA7 PO (00:49)
[2017-04-22] MEDS ORDERED: CHOL500016 PO (00:49)
[2017-04-22] MEDS ORDERED: FURO-68 PO (00:49)
[2017-04-22] MEDS ORDERED: SENN1TAB15 PO (00:49)
[2017-04-22] MEDS ORDERED: POTASSIUM CHLORIDE PO (00:49)
[2017-04-22] MEDS ORDERED: FLUV100T2 PO (00:49)
[2017-04-22] MEDS ORDERED: ACET500T68 PO (00:49)
[2017-04-22] MEDS ORDERED: CELE100C PO (00:49)
[2017-04-22] MEDS ORDERED: MIRT15TA3 PO (00:49)
[2017-04-22] MEDS ORDERED: SPIR25TA PO (00:49)
[2017-04-22] MEDS ORDERED: BUPROPION HCL PO (00:49)
[2017-04-22] MEDS ORDERED: MAG HYDROX/AL HYDROX/SIMETH 30 ML ORAL.SUSP PO PRN (01:00)
[2017-04-22] MEDS ORDERED: ACETAMINOPHEN 325 MG TABLET PO PRN (01:00)
[2017-04-22] MEDS ORDERED: METHYL SALICYLATE/MENTHOL TOPICAL OINTMENT 29GM TUBE. TP PRN (01:00)
[2017-04-22] MEDS ORDERED: MAGNESIUM HYDROXIDE 2,400 MG/30 ML ORAL.SUSP. PO PRN (01:00)
[2017-04-22] MEDS ORDERED: HALO2TAB PO (01:15)
[2017-04-22] MEDS ORDERED: QUET300T5 PO (01:15)
--- NOTE | 2017-04-22 01:40 | ACF ---
Admission Criteria Forms PSYCHIATRIC DISORDERS Clinical Indications for Inpatient Care (Place 'X' for any and all applicable criteria): Ongoing inpatient care may be needed for 1 or more of the following(1)(2)(3)(4)( 6)(7)(8): [X]I. Danger to self or others not manageable at lower level of care. [ ]II. Grave disability (eg, inability to perform self care necessary at lower level of care) [ ]III. Agitation or inappropriate behavior interfering with care for primary condition (eg, attempting to discontinue lines or drains prematurely, unable to cooperate with respiratory care) [ ]IV. Severe disability or disorder indicated by ALL of the following: [ ]a) Severe behavioral health disorder-related symptoms or condition indicated by 1 or more of the following: [ ]i) Severe problem with cognition, memory, judgment, or impulse control [ ]ii) Severe clinical manifestations (eg, hallucinations, delusions, other acute psychotic symptoms, dayanara, extreme agitation or anxiety) [ ]b) Patient management at lower level of care is not feasible until acute intervention or modification is initiated. Extended stay beyond goal length of stay for the primary condition may be needed untilALLof the following are present(1)(2)(3)(4)7)63)(23): [ ]a) Danger to self or others is absent or manageable at lower level of care [ ]b) Behavior crisis management, including physical or chemical restraints, is required and is not available at a lower level of care. [ ]c) Behavioral symptoms (e.g., agitation, somnolence, inappropriate behavior) are present, and are not manageable at a lower level of care. [ ]d) Patient cannot understand follow-up treatment and crisis plan. [ ]e) Provider and supports are sufficiently available at lower level of care. [ ]f) Patient can participate (e.g., verify absence of plan for harm) and is in needed of monitoring. The original [facility] [employer] content created by [facility] [employer] has been revised. The portions of the content which have been revised are identified through the use of italic text, and [facility] [employer] has neither reviewed nor approved the modified material. All other unmodified content is copyright [facility]. Please see references footnoted in the original [facility] edition 2015 Admission Criteria Met?: Yes SALMA HOOD Apr 22, 2017 01:40
[2017-04-22 01:43] LABS: VAL ACID 101 mcg/mL (50-100)
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
--- NOTE | 2017-04-22 03:30 | NUR ---
Lying quietly in bed, no shouting or trying to get oob.
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
[2017-04-22 06:22] VITALS: BP 126/83
--- NOTE | 2017-04-22 07:46 | NUR ---
Patient in isolation hallway at shift change. Yelling out and crawling into hallway trying to pull up on chair. This nurse talked to patient and set some ground rules. Patient agreed to stop yelling and sit in his broda in the day room. Assisted patient to the Broda chair. Pt now in dayroom watching TV with peers. Will continue to monitor.
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
[2017-04-22] MEDS: LORazepam 1 MG TABLET PO SCH ×2 (08:16→19:28)
[2017-04-22] MEDS: buPROPion 75 MG TABLET PO SCH ×2 (08:16→19:24)
[2017-04-22] MEDS: QUEtiapine 100 MG TABLET. PO SCH ×2 (08:17→19:24)
[2017-04-22] MEDS: MIRTAZAPINE 15 MG TABLET PO SCH (08:17)
[2017-04-22] MEDS: HALOPERIDOL 2 MG TABLET PO SCH ×3 (08:17→19:24)
[2017-04-22] MEDS: DIVALPROEX 125 MG CAP.SPRINK PO SCH (08:18)
[2017-04-22] MEDS ORDERED: OLANZapine 10 MG TABLET PO SCH (09:00)
--- NOTE | 2017-04-22 10:00 | NUR ---
THERAPEUTIC RECREATION GROUP NOTE TITLE :SRIDHARGO- Led by [employer] ACTIVITY : Activities and Games GOAL : Increase alertness, focus, morale, decrease stress, team building, positive communication DURATION : 60 Minutes RESPONSE : No participation.
--- NOTE | 2017-04-22 11:51 | NUR ---
Behavior Intervention Response and Plan: BIRP Note: Behavior: Assumed Care of patient, patient located in Hallway at shift change. Patient exhibited the following behavior Disorganized, Disorganized, Combative. Brief assessment on rounds of vital signs, medication needs, lab studies, and pain. Treatment plan problems 1 and 2. Intervention: Patient assessed and the following interventions initiated safety checks 15 Minute Checks Cognitive Assessment , Personal Alarm in place , Head to toe Assessment. Response: After interactions and interventions patient responded in the following manner, Disorganized , Combative ,Disorganized. Continue to assess behaviors and condition will continue to monitor throughout the shift as needed. Patient educated on ADL's, and hand hygiene. Plan: Continue to monitor Master Treatment Plan for patient's progress toward short term goals of Decreased Agitation, Decreased Aggression, extermination inspector goals to return to previous living setting vs placement. Continue to assess patient for changes in above assessment. Monitor for medication needs, pain, and safety concerns. Hourly rounding performed to ensure safe environment.
[2017-04-22] MEDS: POTASSIUM CHLORIDE 10 MEQ TABLET.ER. PO SCH (12:03)
[2017-04-22] MEDS: ACETAMINOPHEN 500 MG TABLET PO SCH ×3 (12:03→19:24)
[2017-04-22] MEDS: CHOLECALCIFEROL (VITAMIN D3) 1,000 UNIT TABLET PO SCH (12:03)
[2017-04-22] MEDS: LEVOTHYROXINE 175 MCG TABLET PO SCH (12:03)
[2017-04-22] MEDS: SPIRONOLACTONE 25 MG TABLET PO SCH (12:04)
[2017-04-22] MEDS: TAMSULOSIN 0.4 MG CAP.ER.24H. PO SCH (12:04)
[2017-04-22] MEDS: SENNOSIDES/DOCUSATE 8.6/50MG TABLET. PO SCH ×2 (12:04→19:24)
[2017-04-22] MEDS: FUROSEMIDE 40 MG TABLET PO SCH (12:04)
[2017-04-22] MEDS: CELECOXIB 100 MG CAPSULE PO SCH ×2 (12:05→21:00)
--- NOTE | 2017-04-22 14:00 | NUR ---
THERAPEUTIC RECREATION GROUP NOTE TITLE :Song Susu Interpretation ACTIVITY : Music, Cognitive Stimulation GOAL : Increase socialization, elevate mood, stimulate memory. Maintain or improve cognitive functioning and memory. DURATION : 90 Minutes RESPONSE : No participation.
[2017-04-22 14:32] LABS: THYROID STIM HORMONE (TSH) 0.371 uIU/mL (0.358-3.740)
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
--- NOTE | 2017-04-22 16:09 | NUR ---
SW received call from Pt's dtrMacy regarding issues w/Pt. returning to [facility]. Pt's facility has stated they do not feel as though they can meet Pt's needs. They have not provided family w/a 30 day notice. SW encouraged family to keep Pt's belongings at [facility] as if placement can not be secured by dc, Pt. will need to return to [facility]. Family had questions specific to rules and regs around 30 day notices. SW addressed many of the questions and stated SW would touch base w/[facility] to coordinate the search for new placement. Family received call from Pt's previously facility, [facility] and family absolutely is against PT. returning there. Family stated PT. is on wait list for [facility].
[2017-04-22 16:18] VITALS: BP 122/87
[2017-04-22] MEDS ORDERED: traZODone 100 MG TABLET. PO PRN (18:15)
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
[2017-04-22] MEDS: traZODone 100 MG TABLET. PO SCH (19:29)
[2017-04-22] MEDS: ATORVASTATIN CALCIUM 20 MG TABLET PO SCH (19:48)
[2017-04-22 20:08] LABS: T3 TOTAL 79 ng/dL (71-180); THYROXINE 5.9 ug/dL (4.5-12.0)
--- NOTE | 2017-04-22 20:48 | PDOC ---
Exam Bran Demential Exam: Bran Note: Please also refer to the separate dictated note~for this date of service dictated separately.~Patient seen individually. Discussed the patient with Nursing staff reviewed the chart.~Reviewed interim history and current functioning. Reviewed vital signs,~Labs/ Radiology~and current medications noted below. Continue current treatment with the changes noted in the dictated addendum note Assessment: Vital Signs: Vital Signs Date Time Temp Pulse Resp B/P (MAP) Pulse Ox O2 Delivery O2 Flow Rate FiO2 04/22/17 16:18 97.2 96 18 122/87 (99) 93 04/21/17 20:00 Room Air I&O Intake and Output 04/22/17 06:59 # Voids 1 Current Medications: Meds: Current Medications Olanzapine (ZyPREXA ZYDIS) 5 mg 1X ONCE PO ; Start 04/21/17 at 19:45; Stop at 19:46; Status DC Olanzapine (ZyPREXA IM) 10 mg 1X ONCE IM Last administered on 04/21/17 19:36 ; Start 04/21/17 at 19:45; Stop 04/21/17 at 19:46; Status DC Lorazepam (Ativan) 1 mg 1X ONCE IM Last administered on 04/21/17 20:10; Start 04/21/17 at 19:45; Stop 04/21/17 at 19:46; Status DC Divalproex Sodium (Depakote Sprinkles) 750 mg DAILY PO Last administered on 08:18; Start 04/22/17 at 09:00 Fluvoxamine Maleate (Luvox) 150 mg BID PO Last administered on 04/22/17 19:24 ; Start 04/22/17 at 09:00 Lorazepam (Ativan) 1 mg BID PO Last administered on 04/22/17 19:28; Start at 09:00 Mirtazapine (Remeron) 7.5 mg DAILY PO Last administered on 04/22/17 08:17; Start 04/22/17 at 09:00 Olanzapine (ZyPREXA) 20 mg DAILY PO Last administered on 04/22/17 08:17; Start 04/22/17 at 09:00; Stop 04/22/17 at 18:13; Status DC Bupropion HCl (Wellbutrin) 75 mg BID PO Last administered on 04/22/17 19:24; Start 04/22/17 at 09:00 Acetaminophen (Tylenol) 650 mg PRN Q6HRS PRN PO PAIN / TEMP; Start 04/22/17 at 01:00 Multi-Ingredient Ointment (Analgesic Spreckels) 1 alistair PRN QID PRN TP MUSCLE PAIN; Start 04/22/17 at 01:00 Al Hydroxide/Mg Hydroxide (Mylanta Plus Xs) 15 ml PRN AFTMEALHC PRN PO DYSPEPSIA; Start 04/22/17 at 01:00 Magnesium Hydroxide (Milk Of Magnesia) 2,400 mg PRN QHS PRN PO CONSTIPATION; Start 04/22/17 at 01:00 Haloperidol (Haldol) 2 mg TID PO Last administered on 04/22/17 19:24; Start at 09:00 Quetiapine Fumarate (SEROquel) 300 mg BID PO Last administered on 04/22/17 19: 24; Start 04/22/17 at 09:00 Olanzapine (ZyPREXA ZYDIS) 2.5 mg PRN Q2HR PRN PO PSYCHOSIS Last administered on 04/22/17 05:33; Start 04/22/17 at 01:30 Acetaminophen (Tylenol) 1,000 mg TID PO Last administered on 04/22/17 19:24; Start 04/22/17 at 09:00 Atorvastatin Calcium (Lipitor) 20 mg QHS PO Last administered on 04/22/17 19: 48; Start 04/22/17 at 21:00 Celecoxib (CeleBREX) 100 mg BID PO Last administered on 04/22/17 12:05; Start 04/22/17 at 09:00 Furosemide (Lasix) 40 mg DAILY PO Last administered on 04/22/17 12:04; Start 04/22/17 at 09:00 Levothyroxine Sodium (Synthroid) 175 mcg DAILYAC PO Last administered on 12:03; Start 04/22/17 at 08:45 Senna/Docusate Sodium (Senna Plus) 1 tab BID PO Last administered on 04/22/17 19:24; Start 04/22/17 at 09:00 Spironolactone (Aldactone) 25 mg DAILY PO Last administered on 04/22/17 12:04 ; Start 04/22/17 at 09:00 Tamsulosin HCl (Flomax) 0.4 mg DAILY PO Last administered on 04/22/17 12:04; Start 04/22/17 at 09:00 Vitamin D (Vitamin D3) 5,000 unit DAILY PO Last administered on 04/22/17 12:03 ; Start 04/22/17 at 09:00 Potassium Chloride (Klor-Con) 10 meq DAILYWBKFT PO Last administered on 12:03; Start 04/22/17 at 08:45 Olanzapine (ZyPREXA) 10 mg DAILY PO ; Start 04/23/17 at 09:00 Trazodone HCl (Desyrel) 100 mg QHS PO Last administered on 04/22/17 19:29; Start 04/22/17 at 21:00 Trazodone HCl (Desyrel) 100 mg QHS PRN PO INSOMNIA; Start 04/22/17 at 18:15 Trazodone HCl (Desyrel) 12.5 mg TID@0900,1300,1700 PO ; Start 04/23/17 at 09:00 Active Scripts Active Reported Seroquel (Quetiapine Fumarate) 300 Mg Tablet 300 Mg PO BID Haloperidol 2 Mg Tablet 2 Mg PO TID Atorvastatin Calcium 20 Mg Tablet 20 Mg PO QHS Vitamin D3 (Cholecalciferol (Vitamin D3)) 5,000 Unit Tablet 5,000 Unit PO DAILY [KCL sprinkles] 10 Meq PO DAILY Aldactone (Spironolactone) 25 Mg Tablet 25 Mg PO DAILY Tamsulosin Hcl 0.4 Mg Cap.er.24h 0.4 Mg PO DAILY Celebrex (Celecoxib) 100 Mg Capsule 100 Mg PO BID Senna-S Tablet (Sennosides/Docusate Sodium) 1 Each Tablet 1 Each PO BID Lasix (Furosemide) 40 Mg Tablet 40 Mg PO DAILY Depakote Sprinkle (Divalproex Sodium) 125 Mg Cap.sprink 1,000 Mg PO BID Acetaminophen 500 Mg Tablet 1,000 Mg PO TID Levothyroxine Sodium 175 Mcg Tablet 175 Mcg PO DAILYAC Olanzapine 20 Mg Tablet 20 Mg PO DAILY Ativan (Lorazepam) 1 Mg Tablet 1 Mg PO BID [bupropion hcl] 75 Mg PO BID Fluvoxamine Maleate 100 Mg Tablet 150 Mg PO BID Mirtazapine 15 Mg Tablet 7.5 Mg PO DAILY Diagnosis: Problems: (1) Anxiety disorder (2) Impulse control disorder (3) Major depressive disorder, recurrent episode (4) Dementia in Amberson's disease with behavioral disturbance (5) Dementia due to [place] chorea LIDIA GARRIDO MD Apr 22, 2017 20:48
--- NOTE | 2017-04-22 21:40 | NUR ---
Behavior Intervention Response and Plan: BIRP Note: Behavior: Assumed Care of patient, patient located in Day Room at shift change. Patient exhibited the following behavior Disorganized, Compulsive, Compliant. Brief assessment on rounds of vital signs, medication needs, lab studies, and pain. Treatment plan problems . Intervention: Patient assessed and the following interventions initiated safety checks 15 Minute Checks Head to toe Assessment , Medications , Cognitive Assessment. Response: After interactions and interventions patient responded in the following manner, Delusions , Restless ,Attention Seeking. Continue to assess behaviors and condition will continue to monitor throughout the shift as needed. Patient educated on ADL's, and hand hygiene. Plan: Continue to monitor Master Treatment Plan for patient's progress toward short term goals of Improved Mood, Medication Compliance, superintendent container terminal goals to return to previous living setting vs placement. Continue to assess patient for changes in above assessment. Monitor for medication needs, pain, and safety concerns. Hourly rounding performed to ensure safe environment.
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
[2017-04-23 04:01] LABS: BILIRUBIN,URINE NEG (NEG); CLARITY,URINE CLEAR; COLOR,URINE YELLOW; GLUCOSE,URINE NEG (NEG); NITRITE,URINE NEG (NEG); UROBILINOGEN,URINE 0.2 mg/dL (0.2 mg/dL)
[2017-04-23 04:02] LABS: BACTERIA,URINE FEW /HPF (0-FEW); SQUAMOUS EPITHELIAL CELL,UR OCC /LPF; WBC,URINE OCC /HPF (0-4)
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
[2017-04-23 06:08] VITALS: BP 124/84
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
[2017-04-23] MEDS: buPROPion 75 MG TABLET PO SCH ×2 (08:07→19:20)
[2017-04-23] MEDS: HALOPERIDOL 2 MG TABLET PO SCH ×3 (08:07→19:21)
[2017-04-23] MEDS: FUROSEMIDE 40 MG TABLET PO SCH (08:07)
[2017-04-23] MEDS: DIVALPROEX 125 MG CAP.SPRINK PO SCH (08:07)
[2017-04-23] MEDS: QUEtiapine 100 MG TABLET. PO SCH ×2 (08:08→19:21)
[2017-04-23] MEDS: MIRTAZAPINE 15 MG TABLET PO SCH (08:08)
[2017-04-23] MEDS: CHOLECALCIFEROL (VITAMIN D3) 1,000 UNIT TABLET PO SCH (08:08)
[2017-04-23] MEDS: ACETAMINOPHEN 500 MG TABLET PO SCH ×3 (08:08→19:20)
[2017-04-23] MEDS: TAMSULOSIN 0.4 MG CAP.ER.24H. PO SCH (08:08)
[2017-04-23] MEDS: SPIRONOLACTONE 25 MG TABLET PO SCH (08:09)
[2017-04-23] MEDS: POTASSIUM CHLORIDE 10 MEQ TABLET.ER. PO SCH (08:09)
[2017-04-23] MEDS: SENNOSIDES/DOCUSATE 8.6/50MG TABLET. PO SCH ×2 (08:09→19:21)
[2017-04-23] MEDS: LORazepam 2 MG/ML VIAL IM SCH (08:10)
[2017-04-23] MEDS: LEVOTHYROXINE 175 MCG TABLET PO SCH (08:13)
[2017-04-23] MEDS: LORazepam 1 MG TABLET PO SCH ×2 (08:13→19:23)
[2017-04-23] MEDS: CELECOXIB 100 MG CAPSULE PO SCH ×2 (08:14→19:23)
[2017-04-23] MEDS: traZODone 50 MG TABLET. PO SCH ×3 (08:14→18:11)
[2017-04-23] MEDS: OLANZapine 10 MG TABLET PO SCH (08:15)
[2017-04-23] MEDS ORDERED: LORazepam 2 MG/ML VIAL IV SCH (09:00)
--- NOTE | 2017-04-23 09:15 | NUR ---
THERAPEUTIC RECREATION GROUP NOTE TITLE :Balloon Bump with Pool Noodles ACTIVITY : Activities and Games GOAL : Increase alertness, focus, morale, decrease stress DURATION : 60 Minutes RESPONSE : No participation.
--- NOTE | 2017-04-23 10:21 | PDOC ---
Exam Bran Demential Exam: Bran Note: Please also refer to the separate dictated note~for this date of service dictated separately.~Patient seen individually. Discussed the patient with Nursing staff reviewed the chart.~Reviewed interim history and current functioning. Reviewed vital signs,~Labs/ Radiology~and current medications noted below. Continue current treatment with the changes noted in the dictated addendum note Assessment: Vital Signs: Vital Signs Date Time Temp Pulse Resp B/P (MAP) Pulse Ox O2 Delivery O2 Flow Rate FiO2 04/23/17 06:08 97.2 74 22 124/84 (97) 92 04/21/17 20:00 Room Air I&O Intake and Output 04/23/17 06:59 Intake Total 1200 ml Output Total 1 ml Balance 1199 ml Intake Oral 1200 ml Output Stool Total 1 ml # Bowel Movements 1 Labs: Laboratory Tests Test 04/23/17 03:10 Urine Collection Type Unknown Urine Color Yellow Urine Clarity Clear Urine pH 6.0 Urine Specific [place] >=1.030 Urine Protein Neg (NEG-TRACE) Urine Glucose (UA) Neg mg/dL (NEG) Urine Ketones (Stick) Trace mg/dL (NEG) Urine Blood Small (NEG) Urine Nitrite Neg (NEG) Urine Bilirubin Neg (NEG) Urine Urobilinogen Dipstick 0.2 mg/dL (0.2 mg/dL) Urine Leukocyte Esterase Neg (NEG) Urine RBC 6-10 /HPF (0-2) Urine WBC Occ /HPF (0-4) Urine Squamous Epithelial Cells Occ /LPF Urine Bacteria Few /HPF (0-FEW) Current Medications: Meds: Current Medications Olanzapine (ZyPREXA ZYDIS) 5 mg 1X ONCE PO ; Start 04/21/17 at 19:45; Stop at 19:46; Status DC Olanzapine (ZyPREXA IM) 10 mg 1X ONCE IM Last administered on 04/21/17 19:36 ; Start 04/21/17 at 19:45; Stop 04/21/17 at 19:46; Status DC Lorazepam (Ativan) 1 mg 1X ONCE IM Last administered on 04/21/17 20:10; Start 04/21/17 at 19:45; Stop 04/21/17 at 19:46; Status DC Divalproex Sodium (Depakote Sprinkles) 750 mg DAILY PO Last administered on 08:07; Start 04/22/17 at 09:00 Fluvoxamine Maleate (Luvox) 150 mg BID PO Last administered on 04/23/17 08:09 ; Start 04/22/17 at 09:00 Lorazepam (Ativan) 1 mg BID PO Last administered on 04/23/17 08:13; Start at 09:00 Mirtazapine (Remeron) 7.5 mg DAILY PO Last administered on 04/23/17 08:08; Start 04/22/17 at 09:00 Olanzapine (ZyPREXA) 20 mg DAILY PO Last administered on 04/22/17 08:17; Start 04/22/17 at 09:00; Stop 04/22/17 at 18:13; Status DC Bupropion HCl (Wellbutrin) 75 mg BID PO Last administered on 04/23/17 08:07; Start 04/22/17 at 09:00 Acetaminophen (Tylenol) 650 mg PRN Q6HRS PRN PO PAIN / TEMP; Start 04/22/17 at 01:00 Multi-Ingredient Ointment (Analgesic [place]) 1 alistair PRN QID PRN TP MUSCLE PAIN; Start 04/22/17 at 01:00 Al Hydroxide/Mg Hydroxide (Mylanta Plus Xs) 15 ml PRN AFTMEALHC PRN PO DYSPEPSIA; Start 04/22/17 at 01:00 Magnesium Hydroxide (Milk Of Magnesia) 2,400 mg PRN QHS PRN PO CONSTIPATION; Start 04/22/17 at 01:00 Haloperidol (Haldol) 2 mg TID PO Last administered on 04/23/17 08:07; Start at 09:00 Quetiapine Fumarate (SEROquel) 300 mg BID PO Last administered on 04/23/17 08: 08; Start 04/22/17 at 09:00 Olanzapine (ZyPREXA ZYDIS) 2.5 mg PRN Q2HR PRN PO PSYCHOSIS Last administered on 04/23/17 06:05; Start 04/22/17 at 01:30 Acetaminophen (Tylenol) 1,000 mg TID PO Last administered on 04/23/17 08:08; Start 04/22/17 at 09:00 Atorvastatin Calcium (Lipitor) 20 mg QHS PO Last administered on 04/22/17 19: 48; Start 04/22/17 at 21:00 Celecoxib (CeleBREX) 100 mg BID PO Last administered on 04/23/17 08:14; Start 04/22/17 at 09:00 Furosemide (Lasix) 40 mg DAILY PO Last administered on 04/23/17 08:07; Start 04/22/17 at 09:00 Levothyroxine Sodium (Synthroid) 175 mcg DAILYAC PO Last administered on 08:13; Start 04/22/17 at 08:45 Senna/Docusate Sodium (Senna Plus) 1 tab BID PO Last administered on 04/23/17 08:09; Start 04/22/17 at 09:00 Spironolactone (Aldactone) 25 mg DAILY PO Last administered on 04/23/17 08:09 ; Start 04/22/17 at 09:00 Tamsulosin HCl (Flomax) 0.4 mg DAILY PO Last administered on 04/23/17 08:08; Start 04/22/17 at 09:00 Vitamin D (Vitamin D3) 5,000 unit DAILY PO Last administered on 04/23/17 08:08 ; Start 04/22/17 at 09:00 Potassium Chloride (Klor-Con) 10 meq DAILYWBKFT PO Last administered on 08:09; Start 04/22/17 at 08:45 Olanzapine (ZyPREXA) 10 mg DAILY PO Last administered on 04/23/17 08:15; Start 04/23/17 at 09:00 Trazodone HCl (Desyrel) 100 mg QHS PO Last administered on 04/22/17 19:29; Start 04/22/17 at 21:00 Trazodone HCl (Desyrel) 100 mg QHS PRN PO INSOMNIA; Start 04/22/17 at 18:15 Trazodone HCl (Desyrel) 12.5 mg TID@0900,1300,1700 PO Last administered on 04/23 08:14; Start 04/23/17 at 09:00 Lorazepam (Ativan) 1 mg DAILY IV ; Start 04/23/17 at 09:00; Stop 04/23/17 at 09: 00; Status DC Lorazepam (Ativan) 1 mg DAILY IM Last administered on 04/23/17t 08:10; Start at 09:00 Active Scripts Active Reported Seroquel (Quetiapine Fumarate) 300 Mg Tablet 300 Mg PO BID Haloperidol 2 Mg Tablet 2 Mg PO TID Atorvastatin Calcium 20 Mg Tablet 20 Mg PO QHS Vitamin D3 (Cholecalciferol (Vitamin D3)) 5,000 Unit Tablet 5,000 Unit PO DAILY [KCL sprinkles] 10 Meq PO DAILY Aldactone (Spironolactone) 25 Mg Tablet 25 Mg PO DAILY Tamsulosin Hcl 0.4 Mg Cap.er.24h 0.4 Mg PO DAILY Celebrex (Celecoxib) 100 Mg Capsule 100 Mg PO BID Senna-S Tablet (Sennosides/Docusate Sodium) 1 Each Tablet 1 Each PO BID Lasix (Furosemide) 40 Mg Tablet 40 Mg PO DAILY Depakote Sprinkle (Divalproex Sodium) 125 Mg Cap.sprink 1,000 Mg PO BID Acetaminophen 500 Mg Tablet 1,000 Mg PO TID Levothyroxine Sodium 175 Mcg Tablet 175 Mcg PO DAILYAC Olanzapine 20 Mg Tablet 20 Mg PO DAILY Ativan (Lorazepam) 1 Mg Tablet 1 Mg PO BID [bupropion hcl] 75 Mg PO BID Fluvoxamine Maleate 100 Mg Tablet 150 Mg PO BID Mirtazapine 15 Mg Tablet 7.5 Mg PO DAILY Diagnosis: Problems: (1) 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
--- NOTE | 2017-04-23 10:45 | NUR ---
SW received call from Pt's dtr, Macy, regarding additional facilities to send admit referral to when ready for dc. Thi Aguilar, TIAGO Macias.
--- NOTE | 2017-04-23 11:00 | NUR ---
Behavior Intervention Response and Plan: BIRP Note: Behavior: Assumed Care of patient, patient located in Hallway at shift change. Patient exhibited the following behavior Compulsive, Restless, Agitated. Brief assessment on rounds of vital signs, medication needs, lab studies, and pain. Treatment plan problems 1-2. Intervention: Patient assessed and the following interventions initiated safety checks 15 Minute Checks Cognitive Assessment , Head to toe Assessment , Personal Alarm in place. Response: After interactions and interventions patient responded in the following manner, Compulsive , Agitated ,Combative. Continue to assess behaviors and condition will continue to monitor throughout the shift as needed. Patient educated on ADL's, and hand hygiene. Plan: Continue to monitor Master Treatment Plan for patient's progress toward short term goals of Decreased Agitation, Decreased Aggression, rat exterminator goals to return to previous living setting vs placement. Continue to assess patient for changes in above assessment. Monitor for medication needs, pain, and safety concerns. Hourly rounding performed to ensure safe environment.
--- NOTE | 2017-04-23 11:15 | NUR ---
CRISTOPHER received call from Joceline and CRISTOPHER Zhang from [facility] stating they have discharged Pt. from facility. SW reviewed State Guidelines on emergency discharges and educated them on the specifics of those guidelines. SW stated they can not dc a resident to a Hospital as a Hospital is not considered placement. Pt's current facility along w/Hospital are to work in conjunction to securing new placement by discharge. If this can not happen by dc, Pt. is to return to Facility and they can continue to look for placement. Joceline stated they had already completed the DC paperwork and submitted to the State. SW encouraged them to contact their Ombudsman for clarification on the information provided by this SW. They stated they can not have Pt. return as it is a danger to other residents. SW again encouraged them to follow up w/the guidelines.
--- NOTE | 2017-04-23 11:29 | NUR ---
CRISTOPHER left message for Kourtney Rios [facility] regarding current situation w/[facility] refusing to take Pt. back. CRISTOPHER also contacted the [facility] office at [phone] who stated Kourtney is out of the office today and there is not currently anyone scheduled to cover that area. The admin secretary took this CRISTOPHER's contact information to send to a person that can follow up this afternoon.
--- NOTE | 2017-04-23 13:15 | NUR ---
THERAPEUTIC RECREATION GROUP NOTE TITLE :CoCollage OUTSIDE ACTIVITY : Activities and Games GOAL : Increase alertness, focus, morale, decrease stress DURATION : 45 Minutes RESPONSE : No participation.
--- NOTE | 2017-04-23 15:03 | NUR ---
CRISTOPHER received return call from ROBERTA Rowland regarding the current situation w/[facility] not accepting Pt. back at pa from this facility. [facility] did submit Involuntary Discharge paperwork to the critical access hospital under the complaint Pt. is too aggressive and a danger to other residents. Per Ladan, they did not follow proper protocol w/the information submitted to the state: They still have not provided family w/written notice, only verbal, they did not provide family w/information on their right to appeal and contact information for the appeal, and they did not write out the paperwork submitted correctly (some things were not completed). Ladan encouraged this SW to move forward w/contacting [facility] and to provide the family w/the phone number to begin the Appeal Process. Ladan has left a message for the Slot Floorperson at [facility]. During the Appeal process, the facility is not able to "discharge a patient", thus ensuring Pt. can return throughout the appeal process if new placement is not secured by dc. CRISTOPHER contacted [facility] and filed a complaint against [facility] for not providing family w/proper dc notice and for refusing to take Pt. back at pa. CRISTOPHER then contacted PT's dtr, Macy, and provided her w/all of the guideline information and procedural process. CRISTOPHER gave Macy the Appeal number to the [facility] Office [facility] at [phone]. Macy verified she had still not received written notification from [facility] discharging Pt, only verbal notice. However, she did received a call from Yumiko in the business office of [facility] on 04/22 at 3:48 pm asking if family wanted a bed hold for Pt. to return and Macy stated yes. Cristopher will provide update to Dr. Lara as to the dc time line.
--- NOTE | 2017-04-23 15:34 | NUR ---
Psychosocial Assessment completed from previous admits. Pt. born and raised in [place], [place] w/1 older sister who in a very tragic car accident shortly after high school. 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 Pt. and , but maintains a positive relationship w/ex . Pt. has 2 dtrs named José and Macy who are very involved in Pt's care. No none family or personal history of alcohol/drug abuse. Pt. went on permanent disability in 2002 related to his Ashwini's diagnosis. Pt. has admitted to this facility x8 since 2013 and has required new placement during many of those admits as a result of Pt's increase in aggressive behaviors. Pt. is now in a broda chair per suggestion from the [employer] for best practice. SW will continue to work w/Pt's family on placement. Pt. is no longer private pay and is currently Medicaid Pending status. GOALS: Placement 1. Great family support 2. Well known to this facility to assist w/transition to new placement
--- NOTE | 2017-04-23 15:50 | NUR ---
Attempted to meet and complete Activity Therapy Assessment. Pt was laying outside and originally said he would talk with RN OPERATING ROOM; however, when RN OPERATING ROOM left to get a wipe for his face, Pt. said he didn't want to talk and wanted to wait for his family. He did not want RN OPERATING ROOM to wipe his face. RN OPERATING ROOM will try again later today or tomorrow.
[2017-04-23 15:59] VITALS: BP 96/59
--- NOTE | 2017-04-23 17:17 | NUR ---
SW left note for Dr. Marco vera/information pertaining to discharge issues and placement.
[2017-04-23] MEDS: ATORVASTATIN CALCIUM 20 MG TABLET PO SCH (19:20)
[2017-04-23] MEDS: traZODone 100 MG TABLET. PO SCH (19:20)
--- NOTE | 2017-04-23 19:59 | PDOC ---
Exam Bran Demential Exam: Bran Note: Please also refer to the separate dictated note~for this date of service dictated separately.~Patient seen individually. Discussed the patient with Nursing staff reviewed the chart.~Reviewed interim history and current functioning. Reviewed vital signs,~Labs/ Radiology~and current medications noted below. Continue current treatment with the changes noted in the dictated addendum note Assessment: Vital Signs: Vital Signs Date Time Temp Pulse Resp B/P (MAP) Pulse Ox O2 Delivery O2 Flow Rate FiO2 04/23/17 15:59 99.2 93 17 96/59 (71) 90 04/21/17 20:00 Room Air I&O Intake and Output 04/23/17 07:00 Intake Total 1200 ml Output Total 1 ml Balance 1199 ml Intake Oral 1200 ml Output Stool Total 1 ml # Bowel Movements 1 Labs: Laboratory Tests Test 04/23/17 03:10 Urine Collection Type Unknown Urine Color Yellow Urine Clarity Clear Urine pH 6.0 Urine Specific [place] >=1.030 Urine Protein Neg (NEG-TRACE) Urine Glucose (UA) Neg mg/dL (NEG) Urine Ketones (Stick) Trace mg/dL (NEG) Urine Blood Small (NEG) Urine Nitrite Neg (NEG) Urine Bilirubin Neg (NEG) Urine Urobilinogen Dipstick 0.2 mg/dL (0.2 mg/dL) Urine Leukocyte Esterase Neg (NEG) Urine RBC 6-10 /HPF (0-2) Urine WBC Occ /HPF (0-4) Urine Squamous Epithelial Cells Occ /LPF Urine Bacteria Few /HPF (0-FEW) Current Medications: Meds: Current Medications Olanzapine (ZyPREXA ZYDIS) 5 mg 1X ONCE PO ; Start 04/21/17 at 19:45; Stop at 19:46; Status DC Olanzapine (ZyPREXA IM) 10 mg 1X ONCE IM Last administered on 04/21/17 19:36 ; Start 04/21/17 at 19:45; Stop 04/21/17 at 19:46; Status DC Lorazepam (Ativan) 1 mg 1X ONCE IM Last administered on 04/21/17 20:10; Start 04/21/17 at 19:45; Stop 04/21/17 at 19:46; Status DC Divalproex Sodium (Depakote Sprinkles) 750 mg DAILY PO Last administered on 08:07; Start 04/22/17 at 09:00 Fluvoxamine Maleate (Luvox) 150 mg BID PO Last administered on 04/23/17 19:21 ; Start 04/22/17 at 09:00 Lorazepam (Ativan) 1 mg BID PO Last administered on 04/23/17 19:23; Start at 09:00 Mirtazapine (Remeron) 7.5 mg DAILY PO Last administered on 04/23/17 08:08; Start 04/22/17 at 09:00 Olanzapine (ZyPREXA) 20 mg DAILY PO Last administered on 04/22/17 08:17; Start 04/22/17 at 09:00; Stop 04/22/17 at 18:13; Status DC Bupropion HCl (Wellbutrin) 75 mg BID PO Last administered on 04/23/17 19:20; Start 04/22/17 at 09:00 Acetaminophen (Tylenol) 650 mg PRN Q6HRS PRN PO PAIN / TEMP; Start 04/22/17 at 01:00 Multi-Ingredient Ointment (Analgesic [place]) 1 alistair PRN QID PRN TP MUSCLE PAIN; Start 04/22/17 at 01:00 Al Hydroxide/Mg Hydroxide (Mylanta Plus Xs) 15 ml PRN AFTMEALHC PRN PO DYSPEPSIA; Start 04/22/17 at 01:00 Magnesium Hydroxide (Milk Of Magnesia) 2,400 mg PRN QHS PRN PO CONSTIPATION; Start 04/22/17 at 01:00 Haloperidol (Haldol) 2 mg TID PO Last administered on 04/23/17 19:21; Start at 09:00 Quetiapine Fumarate (SEROquel) 300 mg BID PO Last administered on 04/23/17 19: 21; Start 04/22/17 at 09:00 Olanzapine (ZyPREXA ZYDIS) 2.5 mg PRN Q2HR PRN PO PSYCHOSIS Last administered on 04/23/17 06:05; Start 04/22/17 at 01:30 Acetaminophen (Tylenol) 1,000 mg TID PO Last administered on 04/23/17 19:20; Start 04/22/17 at 09:00 Atorvastatin Calcium (Lipitor) 20 mg QHS PO Last administered on 04/23/17 19: 20; Start 04/22/17 at 21:00 Celecoxib (CeleBREX) 100 mg BID PO Last administered on 04/23/17 19:23; Start 04/22/17 at 09:00 Furosemide (Lasix) 40 mg DAILY PO Last administered on 04/23/17 08:07; Start 04/22/17 at 09:00 Levothyroxine Sodium (Synthroid) 175 mcg DAILYAC PO Last administered on 08:13; Start 04/22/17 at 08:45 Senna/Docusate Sodium (Senna Plus) 1 tab BID PO Last administered on 04/23/17 19:21; Start 04/22/17 at 09:00 Spironolactone (Aldactone) 25 mg DAILY PO Last administered on 04/23/17 08:09 ; Start 04/22/17 at 09:00 Tamsulosin HCl (Flomax) 0.4 mg DAILY PO Last administered on 04/23/17 08:08; Start 04/22/17 at 09:00 Vitamin D (Vitamin D3) 5,000 unit DAILY PO Last administered on 04/23/17 08:08 ; Start 04/22/17 at 09:00 Potassium Chloride (Klor-Con) 10 meq DAILYWBKFT PO Last administered on 08:09; Start 04/22/17 at 08:45 Olanzapine (ZyPREXA) 10 mg DAILY PO Last administered on 04/23/17 08:15; Start 04/23/17 at 09:00 Trazodone HCl (Desyrel) 100 mg QHS PO Last administered on 04/23/17 19:20; Start 04/22/17 at 21:00 Trazodone HCl (Desyrel) 100 mg QHS PRN PO INSOMNIA; Start 04/22/17 at 18:15 Trazodone HCl (Desyrel) 12.5 mg TID@0900,1300,1700 PO Last administered on 04/23 18:11; Start 04/23/17 at 09:00 Lorazepam (Ativan) 1 mg DAILY IV ; Start 04/23/17 at 09:00; Stop 04/23/17 at 09: 00; Status DC Lorazepam (Ativan) 1 mg DAILY IM Last administered on 04/23/17t 08:10; Start at 09:00 Active Scripts Active Reported Seroquel (Quetiapine Fumarate) 300 Mg Tablet 300 Mg PO BID Haloperidol 2 Mg Tablet 2 Mg PO TID Atorvastatin Calcium 20 Mg Tablet 20 Mg PO QHS Vitamin D3 (Cholecalciferol (Vitamin D3)) 5,000 Unit Tablet 5,000 Unit PO DAILY [KCL sprinkles] 10 Meq PO DAILY Aldactone (Spironolactone) 25 Mg Tablet 25 Mg PO DAILY Tamsulosin Hcl 0.4 Mg Cap.er.24h 0.4 Mg PO DAILY Celebrex (Celecoxib) 100 Mg Capsule 100 Mg PO BID Senna-S Tablet (Sennosides/Docusate Sodium) 1 Each Tablet 1 Each PO BID Lasix (Furosemide) 40 Mg Tablet 40 Mg PO DAILY Depakote Sprinkle (Divalproex Sodium) 125 Mg Cap.sprink 1,000 Mg PO BID Acetaminophen 500 Mg Tablet 1,000 Mg PO TID Levothyroxine Sodium 175 Mcg Tablet 175 Mcg PO DAILYAC Olanzapine 20 Mg Tablet 20 Mg PO DAILY Ativan (Lorazepam) 1 Mg Tablet 1 Mg PO BID [bupropion hcl] 75 Mg PO BID Fluvoxamine Maleate 100 Mg Tablet 150 Mg PO BID Mirtazapine 15 Mg Tablet 7.5 Mg PO DAILY Diagnosis: Problems: (1) Dementia in [place]'s disease with behavioral disturbance (2) Anxiety disorder (3) Impulse control disorder (4) Major depressive disorder, recurrent episode (5) Disorder of vitamin D (6) Dementia due to [place] chorea LIDIA GARRIDO MD Apr 23, 2017 19:59
--- NOTE | 2017-04-23 21:45 | NUR ---
Behavior Intervention Response and Plan: BIRP Note: Behavior: Assumed Care of patient, patient located in Day Room at shift change. Patient exhibited the following behavior Combative, Anxious, Resistive. Brief assessment on rounds of vital signs, medication needs, lab studies, and pain. Treatment plan problems . Intervention: Patient assessed and the following interventions initiated safety checks 15 Minute Checks Head to toe Assessment , Cognitive Assessment , Medications. Response: After interactions and interventions patient responded in the following manner, Compulsive , Demanding ,Combative. Continue to assess behaviors and condition will continue to monitor throughout the shift as needed. Patient educated on ADL's, and hand hygiene. Plan: Continue to monitor Master Treatment Plan for patient's progress toward short term goals of Improved Mood, Decreased Aggression, senior living goals to return to previous living setting vs placement. Continue to assess patient for changes in above assessment. Monitor for medication needs, pain, and safety concerns. Hourly rounding performed to ensure safe environment.
--- NOTE | 2017-04-24 04:31 | PN ---
DATE: 04/23/2017 This note covers elements not covered in my initial note of 04/23/2017. SUBJECTIVE: I met with the patient in the morning of 04/23/2017. I have been called by the nursing staff several times since my last visit with the patient. He remains labile, agitated, aggressive. I was called early this morning at 07:00 a.m. The patient states he is sorry after he acts out and becomes aggressive over little things. REVIEW OF SYSTEMS: Ambulation impaired, in wheelchair. No CV, , pulmonary, eye, ENT system symptoms on review. Reliability poor. MENTAL STATUS EXAM: Oriented to himself. Insight, judgment, recent memory is impaired. Language function intact. Attention span short. Mood and affect labile. LABORATORY DATA: Reviewed. IMPRESSION: Unchanged from initial note. PLAN: Continue current psychotropics. We started scheduled Ativan 1 mg IM daily since the oral route is ineffective . Reviewed drug interactions. Make further adjustments as clinically indicated. LIDIA GARRIDO MD DR: MEME/giana JOB#: [id number] / [id number]
[2017-04-24 06:10] VITALS: BP 149/82
[2017-04-24] MEDS: LORazepam 2 MG/ML VIAL IM SCH (07:47)
--- NOTE | 2017-04-24 07:49 | NUR ---
Pt was in dayroom and demanded tea from staff. Staff reminded pt that it was almost breakfast time and tea was not available yet. Pt became agitated and attempted to get out of his broda chair unassisted which resulted in tilting his broda chair forward and pt sitting on the floor. Staff assisted pt to the quiet room. While staff was assisting pt to the quiet room pt began to punch, hit, slap, kick and yell at staff. Staff was able to assist pt to the quiet room and redirect him. Daily IM ativan given and staff will offer pt his breakfast with tea when pt has deecalated and is more calm and receptive to redirection as pt is currently yelling out and crying.
[2017-04-24] MEDS: LEVOTHYROXINE 175 MCG TABLET PO SCH (08:02)
[2017-04-24] MEDS: SPIRONOLACTONE 25 MG TABLET PO SCH (08:03)
[2017-04-24] MEDS: POTASSIUM CHLORIDE 10 MEQ TABLET.ER. PO SCH (08:03)
[2017-04-24] MEDS: LORazepam 1 MG TABLET PO SCH (08:03)
[2017-04-24] MEDS: DIVALPROEX 125 MG CAP.SPRINK PO SCH (08:04)
[2017-04-24] MEDS: traZODone 50 MG TABLET. PO SCH (08:05)
[2017-04-24] MEDS: FUROSEMIDE 40 MG TABLET PO SCH (08:05)
[2017-04-24] MEDS: TAMSULOSIN 0.4 MG CAP.ER.24H. PO SCH (08:05)
[2017-04-24] MEDS: HALOPERIDOL 2 MG TABLET PO SCH (08:05)
[2017-04-24] MEDS: ACETAMINOPHEN 500 MG TABLET PO SCH ×3 (08:06→18:57)
[2017-04-24] MEDS: buPROPion 75 MG TABLET PO SCH ×2 (08:06→18:59)
[2017-04-24] MEDS: CHOLECALCIFEROL (VITAMIN D3) 1,000 UNIT TABLET PO SCH (08:06)
[2017-04-24] MEDS: QUEtiapine 100 MG TABLET. PO SCH ×2 (08:06→19:04)
[2017-04-24] MEDS: SENNOSIDES/DOCUSATE 8.6/50MG TABLET. PO SCH ×2 (08:08→19:04)
[2017-04-24] MEDS: MIRTAZAPINE 15 MG TABLET PO SCH (08:08)
[2017-04-24] MEDS: OLANZapine 10 MG TABLET PO SCH (08:09)
[2017-04-24] MEDS: CELECOXIB 100 MG CAPSULE PO SCH ×2 (08:10→19:04)
[2017-04-24 15:46] VITALS: BP 113/68
--- NOTE | 2017-04-24 18:43 | NUR ---
Behavior Intervention Response and Plan: BIRP Note: Behavior: Assumed Care of patient, patient located in dayroom at shift change. Patient exhibited the following behavior Compulsive, Restless, Agitated. Brief assessment on rounds of vital signs, medication needs, lab studies, and pain. Treatment plan problems 1-2. Intervention: Patient assessed and the following interventions initiated safety checks 15 Minute Checks Cognitive Assessment , Head to toe Assessment , Personal Alarm in place. Response: After interactions and interventions patient responded in the following manner, Calm , Compliant ,Relaxed. Continue to assess behaviors and condition will continue to monitor throughout the shift as needed. Patient educated on ADL's, and hand hygiene. Plan: Continue to monitor Master Treatment Plan for patient's progress toward short term goals of Decreased Agitation, Decreased Aggression, intermediate accountant goals to return to previous living setting vs placement. Continue to assess patient for changes in above assessment. Monitor for medication needs, pain, and safety concerns. Hourly rounding performed to ensure safe environment.
[2017-04-24] MEDS: ATORVASTATIN CALCIUM 20 MG TABLET PO SCH (18:58)
[2017-04-24] MEDS: traZODone 100 MG TABLET. PO SCH (18:59)
--- NOTE | 2017-04-24 20:29 | PN ---
DATE: 04/24/2017 REASON FOR VISIT: Altered mental status. 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 Nursing staff alerted me that they are quite concerned because he cannot even stay awake and is lying. He had to be placed in a quiet room because of combativeness, but after receiving these medications, became very, very sedated. OBJECTIVE: VITAL SIGNS: Blood pressure 149/82, respirations 20, pulse ox 95% on room air, temperature 96.7. GENERAL: The patient is lying down on the mat. He is arousable, but very sedated. He is able to swallow, breathing. Speech is garbled, not making much sense. ASSESSMENT: Oversedation. PLAN: Medications have been adjusted. We will monitor him closely. COLLIN CARRIZALES DO DR: FOREIGN/giana JOB#: [id number] / [id number]
--- NOTE | 2017-04-24 21:40 | NUR ---
Behavior Intervention Response and Plan: BIRP Note: Behavior: Assumed Care of patient, patient located in Day Room at shift change. Patient exhibited the following behavior Compulsive, Demanding, Agitated. Brief assessment on rounds of vital signs, medication needs, lab studies, and pain. Treatment plan problems . Intervention: Patient assessed and the following interventions initiated safety checks 15 Minute Checks Head to toe Assessment , Cognitive Assessment , Medications. Response: After interactions and interventions patient responded in the following manner, Compliant , Cooperative ,Combative. Continue to assess behaviors and condition will continue to monitor throughout the shift as needed. Patient educated on ADL's, and hand hygiene. Plan: Continue to monitor Master Treatment Plan for patient's progress toward short term goals of Improved Mood, Decreased Aggression, usp goals to return to previous living setting vs placement. Continue to assess patient for changes in above assessment. Monitor for medication needs, pain, and safety concerns. Hourly rounding performed to ensure safe environment.
[2017-04-25 06:44] VITALS: BP 131/85
[2017-04-25] MEDS: LEVOTHYROXINE 175 MCG TABLET PO SCH (10:50)
[2017-04-25] MEDS: CHOLECALCIFEROL (VITAMIN D3) 1,000 UNIT TABLET PO SCH (10:51)
[2017-04-25] MEDS: DIVALPROEX 125 MG CAP.SPRINK PO SCH (10:51)
[2017-04-25] MEDS: ACETAMINOPHEN 500 MG TABLET PO SCH ×3 (10:52→19:10)
[2017-04-25] MEDS: SENNOSIDES/DOCUSATE 8.6/50MG TABLET. PO SCH ×2 (10:52→19:11)
[2017-04-25] MEDS: FUROSEMIDE 40 MG TABLET PO SCH (10:52)
[2017-04-25] MEDS: ATORVASTATIN CALCIUM 20 MG TABLET PO SCH (10:52)
[2017-04-25] MEDS: SPIRONOLACTONE 25 MG TABLET PO SCH (10:52)
[2017-04-25] MEDS: buPROPion 75 MG TABLET PO SCH ×2 (10:52→19:10)
[2017-04-25] MEDS: TAMSULOSIN 0.4 MG CAP.ER.24H. PO SCH (10:53)
[2017-04-25] MEDS: OLANZapine 10 MG TABLET PO SCH (10:53)
[2017-04-25] MEDS: MIRTAZAPINE 15 MG TABLET PO SCH (10:55)
[2017-04-25] MEDS: POTASSIUM CHLORIDE 10 MEQ TABLET.ER. PO SCH (10:55)
[2017-04-25] MEDS: QUEtiapine 100 MG TABLET. PO SCH ×2 (10:56→19:10)
[2017-04-25] MEDS: CELECOXIB 100 MG CAPSULE PO SCH ×2 (10:56→19:11)
--- NOTE | 2017-04-25 11:30 | NUR ---
THERAPEUTIC RECREATION GROUP NOTE TITLE :Movement to Music:Flexibility ACTIVITY : Movement/ Exercise GOAL : Increase morale, attention, flexibility. Decrease stress/anxiety. DURATION : 30 Minutes RESPONSE : Moderate participation. Pt. needed prompting and encouragement throughout the session but he was quick to comply. Pt. followed along with about half of the moves.
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
--- NOTE | 2017-04-25 14:30 | NUR ---
THERAPEUTIC RECREATION GROUP NOTE TITLE :Movie, Popcorn, Cookies and Coffee ACTIVITY : Activities and Games GOAL : Increase alertness, focus, morale, decrease stress DURATION : 90 minutes RESPONSE : Full participation. Pt. watched the movie throughout the entire session. He enjoyed the cookies with milk and was able to express himself clearly. He was calm the entire time.
[2017-04-25 16:47] VITALS: BP 127/78
--- NOTE | 2017-04-25 18:46 | NUR ---
Behavior Intervention Response and Plan: BIRP Note: Behavior: Assumed Care of patient, patient located in dayroom at shift change. Patient exhibited the following behavior Calm, compliant, relaxed. Brief assessment on rounds of vital signs, medication needs, lab studies, and pain. Treatment plan problems 1-2. Intervention: Patient assessed and the following interventions initiated safety checks 15 Minute Checks Cognitive Assessment , Head to toe Assessment , Personal Alarm in place. Response: After interactions and interventions patient responded in the following manner, Calm , Compliant ,Relaxed. Continue to assess behaviors and condition will continue to monitor throughout the shift as needed. Patient educated on ADL's, and hand hygiene. Plan: Continue to monitor Master Treatment Plan for patient's progress toward short term goals of Decreased Agitation, Decreased Aggression, jail goals to return to previous living setting vs placement. Continue to assess patient for changes in above assessment. Monitor for medication needs, pain, and safety concerns. Hourly rounding performed to ensure safe environment.
[2017-04-25] MEDS: traZODone 100 MG TABLET. PO SCH (19:09)
--- NOTE | 2017-04-25 19:52 | PDOC ---
Exam Bran Demential Exam: Bran Note: Please also refer to the separate dictated note~for this date of service dictated separately.~Patient seen individually. Discussed the patient with Nursing staff reviewed the chart.~Reviewed interim history and current functioning. Reviewed vital signs,~Labs/ Radiology~and current medications noted below. Continue current treatment with the changes noted in the dictated addendum note Assessment: Vital Signs: Vital Signs Date Time Temp Pulse Resp B/P (MAP) Pulse Ox O2 Delivery O2 Flow Rate FiO2 04/25/17 16:47 97.7 88 18 127/78 (94) 90 04/24/17 15:46 Room Air I&O Intake and Output 04/25/17 06:59 Intake Total 1080 ml Balance 1080 ml Intake Oral 1080 ml # Bowel Movements 1 Current Medications: Meds: Current Medications Olanzapine (ZyPREXA ZYDIS) 5 mg 1X ONCE PO ; Start 04/21/17 at 19:45; Stop at 19:46; Status DC Olanzapine (ZyPREXA IM) 10 mg 1X ONCE IM Last administered on 04/21/17 19:36 ; Start 04/21/17 at 19:45; Stop 04/21/17 at 19:46; Status DC Lorazepam (Ativan) 1 mg 1X ONCE IM Last administered on 04/21/17 20:10; Start 04/21/17 at 19:45; Stop 04/21/17 at 19:46; Status DC Divalproex Sodium (Depakote Sprinkles) 750 mg DAILY PO Last administered on 10:51; Start 04/22/17 at 09:00 Fluvoxamine Maleate (Luvox) 150 mg BID PO Last administered on 04/25/17 19:10 ; Start 04/22/17 at 09:00 Lorazepam (Ativan) 1 mg BID PO Last administered on 04/23/17 19:23; Start at 09:00; Stop 04/25/17 at 19:38; Status DC Mirtazapine (Remeron) 7.5 mg DAILY PO Last administered on 04/25/17 10:55; Start 04/22/17 at 09:00; Stop 04/25/17 at 19:37; Status DC Olanzapine (ZyPREXA) 20 mg DAILY PO Last administered on 04/22/17 08:17; Start 04/22/17 at 09:00; Stop 04/22/17 at 18:13; Status DC Bupropion HCl (Wellbutrin) 75 mg BID PO Last administered on 04/25/17 19:10; Start 04/22/17 at 09:00 Acetaminophen (Tylenol) 650 mg PRN Q6HRS PRN PO PAIN / TEMP; Start 04/22/17 at 01:00 Multi-Ingredient Ointment (Analgesic [place]) 1 alistair PRN QID PRN TP MUSCLE PAIN; Start 04/22/17 at 01:00 Al Hydroxide/Mg Hydroxide (Mylanta Plus Xs) 15 ml PRN AFTMEALHC PRN PO DYSPEPSIA; Start 04/22/17 at 01:00 Magnesium Hydroxide (Milk Of Magnesia) 2,400 mg PRN QHS PRN PO CONSTIPATION; Start 04/22/17 at 01:00 Haloperidol (Haldol) 2 mg TID PO Last administered on 04/24/17 08:05; Start at 09:00; Stop 04/24/17 at 11:02; Status DC Quetiapine Fumarate (SEROquel) 300 mg BID PO Last administered on 04/25/17 19: 10; Start 04/22/17 at 09:00; Stop 04/25/17 at 19:37; Status DC Olanzapine (ZyPREXA ZYDIS) 2.5 mg PRN Q2HR PRN PO PSYCHOSIS Last administered on 04/23/17 06:05; Start 04/22/17 at 01:30 Acetaminophen (Tylenol) 1,000 mg TID PO Last administered on 04/25/17 19:10; Start 04/22/17 at 09:00 Atorvastatin Calcium (Lipitor) 20 mg QHS PO Last administered on 04/25/17 10: 52; Start 04/22/17 at 21:00 Celecoxib (CeleBREX) 100 mg BID PO Last administered on 04/25/17 19:11; Start 04/22/17 at 09:00 Furosemide (Lasix) 40 mg DAILY PO Last administered on 04/25/17 10:52; Start 04/22/17 at 09:00 Levothyroxine Sodium (Synthroid) 175 mcg DAILYAC PO Last administered on 10:50; Start 04/22/17 at 08:45 Senna/Docusate Sodium (Senna Plus) 1 tab BID PO Last administered on 04/25/17 19:11; Start 04/22/17 at 09:00 Spironolactone (Aldactone) 25 mg DAILY PO Last administered on 04/25/17 10:52 ; Start 04/22/17 at 09:00 Tamsulosin HCl (Flomax) 0.4 mg DAILY PO Last administered on 04/25/17 10:53; Start 04/22/17 at 09:00 Vitamin D (Vitamin D3) 5,000 unit DAILY PO Last administered on 04/25/17 10:51 ; Start 04/22/17 at 09:00 Potassium Chloride (Klor-Con) 10 meq DAILYWBKFT PO Last administered on 10:55; Start 04/22/17 at 08:45 Olanzapine (ZyPREXA) 10 mg DAILY PO Last administered on 04/25/17 10:53; Start 04/23/17 at 09:00 Trazodone HCl (Desyrel) 100 mg QHS PO Last administered on 04/25/17 19:09; Start 04/22/17 at 21:00; Stop 04/25/17 at 19:37; Status DC Trazodone HCl (Desyrel) 100 mg QHS PRN PO INSOMNIA; Start 04/22/17 at 18:15; Stop 04/24/17 at 11:02; Status DC Trazodone HCl (Desyrel) 12.5 mg TID@0900,1300,1700 PO Last administered on 04/24 08:05; Start 04/23/17 at 09:00; Stop 04/25/17 at 19:37; Status DC Lorazepam (Ativan) 1 mg DAILY IV ; Start 04/23/17 at 09:00; Stop 04/23/17 at 09: 00; Status DC Lorazepam (Ativan) 1 mg DAILY IM Last administered on 04/24/17 07:47; Start at 09:00; Stop 04/24/17 at 11:02; Status DC Trazodone HCl (Desyrel) 100 mg PRN QHS PRN PO INSOMNIA; Start 04/25/17 at 21:00 Active Scripts Active Reported Seroquel (Quetiapine Fumarate) 300 Mg Tablet 300 Mg PO BID Haloperidol 2 Mg Tablet 2 Mg PO TID Atorvastatin Calcium 20 Mg Tablet 20 Mg PO QHS Vitamin D3 (Cholecalciferol (Vitamin D3)) 5,000 Unit Tablet 5,000 Unit PO DAILY [KCL sprinkles] 10 Meq PO DAILY Aldactone (Spironolactone) 25 Mg Tablet 25 Mg PO DAILY Tamsulosin Hcl 0.4 Mg Cap.er.24h 0.4 Mg PO DAILY Celebrex (Celecoxib) 100 Mg Capsule 100 Mg PO BID Senna-S Tablet (Sennosides/Docusate Sodium) 1 Each Tablet 1 Each PO BID Lasix (Furosemide) 40 Mg Tablet 40 Mg PO DAILY Depakote Sprinkle (Divalproex Sodium) 125 Mg Cap.sprink 1,000 Mg PO BID Acetaminophen 500 Mg Tablet 1,000 Mg PO TID Levothyroxine Sodium 175 Mcg Tablet 175 Mcg PO DAILYAC Olanzapine 20 Mg Tablet 20 Mg PO DAILY Ativan (Lorazepam) 1 Mg Tablet 1 Mg PO BID [bupropion hcl] 75 Mg PO BID Fluvoxamine Maleate 100 Mg Tablet 150 Mg PO BID Mirtazapine 15 Mg Tablet 7.5 Mg PO DAILY Diagnosis: Problems: (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
--- NOTE | 2017-04-25 23:03 | NUR ---
Behavior Intervention Response and Plan: BIRP Note: Behavior: Assumed Care of patient, patient located in Day Room at shift change. Patient exhibited the following behavior Restless, Interactive, Able to Focus on Task. Brief assessment on rounds of vital signs, medication needs, lab studies, and pain. Treatment plan problems:1-2 Intervention: Patient assessed and the following interventions initiated safety checks 15 Minute Checks Cognitive Assessment , Head to toe Assessment , Medications. Response: After interactions and interventions patient responded in the following manner, Disorganized , Demanding ,Able to Focus on Task. Continue to assess behaviors and condition will continue to monitor throughout the shift as needed. Patient educated on ADL's, and hand hygiene. Plan: Continue to monitor Master Treatment Plan for patient's progress toward short term goals of Medication Compliance, Decreased Aggression, terminal press operator goals to return to previous living setting vs placement. Continue to assess patient for changes in above assessment. Monitor for medication needs, pain, and safety concerns. Hourly rounding performed to ensure safe environment.
[2017-04-26 06:07] VITALS: BP 117/80
[2017-04-26] MEDS: LEVOTHYROXINE 175 MCG TABLET PO SCH (08:59)
[2017-04-26] MEDS: POTASSIUM CHLORIDE 10 MEQ TABLET.ER. PO SCH (08:59)
[2017-04-26] MEDS: SPIRONOLACTONE 25 MG TABLET PO SCH (09:00)
[2017-04-26] MEDS: LORazepam 0.5 MG TABLET PO SCH ×3 (09:01→20:57)
[2017-04-26] MEDS: TAMSULOSIN 0.4 MG CAP.ER.24H. PO SCH (09:02)
[2017-04-26] MEDS: FUROSEMIDE 40 MG TABLET PO SCH (09:02)
[2017-04-26] MEDS: DIVALPROEX 125 MG CAP.SPRINK PO SCH ×2 (09:02→21:01)
[2017-04-26] MEDS: SENNOSIDES/DOCUSATE 8.6/50MG TABLET. PO SCH ×2 (09:03→20:57)
[2017-04-26] MEDS: CHOLECALCIFEROL (VITAMIN D3) 1,000 UNIT TABLET PO SCH (09:03)
[2017-04-26] MEDS: ACETAMINOPHEN 500 MG TABLET PO SCH ×3 (09:03→20:57)
[2017-04-26] MEDS: buPROPion 75 MG TABLET PO SCH ×2 (09:03→20:57)
[2017-04-26] MEDS: OLANZapine 10 MG TABLET PO SCH (09:03)
[2017-04-26] MEDS: CELECOXIB 100 MG CAPSULE PO SCH ×2 (09:05→21:04)
--- NOTE | 2017-04-26 09:15 | NUR ---
THERAPEUTIC RECREATION GROUP NOTE TITLE :[place]/ 23 ACTIVITY : Activities and Games GOAL : Increase social interaction, fine motor skills. Maintain or improve mental functioning. Decrease restlessness DURATION : 60 minutes RESPONSE : No participation.
[2017-04-26 09:40] LABS: VAL ACID 9 mcg/mL (50-100)
--- NOTE | 2017-04-26 11:43 | NUR ---
CRISTOPHER received call from Maria Isabel vera/BELLE regarding the current issue w/Pramod Lawson attempting to complete an emergency discharge of PT. from their facility. [facility]'s credit control administrator reported to Maria Isabel they are in fact taking Pt. back at in, however, they are looking for new placement. Marissa from [facility] along w/a SW came out to assess other referrals and to "check on Pt". CRISTOPHER asked for clarification as SW was told last week by SW they had discharged Pt. They stated they were told by the budsman they could not as they didn't follow proper procedures. They did tell this SW they would be assisting this SW in finding new placement as [facility] does not feel as though they can meet Pt's needs. CRISTOPHER had Pt's nurse discuss med changes and improved behaviors from the weekend w/SW. SW will follow up w/family regarding referrals.
--- NOTE | 2017-04-26 13:15 | NUR ---
THERAPEUTIC RECREATION GROUP NOTE TITLE :[employer] ACTIVITY : Cognitive Stimulation GOAL : Maintain or improve cognitive functioning and memory. DURATION : 60 minutes RESPONSE : No participation.
[2017-04-26 15:51] VITALS: BP 98/62
--- NOTE | 2017-04-26 19:59 | PDOC ---
Exam Bran Demential Exam: Bran Note: Please also refer to the separate dictated note~for this date of service dictated separately.~Patient seen individually. Discussed the patient with Nursing staff reviewed the chart.~Reviewed interim history and current functioning. Reviewed vital signs,~Labs/ Radiology~and current medications noted below. Continue current treatment with the changes noted in the dictated addendum note Assessment: Vital Signs: Vital Signs Date Time Temp Pulse Resp B/P (MAP) Pulse Ox O2 Delivery O2 Flow Rate FiO2 04/26/17 15:51 97.2 65 20 98/62 (74) 92 04/24/17 15:46 Room Air I&O Intake and Output 04/26/17 07:00 Intake Total 1140 ml Balance 1140 ml Intake Oral 1140 ml # Voids 1 # Bowel Movements 2 Labs: Laboratory Tests Test 04/26/17 09:17 Valproic Acid Level 9 mcg/mL (50-100) L Valproic Acid Last Dose Date 04/25/17 Valproic Acid Last Dose Time 1000 Current Medications: Meds: Current Medications Olanzapine (ZyPREXA ZYDIS) 5 mg 1X ONCE PO ; Start 04/21/17 at 19:45; Stop at 19:46; Status DC Olanzapine (ZyPREXA IM) 10 mg 1X ONCE IM Last administered on 04/21/17 19:36 ; Start 04/21/17 at 19:45; Stop 04/21/17 at 19:46; Status DC Lorazepam (Ativan) 1 mg 1X ONCE IM Last administered on 04/21/17 20:10; Start 04/21/17 at 19:45; Stop 04/21/17 at 19:46; Status DC Divalproex Sodium (Depakote Sprinkles) 750 mg DAILY PO Last administered on 09:02; Start 04/22/17 at 09:00; Stop 04/26/17 at 10:38; Status DC Fluvoxamine Maleate (Luvox) 150 mg BID PO Last administered on 04/26/17 09:03 ; Start 04/22/17 at 09:00 Lorazepam (Ativan) 1 mg BID PO Last administered on 04/23/17 19:23; Start at 09:00; Stop 04/25/17 at 19:38; Status DC Mirtazapine (Remeron) 7.5 mg DAILY PO Last administered on 04/25/17 10:55; Start 04/22/17 at 09:00; Stop 04/25/17 at 19:37; Status DC Olanzapine (ZyPREXA) 20 mg DAILY PO Last administered on 04/22/17 08:17; Start 04/22/17 at 09:00; Stop 04/22/17 at 18:13; Status DC Bupropion HCl (Wellbutrin) 75 mg BID PO Last administered on 04/26/17 09:03; Start 04/22/17 at 09:00 Acetaminophen (Tylenol) 650 mg PRN Q6HRS PRN PO PAIN / TEMP; Start 04/22/17 at 01:00 Multi-Ingredient Ointment (Analgesic [place]) 1 alistair PRN QID PRN TP MUSCLE PAIN; Start 04/22/17 at 01:00 Al Hydroxide/Mg Hydroxide (Mylanta Plus Xs) 15 ml PRN AFTMEALHC PRN PO DYSPEPSIA; Start 04/22/17 at 01:00 Magnesium Hydroxide (Milk Of Magnesia) 2,400 mg PRN QHS PRN PO CONSTIPATION; Start 04/22/17 at 01:00 Haloperidol (Haldol) 2 mg TID PO Last administered on 04/24/17 08:05; Start at 09:00; Stop 04/24/17 at 11:02; Status DC Quetiapine Fumarate (SEROquel) 300 mg BID PO Last administered on 04/25/17 19: 10; Start 04/22/17 at 09:00; Stop 04/25/17 at 19:37; Status DC Olanzapine (ZyPREXA ZYDIS) 2.5 mg PRN Q2HR PRN PO PSYCHOSIS Last administered on 04/23/17 06:05; Start 04/22/17 at 01:30 Acetaminophen (Tylenol) 1,000 mg TID PO Last administered on 04/26/17 14:26; Start 04/22/17 at 09:00 Atorvastatin Calcium (Lipitor) 20 mg QHS PO Last administered on 04/25/17 10: 52; Start 04/22/17 at 21:00 Celecoxib (CeleBREX) 100 mg BID PO Last administered on 04/26/17 09:05; Start 04/22/17 at 09:00 Furosemide (Lasix) 40 mg DAILY PO Last administered on 04/26/17 09:02; Start 04/22/17 at 09:00 Levothyroxine Sodium (Synthroid) 175 mcg DAILYAC PO Last administered on 08:59; Start 04/22/17 at 08:45 Senna/Docusate Sodium (Senna Plus) 1 tab BID PO Last administered on 04/26/17 09:03; Start 04/22/17 at 09:00 Spironolactone (Aldactone) 25 mg DAILY PO Last administered on 04/26/17 09:00 ; Start 04/22/17 at 09:00 Tamsulosin HCl (Flomax) 0.4 mg DAILY PO Last administered on 04/26/17 09:02; Start 04/22/17 at 09:00 Vitamin D (Vitamin D3) 5,000 unit DAILY PO Last administered on 04/26/17 09:03 ; Start 04/22/17 at 09:00 Potassium Chloride (Klor-Con) 10 meq DAILYWBKFT PO Last administered on 08:59; Start 04/22/17 at 08:45 Olanzapine (ZyPREXA) 10 mg DAILY PO Last administered on 04/26/17 09:03; Start 04/23/17 at 09:00 Trazodone HCl (Desyrel) 100 mg QHS PO Last administered on 04/25/17 19:09; Start 04/22/17 at 21:00; Stop 04/25/17 at 19:37; Status DC Trazodone HCl (Desyrel) 100 mg QHS PRN PO INSOMNIA; Start 04/22/17 at 18:15; Stop 04/24/17 at 11:02; Status DC Trazodone HCl (Desyrel) 12.5 mg TID@0900,1300,1700 PO Last administered on 04/24 08:05; Start 04/23/17 at 09:00; Stop 04/25/17 at 19:37; Status DC Lorazepam (Ativan) 1 mg DAILY IV ; Start 04/23/17 at 09:00; Stop 04/23/17 at 09: 00; Status DC Lorazepam (Ativan) 1 mg DAILY IM Last administered on 04/24/17 07:47; Start at 09:00; Stop 04/24/17 at 11:02; Status DC Trazodone HCl (Desyrel) 100 mg PRN QHS PRN PO INSOMNIA; Start 04/25/17 at 21:00 Lorazepam (Ativan) 0.5 mg TID PO Last administered on 04/26/17 14:26; Start at 09:00; Stop 04/27/17 at 21:05 Lorazepam (Ativan) 0.5 mg BID PO ; Start 04/28/17 at 09:00; Stop 04/29/17 at 21: 05 Lorazepam (Ativan) 0.5 mg DAILY PO ; Start 04/30/17 at 09:00; Stop 05/01/17 at 09: 05 Divalproex Sodium (Depakote Sprinkles) 750 mg BID PO ; Start 04/26/17 at 21:00 Active Scripts Active Reported Seroquel (Quetiapine Fumarate) 300 Mg Tablet 300 Mg PO BID Haloperidol 2 Mg Tablet 2 Mg PO TID Atorvastatin Calcium 20 Mg Tablet 20 Mg PO QHS Vitamin D3 (Cholecalciferol (Vitamin D3)) 5,000 Unit Tablet 5,000 Unit PO DAILY [KCL sprinkles] 10 Meq PO DAILY Aldactone (Spironolactone) 25 Mg Tablet 25 Mg PO DAILY Tamsulosin Hcl 0.4 Mg Cap.er.24h 0.4 Mg PO DAILY Celebrex (Celecoxib) 100 Mg Capsule 100 Mg PO BID Senna-S Tablet (Sennosides/Docusate Sodium) 1 Each Tablet 1 Each PO BID Lasix (Furosemide) 40 Mg Tablet 40 Mg PO DAILY Depakote Sprinkle (Divalproex Sodium) 125 Mg Cap.sprink 1,000 Mg PO BID Acetaminophen 500 Mg Tablet 1,000 Mg PO TID Levothyroxine Sodium 175 Mcg Tablet 175 Mcg PO DAILYAC Olanzapine 20 Mg Tablet 20 Mg PO DAILY Ativan (Lorazepam) 1 Mg Tablet 1 Mg PO BID [bupropion hcl] 75 Mg PO BID Fluvoxamine Maleate 100 Mg Tablet 150 Mg PO BID Mirtazapine 15 Mg Tablet 7.5 Mg PO DAILY Diagnosis: Problems: (1) Anxiety disorder (2) Impulse control disorder (3) Major depressive disorder, recurrent episode (4) Dementia due to [place] chorea LIDIA GARRIDO MD Apr 26, 2017 19:59
[2017-04-26] MEDS: ATORVASTATIN CALCIUM 20 MG TABLET PO SCH (20:57)
--- NOTE | 2017-04-26 23:23 | NUR ---
Behavior Intervention Response and Plan: BIRP Note: Behavior: Assumed Care of patient, patient located in Day Room at shift change. Patient exhibited the following behavior Disorganized, Demanding, Compliant. Brief assessment on rounds of vital signs, medication needs, lab studies, and pain. Treatment plan problems Dementia W/ BD and Fall Risk. Intervention: Patient assessed and the following interventions initiated safety checks 15 Minute Checks Personal Alarm in place , Cognitive Assessment , Medications. Response: After interactions and interventions patient responded in the following manner, Disorganized , Demanding ,Compliant. Continue to assess behaviors and condition will continue to monitor throughout the shift as needed. Patient educated on ADL's, and hand hygiene. Plan: Continue to monitor Master Treatment Plan for patient's progress toward short term goals of Decreased Agitation, Decreased Anxiety, clinic physician goals to return to previous living setting vs placement. Continue to assess patient for changes in above assessment. Monitor for medication needs, pain, and safety concerns. Hourly rounding performed to ensure safe environment.
--- NOTE | 2017-04-27 09:00 | NUR ---
THERAPEUTIC RECREATION GROUP NOTE TITLE :RELAX: Self Massage, Guided Imagery, Positive Affirmation, Gratitude Awareness ACTIVITY : Relaxation GOAL : Decrease stress, elevate mood, increase concentration/attention, encourage awareness DURATION : 50 Minutes RESPONSE : Minimal participation. Pt. was alert and with the group the entire time; however, showed little interest in the session. He was quiet and calm.
[2017-04-27] MEDS: DIVALPROEX 125 MG CAP.SPRINK PO SCH ×2 (09:14→19:23)
[2017-04-27] MEDS: POTASSIUM CHLORIDE 10 MEQ TABLET.ER. PO SCH (09:15)
[2017-04-27] MEDS: SENNOSIDES/DOCUSATE 8.6/50MG TABLET. PO SCH ×2 (09:15→19:21)
[2017-04-27] MEDS: ACETAMINOPHEN 500 MG TABLET PO SCH ×3 (09:15→19:23)
[2017-04-27] MEDS: OLANZapine 10 MG TABLET PO SCH (09:15)
[2017-04-27] MEDS: SPIRONOLACTONE 25 MG TABLET PO SCH (09:15)
[2017-04-27] MEDS: LEVOTHYROXINE 175 MCG TABLET PO SCH (09:16)
[2017-04-27] MEDS: FUROSEMIDE 40 MG TABLET PO SCH (09:16)
[2017-04-27] MEDS: buPROPion 75 MG TABLET PO SCH ×2 (09:16→19:23)
[2017-04-27] MEDS: CHOLECALCIFEROL (VITAMIN D3) 1,000 UNIT TABLET PO SCH (09:16)
[2017-04-27] MEDS: TAMSULOSIN 0.4 MG CAP.ER.24H. PO SCH (09:23)
[2017-04-27] MEDS: CELECOXIB 100 MG CAPSULE PO SCH ×2 (09:24→19:30)
[2017-04-27] MEDS: LORazepam 0.5 MG TABLET PO SCH ×3 (09:24→19:22)
--- NOTE | 2017-04-27 13:41 | PN ---
DATE: 04/25/2017 This late entry 04/25/2017 covers elements not covered in my initial note of 04/25/2017. The patient had been quite sedated and Haldol and Ativan were held. He has been much more awake and we will taper the Ativan down to 0.5 mg t.i.d. for 2 days, then b.i.d. for 2 days, and then daily for 2 days and stop it. Discontinue the Haldol for now. Maintain Depakote. Stop the daytime scheduled trazodone 12.5 t.i.d., maintain 100 mg at bedtime along with Luvox 150 b.i.d., Wellbutrin 75 b.i.d. Stop the Remeron 7.5 mg daily. Continue Zyprexa. Make further adjustments as clinically indicated. We will have to carefully reassess each of his psychotropics and minimize wherever possible. 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 MAN Vimal GARRIDO MD DR: MEME/giana JOB#: [id number] / [id number]
--- NOTE | 2017-04-27 14:15 | NUR ---
THERAPEUTIC RECREATION GROUP NOTE TITLE :Sing along with Kecia ACTIVITY : Music GOAL : Increase socialization, elevate mood, stimulate memory DURATION : 75 minutes RESPONSE : Minimal participation. Pt. joined the group towards the end but enjoyed listening to the music. He remained calm the entire time.
[2017-04-27 15:58] VITALS: BP 115/79
--- NOTE | 2017-04-27 17:03 | NUR ---
Behavior Intervention Response and Plan: BIRP Note: Behavior: Assumed Care of patient, patient located in Day Room at shift change. Patient exhibited the following behavior Calm, Non Compliant, Non Compliant with Meds. Brief assessment on rounds of vital signs, medication needs, lab studies, and pain. Treatment plan problems 1 and 2. Intervention: Patient assessed and the following interventions initiated safety checks 1-1 Observation Cognitive Assessment , Head to toe Assessment , Medications. Response: After interactions and interventions patient responded in the following manner, Cooperative , Compliant ,Appropriate. Continue to assess behaviors and condition will continue to monitor throughout the shift as needed. Patient educated on ADL's, and hand hygiene. 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 Continue to assess patient for changes in above assessment. Monitor for medication needs, pain, and safety concerns. Hourly rounding performed to ensure safe environment.
[2017-04-27] MEDS: ATORVASTATIN CALCIUM 20 MG TABLET PO SCH (19:22)
--- NOTE | 2017-04-27 19:59 | PDOC ---
Exam Bran Demential Exam: Bran Note: Please also refer to the separate dictated note~for this date of service dictated separately.~Patient seen individually. Discussed the patient with Nursing staff reviewed the chart.~Reviewed interim history and current functioning. Reviewed vital signs,~Labs/ Radiology~and current medications noted below. Continue current treatment with the changes noted in the dictated addendum note Assessment: Vital Signs: Vital Signs Date Time Temp Pulse Resp B/P (MAP) Pulse Ox O2 Delivery O2 Flow Rate FiO2 04/27/17 15:58 97.7 78 18 115/79 (91) 100 04/24/17 15:46 Room Air I&O Intake and Output 04/28/17 07:00 Intake Total 960 ml Balance 960 ml Intake Oral 960 ml Current Medications: Meds: Current Medications Olanzapine (ZyPREXA ZYDIS) 5 mg 1X ONCE PO ; Start 04/21/17 at 19:45; Stop at 19:46; Status DC Olanzapine (ZyPREXA IM) 10 mg 1X ONCE IM Last administered on 04/21/17 19:36 ; Start 04/21/17 at 19:45; Stop 04/21/17 at 19:46; Status DC Lorazepam (Ativan) 1 mg 1X ONCE IM Last administered on 04/21/17 20:10; Start 04/21/17 at 19:45; Stop 04/21/17 at 19:46; Status DC Divalproex Sodium (Depakote Sprinkles) 750 mg DAILY PO Last administered on 09:02; Start 04/22/17 at 09:00; Stop 04/26/17 at 10:38; Status DC Fluvoxamine Maleate (Luvox) 150 mg BID PO Last administered on 04/27/17 19:22 ; Start 04/22/17 at 09:00 Lorazepam (Ativan) 1 mg BID PO Last administered on 04/23/17 19:23; Start at 09:00; Stop 04/25/17 at 19:38; Status DC Mirtazapine (Remeron) 7.5 mg DAILY PO Last administered on 04/25/17 10:55; Start 04/22/17 at 09:00; Stop 04/25/17 at 19:37; Status DC Olanzapine (ZyPREXA) 20 mg DAILY PO Last administered on 04/22/17 08:17; Start 04/22/17 at 09:00; Stop 04/22/17 at 18:13; Status DC Bupropion HCl (Wellbutrin) 75 mg BID PO Last administered on 04/27/17 19:23; Start 04/22/17 at 09:00 Acetaminophen (Tylenol) 650 mg PRN Q6HRS PRN PO PAIN / TEMP; Start 04/22/17 at 01:00 Multi-Ingredient Ointment (Analgesic [place]) 1 alistair PRN QID PRN TP MUSCLE PAIN; Start 04/22/17 at 01:00 Al Hydroxide/Mg Hydroxide (Mylanta Plus Xs) 15 ml PRN AFTMEALHC PRN PO DYSPEPSIA; Start 04/22/17 at 01:00 Magnesium Hydroxide (Milk Of Magnesia) 2,400 mg PRN QHS PRN PO CONSTIPATION; Start 04/22/17 at 01:00 Haloperidol (Haldol) 2 mg TID PO Last administered on 04/24/17 08:05; Start at 09:00; Stop 04/24/17 at 11:02; Status DC Quetiapine Fumarate (SEROquel) 300 mg BID PO Last administered on 04/25/17 19: 10; Start 04/22/17 at 09:00; Stop 04/25/17 at 19:37; Status DC Olanzapine (ZyPREXA ZYDIS) 2.5 mg PRN Q2HR PRN PO PSYCHOSIS Last administered on 04/23/17 06:05; Start 04/22/17 at 01:30 Acetaminophen (Tylenol) 1,000 mg TID PO Last administered on 04/27/17 19:23; Start 04/22/17 at 09:00 Atorvastatin Calcium (Lipitor) 20 mg QHS PO Last administered on 04/27/17 19: 22; Start 04/22/17 at 21:00 Celecoxib (CeleBREX) 100 mg BID PO Last administered on 04/27/17 19:30; Start 04/22/17 at 09:00 Furosemide (Lasix) 40 mg DAILY PO Last administered on 04/27/17 09:16; Start 04/22/17 at 09:00 Levothyroxine Sodium (Synthroid) 175 mcg DAILYAC PO Last administered on 09:16; Start 04/22/17 at 08:45 Senna/Docusate Sodium (Senna Plus) 1 tab BID PO Last administered on 04/27/17 19:21; Start 04/22/17 at 09:00 Spironolactone (Aldactone) 25 mg DAILY PO Last administered on 04/27/17 09:15 ; Start 04/22/17 at 09:00 Tamsulosin HCl (Flomax) 0.4 mg DAILY PO Last administered on 04/27/17 09:23; Start 04/22/17 at 09:00 Vitamin D (Vitamin D3) 5,000 unit DAILY PO Last administered on 04/27/17 09:16 ; Start 04/22/17 at 09:00 Potassium Chloride (Klor-Con) 10 meq DAILYWBKFT PO Last administered on 09:15; Start 04/22/17 at 08:45 Olanzapine (ZyPREXA) 10 mg DAILY PO Last administered on 04/27/17 09:15; Start 04/23/17 at 09:00 Trazodone HCl (Desyrel) 100 mg QHS PO Last administered on 04/25/17 19:09; Start 04/22/17 at 21:00; Stop 04/25/17 at 19:37; Status DC Trazodone HCl (Desyrel) 100 mg QHS PRN PO INSOMNIA; Start 04/22/17 at 18:15; Stop 04/24/17 at 11:02; Status DC Trazodone HCl (Desyrel) 12.5 mg TID@0900,1300,1700 PO Last administered on 04/24 08:05; Start 04/23/17 at 09:00; Stop 04/25/17 at 19:37; Status DC Lorazepam (Ativan) 1 mg DAILY IV ; Start 04/23/17 at 09:00; Stop 04/23/17 at 09: 00; Status DC Lorazepam (Ativan) 1 mg DAILY IM Last administered on 04/24/17 07:47; Start at 09:00; Stop 04/24/17 at 11:02; Status DC Trazodone HCl (Desyrel) 100 mg PRN QHS PRN PO INSOMNIA; Start 04/25/17 at 21:00 Lorazepam (Ativan) 0.5 mg TID PO Last administered on 04/27/17 19:22; Start at 09:00; Stop 04/27/17 at 21:05 Lorazepam (Ativan) 0.5 mg BID PO ; Start 04/28/17 at 09:00; Stop 04/29/17 at 21: 05 Lorazepam (Ativan) 0.5 mg DAILY PO ; Start 04/30/17 at 09:00; Stop 05/01/17 at 09: 05 Divalproex Sodium (Depakote Sprinkles) 750 mg BID PO Last administered on 19:23; Start 04/26/17 at 21:00 Active Scripts Active Reported Seroquel (Quetiapine Fumarate) 300 Mg Tablet 300 Mg PO BID Haloperidol 2 Mg Tablet 2 Mg PO TID Atorvastatin Calcium 20 Mg Tablet 20 Mg PO QHS Vitamin D3 (Cholecalciferol (Vitamin D3)) 5,000 Unit Tablet 5,000 Unit PO DAILY [KCL sprinkles] 10 Meq PO DAILY Aldactone (Spironolactone) 25 Mg Tablet 25 Mg PO DAILY Tamsulosin Hcl 0.4 Mg Cap.er.24h 0.4 Mg PO DAILY Celebrex (Celecoxib) 100 Mg Capsule 100 Mg PO BID Senna-S Tablet (Sennosides/Docusate Sodium) 1 Each Tablet 1 Each PO BID Lasix (Furosemide) 40 Mg Tablet 40 Mg PO DAILY Depakote Sprinkle (Divalproex Sodium) 125 Mg Cap.sprink 1,000 Mg PO BID Acetaminophen 500 Mg Tablet 1,000 Mg PO TID Levothyroxine Sodium 175 Mcg Tablet 175 Mcg PO DAILYAC Olanzapine 20 Mg Tablet 20 Mg PO DAILY Ativan (Lorazepam) 1 Mg Tablet 1 Mg PO BID [bupropion hcl] 75 Mg PO BID Fluvoxamine Maleate 100 Mg Tablet 150 Mg PO BID Mirtazapine 15 Mg Tablet 7.5 Mg PO DAILY Diagnosis: Problems: (1) 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
--- NOTE | 2017-04-27 20:49 | NUR ---
Behavior Intervention Response and Plan: BIRP Note: Behavior: Assumed Care of patient, patient located in Day Room at shift change. Patient exhibited the following behavior Calm, Compliant, Cooperative. Brief assessment on rounds of vital signs, medication needs, lab studies, and pain. Treatment plan problems Dementia W/ BD and Fall Risk. Intervention: Patient assessed and the following interventions initiated safety checks 15 Minute Checks Personal Alarm in place , Cognitive Assessment , Medications. Response: After interactions and interventions patient responded in the following manner, Calm , Compliant ,Cooperative. Continue to assess behaviors and condition will continue to monitor throughout the shift as needed. Patient educated on ADL's, and hand hygiene. 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 Continue to assess patient for changes in above assessment. Monitor for medication needs, pain, and safety concerns. Hourly rounding performed to ensure safe environment.
--- NOTE | 2017-04-28 02:20 | PN ---
DATE: 04/25/2017 This is a late entry for 04/26/2017 and covers the elements not covered in my initial note of 04/26/2017. SUBJECTIVE: I met with the patient in the evening of 04/26/2017. This patient slept in the dining room in a Broda chair, less agitated, aggressive. Valproic acid level is 9, subtherapeutic; remains somewhat obsessive, repetitive. REVIEW OF SYSTEMS: Ambulation impaired, in a Broda chair. No CV, , pulmonary, eye, ENT system symptoms on review. MENTAL STATUS EXAM: Oriented to himself and situation. Speech, often responses monosyllabic. Abstraction fair, computation impaired, language function intact. Mood and affect, lability is improved. LABORATORY DATA: Reviewed. IMPRESSION: Unchanged from initial note. PLAN: Depakote was increased from 750 once a day to 750 b.i.d. Maintain Luvox, Wellbutrin, Zyprexa schedule p.r.n. along with trazodone, Ativan being tapered to be discontinued. Adjust further as clinically indicated. LIDIA GARRIDO MD DR: MEME/giana JOB#: [id number] / [id number]
[2017-04-28 06:11] VITALS: BP 112/82
[2017-04-28] MEDS: buPROPion 75 MG TABLET PO SCH ×2 (08:46→21:32)
[2017-04-28] MEDS: LEVOTHYROXINE 175 MCG TABLET PO SCH (08:46)
[2017-04-28] MEDS: OLANZapine 10 MG TABLET PO SCH (08:46)
[2017-04-28] MEDS: TAMSULOSIN 0.4 MG CAP.ER.24H. PO SCH (08:47)
[2017-04-28] MEDS: ACETAMINOPHEN 500 MG TABLET PO SCH ×3 (08:47→21:32)
[2017-04-28] MEDS: LORazepam 0.5 MG TABLET PO SCH ×2 (08:47→21:34)
[2017-04-28] MEDS: FUROSEMIDE 40 MG TABLET PO SCH (08:47)
[2017-04-28] MEDS: SPIRONOLACTONE 25 MG TABLET PO SCH (08:47)
[2017-04-28] MEDS: CHOLECALCIFEROL (VITAMIN D3) 1,000 UNIT TABLET PO SCH (08:47)
[2017-04-28] MEDS: DIVALPROEX 125 MG CAP.SPRINK PO SCH ×2 (08:47→21:33)
[2017-04-28] MEDS: SENNOSIDES/DOCUSATE 8.6/50MG TABLET. PO SCH ×2 (08:47→21:32)
[2017-04-28] MEDS: POTASSIUM CHLORIDE 10 MEQ TABLET.ER. PO SCH (08:47)
[2017-04-28] MEDS: CELECOXIB 100 MG CAPSULE PO SCH ×2 (08:49→21:34)
--- NOTE | 2017-04-28 09:15 | NUR ---
THERAPEUTIC RECREATION GROUP NOTE TITLE :Music Bingo ACTIVITY : Music, Cognitive Stimulation GOAL : Increase socialization, elevate mood, stimulate memory, Maintain or improve cognitive functioning DURATION : 60 minutes RESPONSE : No participation.
--- NOTE | 2017-04-28 10:51 | NUR ---
Behavior Intervention Response and Plan: BIRP Note: Behavior: Assumed Care of patient, patient located in Day Room at shift change. Patient exhibited the following behavior Calm, Drowsy, Compliant. Brief assessment on rounds of vital signs, medication needs, lab studies, and pain. Treatment plan problems 1-2. Intervention: Patient assessed and the following interventions initiated safety checks 15 Minute Checks Personal Alarm in place , Cognitive Assessment , Head to toe Assessment. Response: After interactions and interventions patient responded in the following manner, Calm , Restless ,Cooperative. Continue to assess behaviors and condition will continue to monitor throughout the shift as needed. Patient educated on ADL's, and hand hygiene. 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 Continue to assess patient for changes in above assessment. Monitor for medication needs, pain, and safety concerns. Hourly rounding performed to ensure safe environment.
--- NOTE | 2017-04-28 11:30 | NUR ---
THERAPEUTIC RECREATION GROUP NOTE TITLE :Movement to Music: Flexibility ACTIVITY : Movement/ Exercise GOAL : Increase morale, attention, flexibility. Decrease stress/anxiety. DURATION : 30 Minutes RESPONSE : No participation.
--- NOTE | 2017-04-28 12:45 | NUR ---
CRISTOPHER met w/Pt's dtr, Macy, during visiting hours to discuss dc plans. CRISTOPHER stated previously faxed admit referrals have not led to new placement yet. Per Dr. Lara, Pt. is ready for dc. Pt. will return to [facility] where they can continue to look for new placement, if desired. CRISTOPHER will provide [facility] Kelsey NICHOLAS, w/referral information. Macy concerned about Pt. returning to [facility] as she doesn't want her father to return to a facility where he is not wanted. Macy spoke of some [facility] staff members contacting her after Pt. was sent to this facility and were concerned and sad to hear [facility] would not be taking Pt. back. CRISTOPHER assured Macy [facility] would be able to manage Pt's behaviors until they find new placement. W/ PT's improved behaviors, they may decide to do away w/the 30 day notice. Macy very appreciative of this CRISTOPHER's help w/educating on the rules and regulations of the LTC system and appeal process. Macy states Pt. does appear to be do so much better. CRISTOPHER will follow up w/dc details later today.
--- NOTE | 2017-04-28 14:15 | NUR ---
THERAPEUTIC RECREATION GROUP NOTE TITLE :Leisure Preferences ACTIVITY : Leisure Education GOAL : Increase knowledge of leisure activities, educate on preferences/ barriers DURATION : 60 minutes RESPONSE : Full participation. Pt. was able to make his own decisions while DECORATOR LIGHTING FIXTURES tossed the throwable into the appropriate basket. He needed the questions repeated occasionally and prompting to stay on alert but he was calm and agreeable the entire time.
--- NOTE | 2017-04-28 14:35 | NUR ---
SW followed up w/previously faxed admit referrals to facilities requested by family: [facility] - aleja left message for follow up [facility] - aleja left message for follow up [facility] - No male beds available [facility] - No [facility] - No [facility] - requested SW to resend fax
--- NOTE | 2017-04-28 14:44 | NUR ---
GRETTA spoke w/GRETTA Cerna at [facility] regarding dc plan for Pt. GRETTA will provide updated info on placement process for [facility] to follow up w/if new placement is still desired. Gretta to fax updated clinicals and will wait for a transport time to be provided.
[2017-04-28 16:18] VITALS: BP 120/81
--- NOTE | 2017-04-28 20:06 | PDOC ---
Exam Bran Demential Exam: Bran Note: Please also refer to the separate dictated note~for this date of service dictated separately.~Patient seen individually. Discussed the patient with Nursing staff reviewed the chart.~Reviewed interim history and current functioning. Reviewed vital signs,~Labs/ Radiology~and current medications noted below. Continue current treatment with the changes noted in the dictated addendum note Assessment: Vital Signs: Vital Signs Date Time Temp Pulse Resp B/P (MAP) Pulse Ox O2 Delivery O2 Flow Rate FiO2 04/28/17 16:18 97.3 83 16 120/81 (94) 92 04/24/17 15:46 Room Air I&O Intake and Output 04/29/17 07:00 Intake Total 1440 ml Balance 1440 ml Intake Oral 1440 ml Current Medications: Meds: Current Medications Olanzapine (ZyPREXA ZYDIS) 5 mg 1X ONCE PO ; Start 04/21/17 at 19:45; Stop at 19:46; Status DC Olanzapine (ZyPREXA IM) 10 mg 1X ONCE IM Last administered on 04/21/17 19:36 ; Start 04/21/17 at 19:45; Stop 04/21/17 at 19:46; Status DC Lorazepam (Ativan) 1 mg 1X ONCE IM Last administered on 04/21/17 20:10; Start 04/21/17 at 19:45; Stop 04/21/17 at 19:46; Status DC Divalproex Sodium (Depakote Sprinkles) 750 mg DAILY PO Last administered on 09:02; Start 04/22/17 at 09:00; Stop 04/26/17 at 10:38; Status DC Fluvoxamine Maleate (Luvox) 150 mg BID PO Last administered on 04/28/17 08:49 ; Start 04/22/17 at 09:00 Lorazepam (Ativan) 1 mg BID PO Last administered on 04/23/17 19:23; Start at 09:00; Stop 04/25/17 at 19:38; Status DC Mirtazapine (Remeron) 7.5 mg DAILY PO Last administered on 04/25/17 10:55; Start 04/22/17 at 09:00; Stop 04/25/17 at 19:37; Status DC Olanzapine (ZyPREXA) 20 mg DAILY PO Last administered on 04/22/17 08:17; Start 04/22/17 at 09:00; Stop 04/22/17 at 18:13; Status DC Bupropion HCl (Wellbutrin) 75 mg BID PO Last administered on 04/28/17 08:46; Start 04/22/17 at 09:00 Acetaminophen (Tylenol) 650 mg PRN Q6HRS PRN PO PAIN / TEMP; Start 04/22/17 at 01:00 Multi-Ingredient Ointment (Analgesic [place]) 1 alistair PRN QID PRN TP MUSCLE PAIN; Start 04/22/17 at 01:00 Al Hydroxide/Mg Hydroxide (Mylanta Plus Xs) 15 ml PRN AFTMEALHC PRN PO DYSPEPSIA; Start 04/22/17 at 01:00 Magnesium Hydroxide (Milk Of Magnesia) 2,400 mg PRN QHS PRN PO CONSTIPATION; Start 04/22/17 at 01:00 Haloperidol (Haldol) 2 mg TID PO Last administered on 04/24/17 08:05; Start at 09:00; Stop 04/24/17 at 11:02; Status DC Quetiapine Fumarate (SEROquel) 300 mg BID PO Last administered on 04/25/17 19: 10; Start 04/22/17 at 09:00; Stop 04/25/17 at 19:37; Status DC Olanzapine (ZyPREXA ZYDIS) 2.5 mg PRN Q2HR PRN PO PSYCHOSIS Last administered on 04/23/17 06:05; Start 04/22/17 at 01:30 Acetaminophen (Tylenol) 1,000 mg TID PO Last administered on 04/28/17 14:29; Start 04/22/17 at 09:00 Atorvastatin Calcium (Lipitor) 20 mg QHS PO Last administered on 04/27/17 19: 22; Start 04/22/17 at 21:00 Celecoxib (CeleBREX) 100 mg BID PO Last administered on 04/28/17 08:49; Start 04/22/17 at 09:00 Furosemide (Lasix) 40 mg DAILY PO Last administered on 04/28/17 08:47; Start 04/22/17 at 09:00 Levothyroxine Sodium (Synthroid) 175 mcg DAILYAC PO Last administered on 08:46; Start 04/22/17 at 08:45 Senna/Docusate Sodium (Senna Plus) 1 tab BID PO Last administered on 04/28/17 08:47; Start 04/22/17 at 09:00 Spironolactone (Aldactone) 25 mg DAILY PO Last administered on 04/28/17 08:47 ; Start 04/22/17 at 09:00 Tamsulosin HCl (Flomax) 0.4 mg DAILY PO Last administered on 04/28/17 08:47; Start 04/22/17 at 09:00 Vitamin D (Vitamin D3) 5,000 unit DAILY PO Last administered on 04/28/17 08:47 ; Start 04/22/17 at 09:00 Potassium Chloride (Klor-Con) 10 meq DAILYWBKFT PO Last administered on 08:47; Start 04/22/17 at 08:45 Olanzapine (ZyPREXA) 10 mg DAILY PO Last administered on 04/28/17 08:46; Start 04/23/17 at 09:00 Trazodone HCl (Desyrel) 100 mg QHS PO Last administered on 04/25/17 19:09; Start 04/22/17 at 21:00; Stop 04/25/17 at 19:37; Status DC Trazodone HCl (Desyrel) 100 mg QHS PRN PO INSOMNIA; Start 04/22/17 at 18:15; Stop 04/24/17 at 11:02; Status DC Trazodone HCl (Desyrel) 12.5 mg TID@0900,1300,1700 PO Last administered on 04/24 08:05; Start 04/23/17 at 09:00; Stop 04/25/17 at 19:37; Status DC Lorazepam (Ativan) 1 mg DAILY IV ; Start 04/23/17 at 09:00; Stop 04/23/17 at 09: 00; Status DC Lorazepam (Ativan) 1 mg DAILY IM Last administered on 04/24/17 07:47; Start at 09:00; Stop 04/24/17 at 11:02; Status DC Trazodone HCl (Desyrel) 100 mg PRN QHS PRN PO INSOMNIA; Start 04/25/17 at 21:00 Lorazepam (Ativan) 0.5 mg TID PO Last administered on 04/27/17 19:22; Start at 09:00; Stop 04/27/17 at 21:05; Status DC Lorazepam (Ativan) 0.5 mg BID PO Last administered on 04/28/17 08:47; Start at 09:00; Stop 04/29/17 at 21:05 Lorazepam (Ativan) 0.5 mg DAILY PO ; Start 04/30/17 at 09:00; Stop 05/01/17 at 09: 05 Divalproex Sodium (Depakote Sprinkles) 750 mg BID PO Last administered on 08:47; Start 04/26/17 at 21:00 Active Scripts Active Reported Seroquel (Quetiapine Fumarate) 300 Mg Tablet 300 Mg PO BID Haloperidol 2 Mg Tablet 2 Mg PO TID Atorvastatin Calcium 20 Mg Tablet 20 Mg PO QHS Vitamin D3 (Cholecalciferol (Vitamin D3)) 5,000 Unit Tablet 5,000 Unit PO DAILY [KCL sprinkles] 10 Meq PO DAILY Aldactone (Spironolactone) 25 Mg Tablet 25 Mg PO DAILY Tamsulosin Hcl 0.4 Mg Cap.er.24h 0.4 Mg PO DAILY Celebrex (Celecoxib) 100 Mg Capsule 100 Mg PO BID Senna-S Tablet (Sennosides/Docusate Sodium) 1 Each Tablet 1 Each PO BID Lasix (Furosemide) 40 Mg Tablet 40 Mg PO DAILY Depakote Sprinkle (Divalproex Sodium) 125 Mg Cap.sprink 1,000 Mg PO BID Acetaminophen 500 Mg Tablet 1,000 Mg PO TID Levothyroxine Sodium 175 Mcg Tablet 175 Mcg PO DAILYAC Olanzapine 20 Mg Tablet 20 Mg PO DAILY Ativan (Lorazepam) 1 Mg Tablet 1 Mg PO BID [bupropion hcl] 75 Mg PO BID Fluvoxamine Maleate 100 Mg Tablet 150 Mg PO BID Mirtazapine 15 Mg Tablet 7.5 Mg PO DAILY Diagnosis: Problems: (1) Dementia in [place]'s disease with behavioral disturbance (2) Anxiety disorder (3) Impulse control disorder (4) Major depressive disorder, recurrent episode (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
[2017-04-28] MEDS: ATORVASTATIN CALCIUM 20 MG TABLET PO SCH (21:32)
--- NOTE | 2017-04-28 23:21 | NUR ---
Behavior Intervention Response and Plan: BIRP Note: Behavior: Assumed Care of patient, patient located in Day Room at shift change. Patient exhibited the following behavior Calm, Compliant, Cooperative. Brief assessment on rounds of vital signs, medication needs, lab studies, and pain. Treatment plan problems Dementia W/ BD and Fall Risk. Intervention: Patient assessed and the following interventions initiated safety checks 15 Minute Checks Personal Alarm in place , Cognitive Assessment , Medications. Response: After interactions and interventions patient responded in the following manner, Calm , Compliant ,Cooperative. Continue to assess behaviors and condition will continue to monitor throughout the shift as needed. Patient educated on ADL's, and hand hygiene. 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 Continue to assess patient for changes in above assessment. Monitor for medication needs, pain, and safety concerns. Hourly rounding performed to ensure safe environment.
--- NOTE | 2017-04-29 01:36 | PN ---
DATE: 04/27/2017 PSYCHIATRIC PROGRESS NOTE This late entry at 04/27/2017 covers elements not covered in my initial note. I met with the patient in the evening of 04/27/2017. He slept 7 hours previous evening, resistive to medications morning of 04/27/2107, took it later. REVIEW OF SYSTEMS: Ambulation impaired, in a Broda chair. No CV, , pulmonary, eye system symptoms on review. MENTAL STATUS EXAM: Oriented to himself and situation. Speech, low in volume, often responses monosyllabic. Abstraction fair, computation impaired, language function intact, attention span short. Mood and affect, lability is improved. In fact, the patient has done much better since he has been off the Haldol. Perhaps he was getting ____ because of his headache and worsening his agitation. He is still somewhat obsessive. LABORATORY DATA: Reviewed. IMPRESSION: Unchanged from initial note. PLAN: Continue current psychotropics mentioned in my initial note. Depakote was increased to 750 b.i.d. Labs level dated 04/29. Reviewed drug interactions. Risk/benefit ratio favors no further changes for now. LIDIA GARRIDO MD DR: MEME/giana JOB#: [id number] / [id number]
[2017-04-29] MEDS ORDERED: ACET325T9 PO (02:10)
[2017-04-29] MEDS ORDERED: LORA0.5T PO (02:16)
[2017-04-29] MEDS ORDERED: MAG30ORA2 PO (02:20)
[2017-04-29] MEDS ORDERED: METH29OI TP (02:21)
[2017-04-29] MEDS ORDERED: OLAN2.5T3 PO (02:22)
[2017-04-29] MEDS ORDERED: POTA10TA10 PO (02:24)
[2017-04-29] MEDS ORDERED: TRAZ-90 PO (02:25)
[2017-04-29 06:17] VITALS: BP 136/89
[2017-04-29 07:55] LABS: BASO # 0.1 x10^3/uL (0.0-0.2); BASO % 1 % (0-3); EOS # 0.5 x10^3/uL (0.0-0.7); EOS % 5 % (0-3); HEMATOCRIT 39.6 % (39.0-53.0); HEMOGLOBIN 13.2 g/dL (13.0-17.5); LYMPH # 1.9 x10^3/uL (1.0-4.8); LYMPH % 19 % (24-48); MEAN CORPUSCULAR HEMOGLOBIN 30 pg (25-35); MEAN CORPUSCULAR HGB CONC 33 g/dL (31-37); MEAN CORPUSCULAR VOLUME 89 fL (79-100); MONO # 1.6 x10^3/uL (0.0-1.1); MONO % 16 % (0-9); NEUT # 6.1 x10^3uL (1.8-7.7); NEUT % 60 % (31-73); PLATELET COUNT 298 x10^3/uL (140-400); RED BLOOD COUNT 4.47 x10^6/uL (4.30-5.70); RED CELL DISTRIBUTION WIDTH 15.5 % (11.5-14.5); WHITE BLOOD COUNT 10.1 x10^3/uL (4.0-11.0)
[2017-04-29] MEDS: DIVALPROEX 125 MG CAP.SPRINK PO SCH ×2 (07:59→21:18)
[2017-04-29] MEDS: CHOLECALCIFEROL (VITAMIN D3) 1,000 UNIT TABLET PO SCH (08:00)
[2017-04-29] MEDS: ACETAMINOPHEN 500 MG TABLET PO SCH ×3 (08:00→21:18)
[2017-04-29] MEDS: SPIRONOLACTONE 25 MG TABLET PO SCH (08:01)
[2017-04-29] MEDS: LEVOTHYROXINE 175 MCG TABLET PO SCH (08:01)
[2017-04-29] MEDS: POTASSIUM CHLORIDE 10 MEQ TABLET.ER. PO SCH (08:01)
[2017-04-29] MEDS: OLANZapine 10 MG TABLET PO SCH (08:01)
[2017-04-29] MEDS: SENNOSIDES/DOCUSATE 8.6/50MG TABLET. PO SCH ×2 (08:01→21:17)
[2017-04-29] MEDS: buPROPion 75 MG TABLET PO SCH ×2 (08:02→21:18)
[2017-04-29] MEDS: LORazepam 0.5 MG TABLET PO SCH ×2 (08:02→21:22)
[2017-04-29] MEDS: FUROSEMIDE 40 MG TABLET PO SCH (08:02)
[2017-04-29] MEDS: CELECOXIB 100 MG CAPSULE PO SCH ×2 (08:02→21:22)
[2017-04-29] MEDS: TAMSULOSIN 0.4 MG CAP.ER.24H. PO SCH (08:03)
[2017-04-29 08:12] LABS: ALBUMIN 3.4 g/dL (3.4-5.0); ALBUMIN/GLOBULIN RATIO 0.9 (1.0-1.7); ALK PHOS 80 U/L (46-116); ALT (SGPT) 17 U/L (16-63); ANION GAP 4 (6-14); AST (SGOT) 8 U/L (15-37); BLOOD UREA NITROGEN 31 mg/dL (8-26); BUN/CREATININE RATIO 31 (6-20); CARBON DIOXIDE 32 mmol/L (21-32); CHLORIDE 104 mmol/L (98-107); GFR 76.5; GLUCOSE 103 mg/dL (70-99); POTASSIUM 4.2 mmol/L (3.5-5.1); SODIUM 140 mmol/L (136-145); TOTAL BILIRUBIN 0.3 mg/dL (0.2-1.0); TOTAL PROTEIN 7.4 g/dL (6.4-8.2)
[2017-04-29 08:13] LABS: VAL ACID 71 mcg/mL (50-100)
--- NOTE | 2017-04-29 08:25 | NUR ---
[facility] Social Work Discharge Planning Form Patient Name YOGI CAMACHO Admit Date: 04/21/17 DISCHARGE PLAN Discharge Destination: return to [facility] Transportation: Facility to picker operator 04/29/17 time tbd DISCHARGE TO FACILITY Facility: [facility] Address: [facility] [address], [place] [address] PCP: at facility w/in 10-12 days of dc Psychiatrist: at facility w/in 10-12 days of dc
--- NOTE | 2017-04-29 08:28 | NUR ---
CRISTOPHER left message for CRISTOPHER Roberto at [facility] regarding transport time as this SW did not receive a follow up phone call previous day w/time.
--- NOTE | 2017-04-29 09:30 | NUR ---
THERAPEUTIC RECREATION GROUP NOTE TITLE :Social Session: Bingo and Painting! -REPORTED AND LED by CNAs ACTIVITY : Activities and Games GOAL : Increase social interaction, fine motor skills. Maintain or improve mental functioning. Decrease restlessness DURATION : Available for 120 minutes RESPONSE : Full participation in Bingo. Pt. became tearful before painting and wanted to go inside.
--- NOTE | 2017-04-29 09:50 | NUR ---
Behavior Intervention Response and Plan: BIRP Note: Behavior: Assumed Care of patient, patient located in Day Room at shift change. Patient exhibited the following behavior Restless, Disorganized, Interactive. Brief assessment on rounds of vital signs, medication needs, lab studies, and pain. Treatment plan problems 1 & 2. Intervention: Patient assessed and the following interventions initiated safety checks 15 Minute Checks Cognitive Assessment , Head to toe Assessment , Medications. Response: After interactions and interventions patient responded in the following manner, Calm , Appropriate ,Cooperative. Continue to assess behaviors and condition will continue to monitor throughout the shift as needed. Patient educated on ADL's, and hand hygiene. 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 Continue to assess patient for changes in above assessment. Monitor for medication needs, pain, and safety concerns. Hourly rounding performed to ensure safe environment.
--- NOTE | 2017-04-29 10:44 | NUR ---
CRISTOPHER left message for admissions at [facility] for a transport time today as CRISTOPHER has still not heard from the facility even after the message this CRISTOPHER left first thing in the am.
--- NOTE | 2017-04-29 11:41 | NUR ---
SW sent text to [facility] phone regarding transport time as SW has still not received a return call.
--- NOTE | 2017-04-29 12:36 | NUR ---
CRISTOPHER received calls from Pt's dtr, Macy, regarding dc plans. CRISTOPHER reported [facility] had not yet returned a call w/a transport time and CRISTOPHER has left 3 messages. Macy reported to this SW as of yesterday, [facility] was attempting to transition Pt. to their sister facility, [facility]. CRISTOPHER told Macy that facility did not have a Memory Care Unit and it would be concerning if PT. transferred from a memory care unit to a general skilled nursing. Macy agreed. CRISTOPHER received follow up call from Ladan Dawson from the [facility] regarding the current situation w/Pramod Lawson. Samantha spoke w/[facility] victim witness administrator this am regarding their "concerns" w/accepting Pt. back. They do not feel Pt. has shown any improvements, despite the documentation provided by CRISTOPHER showing no significant behaviors since 04/24 am. They state there have been little medications changes and CRISTOPHER stated Pt. was over medicated and showing behavior contradictions w/too many anti-psychotics. Taking Pt. off and tapering was showing to be more effective then to continue to add more medications on top of the medication already present. Pr[facility] Lawson believes Pt. would do better at a general skilled nursing as the other people at their facility w/Dementia who wander and approach Pt. are unable to understand to stay out of Pt's personal space. Samantha suggested hiring a 1:1. Transition Advisor stated they had 2 staff w/PT. and were unable to keep a wondering Pt. away from this PT. Samantha stated that was concerning as this PT. is in a broda, so why would 2 staff members be unable to redirect another Pt. CRISTOPHER offered to send clinicals to Samantha for review as the State is currently talking w/[facility], likely discussion the penalty if they refuse to accept pt. back. CRISTOPHER will fax all clinicals since admit to Samantha Dawson @[phone]. CRISTOPHER called Macy after the discussion w/Samantha and Macy approved sending clinicals to Ladan and understands they will also be used for the State to determine possible penalty for [facility] if it is deemed Pt. has shown improvement and can be managed at [facility].
--- NOTE | 2017-04-29 14:15 | NUR ---
THERAPEUTIC RECREATION GROUP NOTE TITLE :Karaoke ACTIVITY : Activities and Games GOAL : Increase social interaction, fine motor skills. Maintain or improve mental functioning. Decrease restlessness DURATION : 75 minutes RESPONSE : Minimal participation. Pt. was tearful throughout the entire session but stayed in the group room. He sat calmly off and on.
--- NOTE | 2017-04-29 14:55 | NUR ---
Patient in day room, crying. He states that he wants to go home. Reassured patient that that he should be leaving in a few days. I did not inform patient that there was a problem with his facility taking him back. Patient calmed down and stopped sobbing after a few minutes of talking with him. Will continue to monitor for behaviours.
--- NOTE | 2017-04-29 15:38 | NUR ---
CRISTOPHER left message for Pt's dtrMacy regarding text message received from Admissions at [facility] about dc transport time arranged for May.04 at 9:00.
--- NOTE | 2017-04-29 16:05 | NUR ---
Patient is striking at other patients in the day room. Placed patient in quiet room with doors open. Will continue to monitor.
[2017-04-29 16:21] VITALS: BP 123/85
--- NOTE | 2017-04-29 16:30 | NUR ---
Patient in quiet room, crying. He states that he is sorry for 'hitting that valerie'. Patient calmed down after a few moments of ADIEL Hernandez talking to him. Will continue to monitor.
--- NOTE | 2017-04-29 20:00 | NUR ---
Behavior Intervention Response and Plan: BIRP Note: Behavior: Assumed Care of patient, patient located in Day Room at shift change. Patient exhibited the following behavior Compliant, Compliant, Compliant. Brief assessment on rounds of vital signs, medication needs, lab studies, and pain. Treatment plan problems . Intervention: Patient assessed and the following interventions initiated safety checks 15 Minute Checks Cognitive Assessment , Head to toe Assessment , Medications. Response: After interactions and interventions patient responded in the following manner, Disorganized , Compliant ,Cooperative. Continue to assess behaviors and condition will continue to monitor throughout the shift as needed. Patient educated on ADL's, and hand hygiene. Plan: Continue to monitor Master Treatment Plan for patient's progress toward short term goals of Decreased Agitation, Decreased Aggression, intermediate project manager goals to return to previous living setting vs placement. Continue to assess patient for changes in above assessment. Monitor for medication needs, pain, and safety concerns. Hourly rounding performed to ensure safe environment.
--- NOTE | 2017-04-29 20:04 | PDOC ---
Exam Bran Demential Exam: Rban Note: Please also refer to the separate dictated note~for this date of service dictated separately.~Patient seen individually. Discussed the patient with Nursing staff reviewed the chart.~Reviewed interim history and current functioning. Reviewed vital signs,~Labs/ Radiology~and current medications noted below. Continue current treatment with the changes noted in the dictated addendum note Assessment: Vital Signs: Vital Signs Date Time Temp Pulse Resp B/P (MAP) Pulse Ox O2 Delivery O2 Flow Rate FiO2 04/29/17 16:21 97.5 91 18 123/85 (98) 92 04/24/17 15:46 Room Air I&O Intake and Output 04/30/17 06:59 Intake Total 1200 ml Balance 1200 ml Intake Oral 1200 ml # Bowel Movements 2 Labs: Laboratory Tests Test 04/29/17 07:07 White Blood Count 10.1 x10^3/uL (4.0-11.0) Red Blood Count 4.47 x10^6/uL (4.30-5.70) Hemoglobin 13.2 g/dL (13.0-17.5) Hematocrit 39.6 % (39.0-53.0) Mean Corpuscular Volume 89 fL (79-100) Mean Corpuscular Hemoglobin 30 pg (25-35) Mean Corpuscular Hemoglobin Concent 33 g/dL (31-37) Red Cell Distribution Width 15.5 % (11.5-14.5) H Platelet Count 298 x10^3/uL (140-400) Neutrophils (%) (Auto) 60 % (31-73) Lymphocytes (%) (Auto) 19 % (24-48) L Monocytes (%) (Auto) 16 % (0-9) H Eosinophils (%) (Auto) 5 % (0-3) H Basophils (%) (Auto) 1 % (0-3) Neutrophils # (Auto) 6.1 x10^3uL (1.8-7.7) Lymphocytes # (Auto) 1.9 x10^3/uL (1.0-4.8) Monocytes # (Auto) 1.6 x10^3/uL (0.0-1.1) H Eosinophils # (Auto) 0.5 x10^3/uL (0.0-0.7) Basophils # (Auto) 0.1 x10^3/uL (0.0-0.2) Sodium Level 140 mmol/L (136-145) Potassium Level 4.2 mmol/L (3.5-5.1) Chloride Level 104 mmol/L (98-107) Carbon Dioxide Level 32 mmol/L (21-32) Anion Gap 4 (6-14) L Blood Urea Nitrogen 31 mg/dL (8-26) H Creatinine 1.0 mg/dL (0.7-1.3) Estimated GFR (Cockcroft-Gault) 76.5 BUN/Creatinine Ratio 31 (6-20) H Glucose Level 103 mg/dL (70-99) H Calcium Level 9.0 mg/dL (8.5-10.1) Total Bilirubin 0.3 mg/dL (0.2-1.0) Aspartate Amino Transferase (AST) 8 U/L (15-37) L Alanine Aminotransferase (ALT) 17 U/L (16-63) Alkaline Phosphatase 80 U/L (46-116) Total Protein 7.4 g/dL (6.4-8.2) Albumin 3.4 g/dL (3.4-5.0) Albumin/Globulin Ratio 0.9 (1.0-1.7) L Valproic Acid Level 71 mcg/mL (50-100) Valproic Acid Last Dose Date 04/28/17 Valproic Acid Last Dose Time 2100 Current Medications: Meds: Current Medications Olanzapine (ZyPREXA ZYDIS) 5 mg 1X ONCE PO ; Start 04/21/17 at 19:45; Stop at 19:46; Status DC Olanzapine (ZyPREXA IM) 10 mg 1X ONCE IM Last administered on 04/21/17 19:36 ; Start 04/21/17 at 19:45; Stop 04/21/17 at 19:46; Status DC Lorazepam (Ativan) 1 mg 1X ONCE IM Last administered on 04/21/17 20:10; Start 04/21/17 at 19:45; Stop 04/21/17 at 19:46; Status DC Divalproex Sodium (Depakote Sprinkles) 750 mg DAILY PO Last administered on 09:02; Start 04/22/17 at 09:00; Stop 04/26/17 at 10:38; Status DC Fluvoxamine Maleate (Luvox) 150 mg BID PO Last administered on 04/29/17 08:02 ; Start 04/22/17 at 09:00 Lorazepam (Ativan) 1 mg BID PO Last administered on 04/23/17 19:23; Start at 09:00; Stop 04/25/17 at 19:38; Status DC Mirtazapine (Remeron) 7.5 mg DAILY PO Last administered on 04/25/17 10:55; Start 04/22/17 at 09:00; Stop 04/25/17 at 19:37; Status DC Olanzapine (ZyPREXA) 20 mg DAILY PO Last administered on 04/22/17 08:17; Start 04/22/17 at 09:00; Stop 04/22/17 at 18:13; Status DC Bupropion HCl (Wellbutrin) 75 mg BID PO Last administered on 04/29/17 08:02; Start 04/22/17 at 09:00 Acetaminophen (Tylenol) 650 mg PRN Q6HRS PRN PO PAIN / TEMP; Start 04/22/17 at 01:00 Multi-Ingredient Ointment (Analgesic [place]) 1 berkley PRN QID PRN TP MUSCLE PAIN; Start 04/22/17 at 01:00 Al Hydroxide/Mg Hydroxide (Mylanta Plus Xs) 15 ml PRN AFTMEALHC PRN PO DYSPEPSIA; Start 04/22/17 at 01:00 Magnesium Hydroxide (Milk Of Magnesia) 2,400 mg PRN QHS PRN PO CONSTIPATION; Start 04/22/17 at 01:00 Haloperidol (Haldol) 2 mg TID PO Last administered on 04/24/17 08:05; Start at 09:00; Stop 04/24/17 at 11:02; Status DC Quetiapine Fumarate (SEROquel) 300 mg BID PO Last administered on 04/25/17 19: 10; Start 04/22/17 at 09:00; Stop 04/25/17 at 19:37; Status DC Olanzapine (ZyPREXA ZYDIS) 2.5 mg PRN Q2HR PRN PO PSYCHOSIS Last administered on 04/23/17 06:05; Start 04/22/17 at 01:30 Acetaminophen (Tylenol) 1,000 mg TID PO Last administered on 04/29/17 13:51; Start 04/22/17 at 09:00 Atorvastatin Calcium (Lipitor) 20 mg QHS PO Last administered on 04/28/17 21: 32; Start 04/22/17 at 21:00 Celecoxib (CeleBREX) 100 mg BID PO Last administered on 04/29/17 08:02; Start 04/22/17 at 09:00 Furosemide (Lasix) 40 mg DAILY PO Last administered on 04/29/17 08:02; Start 04/22/17 at 09:00 Levothyroxine Sodium (Synthroid) 175 mcg DAILYAC PO Last administered on 08:01; Start 04/22/17 at 08:45 Senna/Docusate Sodium (Senna Plus) 1 tab BID PO Last administered on 04/29/17 08:01; Start 04/22/17 at 09:00 Spironolactone (Aldactone) 25 mg DAILY PO Last administered on 04/29/17 08:01 ; Start 04/22/17 at 09:00 Tamsulosin HCl (Flomax) 0.4 mg DAILY PO Last administered on 04/29/17 08:03; Start 04/22/17 at 09:00 Vitamin D (Vitamin D3) 5,000 unit DAILY PO Last administered on 04/29/17 08:00 ; Start 04/22/17 at 09:00 Potassium Chloride (Klor-Con) 10 meq DAILYWBKFT PO Last administered on 08:01; Start 04/22/17 at 08:45 Olanzapine (ZyPREXA) 10 mg DAILY PO Last administered on 04/29/17 08:01; Start 04/23/17 at 09:00 Trazodone HCl (Desyrel) 100 mg QHS PO Last administered on 04/25/17 19:09; Start 04/22/17 at 21:00; Stop 04/25/17 at 19:37; Status DC Trazodone HCl (Desyrel) 100 mg QHS PRN PO INSOMNIA; Start 04/22/17 at 18:15; Stop 04/24/17 at 11:02; Status DC Trazodone HCl (Desyrel) 12.5 mg TID@0900,1300,1700 PO Last administered on 04/24 08:05; Start 04/23/17 at 09:00; Stop 04/25/17 at 19:37; Status DC Lorazepam (Ativan) 1 mg DAILY IV ; Start 04/23/17 at 09:00; Stop 04/23/17 at 09: 00; Status DC Lorazepam (Ativan) 1 mg DAILY IM Last administered on 04/24/17 07:47; Start at 09:00; Stop 04/24/17 at 11:02; Status DC Trazodone HCl (Desyrel) 100 mg PRN QHS PRN PO INSOMNIA; Start 04/25/17 at 21:00 Lorazepam (Ativan) 0.5 mg TID PO Last administered on 04/27/17 19:22; Start at 09:00; Stop 04/27/17 at 21:05; Status DC Lorazepam (Ativan) 0.5 mg BID PO Last administered on 04/29/17 08:02; Start at 09:00; Stop 04/29/17 at 21:05 Lorazepam (Ativan) 0.5 mg DAILY PO ; Start 04/30/17 at 09:00; Stop 05/01/17 at 09: 05 Divalproex Sodium (Depakote Sprinkles) 750 mg BID PO Last administered on 07:59; Start 04/26/17 at 21:00 Active Scripts Active Reported Trazodone Hcl 100 Mg Tablet 100 Mg PO PRN QHS PRN Potassium Chloride 10 Meq Tablet.er 10 Meq PO DAILYWBKFT Zyprexa (Olanzapine) 2.5 Mg Tablet 2.5 Mg PO PRN Q2HR PRN Analgesic [place] (Methyl Salicylate/Menthol) 28 Gm Oint...g. 1 Berkley TP PRN QID PRN Mag-Al Plus Xs Suspension (Mag Hydrox/Al Hydrox/Simeth) 30 Ml Oral.susp 15 Ml PO PRN AFTMEALHC PRN Tylenol (Acetaminophen) 325 Mg Tablet 650 Mg PO PRN Q6HRS PRN Atorvastatin Calcium 20 Mg Tablet 20 Mg PO QHS Vitamin D3 (Cholecalciferol (Vitamin D3)) 5,000 Unit Tablet 5,000 Unit PO DAILY Aldactone (Spironolactone) 25 Mg Tablet 25 Mg PO DAILY Tamsulosin Hcl 0.4 Mg Cap.er.24h 0.4 Mg PO DAILY Celebrex (Celecoxib) 100 Mg Capsule 100 Mg PO BID Senna-S Tablet (Sennosides/Docusate Sodium) 1 Each Tablet 1 Each PO BID Lasix (Furosemide) 40 Mg Tablet 40 Mg PO DAILY Depakote Sprinkle (Divalproex Sodium) 125 Mg Cap.sprink 750 Mg PO BID Acetaminophen 500 Mg Tablet 1,000 Mg PO TID Levothyroxine Sodium 175 Mcg Tablet 175 Mcg PO DAILYAC Olanzapine 20 Mg Tablet 10 Mg PO DAILY [bupropion hcl] 75 Mg PO BID Fluvoxamine Maleate 100 Mg Tablet 150 Mg PO BID Diagnosis: Problems: (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
[2017-04-29] MEDS: ATORVASTATIN CALCIUM 20 MG TABLET PO SCH (21:17)
--- NOTE | 2017-04-30 04:05 | PN ---
DATE: 04/28/2017 This late entry 04/28/2017 cover elements, not covered in my initial note. SUBJECTIVE: I met with the patient in the evening of 04/28/2017. He remains withdrawn, confused, not aggressive, less labile, less restless. REVIEW OF SYSTEMS: Positive for impaired ambulation, in wheelchair, consistent with his [place]'s. No CV, , pulmonary, eye, ENT system symptoms on review. MENTAL STATUS EXAM: Oriented to himself and situation. Speech is difficult to understand, often responses monosyllabic. Abstraction fair, computation impaired, language function intact. Mood and affect is much improved. LABORATORY DATA: Reviewed. IMPRESSION: Unchanged from initial note. PLAN: Continue current psychotropics, reviewed drug contractions. Risk/benefit ratio favors no further change as of now. Possible discharge 04/29/2017. MAN Vimal GARRIDO MD DR: MEME/giana JOB#: [id number] / [id number]
[2017-04-30 05:35] VITALS: BP 127/81
[2017-04-30] MEDS: LEVOTHYROXINE 175 MCG TABLET PO SCH (05:55)
[2017-04-30] MEDS: POTASSIUM CHLORIDE 10 MEQ TABLET.ER. PO SCH (08:32)
[2017-04-30] MEDS: buPROPion 75 MG TABLET PO SCH ×2 (08:32→20:20)
[2017-04-30] MEDS: TAMSULOSIN 0.4 MG CAP.ER.24H. PO SCH (08:32)
[2017-04-30] MEDS: SENNOSIDES/DOCUSATE 8.6/50MG TABLET. PO SCH ×2 (08:32→20:19)
[2017-04-30] MEDS: SPIRONOLACTONE 25 MG TABLET PO SCH (08:32)
[2017-04-30] MEDS: FUROSEMIDE 40 MG TABLET PO SCH (08:32)
[2017-04-30] MEDS: CHOLECALCIFEROL (VITAMIN D3) 1,000 UNIT TABLET PO SCH (08:32)
[2017-04-30] MEDS: ACETAMINOPHEN 500 MG TABLET PO SCH ×3 (08:32→20:19)
[2017-04-30] MEDS: DIVALPROEX 125 MG CAP.SPRINK PO SCH ×2 (08:33→20:19)
[2017-04-30] MEDS: LORazepam 0.5 MG TABLET PO SCH (08:35)
[2017-04-30] MEDS: CELECOXIB 100 MG CAPSULE PO SCH ×2 (08:35→20:25)
[2017-04-30] MEDS: OLANZapine 10 MG TABLET PO SCH (08:35)
--- NOTE | 2017-04-30 14:13 | NUR ---
Group Note [facility] Group Type: Outside Reminisce Start Time: 1:20 pm End Time: 2:00pm Problem: Psychotic Symptoms Purpose: Decrease Restlessness Level of Participation: High Behaviors or Symptoms Observed: Pt. in broda w/peers and SW, relaxed Interventions: Reminiscence Response: present, responded to SW questions, no behaviors. Plan: continue to monitor
--- NOTE | 2017-04-30 14:13 | NUR ---
Behavior Intervention Response and Plan: BIRP Note: Behavior: Assumed Care of patient, patient located in Day Room at shift change. Patient exhibited the following behavior Irritable, Restless, Cooperative. Brief assessment on rounds of vital signs, medication needs, lab studies, and pain. Treatment plan problems 1-2. Intervention: Patient assessed and the following interventions initiated safety checks 15 Minute Checks Personal Alarm in place , Cognitive Assessment , Head to toe Assessment. Response: After interactions and interventions patient responded in the following manner, Calm , Compliant ,Cooperative. Continue to assess behaviors and condition will continue to monitor throughout the shift as needed. Patient educated on ADL's, and hand hygiene. Plan: Continue to monitor Master Treatment Plan for patient's progress toward short term goals of Improved Mood, Decreased Anxiety, director long term care goals to return to previous living setting vs placement. Continue to assess patient for changes in above assessment. Monitor for medication needs, pain, and safety concerns. Hourly rounding performed to ensure safe environment.
[2017-04-30 16:20] VITALS: BP 138/92
--- NOTE | 2017-04-30 17:54 | NUR ---
Pt tearful on and off all day. No aggression noted. Pt yelling/ crying at times unprovoked and was placed on the mats in the quiet room for de-escalation.
--- NOTE | 2017-04-30 19:54 | PDOC ---
Exam Bran Demential Exam: Bran Note: Please also refer to the separate dictated note~for this date of service dictated separately.~Patient seen individually. Discussed the patient with Nursing staff reviewed the chart.~Reviewed interim history and current functioning. Reviewed vital signs,~Labs/ Radiology~and current medications noted below. Continue current treatment with the changes noted in the dictated addendum note Assessment: Vital Signs: Vital Signs Date Time Temp Pulse Resp B/P (MAP) Pulse Ox O2 Delivery O2 Flow Rate FiO2 04/30/17 16:20 97.6 90 20 138/92 (107) 94 04/24/17 15:46 Room Air I&O Intake and Output 05/01/17 07:00 Intake Total 960 ml Balance 960 ml Intake Oral 960 ml Current Medications: Meds: Current Medications Olanzapine (ZyPREXA ZYDIS) 5 mg 1X ONCE PO ; Start 04/21/17 at 19:45; Stop at 19:46; Status DC Olanzapine (ZyPREXA IM) 10 mg 1X ONCE IM Last administered on 04/21/17 19:36 ; Start 04/21/17 at 19:45; Stop 04/21/17 at 19:46; Status DC Lorazepam (Ativan) 1 mg 1X ONCE IM Last administered on 04/21/17 20:10; Start 04/21/17 at 19:45; Stop 04/21/17 at 19:46; Status DC Divalproex Sodium (Depakote Sprinkles) 750 mg DAILY PO Last administered on 09:02; Start 04/22/17 at 09:00; Stop 04/26/17 at 10:38; Status DC Fluvoxamine Maleate (Luvox) 150 mg BID PO Last administered on 04/30/17 08:33; Start 04/22/17 at 09:00 Lorazepam (Ativan) 1 mg BID PO Last administered on 04/23/17 19:23; Start at 09:00; Stop 04/25/17 at 19:38; Status DC Mirtazapine (Remeron) 7.5 mg DAILY PO Last administered on 04/25/17 10:55; Start 04/22/17 at 09:00; Stop 04/25/17 at 19:37; Status DC Olanzapine (ZyPREXA) 20 mg DAILY PO Last administered on 04/22/17 08:17; Start 04/22/17 at 09:00; Stop 04/22/17 at 18:13; Status DC Bupropion HCl (Wellbutrin) 75 mg BID PO Last administered on 04/30/17 08:32; Start 04/22/17 at 09:00 Acetaminophen (Tylenol) 650 mg PRN Q6HRS PRN PO PAIN / TEMP; Start 04/22/17 at 01:00 Multi-Ingredient Ointment (Analgesic [place]) 1 berkley PRN QID PRN TP MUSCLE PAIN; Start 04/22/17 at 01:00 Al Hydroxide/Mg Hydroxide (Mylanta Plus Xs) 15 ml PRN AFTMEALHC PRN PO DYSPEPSIA; Start 04/22/17 at 01:00 Magnesium Hydroxide (Milk Of Magnesia) 2,400 mg PRN QHS PRN PO CONSTIPATION; Start 04/22/17 at 01:00 Haloperidol (Haldol) 2 mg TID PO Last administered on 04/24/17 08:05; Start at 09:00; Stop 04/24/17 at 11:02; Status DC Quetiapine Fumarate (SEROquel) 300 mg BID PO Last administered on 04/25/17 19: 10; Start 04/22/17 at 09:00; Stop 04/25/17 at 19:37; Status DC Olanzapine (ZyPREXA ZYDIS) 2.5 mg PRN Q2HR PRN PO PSYCHOSIS Last administered on 04/23/17 06:05; Start 04/22/17 at 01:30 Acetaminophen (Tylenol) 1,000 mg TID PO Last administered on 04/30/17 15:18; Start 04/22/17 at 09:00 Atorvastatin Calcium (Lipitor) 20 mg QHS PO Last administered on 04/29/17 21: 17; Start 04/22/17 at 21:00 Celecoxib (CeleBREX) 100 mg BID PO Last administered on 04/30/17 08:35; Start 04/22/17 at 09:00 Furosemide (Lasix) 40 mg DAILY PO Last administered on 04/30/17 08:32; Start at 09:00 Levothyroxine Sodium (Synthroid) 175 mcg DAILYAC PO Last administered on 05:55; Start 04/22/17 at 08:45 Senna/Docusate Sodium (Senna Plus) 1 tab BID PO Last administered on 04/30/17 08:32; Start 04/22/17 at 09:00 Spironolactone (Aldactone) 25 mg DAILY PO Last administered on 04/30/17 08:32; Start 04/22/17 at 09:00 Tamsulosin HCl (Flomax) 0.4 mg DAILY PO Last administered on 04/30/17 08:32; Start 04/22/17 at 09:00 Vitamin D (Vitamin D3) 5,000 unit DAILY PO Last administered on 04/30/17 08:32 ; Start 04/22/17 at 09:00 Potassium Chloride (Klor-Con) 10 meq DAILYWBKFT PO Last administered on 08:32; Start 04/22/17 at 08:45 Olanzapine (ZyPREXA) 10 mg DAILY PO Last administered on 04/30/17 08:35; Start 04/23/17 at 09:00 Trazodone HCl (Desyrel) 100 mg QHS PO Last administered on 04/25/17 19:09; Start 04/22/17 at 21:00; Stop 04/25/17 at 19:37; Status DC Trazodone HCl (Desyrel) 100 mg QHS PRN PO INSOMNIA; Start 04/22/17 at 18:15; Stop 04/24/17 at 11:02; Status DC Trazodone HCl (Desyrel) 12.5 mg TID@0900,1300,1700 PO Last administered on 04/24 08:05; Start 04/23/17 at 09:00; Stop 04/25/17 at 19:37; Status DC Lorazepam (Ativan) 1 mg DAILY IV ; Start 04/23/17 at 09:00; Stop 04/23/17 at 09: 00; Status DC Lorazepam (Ativan) 1 mg DAILY IM Last administered on 04/24/17 07:47; Start at 09:00; Stop 04/24/17 at 11:02; Status DC Trazodone HCl (Desyrel) 100 mg PRN QHS PRN PO INSOMNIA; Start 04/25/17 at 21:00 Lorazepam (Ativan) 0.5 mg TID PO Last administered on 04/27/17 19:22; Start at 09:00; Stop 04/27/17 at 21:05; Status DC Lorazepam (Ativan) 0.5 mg BID PO Last administered on 04/29/17 21:22; Start at 09:00; Stop 04/29/17 at 21:05; Status DC Lorazepam (Ativan) 0.5 mg DAILY PO Last administered on 04/30/17 08:35; Start 04/30/17 at 09:00; Stop 05/01/17 at 09:05 Divalproex Sodium (Depakote Sprinkles) 750 mg BID PO Last administered on 08:33; Start 04/26/17 at 21:00 Active Scripts Active Reported Trazodone Hcl 100 Mg Tablet 100 Mg PO PRN QHS PRN Potassium Chloride 10 Meq Tablet.er 10 Meq PO DAILYWBKFT Zyprexa (Olanzapine) 2.5 Mg Tablet 2.5 Mg PO PRN Q2HR PRN Analgesic [place] (Methyl Salicylate/Menthol) 28 Gm Oint...g. 1 [place] TP PRN QID PRN Mag-Al Plus Xs Suspension (Mag Hydrox/Al Hydrox/Simeth) 30 Ml Oral.susp 15 Ml PO PRN AFTMEALHC PRN Tylenol (Acetaminophen) 325 Mg Tablet 650 Mg PO PRN Q6HRS PRN Atorvastatin Calcium 20 Mg Tablet 20 Mg PO QHS Vitamin D3 (Cholecalciferol (Vitamin D3)) 5,000 Unit Tablet 5,000 Unit PO DAILY Aldactone (Spironolactone) 25 Mg Tablet 25 Mg PO DAILY Tamsulosin Hcl 0.4 Mg Cap.er.24h 0.4 Mg PO DAILY Celebrex (Celecoxib) 100 Mg Capsule 100 Mg PO BID Senna-S Tablet (Sennosides/Docusate Sodium) 1 Each Tablet 1 Each PO BID Lasix (Furosemide) 40 Mg Tablet 40 Mg PO DAILY Depakote Sprinkle (Divalproex Sodium) 125 Mg Cap.sprink 750 Mg PO BID Acetaminophen 500 Mg Tablet 1,000 Mg PO TID Levothyroxine Sodium 175 Mcg Tablet 175 Mcg PO DAILYAC Olanzapine 20 Mg Tablet 10 Mg PO DAILY [bupropion hcl] 75 Mg PO BID Fluvoxamine Maleate 100 Mg Tablet 150 Mg PO BID Diagnosis: Problems: (1) 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
[2017-04-30] MEDS: ATORVASTATIN CALCIUM 20 MG TABLET PO SCH (20:19)
--- NOTE | 2017-04-30 22:00 | NUR ---
Behavior Intervention Response and Plan: BIRP Note: Behavior: Assumed Care of patient, patient located in Patient Room at shift change. Patient exhibited the following behavior Calm, Compliant, Cooperative. Brief assessment on rounds of vital signs, medication needs, lab studies, and pain. Treatment plan problems . Intervention: Patient assessed and the following interventions initiated safety checks 15 Minute Checks Cognitive Assessment , Head to toe Assessment , Medications. Response: After interactions and interventions patient responded in the following manner, Calm , Drowsy ,Appropriate. Continue to assess behaviors and condition will continue to monitor throughout the shift as needed. Patient educated on ADL's, and hand hygiene. 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 Continue to assess patient for changes in above assessment. Monitor for medication needs, pain, and safety concerns. Hourly rounding performed to ensure safe environment.
[2017-05-01 05:52] VITALS: BP 120/77
[2017-05-01] MEDS: LEVOTHYROXINE 175 MCG TABLET PO SCH (05:53)
[2017-05-01] MEDS: CHOLECALCIFEROL (VITAMIN D3) 1,000 UNIT TABLET PO SCH (07:43)
[2017-05-01] MEDS: OLANZapine 10 MG TABLET PO SCH (07:44)
[2017-05-01] MEDS: DIVALPROEX 125 MG CAP.SPRINK PO SCH ×2 (07:44→19:48)
[2017-05-01] MEDS: buPROPion 75 MG TABLET PO SCH ×2 (07:44→19:48)
[2017-05-01] MEDS: SENNOSIDES/DOCUSATE 8.6/50MG TABLET. PO SCH ×2 (07:45→19:48)
[2017-05-01] MEDS: TAMSULOSIN 0.4 MG CAP.ER.24H. PO SCH (07:45)
[2017-05-01] MEDS: FUROSEMIDE 40 MG TABLET PO SCH (07:45)
[2017-05-01] MEDS: SPIRONOLACTONE 25 MG TABLET PO SCH (07:46)
[2017-05-01] MEDS: ACETAMINOPHEN 500 MG TABLET PO SCH ×3 (07:46→19:49)
[2017-05-01] MEDS: CELECOXIB 100 MG CAPSULE PO SCH ×2 (08:13→19:53)
[2017-05-01] MEDS: LORazepam 0.5 MG TABLET PO SCH (08:13)
[2017-05-01] MEDS: POTASSIUM CHLORIDE 10 MEQ TABLET.ER. PO SCH (08:13)
--- NOTE | 2017-05-01 08:40 | NUR ---
Behavior Intervention Response and Plan: BIRP Note: Behavior: Assumed Care of patient, patient located in Day Room at shift change. Patient exhibited the following behavior Calm, Disorganized, Compliant. Brief assessment on rounds of vital signs, medication needs, lab studies, and pain. Treatment plan problems . Intervention: Patient assessed and the following interventions initiated safety checks 15 Minute Checks Head to toe Assessment , Medications , Cognitive Assessment. Response: After interactions and interventions patient responded in the following manner, Cooperative , Compliant ,Delusions. Continue to assess behaviors and condition will continue to monitor throughout the shift as needed. Patient educated on ADL's, and hand hygiene. 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 Continue to assess patient for changes in above assessment. Monitor for medication needs, pain, and safety concerns. Hourly rounding performed to ensure safe environment.
[2017-05-01 16:19] VITALS: BP 130/86
[2017-05-01] MEDS: ATORVASTATIN CALCIUM 20 MG TABLET PO SCH (19:48)
[2017-05-01] MEDS: traZODone 100 MG TABLET. PO PRN (19:49)
--- NOTE | 2017-05-01 21:00 | NUR ---
Behavior Intervention Response and Plan: BIRP Note: Behavior: Assumed Care of patient, patient located in Day Room at shift change. Patient exhibited the following behavior Calm, Compliant, Anxious. Brief assessment on rounds of vital signs, medication needs, lab studies, and pain. Treatment plan problems . Intervention: Patient assessed and the following interventions initiated safety checks 15 Minute Checks Personal Alarm in place , Cognitive Assessment , Medications. Response: After interactions and interventions patient responded in the following manner, Appropriate , Appropriate ,Compliant. Continue to assess behaviors and condition will continue to monitor throughout the shift as needed. Patient educated on ADL's, and hand hygiene. 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 Continue to assess patient for changes in above assessment. Monitor for medication needs, pain, and safety concerns. Hourly rounding performed to ensure safe environment.
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
--- NOTE | 2017-05-01 23:26 | PDOC ---
Exam Bran Demential Exam: Bran Note: Please also refer to the separate dictated note~for this date of service dictated separately.~Patient seen individually. Discussed the patient with Nursing staff reviewed the chart.~Reviewed interim history and current functioning. Reviewed vital signs,~Labs/ Radiology~and current medications noted below. Continue current treatment with the changes noted in the dictated addendum note Assessment: Vital Signs: Vital Signs Date Time Temp Pulse Resp B/P (MAP) Pulse Ox O2 Delivery O2 Flow Rate FiO2 05/01/17 16:19 98.0 80 20 130/86 (101) 93 I&O Intake and Output 05/02/17 06:59 Intake Total 960 ml Balance 960 ml Intake Oral 960 ml Current Medications: Meds: Current Medications Olanzapine (ZyPREXA ZYDIS) 5 mg 1X ONCE PO ; Start 04/21/17 at 19:45; Stop at 19:46; Status DC Olanzapine (ZyPREXA IM) 10 mg 1X ONCE IM Last administered on 04/21/17 19:36 ; Start 04/21/17 at 19:45; Stop 04/21/17 at 19:46; Status DC Lorazepam (Ativan) 1 mg 1X ONCE IM Last administered on 04/21/17 20:10; Start 04/21/17 at 19:45; Stop 04/21/17 at 19:46; Status DC Divalproex Sodium (Depakote Sprinkles) 750 mg DAILY PO Last administered on 09:02; Start 04/22/17 at 09:00; Stop 04/26/17 at 10:38; Status DC Fluvoxamine Maleate (Luvox) 150 mg BID PO Last administered on 05/01/17 19:48; Start 04/22/17 at 09:00 Lorazepam (Ativan) 1 mg BID PO Last administered on 04/23/17 19:23; Start at 09:00; Stop 04/25/17 at 19:38; Status DC Mirtazapine (Remeron) 7.5 mg DAILY PO Last administered on 04/25/17 10:55; Start 04/22/17 at 09:00; Stop 04/25/17 at 19:37; Status DC Olanzapine (ZyPREXA) 20 mg DAILY PO Last administered on 04/22/17 08:17; Start 04/22/17 at 09:00; Stop 04/22/17 at 18:13; Status DC Bupropion HCl (Wellbutrin) 75 mg BID PO Last administered on 05/01/17 19:48; Start 04/22/17 at 09:00 Acetaminophen (Tylenol) 650 mg PRN Q6HRS PRN PO PAIN / TEMP; Start 04/22/17 at 01:00 Multi-Ingredient Ointment (Analgesic [place]) 1 berkley PRN QID PRN TP MUSCLE PAIN; Start 04/22/17 at 01:00 Al Hydroxide/Mg Hydroxide (Mylanta Plus Xs) 15 ml PRN AFTMEALHC PRN PO DYSPEPSIA; Start 04/22/17 at 01:00 Magnesium Hydroxide (Milk Of Magnesia) 2,400 mg PRN QHS PRN PO CONSTIPATION; Start 04/22/17 at 01:00 Haloperidol (Haldol) 2 mg TID PO Last administered on 04/24/17 08:05; Start at 09:00; Stop 04/24/17 at 11:02; Status DC Quetiapine Fumarate (SEROquel) 300 mg BID PO Last administered on 04/25/17 19: 10; Start 04/22/17 at 09:00; Stop 04/25/17 at 19:37; Status DC Olanzapine (ZyPREXA ZYDIS) 2.5 mg PRN Q2HR PRN PO PSYCHOSIS Last administered on 04/23/17 06:05; Start 04/22/17 at 01:30 Acetaminophen (Tylenol) 1,000 mg TID PO Last administered on 05/01/17 19:49; Start 04/22/17 at 09:00 Atorvastatin Calcium (Lipitor) 20 mg QHS PO Last administered on 05/01/17 19:48 ; Start 04/22/17 at 21:00 Celecoxib (CeleBREX) 100 mg BID PO Last administered on 05/01/17 19:53; Start 04/22/17 at 09:00 Furosemide (Lasix) 40 mg DAILY PO Last administered on 05/01/17 07:45; Start at 09:00 Levothyroxine Sodium (Synthroid) 175 mcg DAILYAC PO Last administered on 05:53; Start 04/22/17 at 08:45 Senna/Docusate Sodium (Senna Plus) 1 tab BID PO Last administered on 05/01/17 19:48; Start 04/22/17 at 09:00 Spironolactone (Aldactone) 25 mg DAILY PO Last administered on 05/01/17 07:46; Start 04/22/17 at 09:00 Tamsulosin HCl (Flomax) 0.4 mg DAILY PO Last administered on 05/01/17 07:45; Start 04/22/17 at 09:00 Vitamin D (Vitamin D3) 5,000 unit DAILY PO Last administered on 05/01/17 07:43 ; Start 04/22/17 at 09:00 Potassium Chloride (Klor-Con) 10 meq DAILYWBKFT PO Last administered on 08:13; Start 04/22/17 at 08:45 Olanzapine (ZyPREXA) 10 mg DAILY PO Last administered on 05/01/17 07:44; Start 04/23/17 at 09:00 Trazodone HCl (Desyrel) 100 mg QHS PO Last administered on 04/25/17 19:09; Start 04/22/17 at 21:00; Stop 04/25/17 at 19:37; Status DC Trazodone HCl (Desyrel) 100 mg QHS PRN PO INSOMNIA; Start 04/22/17 at 18:15; Stop 04/24/17 at 11:02; Status DC Trazodone HCl (Desyrel) 12.5 mg TID@0900,1300,1700 PO Last administered on 04/24 08:05; Start 04/23/17 at 09:00; Stop 04/25/17 at 19:37; Status DC Lorazepam (Ativan) 1 mg DAILY IV ; Start 04/23/17 at 09:00; Stop 04/23/17 at 09: 00; Status DC Lorazepam (Ativan) 1 mg DAILY IM Last administered on 04/24/17 07:47; Start at 09:00; Stop 04/24/17 at 11:02; Status DC Trazodone HCl (Desyrel) 100 mg PRN QHS PRN PO INSOMNIA Last administered on 05/01 19:49; Start 04/25/17 at 21:00 Lorazepam (Ativan) 0.5 mg TID PO Last administered on 04/27/17 19:22; Start at 09:00; Stop 04/27/17 at 21:05; Status DC Lorazepam (Ativan) 0.5 mg BID PO Last administered on 04/29/17 21:22; Start at 09:00; Stop 04/29/17 at 21:05; Status DC Lorazepam (Ativan) 0.5 mg DAILY PO Last administered on 05/01/17 08:13; Start 04/30/17 at 09:00; Stop 05/01/17 at 09:05; Status DC Divalproex Sodium (Depakote Sprinkles) 750 mg BID PO Last administered on 19:48; Start 04/26/17 at 21:00 Active Scripts Active Reported Trazodone Hcl 100 Mg Tablet 100 Mg PO PRN QHS PRN Potassium Chloride 10 Meq Tablet.er 10 Meq PO DAILYWBKFT Zyprexa (Olanzapine) 2.5 Mg Tablet 2.5 Mg PO PRN Q2HR PRN Analgesic [place] (Methyl Salicylate/Menthol) 28 Gm Oint...g. 1 [place] TP PRN QID PRN Mag-Al Plus Xs Suspension (Mag Hydrox/Al Hydrox/Simeth) 30 Ml Oral.susp 15 Ml PO PRN AFTMEALHC PRN Tylenol (Acetaminophen) 325 Mg Tablet 650 Mg PO PRN Q6HRS PRN Atorvastatin Calcium 20 Mg Tablet 20 Mg PO QHS Vitamin D3 (Cholecalciferol (Vitamin D3)) 5,000 Unit Tablet 5,000 Unit PO DAILY Aldactone (Spironolactone) 25 Mg Tablet 25 Mg PO DAILY Tamsulosin Hcl 0.4 Mg Cap.er.24h 0.4 Mg PO DAILY Celebrex (Celecoxib) 100 Mg Capsule 100 Mg PO BID Senna-S Tablet (Sennosides/Docusate Sodium) 1 Each Tablet 1 Each PO BID Lasix (Furosemide) 40 Mg Tablet 40 Mg PO DAILY Depakote Sprinkle (Divalproex Sodium) 125 Mg Cap.sprink 750 Mg PO BID Acetaminophen 500 Mg Tablet 1,000 Mg PO TID Levothyroxine Sodium 175 Mcg Tablet 175 Mcg PO DAILYAC Olanzapine 20 Mg Tablet 10 Mg PO DAILY [bupropion hcl] 75 Mg PO BID Fluvoxamine Maleate 100 Mg Tablet 150 Mg PO BID Diagnosis: Problems: (1) Dementia in [place]'s disease with behavioral disturbance (2) Anxiety disorder (3) Impulse control disorder (4) Major depressive disorder, recurrent episode (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
--- NOTE | 2017-05-02 03:53 | PN ---
DATE: 04/30/2017 PSYCHIATRIC PROGRESS NOTE This is a late entry 04/30/2017 covers elements not covered in my initial note. SUBJECTIVE: I met with the patient evening of 04/30/2017. The patient had some episodes of crying morning of 04/30/2017, yelling after awoke, not physically aggressive, ask to report on the mat to help him calm down which staff did and he did better after this. REVIEW OF SYSTEMS: Ambulation impaired, in a Broda chair. No CV, , pulmonary, eye system symptoms on review. MENTAL STATUS EXAM: Oriented to himself and situation. Speech has moderate latency, often responses monosyllabic. Abstraction fair, computation impaired, language function intact, attention span short, mood and affect labile at times. LABORATORY DATA: Reviewed. IMPRESSION: Unchanged from initial note. PLAN: Continue current psychotropics. Valproic acid level is 71. Luvox 150 b.i.d., Wellbutrin 75 b.i.d., Zyprexa 10 mg daily plus p.r.n. Adjust further as clinically indicated. MAN Vimal GARRIDO MD DR: MEME/giana JOB#: [id number] / [id number]
[2017-05-02] MEDS: OLANZapine 10 MG TABLET PO SCH (05:53)
[2017-05-02] MEDS: LEVOTHYROXINE 175 MCG TABLET PO SCH (05:53)
[2017-05-02 06:01] VITALS: BP 144/87
--- NOTE | 2017-05-02 06:01 | NUR ---
Pt appears anxious and suspicious today and not as interactive as usual, 0900 dose of zyprexa given at this time.
[2017-05-02] MEDS: POTASSIUM CHLORIDE 10 MEQ TABLET.ER. PO SCH (07:48)
[2017-05-02] MEDS: SPIRONOLACTONE 25 MG TABLET PO SCH (07:48)
[2017-05-02] MEDS: DIVALPROEX 125 MG CAP.SPRINK PO SCH ×2 (07:49→20:28)
[2017-05-02] MEDS: TAMSULOSIN 0.4 MG CAP.ER.24H. PO SCH (07:49)
[2017-05-02] MEDS: FUROSEMIDE 40 MG TABLET PO SCH (07:50)
[2017-05-02] MEDS: SENNOSIDES/DOCUSATE 8.6/50MG TABLET. PO SCH ×2 (07:51→20:28)
[2017-05-02] MEDS: ACETAMINOPHEN 500 MG TABLET PO SCH ×3 (07:52→20:28)
[2017-05-02] MEDS: CHOLECALCIFEROL (VITAMIN D3) 1,000 UNIT TABLET PO SCH (07:52)
[2017-05-02] MEDS: buPROPion 75 MG TABLET PO SCH ×2 (07:52→20:28)
[2017-05-02] MEDS: CELECOXIB 100 MG CAPSULE PO SCH ×2 (07:54→20:29)
--- NOTE | 2017-05-02 11:02 | NUR ---
Behavior Intervention Response and Plan: BIRP Note: Behavior: Assumed Care of patient, patient located in Day Room at shift change. Patient exhibited the following behavior Cooperative, calm. Brief assessment on rounds of vital signs, medication needs, lab studies, and pain. Treatment plan problems . Intervention: Patient assessed and the following interventions initiated safety checks 15 Minute Checks Head to toe Assessment , Cognitive Assessment , Medications. Response: After interactions and interventions patient responded in the following manner, Cooperative , calm. Continue to assess behaviors and condition will continue to monitor throughout the shift as needed. Patient educated on ADL's, and hand hygiene. Plan: Continue to monitor Master Treatment Plan for patient's progress toward short term goals of Improved Mood, Decreased Aggression, usp goals to return to previous living setting vs placement. Continue to assess patient for changes in above assessment. Monitor for medication needs, pain, and safety concerns. Hourly rounding performed to ensure safe environment.
[2017-05-02 15:51] VITALS: BP 121/78
[2017-05-02] MEDS: ATORVASTATIN CALCIUM 20 MG TABLET PO SCH (20:27)
[2017-05-02] MEDS: traZODone 100 MG TABLET. PO PRN (20:28)
--- NOTE | 2017-05-02 21:55 | PDOC ---
Exam Bran Demential Exam: Bran Note: Please also refer to the separate dictated note~for this date of service dictated separately.~Patient seen individually. Discussed the patient with Nursing staff reviewed the chart.~Reviewed interim history and current functioning. Reviewed vital signs,~Labs/ Radiology~and current medications noted below. Continue current treatment with the changes noted in the dictated addendum note Assessment: Vital Signs: Vital Signs Date Time Temp Pulse Resp B/P (MAP) Pulse Ox O2 Delivery O2 Flow Rate FiO2 05/02/17 15:51 98.3 85 18 121/78 (92) 92 I&O Intake and Output 05/03/17 06:59 Intake Total 1080 ml Balance 1080 ml Intake Oral 1080 ml # Bowel Movements 1 Current Medications: Meds: Current Medications Olanzapine (ZyPREXA ZYDIS) 5 mg 1X ONCE PO ; Start 04/21/17 at 19:45; Stop at 19:46; Status DC Olanzapine (ZyPREXA IM) 10 mg 1X ONCE IM Last administered on 04/21/17 19:36 ; Start 04/21/17 at 19:45; Stop 04/21/17 at 19:46; Status DC Lorazepam (Ativan) 1 mg 1X ONCE IM Last administered on 04/21/17 20:10; Start 04/21/17 at 19:45; Stop 04/21/17 at 19:46; Status DC Divalproex Sodium (Depakote Sprinkles) 750 mg DAILY PO Last administered on 09:02; Start 04/22/17 at 09:00; Stop 04/26/17 at 10:38; Status DC Fluvoxamine Maleate (Luvox) 150 mg BID PO Last administered on 05/02/17 20:27; Start 04/22/17 at 09:00 Lorazepam (Ativan) 1 mg BID PO Last administered on 04/23/17 19:23; Start at 09:00; Stop 04/25/17 at 19:38; Status DC Mirtazapine (Remeron) 7.5 mg DAILY PO Last administered on 04/25/17 10:55; Start 04/22/17 at 09:00; Stop 04/25/17 at 19:37; Status DC Olanzapine (ZyPREXA) 20 mg DAILY PO Last administered on 04/22/17 08:17; Start 04/22/17 at 09:00; Stop 04/22/17 at 18:13; Status DC Bupropion HCl (Wellbutrin) 75 mg BID PO Last administered on 05/02/17 20:28; Start 04/22/17 at 09:00 Acetaminophen (Tylenol) 650 mg PRN Q6HRS PRN PO PAIN / TEMP; Start 04/22/17 at 01:00 Multi-Ingredient Ointment (Analgesic [place]) 1 berkley PRN QID PRN TP MUSCLE PAIN; Start 04/22/17 at 01:00 Al Hydroxide/Mg Hydroxide (Mylanta Plus Xs) 15 ml PRN AFTMEALHC PRN PO DYSPEPSIA; Start 04/22/17 at 01:00 Magnesium Hydroxide (Milk Of Magnesia) 2,400 mg PRN QHS PRN PO CONSTIPATION; Start 04/22/17 at 01:00 Haloperidol (Haldol) 2 mg TID PO Last administered on 04/24/17 08:05; Start at 09:00; Stop 04/24/17 at 11:02; Status DC Quetiapine Fumarate (SEROquel) 300 mg BID PO Last administered on 04/25/17 19: 10; Start 04/22/17 at 09:00; Stop 04/25/17 at 19:37; Status DC Olanzapine (ZyPREXA ZYDIS) 2.5 mg PRN Q2HR PRN PO PSYCHOSIS Last administered on 04/23/17 06:05; Start 04/22/17 at 01:30 Acetaminophen (Tylenol) 1,000 mg TID PO Last administered on 05/02/17 20:28; Start 04/22/17 at 09:00 Atorvastatin Calcium (Lipitor) 20 mg QHS PO Last administered on 05/02/17 20:27 ; Start 04/22/17 at 21:00 Celecoxib (CeleBREX) 100 mg BID PO Last administered on 05/02/17 20:29; Start 04/22/17 at 09:00 Furosemide (Lasix) 40 mg DAILY PO Last administered on 05/02/17 07:50; Start at 09:00 Levothyroxine Sodium (Synthroid) 175 mcg DAILYAC PO Last administered on 05:53; Start 04/22/17 at 08:45 Senna/Docusate Sodium (Senna Plus) 1 tab BID PO Last administered on 05/02/17 20:28; Start 04/22/17 at 09:00 Spironolactone (Aldactone) 25 mg DAILY PO Last administered on 05/02/17 07:48; Start 04/22/17 at 09:00 Tamsulosin HCl (Flomax) 0.4 mg DAILY PO Last administered on 05/02/17 07:49; Start 04/22/17 at 09:00 Vitamin D (Vitamin D3) 5,000 unit DAILY PO Last administered on 05/02/17 07:52 ; Start 04/22/17 at 09:00 Potassium Chloride (Klor-Con) 10 meq DAILYWBKFT PO Last administered on 07:48; Start 04/22/17 at 08:45 Olanzapine (ZyPREXA) 10 mg DAILY PO Last administered on 05/02/17 05:53; Start 04/23/17 at 09:00 Trazodone HCl (Desyrel) 100 mg QHS PO Last administered on 04/25/17 19:09; Start 04/22/17 at 21:00; Stop 04/25/17 at 19:37; Status DC Trazodone HCl (Desyrel) 100 mg QHS PRN PO INSOMNIA; Start 04/22/17 at 18:15; Stop 04/24/17 at 11:02; Status DC Trazodone HCl (Desyrel) 12.5 mg TID@0900,1300,1700 PO Last administered on 04/24 08:05; Start 04/23/17 at 09:00; Stop 04/25/17 at 19:37; Status DC Lorazepam (Ativan) 1 mg DAILY IV ; Start 04/23/17 at 09:00; Stop 04/23/17 at 09: 00; Status DC Lorazepam (Ativan) 1 mg DAILY IM Last administered on 04/24/17 07:47; Start at 09:00; Stop 04/24/17 at 11:02; Status DC Trazodone HCl (Desyrel) 100 mg PRN QHS PRN PO INSOMNIA Last administered on 05/02 20:28; Start 04/25/17 at 21:00 Lorazepam (Ativan) 0.5 mg TID PO Last administered on 04/27/17 19:22; Start at 09:00; Stop 04/27/17 at 21:05; Status DC Lorazepam (Ativan) 0.5 mg BID PO Last administered on 04/29/17 21:22; Start at 09:00; Stop 04/29/17 at 21:05; Status DC Lorazepam (Ativan) 0.5 mg DAILY PO Last administered on 05/01/17 08:13; Start 04/30/17 at 09:00; Stop 05/01/17 at 09:05; Status DC Divalproex Sodium (Depakote Sprinkles) 750 mg BID PO Last administered on 20:28; Start 04/26/17 at 21:00 Active Scripts Active Reported Trazodone Hcl 100 Mg Tablet 100 Mg PO PRN QHS PRN Potassium Chloride 10 Meq Tablet.er 10 Meq PO DAILYWBKFT Zyprexa (Olanzapine) 2.5 Mg Tablet 2.5 Mg PO PRN Q2HR PRN Analgesic [place] (Methyl Salicylate/Menthol) 28 Gm Oint...g. 1 Berkley TP PRN QID PRN Mag-Al Plus Xs Suspension (Mag Hydrox/Al Hydrox/Simeth) 30 Ml Oral.susp 15 Ml PO PRN AFTMEALHC PRN Tylenol (Acetaminophen) 325 Mg Tablet 650 Mg PO PRN Q6HRS PRN Atorvastatin Calcium 20 Mg Tablet 20 Mg PO QHS Vitamin D3 (Cholecalciferol (Vitamin D3)) 5,000 Unit Tablet 5,000 Unit PO DAILY Aldactone (Spironolactone) 25 Mg Tablet 25 Mg PO DAILY Tamsulosin Hcl 0.4 Mg Cap.er.24h 0.4 Mg PO DAILY Celebrex (Celecoxib) 100 Mg Capsule 100 Mg PO BID Senna-S Tablet (Sennosides/Docusate Sodium) 1 Each Tablet 1 Each PO BID Lasix (Furosemide) 40 Mg Tablet 40 Mg PO DAILY Depakote Sprinkle (Divalproex Sodium) 125 Mg Cap.sprink 750 Mg PO BID Acetaminophen 500 Mg Tablet 1,000 Mg PO TID Levothyroxine Sodium 175 Mcg Tablet 175 Mcg PO DAILYAC Olanzapine 20 Mg Tablet 10 Mg PO DAILY [bupropion hcl] 75 Mg PO BID Fluvoxamine Maleate 100 Mg Tablet 150 Mg PO BID Diagnosis: Problems: (1) 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
--- NOTE | 2017-05-02 22:45 | NUR ---
Behavior Intervention Response and Plan: BIRP Note: Behavior: Assumed Care of patient, patient located in Patient Room at shift change. Patient exhibited the following behavior Drowsy, Sleeping, Calm. Brief assessment on rounds of vital signs, medication needs, lab studies, and pain. Treatment plan problems . Intervention: Patient assessed and the following interventions initiated safety checks 15 Minute Checks Medications , Cognitive Assessment , Head to toe Assessment. Response: After interactions and interventions patient responded in the following manner, Compliant , Sleeping ,Drowsy. Continue to assess behaviors and condition will continue to monitor throughout the shift as needed. Patient educated on ADL's, and hand hygiene. Plan: Continue to monitor Master Treatment Plan for patient's progress toward short term goals of Improved Mood, Medication Compliance, group home goals to return to previous living setting vs placement. Continue to assess patient for changes in above assessment. Monitor for medication needs, pain, and safety concerns. Hourly rounding performed to ensure safe environment.
--- NOTE | 2017-05-03 01:31 | PN ---
DATE: 05/01/2017 PSYCHIATRIC PROGRESS NOTE This is a late entry of 05/01/2017 covers elements not covered in my initial note of 05/01/2017. SUBJECTIVE: I met with the patient evening of 05/01/2017. Overall, the patient has been compliant with medications assessments had an outburst of yelling and crying in the morning, but not aggressive. REVIEW OF SYSTEMS: The patient in a Broda chair. No CV, , pulmonary, eye, ENT system symptoms on review. MENTAL STATUS EXAM: Oriented to himself and situation. Speech, often responses monosyllabic. Abstraction fair, computation impaired, language function intact. Mood and affect showing improvement. LABORATORY DATA: Reviewed. IMPRESSION: Unchanged from initial note. PLAN: Continue current psychotropics. Valproic acid level is therapeutic at 71. Reviewed drug interactions risk/benefit ratio favors no further change. MAN Vimal GARRIDO MD DR: MEME/giana JOB#: [id number] / [id number]
[2017-05-03 06:33] VITALS: BP 164/98
[2017-05-03 07:38] LABS: BILIRUBIN,URINE NEG (NEG); CLARITY,URINE CLEAR; COLOR,URINE YELLOW; GLUCOSE,URINE NEG (NEG); NITRITE,URINE NEG (NEG); RBC,URINE 0 /HPF (0-2); UROBILINOGEN,URINE 0.2 mg/dL (0.2 mg/dL); WBC,URINE RARE /HPF (0-4)
[2017-05-03 07:39] LABS: BACTERIA,URINE 0 /HPF (0-FEW); SQUAMOUS EPITHELIAL CELL,UR OCC /LPF
[2017-05-03] MEDS: LEVOTHYROXINE 175 MCG TABLET PO SCH (07:57)
[2017-05-03] MEDS: TAMSULOSIN 0.4 MG CAP.ER.24H. PO SCH (07:57)
[2017-05-03] MEDS: FUROSEMIDE 40 MG TABLET PO SCH (07:57)
[2017-05-03] MEDS: OLANZapine 10 MG TABLET PO SCH (07:57)
[2017-05-03] MEDS: buPROPion 75 MG TABLET PO SCH ×2 (07:57→20:40)
[2017-05-03] MEDS: POTASSIUM CHLORIDE 10 MEQ TABLET.ER. PO SCH (07:57)
[2017-05-03] MEDS: SENNOSIDES/DOCUSATE 8.6/50MG TABLET. PO SCH ×2 (07:57→20:41)
[2017-05-03] MEDS: ACETAMINOPHEN 500 MG TABLET PO SCH ×3 (07:58→20:41)
[2017-05-03] MEDS: CHOLECALCIFEROL (VITAMIN D3) 1,000 UNIT TABLET PO SCH (07:58)
[2017-05-03] MEDS: SPIRONOLACTONE 25 MG TABLET PO SCH (07:58)
[2017-05-03] MEDS: DIVALPROEX 125 MG CAP.SPRINK PO SCH ×2 (07:58→20:40)
[2017-05-03] MEDS: CELECOXIB 100 MG CAPSULE PO SCH ×2 (07:59→21:58)
--- NOTE | 2017-05-03 09:44 | NUR ---
Throughout the morning pt has had multiple episodes of tearfulness, anxiety and restlessness. No agitation noted. Pt saying "She's . I'm too." PRN Zyprexa administered. Will continue to monitor.
--- NOTE | 2017-05-03 10:20 | NUR ---
Behavior Intervention Response and Plan: BIRP Note: Behavior: Assumed Care of patient, patient located in Day Room at shift change. Patient exhibited the following behavior Restless, Compulsive, Anxious. Brief assessment on rounds of vital signs, medication needs, lab studies, and pain. Treatment plan problems 1-2. Intervention: Patient assessed and the following interventions initiated safety checks 15 Minute Checks Personal Alarm in place , Cognitive Assessment , Head to toe Assessment. Response: After interactions and interventions patient responded in the following manner, Restless , Anxious ,Drowsy. Continue to assess behaviors and condition will continue to monitor throughout the shift as needed. Patient educated on ADL's, and hand hygiene. Plan: Continue to monitor Master Treatment Plan for patient's progress toward short term goals of Decreased Anxiety, Improved Mood, half-way goals to return to previous living setting vs placement. Continue to assess patient for changes in above assessment. Monitor for medication needs, pain, and safety concerns. Hourly rounding performed to ensure safe environment.
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
--- NOTE | 2017-05-03 12:45 | NUR ---
Pt became combative in the dining room, attempting to jump out of his broda chair with his arms flailing. Pt was yelling and crying. It appears that pt is delusional, thinking that someone is trying to kill him and becomes scared. Pt reassured that he is safe and was escorted to the quiet room where he laid down. Will continue to monitor.
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
--- NOTE | 2017-05-03 15:44 | NUR ---
CRISTOPHER faxed updated dc plans to [place] [facility] stating Pt's current delusions today may require a medication adjustment. CRISTOPHER to follow up in the AM as dc is planned for Wednesday at 9:00.
[2017-05-03 15:57] VITALS: BP 123/89
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
[2017-05-03] MEDS: ATORVASTATIN CALCIUM 20 MG TABLET PO SCH (20:41)
--- NOTE | 2017-05-03 22:51 | PDOC ---
Exam Bran Demential Exam: Bran Note: Please also refer to the separate dictated note~for this date of service dictated separately.~Patient seen individually. Discussed the patient with Nursing staff reviewed the chart.~Reviewed interim history and current functioning. Reviewed vital signs,~Labs/ Radiology~and current medications noted below. Continue current treatment with the changes noted in the dictated addendum note Assessment: Vital Signs: Vital Signs Date Time Temp Pulse Resp B/P (MAP) Pulse Ox O2 Delivery O2 Flow Rate FiO2 05/03/17 15:57 97.6 86 18 123/89 (100) 94 I&O Intake and Output 05/04/17 06:59 Intake Total 1060 ml Balance 1060 ml Intake Oral 1060 ml # Voids 2 Labs: Laboratory Tests Test 05/03/17 05:30 Urine Collection Type Unknown Urine Color Yellow Urine Clarity Clear Urine pH 7.0 Urine Specific Laura 1.020 Urine Protein Neg (NEG-TRACE) Urine Glucose (UA) Neg mg/dL (NEG) Urine Ketones (Stick) Neg mg/dL (NEG) Urine Blood Neg (NEG) Urine Nitrite Neg (NEG) Urine Bilirubin Neg (NEG) Urine Urobilinogen Dipstick 0.2 mg/dL (0.2 mg/dL) Urine Leukocyte Esterase Neg (NEG) Urine RBC 0 /HPF (0-2) Urine WBC Rare /HPF (0-4) Urine Squamous Epithelial Cells Occ /LPF Urine Bacteria 0 /HPF (0-FEW) Urine Mucus Slight /LPF Current Medications: Meds: Current Medications Olanzapine (ZyPREXA ZYDIS) 5 mg 1X ONCE PO ; Start 04/21/17 at 19:45; Stop at 19:46; Status DC Olanzapine (ZyPREXA IM) 10 mg 1X ONCE IM Last administered on 04/21/17 19:36 ; Start 04/21/17 at 19:45; Stop 04/21/17 at 19:46; Status DC Lorazepam (Ativan) 1 mg 1X ONCE IM Last administered on 04/21/17 20:10; Start 04/21/17 at 19:45; Stop 04/21/17 at 19:46; Status DC Divalproex Sodium (Depakote Sprinkles) 750 mg DAILY PO Last administered on 09:02; Start 04/22/17 at 09:00; Stop 04/26/17 at 10:38; Status DC Fluvoxamine Maleate (Luvox) 150 mg BID PO Last administered on 05/03/17 20:41; Start 04/22/17 at 09:00 Lorazepam (Ativan) 1 mg BID PO Last administered on 04/23/17 19:23; Start at 09:00; Stop 04/25/17 at 19:38; Status DC Mirtazapine (Remeron) 7.5 mg DAILY PO Last administered on 04/25/17 10:55; Start 04/22/17 at 09:00; Stop 04/25/17 at 19:37; Status DC Olanzapine (ZyPREXA) 20 mg DAILY PO Last administered on 04/22/17 08:17; Start 04/22/17 at 09:00; Stop 04/22/17 at 18:13; Status DC Bupropion HCl (Wellbutrin) 75 mg BID PO Last administered on 05/03/17 20:40; Start 04/22/17 at 09:00 Acetaminophen (Tylenol) 650 mg PRN Q6HRS PRN PO PAIN / TEMP; Start 04/22/17 at 01:00 Multi-Ingredient Ointment (Analgesic [place]) 1 berkley PRN QID PRN TP MUSCLE PAIN; Start 04/22/17 at 01:00 Al Hydroxide/Mg Hydroxide (Mylanta Plus Xs) 15 ml PRN AFTMEALHC PRN PO DYSPEPSIA; Start 04/22/17 at 01:00 Magnesium Hydroxide (Milk Of Magnesia) 2,400 mg PRN QHS PRN PO CONSTIPATION; Start 04/22/17 at 01:00 Haloperidol (Haldol) 2 mg TID PO Last administered on 04/24/17 08:05; Start at 09:00; Stop 04/24/17 at 11:02; Status DC Quetiapine Fumarate (SEROquel) 300 mg BID PO Last administered on 04/25/17 19: 10; Start 04/22/17 at 09:00; Stop 04/25/17 at 19:37; Status DC Olanzapine (ZyPREXA ZYDIS) 2.5 mg PRN Q2HR PRN PO PSYCHOSIS Last administered on 05/03/17 09:43; Start 04/22/17 at 01:30 Acetaminophen (Tylenol) 1,000 mg TID PO Last administered on 05/03/17 20:41; Start 04/22/17 at 09:00 Atorvastatin Calcium (Lipitor) 20 mg QHS PO Last administered on 05/03/17 20:41 ; Start 04/22/17 at 21:00 Celecoxib (CeleBREX) 100 mg BID PO Last administered on 05/03/17 21:58; Start 04/22/17 at 09:00 Furosemide (Lasix) 40 mg DAILY PO Last administered on 05/03/17 07:57; Start at 09:00 Levothyroxine Sodium (Synthroid) 175 mcg DAILYAC PO Last administered on 07:57; Start 04/22/17 at 08:45 Senna/Docusate Sodium (Senna Plus) 1 tab BID PO Last administered on 05/03/17 20:41; Start 04/22/17 at 09:00 Spironolactone (Aldactone) 25 mg DAILY PO Last administered on 05/03/17 07:58; Start 04/22/17 at 09:00 Tamsulosin HCl (Flomax) 0.4 mg DAILY PO Last administered on 05/03/17 07:57; Start 04/22/17 at 09:00 Vitamin D (Vitamin D3) 5,000 unit DAILY PO Last administered on 05/03/17 07:58 ; Start 04/22/17 at 09:00 Potassium Chloride (Klor-Con) 10 meq DAILYWBKFT PO Last administered on 07:57; Start 04/22/17 at 08:45 Olanzapine (ZyPREXA) 10 mg DAILY PO Last administered on 05/03/17 07:57; Start 04/23/17 at 09:00 Trazodone HCl (Desyrel) 100 mg QHS PO Last administered on 04/25/17 19:09; Start 04/22/17 at 21:00; Stop 04/25/17 at 19:37; Status DC Trazodone HCl (Desyrel) 100 mg QHS PRN PO INSOMNIA; Start 04/22/17 at 18:15; Stop 04/24/17 at 11:02; Status DC Trazodone HCl (Desyrel) 12.5 mg TID@0900,1300,1700 PO Last administered on 04/24 08:05; Start 04/23/17 at 09:00; Stop 04/25/17 at 19:37; Status DC Lorazepam (Ativan) 1 mg DAILY IV ; Start 04/23/17 at 09:00; Stop 04/23/17 at 09: 00; Status DC Lorazepam (Ativan) 1 mg DAILY IM Last administered on 04/24/17 07:47; Start at 09:00; Stop 04/24/17 at 11:02; Status DC Trazodone HCl (Desyrel) 100 mg PRN QHS PRN PO INSOMNIA Last administered on 05/02 20:28; Start 04/25/17 at 21:00 Lorazepam (Ativan) 0.5 mg TID PO Last administered on 04/27/17 19:22; Start at 09:00; Stop 04/27/17 at 21:05; Status DC Lorazepam (Ativan) 0.5 mg BID PO Last administered on 04/29/17 21:22; Start at 09:00; Stop 04/29/17 at 21:05; Status DC Lorazepam (Ativan) 0.5 mg DAILY PO Last administered on 05/01/17 08:13; Start 04/30/17 at 09:00; Stop 05/01/17 at 09:05; Status DC Divalproex Sodium (Depakote Sprinkles) 750 mg BID PO Last administered on 20:40; Start 04/26/17 at 21:00 Active Scripts Active Reported Trazodone Hcl 100 Mg Tablet 100 Mg PO PRN QHS PRN Potassium Chloride 10 Meq Tablet.er 10 Meq PO DAILYWBKFT Zyprexa (Olanzapine) 2.5 Mg Tablet 2.5 Mg PO PRN Q2HR PRN Analgesic [place] (Methyl Salicylate/Menthol) 28 Gm Oint...g. 1 Berkley TP PRN QID PRN Mag-Al Plus Xs Suspension (Mag Hydrox/Al Hydrox/Simeth) 30 Ml Oral.susp 15 Ml PO PRN AFTMEALHC PRN Tylenol (Acetaminophen) 325 Mg Tablet 650 Mg PO PRN Q6HRS PRN Atorvastatin Calcium 20 Mg Tablet 20 Mg PO QHS Vitamin D3 (Cholecalciferol (Vitamin D3)) 5,000 Unit Tablet 5,000 Unit PO DAILY Aldactone (Spironolactone) 25 Mg Tablet 25 Mg PO DAILY Tamsulosin Hcl 0.4 Mg Cap.er.24h 0.4 Mg PO DAILY Celebrex (Celecoxib) 100 Mg Capsule 100 Mg PO BID Senna-S Tablet (Sennosides/Docusate Sodium) 1 Each Tablet 1 Each PO BID Lasix (Furosemide) 40 Mg Tablet 40 Mg PO DAILY Depakote Sprinkle (Divalproex Sodium) 125 Mg Cap.sprink 750 Mg PO BID Acetaminophen 500 Mg Tablet 1,000 Mg PO TID Levothyroxine Sodium 175 Mcg Tablet 175 Mcg PO DAILYAC Olanzapine 20 Mg Tablet 10 Mg PO DAILY [bupropion hcl] 75 Mg PO BID Fluvoxamine Maleate 100 Mg Tablet 150 Mg PO BID Diagnosis: Problems: (1) Dementia in [place]'s disease with behavioral disturbance (2) Anxiety disorder (3) Impulse control disorder (4) Major depressive disorder, recurrent episode LIDIA GARRIDO MD May 03, 2017 22:51
--- NOTE | 2017-05-04 00:55 | NUR ---
Behavior Intervention Response and Plan: BIRP Note: Behavior: Assumed Care of patient, patient located in Quiet Room at shift change. Patient exhibited the following behavior Disorganized, Calm, Compliant. Brief assessment on rounds of vital signs, medication needs, lab studies, and pain. Treatment plan problems Dementia W/ BD and Fall Risk. Intervention: Patient assessed and the following interventions initiated safety checks 15 Minute Checks Personal Alarm in place , Cognitive Assessment , Medications. Response: After interactions and interventions patient responded in the following manner, Calm , Disorganized ,Compliant. Continue to assess behaviors and condition will continue to monitor throughout the shift as needed. Patient educated on ADL's, and hand hygiene. 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 Continue to assess patient for changes in above assessment. Monitor for medication needs, pain, and safety concerns. Hourly rounding performed to ensure safe environment.
--- NOTE | 2017-05-04 01:20 | PN ---
DATE: 05/02/2017 PSYCHIATRIC PROGRESS NOTE This late entry 05/02/2017 covers elements, not covered in my nonissue note. SUBJECTIVE: I met with the patient in the evening of 05/02/2017. The patient was quite tearful ____ in the evening of 05/02/2017 after family left, did well in the morning of 05/02/2017, has been incontinent. We will check UA. REVIEW OF SYSTEMS: Ambulation impaired, in wheelchair, Broda chair. No CV, , pulmonary, eye system symptoms on review. Reliability varies. MENTAL STATUS EXAM: Oriented to himself and situation. Speech, often responses monosyllabic. Abstraction fair, computation impaired, language function intact. Attention span short. No aggression noted. LABORATORY DATA: Reviewed. IMPRESSION: Unchanged from initial note. PLAN: Reviewed drug contractions, risk/benefit ratio favors no further change, check UA, current psychotropics mentioned in my initial note. LIDIA GARRIDO MD DR: MEME/giana JOB#: [id number] / [id number]
[2017-05-04 06:38] VITALS: BP 122/86
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
[2017-05-04] MEDS: SPIRONOLACTONE 25 MG TABLET PO SCH (08:42)
[2017-05-04] MEDS: LEVOTHYROXINE 175 MCG TABLET PO SCH (08:42)
[2017-05-04] MEDS: POTASSIUM CHLORIDE 10 MEQ TABLET.ER. PO SCH (08:42)
[2017-05-04] MEDS: TAMSULOSIN 0.4 MG CAP.ER.24H. PO SCH (08:42)
[2017-05-04] MEDS: FUROSEMIDE 40 MG TABLET PO SCH (08:42)
[2017-05-04] MEDS: OLANZapine 10 MG TABLET PO SCH (08:42)
[2017-05-04] MEDS: SENNOSIDES/DOCUSATE 8.6/50MG TABLET. PO SCH ×2 (08:42→19:25)
[2017-05-04] MEDS: ACETAMINOPHEN 500 MG TABLET PO SCH ×3 (08:43→19:25)
[2017-05-04] MEDS: buPROPion 75 MG TABLET PO SCH (08:43)
[2017-05-04] MEDS: CHOLECALCIFEROL (VITAMIN D3) 1,000 UNIT TABLET PO SCH (08:43)
[2017-05-04] MEDS: DIVALPROEX 125 MG CAP.SPRINK PO SCH (08:43)
[2017-05-04] MEDS: CELECOXIB 100 MG CAPSULE PO SCH ×2 (08:44→19:27)
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
--- NOTE | 2017-05-04 09:00 | NUR ---
THERAPEUTIC RECREATION GROUP NOTE TITLE :Ball Bounce and Reminisce about [place]asons ACTIVITY : Activities and Games GOAL : Increase social interaction, fine motor skills. Maintain or improve mental functioning. Decrease restlessness DURATION : 60 minutes RESPONSE : No participation
--- NOTE | 2017-05-04 09:01 | NUR ---
SW contacted [facility] admissions regarding medication changes to address Pt's delusions.
[2017-05-04 09:19] LABS: BASO # 0.1 x10^3/uL (0.0-0.2); BASO % 1 % (0-3); EOS # 0.4 x10^3/uL (0.0-0.7); EOS % 4 % (0-3); HEMOGLOBIN 12.7 g/dL (13.0-17.5); LYMPH # 1.6 x10^3/uL (1.0-4.8); LYMPH % 19 % (24-48); MEAN CORPUSCULAR HEMOGLOBIN 30 pg (25-35); MEAN CORPUSCULAR HGB CONC 34 g/dL (31-37); MEAN CORPUSCULAR VOLUME 89 fL (79-100); MONO # 1.3 x10^3/uL (0.0-1.1); MONO % 15 % (0-9); NEUT # 5.1 x10^3uL (1.8-7.7); NEUT % 61 % (31-73); PLATELET COUNT 262 x10^3/uL (140-400); RED BLOOD COUNT 4.28 x10^6/uL (4.30-5.70); RED CELL DISTRIBUTION WIDTH 15.3 % (11.5-14.5); WHITE BLOOD COUNT 8.4 x10^3/uL (4.0-11.0)
[2017-05-04 09:35] LABS: ALBUMIN 3.3 g/dL (3.4-5.0); ALBUMIN/GLOBULIN RATIO 0.9 (1.0-1.7); CALCIUM 8.9 mg/dL (8.5-10.1); CREATININE 1.1 mg/dL (0.7-1.3); GFR 68.5; MAGNESIUM 1.9 mg/dL (1.8-2.4); POTASSIUM 4.7 mmol/L (3.5-5.1); TOTAL BILIRUBIN 0.3 mg/dL (0.2-1.0)
--- NOTE | 2017-05-04 10:26 | NUR ---
Behavior Intervention Response and Plan: BIRP Note: Behavior: Assumed Care of patient, patient located in Dining Room at shift change. Patient exhibited the following behavior Compulsive, Combative, Delusions. Brief assessment on rounds of vital signs, medication needs, lab studies, and pain. Treatment plan problems 1-2. Intervention: Patient assessed and the following interventions initiated safety checks 15 Minute Checks Personal Alarm in place , Cognitive Assessment , Head to toe Assessment. Response: After interactions and interventions patient responded in the following manner, Compulsive , Delusions ,Agitated. Continue to assess behaviors and condition will continue to monitor throughout the shift as needed. Patient educated on ADL's, and hand hygiene. Plan: Continue to monitor Master Treatment Plan for patient's progress toward short term goals of Decreased Agitation, Decreased Aggression, jail goals to return to previous living setting vs placement. Continue to assess patient for changes in above assessment. Monitor for medication needs, pain, and safety concerns. Hourly rounding performed to ensure safe environment.
--- NOTE | 2017-05-04 14:00 | NUR ---
THERAPEUTIC RECREATION GROUP NOTE TITLE :Sing along with Kecia ACTIVITY : Music GOAL : Increase socialization, elevate mood, stimulate memory DURATION : 60 minutes RESPONSE : No participation
[2017-05-04 17:34] VITALS: BP 120/73
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
[2017-05-04] MEDS: ATORVASTATIN CALCIUM 20 MG TABLET PO SCH (19:26)
--- NOTE | 2017-05-04 19:39 | PDOC ---
Exam Bran Demential Exam: Bran Note: Please also refer to the separate dictated note~for this date of service dictated separately.~Patient seen individually. Discussed the patient with Nursing staff reviewed the chart.~Reviewed interim history and current functioning. Reviewed vital signs,~Labs/ Radiology~and current medications noted below. Continue current treatment with the changes noted in the dictated addendum note Assessment: Vital Signs: Vital Signs Date Time Temp Pulse Resp B/P (MAP) Pulse Ox O2 Delivery O2 Flow Rate FiO2 05/04/17 17:34 97.6 66 20 120/73 (89) 95 Room Air I&O Intake and Output 05/05/17 07:00 Intake Total 598 ml Balance 598 ml Intake Oral 598 ml # Bowel Movements 1 Labs: Laboratory Tests Test 05/04/17 09:09 White Blood Count 8.4 x10^3/uL (4.0-11.0) Red Blood Count 4.28 x10^6/uL (4.30-5.70) L Hemoglobin 12.7 g/dL (13.0-17.5) L Hematocrit 38.0 % (39.0-53.0) L Mean Corpuscular Volume 89 fL (79-100) Mean Corpuscular Hemoglobin 30 pg (25-35) Mean Corpuscular Hemoglobin Concent 34 g/dL (31-37) Red Cell Distribution Width 15.3 % (11.5-14.5) H Platelet Count 262 x10^3/uL (140-400) Neutrophils (%) (Auto) 61 % (31-73) Lymphocytes (%) (Auto) 19 % (24-48) L Monocytes (%) (Auto) 15 % (0-9) H Eosinophils (%) (Auto) 4 % (0-3) H Basophils (%) (Auto) 1 % (0-3) Neutrophils # (Auto) 5.1 x10^3uL (1.8-7.7) Lymphocytes # (Auto) 1.6 x10^3/uL (1.0-4.8) Monocytes # (Auto) 1.3 x10^3/uL (0.0-1.1) H Eosinophils # (Auto) 0.4 x10^3/uL (0.0-0.7) Basophils # (Auto) 0.1 x10^3/uL (0.0-0.2) Sodium Level 143 mmol/L (136-145) Potassium Level 4.7 mmol/L (3.5-5.1) Chloride Level 105 mmol/L (98-107) Carbon Dioxide Level 35 mmol/L (21-32) H Anion Gap 3 (6-14) L Blood Urea Nitrogen 24 mg/dL (8-26) Creatinine 1.1 mg/dL (0.7-1.3) Estimated GFR (Cockcroft-Gault) 68.5 BUN/Creatinine Ratio 22 (6-20) H Glucose Level 106 mg/dL (70-99) H Calcium Level 8.9 mg/dL (8.5-10.1) Magnesium Level 1.9 mg/dL (1.8-2.4) Total Bilirubin 0.3 mg/dL (0.2-1.0) Aspartate Amino Transferase (AST) 7 U/L (15-37) L Alanine Aminotransferase (ALT) 12 U/L (16-63) L Alkaline Phosphatase 74 U/L (46-116) Total Protein 7.0 g/dL (6.4-8.2) Albumin 3.3 g/dL (3.4-5.0) L Albumin/Globulin Ratio 0.9 (1.0-1.7) L Current Medications: Meds: Current Medications Olanzapine (ZyPREXA ZYDIS) 5 mg 1X ONCE PO ; Start 04/21/17 at 19:45; Stop at 19:46; Status DC Olanzapine (ZyPREXA IM) 10 mg 1X ONCE IM Last administered on 04/21/17 19:36 ; Start 04/21/17 at 19:45; Stop 04/21/17 at 19:46; Status DC Lorazepam (Ativan) 1 mg 1X ONCE IM Last administered on 04/21/17 20:10; Start 04/21/17 at 19:45; Stop 04/21/17 at 19:46; Status DC Divalproex Sodium (Depakote Sprinkles) 750 mg DAILY PO Last administered on 09:02; Start 04/22/17 at 09:00; Stop 04/26/17 at 10:38; Status DC Fluvoxamine Maleate (Luvox) 150 mg BID PO Last administered on 05/04/17 19:24; Start 04/22/17 at 09:00 Lorazepam (Ativan) 1 mg BID PO Last administered on 04/23/17 19:23; Start at 09:00; Stop 04/25/17 at 19:38; Status DC Mirtazapine (Remeron) 7.5 mg DAILY PO Last administered on 04/25/17 10:55; Start 04/22/17 at 09:00; Stop 04/25/17 at 19:37; Status DC Olanzapine (ZyPREXA) 20 mg DAILY PO Last administered on 04/22/17 08:17; Start 04/22/17 at 09:00; Stop 04/22/17 at 18:13; Status DC Bupropion HCl (Wellbutrin) 75 mg BID PO Last administered on 05/04/17 08:43; Start 04/22/17 at 09:00; Stop 05/04/17 at 16:14; Status DC Acetaminophen (Tylenol) 650 mg PRN Q6HRS PRN PO PAIN / TEMP; Start 04/22/17 at 01:00 Multi-Ingredient Ointment (Analgesic [place]) 1 berkley PRN QID PRN TP MUSCLE PAIN; Start 04/22/17 at 01:00 Al Hydroxide/Mg Hydroxide (Mylanta Plus Xs) 15 ml PRN AFTMEALHC PRN PO DYSPEPSIA; Start 04/22/17 at 01:00 Magnesium Hydroxide (Milk Of Magnesia) 2,400 mg PRN QHS PRN PO CONSTIPATION; Start 04/22/17 at 01:00 Haloperidol (Haldol) 2 mg TID PO Last administered on 04/24/17 08:05; Start at 09:00; Stop 04/24/17 at 11:02; Status DC Quetiapine Fumarate (SEROquel) 300 mg BID PO Last administered on 04/25/17 19: 10; Start 04/22/17 at 09:00; Stop 04/25/17 at 19:37; Status DC Olanzapine (ZyPREXA ZYDIS) 2.5 mg PRN Q2HR PRN PO PSYCHOSIS Last administered on 05/03/17 09:43; Start 04/22/17 at 01:30 Acetaminophen (Tylenol) 1,000 mg TID PO Last administered on 05/04/17 19:25; Start 04/22/17 at 09:00 Atorvastatin Calcium (Lipitor) 20 mg QHS PO Last administered on 05/04/17 19:26 ; Start 04/22/17 at 21:00 Celecoxib (CeleBREX) 100 mg BID PO Last administered on 05/04/17 19:27; Start 04/22/17 at 09:00 Furosemide (Lasix) 40 mg DAILY PO Last administered on 05/04/17 08:42; Start at 09:00 Levothyroxine Sodium (Synthroid) 175 mcg DAILYAC PO Last administered on 08:42; Start 04/22/17 at 08:45 Senna/Docusate Sodium (Senna Plus) 1 tab BID PO Last administered on 05/04/17 19:25; Start 04/22/17 at 09:00 Spironolactone (Aldactone) 25 mg DAILY PO Last administered on 05/04/17 08:42; Start 04/22/17 at 09:00 Tamsulosin HCl (Flomax) 0.4 mg DAILY PO Last administered on 05/04/17 08:42; Start 04/22/17 at 09:00 Vitamin D (Vitamin D3) 5,000 unit DAILY PO Last administered on 05/04/17 08:43 ; Start 04/22/17 at 09:00 Potassium Chloride (Klor-Con) 10 meq DAILYWBKFT PO Last administered on 08:42; Start 04/22/17 at 08:45 Olanzapine (ZyPREXA) 10 mg DAILY PO Last administered on 05/04/17 08:42; Start 04/23/17 at 09:00 Trazodone HCl (Desyrel) 100 mg QHS PO Last administered on 04/25/17 19:09; Start 04/22/17 at 21:00; Stop 04/25/17 at 19:37; Status DC Trazodone HCl (Desyrel) 100 mg QHS PRN PO INSOMNIA; Start 04/22/17 at 18:15; Stop 04/24/17 at 11:02; Status DC Trazodone HCl (Desyrel) 12.5 mg TID@0900,1300,1700 PO Last administered on 04/24 08:05; Start 04/23/17 at 09:00; Stop 04/25/17 at 19:37; Status DC Lorazepam (Ativan) 1 mg DAILY IV ; Start 04/23/17 at 09:00; Stop 04/23/17 at 09: 00; Status DC Lorazepam (Ativan) 1 mg DAILY IM Last administered on 04/24/17 07:47; Start at 09:00; Stop 04/24/17 at 11:02; Status DC Trazodone HCl (Desyrel) 100 mg PRN QHS PRN PO INSOMNIA Last administered on 05/02 20:28; Start 04/25/17 at 21:00 Lorazepam (Ativan) 0.5 mg TID PO Last administered on 04/27/17 19:22; Start at 09:00; Stop 04/27/17 at 21:05; Status DC Lorazepam (Ativan) 0.5 mg BID PO Last administered on 04/29/17 21:22; Start at 09:00; Stop 04/29/17 at 21:05; Status DC Lorazepam (Ativan) 0.5 mg DAILY PO Last administered on 05/01/17 08:13; Start 04/30/17 at 09:00; Stop 05/01/17 at 09:05; Status DC Divalproex Sodium (Depakote Sprinkles) 750 mg BID PO Last administered on 08:43; Start 04/26/17 at 21:00; Stop 05/04/17 at 16:14; Status DC Oxcarbazepine (Trileptal) 300 mg BID92 PO ; Start 05/05/17 at 09:00 Haloperidol (Haldol) 1 mg BID92 PO ; Start 05/05/17 at 09:00 Active Scripts Active Reported Trazodone Hcl 100 Mg Tablet 100 Mg PO PRN QHS PRN Potassium Chloride 10 Meq Tablet.er 10 Meq PO DAILYWBKFT Zyprexa (Olanzapine) 2.5 Mg Tablet 2.5 Mg PO PRN Q2HR PRN Analgesic [place] (Methyl Salicylate/Menthol) 28 Gm Oint...g. 1 Berkley TP PRN QID PRN Mag-Al Plus Xs Suspension (Mag Hydrox/Al Hydrox/Simeth) 30 Ml Oral.susp 15 Ml PO PRN AFTMEALHC PRN Tylenol (Acetaminophen) 325 Mg Tablet 650 Mg PO PRN Q6HRS PRN Atorvastatin Calcium 20 Mg Tablet 20 Mg PO QHS Vitamin D3 (Cholecalciferol (Vitamin D3)) 5,000 Unit Tablet 5,000 Unit PO DAILY Aldactone (Spironolactone) 25 Mg Tablet 25 Mg PO DAILY Tamsulosin Hcl 0.4 Mg Cap.er.24h 0.4 Mg PO DAILY Celebrex (Celecoxib) 100 Mg Capsule 100 Mg PO BID Senna-S Tablet (Sennosides/Docusate Sodium) 1 Each Tablet 1 Each PO BID Lasix (Furosemide) 40 Mg Tablet 40 Mg PO DAILY Depakote Sprinkle (Divalproex Sodium) 125 Mg Cap.sprink 750 Mg PO BID Acetaminophen 500 Mg Tablet 1,000 Mg PO TID Levothyroxine Sodium 175 Mcg Tablet 175 Mcg PO DAILYAC Olanzapine 20 Mg Tablet 10 Mg PO DAILY [bupropion hcl] 75 Mg PO BID Fluvoxamine Maleate 100 Mg Tablet 150 Mg PO BID Diagnosis: Problems: (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
--- NOTE | 2017-05-04 21:45 | NUR ---
Behavior Intervention Response and Plan: BIRP Note: Behavior: Assumed Care of patient, patient located in Hallway at shift change. Patient exhibited the following behavior Calm, Cooperative, Compliant. Brief assessment on rounds of vital signs, medication needs, lab studies, and pain. Treatment plan problems . Intervention: Patient assessed and the following interventions initiated safety checks 15 Minute Checks Head to toe Assessment , Cognitive Assessment , Medications. Response: After interactions and interventions patient responded in the following manner, Cooperative , Calm ,Compliant. Continue to assess behaviors and condition will continue to monitor throughout the shift as needed. Patient educated on ADL's, and hand hygiene. 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 Continue to assess patient for changes in above assessment. Monitor for medication needs, pain, and safety concerns. Hourly rounding performed to ensure safe environment.
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
[2017-05-05 06:14] VITALS: BP 129/84
[2017-05-05] MEDS: OLANZapine 10 MG TABLET PO SCH (08:34)
[2017-05-05] MEDS: TAMSULOSIN 0.4 MG CAP.ER.24H. PO SCH (08:34)
[2017-05-05] MEDS: CHOLECALCIFEROL (VITAMIN D3) 1,000 UNIT TABLET PO SCH (08:34)
[2017-05-05] MEDS: POTASSIUM CHLORIDE 10 MEQ TABLET.ER. PO SCH (08:34)
[2017-05-05] MEDS: SPIRONOLACTONE 25 MG TABLET PO SCH (08:34)
[2017-05-05] MEDS: SENNOSIDES/DOCUSATE 8.6/50MG TABLET. PO SCH ×2 (08:34→19:55)
[2017-05-05] MEDS: FUROSEMIDE 40 MG TABLET PO SCH (08:34)
[2017-05-05] MEDS: LEVOTHYROXINE 175 MCG TABLET PO SCH (08:34)
[2017-05-05] MEDS: ACETAMINOPHEN 500 MG TABLET PO SCH ×3 (08:36→19:56)
[2017-05-05] MEDS: CELECOXIB 100 MG CAPSULE PO SCH ×2 (08:37→19:55)
[2017-05-05] MEDS: HALOPERIDOL 1 MG TABLET PO SCH ×2 (08:37→14:56)
--- NOTE | 2017-05-05 09:30 | NUR ---
THERAPEUTIC RECREATION GROUP NOTE TITLE :Fall Critter Painting ACTIVITY : Arts/ Crafts GOAL : Increase socialization, fine motor skills, creativity DURATION : 90 Minutes RESPONSE : No participation
--- NOTE | 2017-05-05 09:52 | NUR ---
Behavior Intervention Response and Plan: BIRP Note: Behavior: Assumed Care of patient, patient located in Hallway at shift change. Patient exhibited the following behavior Calm, Delusions, Withdrawn. Brief assessment on rounds of vital signs, medication needs, lab studies, and pain. Treatment plan problems 1-2. Intervention: Patient assessed and the following interventions initiated safety checks 15 Minute Checks Personal Alarm in place , Cognitive Assessment , Head to toe Assessment. Response: After interactions and interventions patient responded in the following manner, Disorganized , Restless ,Withdrawn. Continue to assess behaviors and condition will continue to monitor throughout the shift as needed. Patient educated on ADL's, and hand hygiene. Plan: Continue to monitor Master Treatment Plan for patient's progress toward short term goals of Decreased Agitation, Decreased Aggression, care home goals to return to previous living setting vs placement. Continue to assess patient for changes in above assessment. Monitor for medication needs, pain, and safety concerns. Hourly rounding performed to ensure safe environment.
--- NOTE | 2017-05-05 11:30 | NUR ---
THERAPEUTIC RECREATION GROUP NOTE TITLE :Movement to Music: Flexibility ACTIVITY : Movement/ Exercise GOAL : Increase morale, attention, flexibility. Decrease stress/anxiety. DURATION : 30 Minutes RESPONSE : No participation
--- NOTE | 2017-05-05 14:30 | NUR ---
THERAPEUTIC RECREATION GROUP NOTE TITLE :Seasonal/ Holiday Leisure ACTIVITY : Leisure Education GOAL : Increase knowledge of leisure activities DURATION : 45 minutes RESPONSE : No participation
--- NOTE | 2017-05-05 15:53 | NUR ---
CRISTOPHER received a phone call and 2 emails from PT's dtr regarding placement. CRISTOPHER stated there has not been any facilities thus far able to accept PT. on new admit. CRISTOPHER can not send out referrals at this time due to current delusions.
[2017-05-05 16:25] VITALS: BP 108/68
--- NOTE | 2017-05-05 16:43 | NUR ---
Pt has been drowsy and resting in a broda in the [facility] hallway up until this point. Pt was overheard crying/yelling in the hallway. This RN attempted to go sit with pt and help calm him down. Pt immediately began flailing his arms, kicking, screaming, trying to hit. Pt escorted to quiet room with 5 staff members. Pt was laid down on mats in the quiet room floor for de-escalation. Will continue to monitor.
[2017-05-05] MEDS: ATORVASTATIN CALCIUM 20 MG TABLET PO SCH (19:55)
--- NOTE | 2017-05-05 20:02 | PDOC ---
Exam Bran Demential Exam: Bran Note: Please also refer to the separate dictated note~for this date of service dictated separately.~Patient seen individually. Discussed the patient with Nursing staff reviewed the chart.~Reviewed interim history and current functioning. Reviewed vital signs,~Labs/ Radiology~and current medications noted below. Continue current treatment with the changes noted in the dictated addendum note Assessment: Vital Signs: Vital Signs Date Time Temp Pulse Resp B/P (MAP) Pulse Ox O2 Delivery O2 Flow Rate FiO2 05/05/17 16:25 98.5 67 16 108/68 (81) 93 05/04/17 17:34 Room Air I&O Intake and Output 05/06/17 07:00 Intake Total 840 ml Balance 840 ml Intake Oral 840 ml Current Medications: Meds: Current Medications Olanzapine (ZyPREXA ZYDIS) 5 mg 1X ONCE PO ; Start 04/21/17 at 19:45; Stop at 19:46; Status DC Olanzapine (ZyPREXA IM) 10 mg 1X ONCE IM Last administered on 04/21/17 19:36 ; Start 04/21/17 at 19:45; Stop 04/21/17 at 19:46; Status DC Lorazepam (Ativan) 1 mg 1X ONCE IM Last administered on 04/21/17 20:10; Start 04/21/17 at 19:45; Stop 04/21/17 at 19:46; Status DC Divalproex Sodium (Depakote Sprinkles) 750 mg DAILY PO Last administered on 09:02; Start 04/22/17 at 09:00; Stop 04/26/17 at 10:38; Status DC Fluvoxamine Maleate (Luvox) 150 mg BID PO Last administered on 05/05/17 19:55; Start 04/22/17 at 09:00 Lorazepam (Ativan) 1 mg BID PO Last administered on 04/23/17 19:23; Start at 09:00; Stop 04/25/17 at 19:38; Status DC Mirtazapine (Remeron) 7.5 mg DAILY PO Last administered on 04/25/17 10:55; Start 04/22/17 at 09:00; Stop 04/25/17 at 19:37; Status DC Olanzapine (ZyPREXA) 20 mg DAILY PO Last administered on 04/22/17 08:17; Start 04/22/17 at 09:00; Stop 04/22/17 at 18:13; Status DC Bupropion HCl (Wellbutrin) 75 mg BID PO Last administered on 05/04/17 08:43; Start 04/22/17 at 09:00; Stop 05/04/17 at 16:14; Status DC Acetaminophen (Tylenol) 650 mg PRN Q6HRS PRN PO PAIN / TEMP; Start 04/22/17 at 01:00 Multi-Ingredient Ointment (Analgesic [place]) 1 berkley PRN QID PRN TP MUSCLE PAIN; Start 04/22/17 at 01:00 Al Hydroxide/Mg Hydroxide (Mylanta Plus Xs) 15 ml PRN AFTMEALHC PRN PO DYSPEPSIA; Start 04/22/17 at 01:00 Magnesium Hydroxide (Milk Of Magnesia) 2,400 mg PRN QHS PRN PO CONSTIPATION; Start 04/22/17 at 01:00 Haloperidol (Haldol) 2 mg TID PO Last administered on 04/24/17 08:05; Start at 09:00; Stop 04/24/17 at 11:02; Status DC Quetiapine Fumarate (SEROquel) 300 mg BID PO Last administered on 04/25/17 19: 10; Start 04/22/17 at 09:00; Stop 04/25/17 at 19:37; Status DC Olanzapine (ZyPREXA ZYDIS) 2.5 mg PRN Q2HR PRN PO PSYCHOSIS Last administered on 05/03/17 09:43; Start 04/22/17 at 01:30 Acetaminophen (Tylenol) 1,000 mg TID PO Last administered on 05/05/17 19:56; Start 04/22/17 at 09:00 Atorvastatin Calcium (Lipitor) 20 mg QHS PO Last administered on 05/05/17 19:55 ; Start 04/22/17 at 21:00 Celecoxib (CeleBREX) 100 mg BID PO Last administered on 05/05/17 19:55; Start 04/22/17 at 09:00 Furosemide (Lasix) 40 mg DAILY PO Last administered on 05/05/17 08:34; Start at 09:00 Levothyroxine Sodium (Synthroid) 175 mcg DAILYAC PO Last administered on 08:34; Start 04/22/17 at 08:45 Senna/Docusate Sodium (Senna Plus) 1 tab BID PO Last administered on 05/05/17 19:55; Start 04/22/17 at 09:00 Spironolactone (Aldactone) 25 mg DAILY PO Last administered on 05/05/17 08:34; Start 04/22/17 at 09:00 Tamsulosin HCl (Flomax) 0.4 mg DAILY PO Last administered on 05/05/17 08:34; Start 04/22/17 at 09:00 Vitamin D (Vitamin D3) 5,000 unit DAILY PO Last administered on 05/05/17 08:34 ; Start 04/22/17 at 09:00 Potassium Chloride (Klor-Con) 10 meq DAILYWBKFT PO Last administered on 08:34; Start 04/22/17 at 08:45 Olanzapine (ZyPREXA) 10 mg DAILY PO Last administered on 05/05/17 08:34; Start 04/23/17 at 09:00; Stop 05/05/17 at 18:27; Status DC Trazodone HCl (Desyrel) 100 mg QHS PO Last administered on 04/25/17 19:09; Start 04/22/17 at 21:00; Stop 04/25/17 at 19:37; Status DC Trazodone HCl (Desyrel) 100 mg QHS PRN PO INSOMNIA; Start 04/22/17 at 18:15; Stop 04/24/17 at 11:02; Status DC Trazodone HCl (Desyrel) 12.5 mg TID@0900,1300,1700 PO Last administered on 04/24 08:05; Start 04/23/17 at 09:00; Stop 04/25/17 at 19:37; Status DC Lorazepam (Ativan) 1 mg DAILY IV ; Start 04/23/17 at 09:00; Stop 04/23/17 at 09: 00; Status DC Lorazepam (Ativan) 1 mg DAILY IM Last administered on 04/24/17 07:47; Start at 09:00; Stop 04/24/17 at 11:02; Status DC Trazodone HCl (Desyrel) 100 mg PRN QHS PRN PO INSOMNIA Last administered on 05/02 20:28; Start 04/25/17 at 21:00 Lorazepam (Ativan) 0.5 mg TID PO Last administered on 04/27/17 19:22; Start at 09:00; Stop 04/27/17 at 21:05; Status DC Lorazepam (Ativan) 0.5 mg BID PO Last administered on 04/29/17 21:22; Start at 09:00; Stop 04/29/17 at 21:05; Status DC Lorazepam (Ativan) 0.5 mg DAILY PO Last administered on 05/01/17 08:13; Start 04/30/17 at 09:00; Stop 05/01/17 at 09:05; Status DC Divalproex Sodium (Depakote Sprinkles) 750 mg BID PO Last administered on 08:43; Start 04/26/17 at 21:00; Stop 05/04/17 at 16:14; Status DC Oxcarbazepine (Trileptal) 300 mg BID92 PO Last administered on 05/05/17 14:55; Start 05/05/17 at 09:00 Haloperidol (Haldol) 1 mg BID92 PO Last administered on 05/05/17 14:56; Start 05/05/17 at 09:00 Olanzapine (ZyPREXA) 5 mg QHS PO ; Start 05/06/17 at 21:00 Active Scripts Active Reported Trazodone Hcl 100 Mg Tablet 100 Mg PO PRN QHS PRN Potassium Chloride 10 Meq Tablet.er 10 Meq PO DAILYWBKFT Zyprexa (Olanzapine) 2.5 Mg Tablet 2.5 Mg PO PRN Q2HR PRN Analgesic [place] (Methyl Salicylate/Menthol) 28 Gm Oint...g. 1 Berkley TP PRN QID PRN Mag-Al Plus Xs Suspension (Mag Hydrox/Al Hydrox/Simeth) 30 Ml Oral.susp 15 Ml PO PRN AFTMEALHC PRN Tylenol (Acetaminophen) 325 Mg Tablet 650 Mg PO PRN Q6HRS PRN Atorvastatin Calcium 20 Mg Tablet 20 Mg PO QHS Vitamin D3 (Cholecalciferol (Vitamin D3)) 5,000 Unit Tablet 5,000 Unit PO DAILY Aldactone (Spironolactone) 25 Mg Tablet 25 Mg PO DAILY Tamsulosin Hcl 0.4 Mg Cap.er.24h 0.4 Mg PO DAILY Celebrex (Celecoxib) 100 Mg Capsule 100 Mg PO BID Senna-S Tablet (Sennosides/Docusate Sodium) 1 Each Tablet 1 Each PO BID Lasix (Furosemide) 40 Mg Tablet 40 Mg PO DAILY Depakote Sprinkle (Divalproex Sodium) 125 Mg Cap.sprink 750 Mg PO BID Acetaminophen 500 Mg Tablet 1,000 Mg PO TID Levothyroxine Sodium 175 Mcg Tablet 175 Mcg PO DAILYAC Olanzapine 20 Mg Tablet 10 Mg PO DAILY [bupropion hcl] 75 Mg PO BID Fluvoxamine Maleate 100 Mg Tablet 150 Mg PO BID Diagnosis: Problems: (1) Dementia in [place]'s disease with behavioral disturbance (2) Anxiety disorder (3) Impulse control disorder (4) Major depressive disorder, recurrent episode (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
--- NOTE | 2017-05-05 21:00 | NUR ---
Behavior Intervention Response and Plan: BIRP Note: Behavior: Assumed Care of patient, patient located in Hallway at shift change. Patient exhibited the following behavior Calm, Delusions, Withdrawn. Brief assessment on rounds of vital signs, medication needs, lab studies, and pain. Treatment plan problems 1-2. Intervention: Patient assessed and the following interventions initiated safety checks 15 Minute Checks Personal Alarm in place , Cognitive Assessment , Head to toe Assessment. Response: After interactions and interventions patient responded in the following manner, Disorganized , Restless ,Withdrawn. Continue to assess behaviors and condition will continue to monitor throughout the shift as needed. Patient educated on ADL's, and hand hygiene. Plan: Continue to monitor Master Treatment Plan for patient's progress toward short term goals of Decreased Agitation, Decreased Aggression, senior living goals to return to previous living setting vs placement. Continue to assess patient for changes in above assessment. Monitor for medication needs, pain, and safety concerns. Hourly rounding performed to ensure safe environment.
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
[2017-05-06] MEDS: CELECOXIB 100 MG CAPSULE PO SCH ×2 (07:59→20:34)
[2017-05-06] MEDS: POTASSIUM CHLORIDE 10 MEQ TABLET.ER. PO SCH (08:00)
[2017-05-06] MEDS: SPIRONOLACTONE 25 MG TABLET PO SCH (08:00)
[2017-05-06] MEDS: TAMSULOSIN 0.4 MG CAP.ER.24H. PO SCH (08:00)
[2017-05-06] MEDS: HALOPERIDOL 1 MG TABLET PO SCH ×2 (08:00→13:33)
[2017-05-06] MEDS: LEVOTHYROXINE 175 MCG TABLET PO SCH (08:00)
[2017-05-06] MEDS: FUROSEMIDE 40 MG TABLET PO SCH (08:01)
[2017-05-06] MEDS: SENNOSIDES/DOCUSATE 8.6/50MG TABLET. PO SCH ×2 (08:01→20:30)
[2017-05-06] MEDS: CHOLECALCIFEROL (VITAMIN D3) 1,000 UNIT TABLET PO SCH (08:01)
[2017-05-06] MEDS: ACETAMINOPHEN 500 MG TABLET PO SCH ×3 (08:01→20:30)
[2017-05-06 08:30] VITALS: BP 140/88
--- NOTE | 2017-05-06 08:45 | NUR ---
Behavior Intervention Response and Plan: BIRP Note: Behavior: Assumed Care of patient, patient located in Hallway at shift change. Patient exhibited the following behavior Restless, Disorganized, Anxious. Brief assessment on rounds of vital signs, medication needs, lab studies, and pain. Treatment plan problems 1 & 2. Intervention: Patient assessed and the following interventions initiated safety checks 15 Minute Checks Cognitive Assessment , Head to toe Assessment , Medications. Response: After interactions and interventions patient responded in the following manner, Calm , Appropriate ,Cooperative. Continue to assess behaviors and condition will continue to monitor throughout the shift as needed. Patient educated on ADL's, and hand hygiene. Plan: Continue to monitor Master Treatment Plan for patient's progress toward short term goals of Decreased Agitation, Decreased Aggression, correction goals to return to previous living setting vs placement. Continue to assess patient for changes in above assessment. Monitor for medication needs, pain, and safety concerns. Hourly rounding performed to ensure safe environment.
[2017-05-06 16:04] VITALS: BP 116/85
--- NOTE | 2017-05-06 19:45 | PDOC ---
Exam Bran Demential Exam: Bran Note: Please also refer to the separate dictated note~for this date of service dictated separately.~Patient seen individually. Discussed the patient with Nursing staff reviewed the chart.~Reviewed interim history and current functioning. Reviewed vital signs,~Labs/ Radiology~and current medications noted below. Continue current treatment with the changes noted in the dictated addendum note Assessment: Vital Signs: Vital Signs Date Time Temp Pulse Resp B/P (MAP) Pulse Ox O2 Delivery O2 Flow Rate FiO2 05/06/17 16:04 97.6 99 18 116/85 (95) 91 05/06/17 08:30 Room Air I&O Intake and Output 05/07/17 07:00 Intake Total 1080 ml Balance 1080 ml Intake Oral 1080 ml Current Medications: Meds: Current Medications Olanzapine (ZyPREXA ZYDIS) 5 mg 1X ONCE PO ; Start 04/21/17 at 19:45; Stop at 19:46; Status DC Olanzapine (ZyPREXA IM) 10 mg 1X ONCE IM Last administered on 04/21/17 19:36 ; Start 04/21/17 at 19:45; Stop 04/21/17 at 19:46; Status DC Lorazepam (Ativan) 1 mg 1X ONCE IM Last administered on 04/21/17 20:10; Start 04/21/17 at 19:45; Stop 04/21/17 at 19:46; Status DC Divalproex Sodium (Depakote Sprinkles) 750 mg DAILY PO Last administered on 09:02; Start 04/22/17 at 09:00; Stop 04/26/17 at 10:38; Status DC Fluvoxamine Maleate (Luvox) 150 mg BID PO Last administered on 05/06/17 08:00; Start 04/22/17 at 09:00 Lorazepam (Ativan) 1 mg BID PO Last administered on 04/23/17 19:23; Start at 09:00; Stop 04/25/17 at 19:38; Status DC Mirtazapine (Remeron) 7.5 mg DAILY PO Last administered on 04/25/17 10:55; Start 04/22/17 at 09:00; Stop 04/25/17 at 19:37; Status DC Olanzapine (ZyPREXA) 20 mg DAILY PO Last administered on 04/22/17 08:17; Start 04/22/17 at 09:00; Stop 04/22/17 at 18:13; Status DC Bupropion HCl (Wellbutrin) 75 mg BID PO Last administered on 05/04/17 08:43; Start 04/22/17 at 09:00; Stop 05/04/17 at 16:14; Status DC Acetaminophen (Tylenol) 650 mg PRN Q6HRS PRN PO PAIN / TEMP; Start 04/22/17 at 01:00 Multi-Ingredient Ointment (Analgesic [place]) 1 berkley PRN QID PRN TP MUSCLE PAIN; Start 04/22/17 at 01:00 Al Hydroxide/Mg Hydroxide (Mylanta Plus Xs) 15 ml PRN AFTMEALHC PRN PO DYSPEPSIA; Start 04/22/17 at 01:00 Magnesium Hydroxide (Milk Of Magnesia) 2,400 mg PRN QHS PRN PO CONSTIPATION; Start 04/22/17 at 01:00 Haloperidol (Haldol) 2 mg TID PO Last administered on 04/24/17 08:05; Start at 09:00; Stop 04/24/17 at 11:02; Status DC Quetiapine Fumarate (SEROquel) 300 mg BID PO Last administered on 04/25/17 19: 10; Start 04/22/17 at 09:00; Stop 04/25/17 at 19:37; Status DC Olanzapine (ZyPREXA ZYDIS) 2.5 mg PRN Q2HR PRN PO PSYCHOSIS Last administered on 05/03/17 09:43; Start 04/22/17 at 01:30 Acetaminophen (Tylenol) 1,000 mg TID PO Last administered on 05/06/17 13:33; Start 04/22/17 at 09:00 Atorvastatin Calcium (Lipitor) 20 mg QHS PO Last administered on 05/05/17 19:55 ; Start 04/22/17 at 21:00 Celecoxib (CeleBREX) 100 mg BID PO Last administered on 05/06/17 07:59; Start 04/22/17 at 09:00 Furosemide (Lasix) 40 mg DAILY PO Last administered on 05/06/17 08:01; Start at 09:00 Levothyroxine Sodium (Synthroid) 175 mcg DAILYAC PO Last administered on 08:00; Start 04/22/17 at 08:45 Senna/Docusate Sodium (Senna Plus) 1 tab BID PO Last administered on 05/06/17 08:01; Start 04/22/17 at 09:00 Spironolactone (Aldactone) 25 mg DAILY PO Last administered on 05/06/17 08:00; Start 04/22/17 at 09:00 Tamsulosin HCl (Flomax) 0.4 mg DAILY PO Last administered on 05/06/17 08:00; Start 04/22/17 at 09:00 Vitamin D (Vitamin D3) 5,000 unit DAILY PO Last administered on 05/06/17 08:01 ; Start 04/22/17 at 09:00 Potassium Chloride (Klor-Con) 10 meq DAILYWBKFT PO Last administered on 08:00; Start 04/22/17 at 08:45 Olanzapine (ZyPREXA) 10 mg DAILY PO Last administered on 05/05/17 08:34; Start 04/23/17 at 09:00; Stop 05/05/17 at 18:27; Status DC Trazodone HCl (Desyrel) 100 mg QHS PO Last administered on 04/25/17 19:09; Start 04/22/17 at 21:00; Stop 04/25/17 at 19:37; Status DC Trazodone HCl (Desyrel) 100 mg QHS PRN PO INSOMNIA; Start 04/22/17 at 18:15; Stop 04/24/17 at 11:02; Status DC Trazodone HCl (Desyrel) 12.5 mg TID@0900,1300,1700 PO Last administered on 04/24 08:05; Start 04/23/17 at 09:00; Stop 04/25/17 at 19:37; Status DC Lorazepam (Ativan) 1 mg DAILY IV ; Start 04/23/17 at 09:00; Stop 04/23/17 at 09: 00; Status DC Lorazepam (Ativan) 1 mg DAILY IM Last administered on 04/24/17 07:47; Start at 09:00; Stop 04/24/17 at 11:02; Status DC Trazodone HCl (Desyrel) 100 mg PRN QHS PRN PO INSOMNIA Last administered on 05/02 20:28; Start 04/25/17 at 21:00 Lorazepam (Ativan) 0.5 mg TID PO Last administered on 04/27/17 19:22; Start at 09:00; Stop 04/27/17 at 21:05; Status DC Lorazepam (Ativan) 0.5 mg BID PO Last administered on 04/29/17 21:22; Start at 09:00; Stop 04/29/17 at 21:05; Status DC Lorazepam (Ativan) 0.5 mg DAILY PO Last administered on 05/01/17 08:13; Start 04/30/17 at 09:00; Stop 05/01/17 at 09:05; Status DC Divalproex Sodium (Depakote Sprinkles) 750 mg BID PO Last administered on 08:43; Start 04/26/17 at 21:00; Stop 05/04/17 at 16:14; Status DC Oxcarbazepine (Trileptal) 300 mg BID92 PO Last administered on 05/06/17 13:33; Start 05/05/17 at 09:00; Stop 05/06/17 at 21:00 Haloperidol (Haldol) 1 mg BID92 PO Last administered on 05/06/17 13:33; Start 05/05/17 at 09:00 Olanzapine (ZyPREXA) 5 mg QHS PO ; Start 05/06/17 at 21:00 Oxcarbazepine (Trileptal) 300 mg TID PO ; Start 05/07/17 at 09:00 Active Scripts Active Reported Trazodone Hcl 100 Mg Tablet 100 Mg PO PRN QHS PRN Potassium Chloride 10 Meq Tablet.er 10 Meq PO DAILYWBKFT Zyprexa (Olanzapine) 2.5 Mg Tablet 2.5 Mg PO PRN Q2HR PRN Analgesic [place] (Methyl Salicylate/Menthol) 28 Gm Oint...g. 1 Berkley TP PRN QID PRN Mag-Al Plus Xs Suspension (Mag Hydrox/Al Hydrox/Simeth) 30 Ml Oral.susp 15 Ml PO PRN AFTMEALHC PRN Tylenol (Acetaminophen) 325 Mg Tablet 650 Mg PO PRN Q6HRS PRN Atorvastatin Calcium 20 Mg Tablet 20 Mg PO QHS Vitamin D3 (Cholecalciferol (Vitamin D3)) 5,000 Unit Tablet 5,000 Unit PO DAILY Aldactone (Spironolactone) 25 Mg Tablet 25 Mg PO DAILY Tamsulosin Hcl 0.4 Mg Cap.er.24h 0.4 Mg PO DAILY Celebrex (Celecoxib) 100 Mg Capsule 100 Mg PO BID Senna-S Tablet (Sennosides/Docusate Sodium) 1 Each Tablet 1 Each PO BID Lasix (Furosemide) 40 Mg Tablet 40 Mg PO DAILY Depakote Sprinkle (Divalproex Sodium) 125 Mg Cap.sprink 750 Mg PO BID Acetaminophen 500 Mg Tablet 1,000 Mg PO TID Levothyroxine Sodium 175 Mcg Tablet 175 Mcg PO DAILYAC Olanzapine 20 Mg Tablet 10 Mg PO DAILY [bupropion hcl] 75 Mg PO BID Fluvoxamine Maleate 100 Mg Tablet 150 Mg PO BID Diagnosis: Problems: (1) 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
[2017-05-06] MEDS: ATORVASTATIN CALCIUM 20 MG TABLET PO SCH (20:29)
[2017-05-06] MEDS: OLANZapine 5 MG TABLET PO SCH (20:34)
--- NOTE | 2017-05-06 21:00 | NUR ---
Behavior Intervention Response and Plan: BIRP Note: Behavior: Assumed Care of patient, patient located in Hallway at shift change. Patient exhibited the following behavior Restless, Disorganized, Anxious. Brief assessment on rounds of vital signs, medication needs, lab studies, and pain. Treatment plan problems 1 & 2. Intervention: Patient assessed and the following interventions initiated safety checks 15 Minute Checks Cognitive Assessment , Head to toe Assessment , Medications. Response: After interactions and interventions patient responded in the following manner, Calm , Appropriate ,Cooperative. Continue to assess behaviors and condition will continue to monitor throughout the shift as needed. Patient educated on ADL's, and hand hygiene. Plan: Continue to monitor Master Treatment Plan for patient's progress toward short term goals of Decreased Agitation, Decreased Aggression, assisted goals to return to previous living setting vs placement. Continue to assess patient for changes in above assessment. Monitor for medication needs, pain, and safety concerns. Hourly rounding performed to ensure safe environment.
--- NOTE | 2017-05-07 02:57 | PN ---
DATE: 05/05/2017 PSYCHIATRIC PROGRESS NOTE This is a late entry for 05/05/2017, covers elements not covered in my initial note of 05/05/2017. SUBJECTIVE: I met with the patient the evening of 05/05/2017. Still remains somewhat paranoid, delusional, labile in his mood, but less so than before. REVIEW OF SYSTEMS: Ambulation impaired, in a Broda chair. No CV, , Pulmonary, eye system symptoms on review. MENTAL STATUS EXAM: Oriented to himself and situation. Speech low in volume, often responses monosyllabic. Abstraction fair, computation impaired, language function intact, attention span short. Mood and affect, intermittently labile. DIAGNOSIS: Mentioned in my initial note. PLAN: Continue current psychotropics. Haldol was initiated. We need to increase Trileptal in due course. Reviewed drug interactions. Risk/benefit ratio favors no further change. LIDIA GARRIDO MD DR: MEME/giana JOB#: [id number] / [id number]
[2017-05-07 06:06] VITALS: BP 132/85
[2017-05-07] MEDS: HALOPERIDOL 1 MG TABLET PO SCH ×2 (07:49→13:56)
[2017-05-07] MEDS: LEVOTHYROXINE 175 MCG TABLET PO SCH (07:49)
[2017-05-07] MEDS: SPIRONOLACTONE 25 MG TABLET PO SCH (07:49)
[2017-05-07] MEDS: CELECOXIB 100 MG CAPSULE PO SCH ×2 (07:49→20:40)
[2017-05-07] MEDS: CHOLECALCIFEROL (VITAMIN D3) 1,000 UNIT TABLET PO SCH (07:49)
[2017-05-07] MEDS: TAMSULOSIN 0.4 MG CAP.ER.24H. PO SCH (07:49)
[2017-05-07] MEDS: FUROSEMIDE 40 MG TABLET PO SCH (07:50)
[2017-05-07] MEDS: POTASSIUM CHLORIDE 10 MEQ TABLET.ER. PO SCH (07:50)
[2017-05-07] MEDS: ACETAMINOPHEN 500 MG TABLET PO SCH ×3 (07:50→20:34)
[2017-05-07] MEDS: SENNOSIDES/DOCUSATE 8.6/50MG TABLET. PO SCH ×2 (07:50→20:34)
--- NOTE | 2017-05-07 09:00 | NUR ---
THERAPEUTIC RECREATION GROUP NOTE TITLE :Group Counting ACTIVITY : Activities and Games GOAL : Increase social interaction, communication. Maintain or improve mental functioning. Decrease restlessness DURATION : 60 minutes RESPONSE : Full participation. Pt. joined the group about half way through. With prompting and cues, Pt. was able to count with the group, independently at times. He was calm and pleasant the entire time.
--- NOTE | 2017-05-07 09:05 | NUR ---
Behavior Intervention Response and Plan: BIRP Note: Behavior: Assumed Care of patient, patient located in Hallway at shift change. Patient exhibited the following behavior Disorganized, Restless, Compulsive. Brief assessment on rounds of vital signs, medication needs, lab studies, and pain. Treatment plan problems 1 & 2. Intervention: Patient assessed and the following interventions initiated safety checks 15 Minute Checks Cognitive Assessment , Head to toe Assessment , Medications. Response: After interactions and interventions patient responded in the following manner, Calm , Appropriate ,Compliant. Continue to assess behaviors and condition will continue to monitor throughout the shift as needed. Patient educated on ADL's, and hand hygiene. 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 Continue to assess patient for changes in above assessment. Monitor for medication needs, pain, and safety concerns. Hourly rounding performed to ensure safe environment.
--- NOTE | 2017-05-07 11:30 | NUR ---
THERAPEUTIC RECREATION GROUP NOTE TITLE :Movement to Music: Flexibility- In the Dining Room! ACTIVITY : Movement/ Exercise GOAL : Increase morale, attention, flexibility. Decrease stress/anxiety. DURATION : 30 Minutes RESPONSE : Minimal participation. Pt. was with the group the entire time and needed encouragement to follow along. He did a few stretches.
--- NOTE | 2017-05-07 14:20 | NUR ---
THERAPEUTIC RECREATION GROUP NOTE TITLE :Higher or Lower ACTIVITY : Activities and Games GOAL : Increase social interaction, problem solving. Maintain or improve mental functioning. Decrease restlessness DURATION : 75 minutes RESPONSE : No participation
--- NOTE | 2017-05-07 14:49 | NUR ---
Group Note [facility] Group Type: [employer] Sh[employer] Anyone?! Related skills the game requires to personal life experiences. Start Time: 1:30pm End Time: 2:15pm Problem: Depression Purpose: Learn Coping Skills Level of Participation: High Behaviors or Symptoms Observed: Pt. excited to be going outside. Interventions: Directed Focus, problem solving, validation, social skills, reminisce Response: Pt. smiling, socializing w/SW Plan: continue to follow up and encourage participation
[2017-05-07 15:48] VITALS: BP 124/84
[2017-05-07] MEDS: OLANZapine 5 MG TABLET PO SCH (20:35)
[2017-05-07] MEDS: ATORVASTATIN CALCIUM 20 MG TABLET PO SCH (20:40)
--- NOTE | 2017-05-07 20:42 | PDOC ---
Exam Bran Demential Exam: Bran Note: Please also refer to the separate dictated note~for this date of service dictated separately.~Patient seen individually. Discussed the patient with Nursing staff reviewed the chart.~Reviewed interim history and current functioning. Reviewed vital signs,~Labs/ Radiology~and current medications noted below. Continue current treatment with the changes noted in the dictated addendum note Assessment: Vital Signs: Vital Signs Date Time Temp Pulse Resp B/P (MAP) Pulse Ox O2 Delivery O2 Flow Rate FiO2 05/07/17 15:48 97.1 104 21 124/84 (97) 94 05/07/17 06:06 Room Air I&O Intake and Output 05/08/17 07:00 Intake Total 1080 ml Balance 1080 ml Intake Oral 1080 ml Current Medications: Meds: Current Medications Olanzapine (ZyPREXA ZYDIS) 5 mg 1X ONCE PO ; Start 04/21/17 at 19:45; Stop at 19:46; Status DC Olanzapine (ZyPREXA IM) 10 mg 1X ONCE IM Last administered on 04/21/17 19:36 ; Start 04/21/17 at 19:45; Stop 04/21/17 at 19:46; Status DC Lorazepam (Ativan) 1 mg 1X ONCE IM Last administered on 04/21/17 20:10; Start 04/21/17 at 19:45; Stop 04/21/17 at 19:46; Status DC Divalproex Sodium (Depakote Sprinkles) 750 mg DAILY PO Last administered on 09:02; Start 04/22/17 at 09:00; Stop 04/26/17 at 10:38; Status DC Fluvoxamine Maleate (Luvox) 150 mg BID PO Last administered on 05/07/17 20:35; Start 04/22/17 at 09:00 Lorazepam (Ativan) 1 mg BID PO Last administered on 04/23/17 19:23; Start at 09:00; Stop 04/25/17 at 19:38; Status DC Mirtazapine (Remeron) 7.5 mg DAILY PO Last administered on 04/25/17 10:55; Start 04/22/17 at 09:00; Stop 04/25/17 at 19:37; Status DC Olanzapine (ZyPREXA) 20 mg DAILY PO Last administered on 04/22/17 08:17; Start 04/22/17 at 09:00; Stop 04/22/17 at 18:13; Status DC Bupropion HCl (Wellbutrin) 75 mg BID PO Last administered on 05/04/17 08:43; Start 04/22/17 at 09:00; Stop 05/04/17 at 16:14; Status DC Acetaminophen (Tylenol) 650 mg PRN Q6HRS PRN PO PAIN / TEMP; Start 04/22/17 at 01:00 Multi-Ingredient Ointment (Analgesic [place]) 1 berkley PRN QID PRN TP MUSCLE PAIN; Start 04/22/17 at 01:00 Al Hydroxide/Mg Hydroxide (Mylanta Plus Xs) 15 ml PRN AFTMEALHC PRN PO DYSPEPSIA; Start 04/22/17 at 01:00 Magnesium Hydroxide (Milk Of Magnesia) 2,400 mg PRN QHS PRN PO CONSTIPATION; Start 04/22/17 at 01:00 Haloperidol (Haldol) 2 mg TID PO Last administered on 04/24/17 08:05; Start at 09:00; Stop 04/24/17 at 11:02; Status DC Quetiapine Fumarate (SEROquel) 300 mg BID PO Last administered on 04/25/17 19: 10; Start 04/22/17 at 09:00; Stop 04/25/17 at 19:37; Status DC Olanzapine (ZyPREXA ZYDIS) 2.5 mg PRN Q2HR PRN PO PSYCHOSIS Last administered on 05/03/17 09:43; Start 04/22/17 at 01:30 Acetaminophen (Tylenol) 1,000 mg TID PO Last administered on 05/07/17 20:34; Start 04/22/17 at 09:00 Atorvastatin Calcium (Lipitor) 20 mg QHS PO Last administered on 05/07/17 20:40 ; Start 04/22/17 at 21:00 Celecoxib (CeleBREX) 100 mg BID PO Last administered on 05/07/17 20:40; Start 04/22/17 at 09:00 Furosemide (Lasix) 40 mg DAILY PO Last administered on 05/07/17 07:50; Start at 09:00 Levothyroxine Sodium (Synthroid) 175 mcg DAILYAC PO Last administered on 07:49; Start 04/22/17 at 08:45 Senna/Docusate Sodium (Senna Plus) 1 tab BID PO Last administered on 05/07/17 20:34; Start 04/22/17 at 09:00 Spironolactone (Aldactone) 25 mg DAILY PO Last administered on 05/07/17 07:49; Start 04/22/17 at 09:00 Tamsulosin HCl (Flomax) 0.4 mg DAILY PO Last administered on 05/07/17 07:49; Start 04/22/17 at 09:00 Vitamin D (Vitamin D3) 5,000 unit DAILY PO Last administered on 05/07/17 07:49 ; Start 04/22/17 at 09:00 Potassium Chloride (Klor-Con) 10 meq DAILYWBKFT PO Last administered on 07:50; Start 04/22/17 at 08:45 Olanzapine (ZyPREXA) 10 mg DAILY PO Last administered on 05/05/17 08:34; Start 04/23/17 at 09:00; Stop 05/05/17 at 18:27; Status DC Trazodone HCl (Desyrel) 100 mg QHS PO Last administered on 04/25/17 19:09; Start 04/22/17 at 21:00; Stop 04/25/17 at 19:37; Status DC Trazodone HCl (Desyrel) 100 mg QHS PRN PO INSOMNIA; Start 04/22/17 at 18:15; Stop 04/24/17 at 11:02; Status DC Trazodone HCl (Desyrel) 12.5 mg TID@0900,1300,1700 PO Last administered on 04/24 08:05; Start 04/23/17 at 09:00; Stop 04/25/17 at 19:37; Status DC Lorazepam (Ativan) 1 mg DAILY IV ; Start 04/23/17 at 09:00; Stop 04/23/17 at 09: 00; Status DC Lorazepam (Ativan) 1 mg DAILY IM Last administered on 04/24/17 07:47; Start at 09:00; Stop 04/24/17 at 11:02; Status DC Trazodone HCl (Desyrel) 100 mg PRN QHS PRN PO INSOMNIA Last administered on 05/02 20:28; Start 04/25/17 at 21:00 Lorazepam (Ativan) 0.5 mg TID PO Last administered on 04/27/17 19:22; Start at 09:00; Stop 04/27/17 at 21:05; Status DC Lorazepam (Ativan) 0.5 mg BID PO Last administered on 04/29/17 21:22; Start at 09:00; Stop 04/29/17 at 21:05; Status DC Lorazepam (Ativan) 0.5 mg DAILY PO Last administered on 05/01/17 08:13; Start 04/30/17 at 09:00; Stop 05/01/17 at 09:05; Status DC Divalproex Sodium (Depakote Sprinkles) 750 mg BID PO Last administered on 08:43; Start 04/26/17 at 21:00; Stop 05/04/17 at 16:14; Status DC Oxcarbazepine (Trileptal) 300 mg BID92 PO Last administered on 05/06/17 13:33; Start 05/05/17 at 09:00; Stop 05/06/17 at 21:00; Status DC Haloperidol (Haldol) 1 mg BID92 PO Last administered on 05/07/17 13:56; Start 05/05/17 at 09:00 Olanzapine (ZyPREXA) 5 mg QHS PO Last administered on 05/07/17 20:35; Start 05/06/17 at 21:00 Oxcarbazepine (Trileptal) 300 mg TID PO Last administered on 05/07/17 20:35; Start 05/07/17 at 09:00 Active Scripts Active Reported Trazodone Hcl 100 Mg Tablet 100 Mg PO PRN QHS PRN Potassium Chloride 10 Meq Tablet.er 10 Meq PO DAILYWBKFT Zyprexa (Olanzapine) 2.5 Mg Tablet 2.5 Mg PO PRN Q2HR PRN Analgesic [place] (Methyl Salicylate/Menthol) 28 Gm Oint...g. 1 Berkley TP PRN QID PRN Mag-Al Plus Xs Suspension (Mag Hydrox/Al Hydrox/Simeth) 30 Ml Oral.susp 15 Ml PO PRN AFTMEALHC PRN Tylenol (Acetaminophen) 325 Mg Tablet 650 Mg PO PRN Q6HRS PRN Atorvastatin Calcium 20 Mg Tablet 20 Mg PO QHS Vitamin D3 (Cholecalciferol (Vitamin D3)) 5,000 Unit Tablet 5,000 Unit PO DAILY Aldactone (Spironolactone) 25 Mg Tablet 25 Mg PO DAILY Tamsulosin Hcl 0.4 Mg Cap.er.24h 0.4 Mg PO DAILY Celebrex (Celecoxib) 100 Mg Capsule 100 Mg PO BID Senna-S Tablet (Sennosides/Docusate Sodium) 1 Each Tablet 1 Each PO BID Lasix (Furosemide) 40 Mg Tablet 40 Mg PO DAILY Depakote Sprinkle (Divalproex Sodium) 125 Mg Cap.sprink 750 Mg PO BID Acetaminophen 500 Mg Tablet 1,000 Mg PO TID Levothyroxine Sodium 175 Mcg Tablet 175 Mcg PO DAILYAC Olanzapine 20 Mg Tablet 10 Mg PO DAILY [bupropion hcl] 75 Mg PO BID Fluvoxamine Maleate 100 Mg Tablet 150 Mg PO BID Diagnosis: Problems: (1) Dementia in [place]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
--- NOTE | 2017-05-07 21:14 | NUR ---
Behavior Intervention Response and Plan: BIRP Note: Behavior: Assumed Care of patient, patient located in Day Room at shift change. Patient exhibited the following behavior Disorganized, Restless, Compulsive. Brief assessment on rounds of vital signs, medication needs, lab studies, and pain. Treatment plan problems 1 & 2. Intervention: Patient assessed and the following interventions initiated safety checks 15 Minute Checks Cognitive Assessment , Head to toe Assessment , Medications. Response: After interactions and interventions patient responded in the following manner, Calm , Appropriate ,Compliant. Continue to assess behaviors and condition will continue to monitor throughout the shift as needed. Patient educated on ADL's, and hand hygiene. 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 Continue to assess patient for changes in above assessment. Monitor for medication needs, pain, and safety concerns. Hourly rounding performed to ensure safe environment.
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
[2017-05-08 05:59] VITALS: BP 145/88
[2017-05-08] MEDS: LEVOTHYROXINE 175 MCG TABLET PO SCH (07:30)
[2017-05-08] MEDS: POTASSIUM CHLORIDE 10 MEQ TABLET.ER. PO SCH (08:00)
[2017-05-08] MEDS: SPIRONOLACTONE 25 MG TABLET PO SCH (08:03)
[2017-05-08] MEDS: FUROSEMIDE 40 MG TABLET PO SCH (08:03)
[2017-05-08] MEDS: ACETAMINOPHEN 500 MG TABLET PO SCH ×3 (08:03→20:26)
[2017-05-08] MEDS: CHOLECALCIFEROL (VITAMIN D3) 1,000 UNIT TABLET PO SCH (08:04)
[2017-05-08] MEDS: HALOPERIDOL 1 MG TABLET PO SCH ×2 (08:07→13:36)
[2017-05-08] MEDS: CELECOXIB 100 MG CAPSULE PO SCH ×2 (08:07→21:00)
[2017-05-08] MEDS: TAMSULOSIN 0.4 MG CAP.ER.24H. PO SCH (08:07)
[2017-05-08] MEDS: SENNOSIDES/DOCUSATE 8.6/50MG TABLET. PO SCH ×2 (08:08→20:26)
--- NOTE | 2017-05-08 09:00 | NUR ---
Behavior Intervention Response and Plan: BIRP Note: Behavior: Assumed Care of patient, patient located in Day Room at shift change. Patient exhibited the following behavior Calm, Interactive, Disorganized. Brief assessment on rounds of vital signs, medication needs, lab studies, and pain. Treatment plan problems . Intervention: Patient assessed and the following interventions initiated safety checks 15 Minute Checks Head to toe Assessment , Cognitive Assessment , Medications. Response: After interactions and interventions patient responded in the following manner, Delusions , Compliant ,Cooperative. Continue to assess behaviors and condition will continue to monitor throughout the shift as needed. Patient educated on ADL's, and hand hygiene. 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 Continue to assess patient for changes in above assessment. Monitor for medication needs, pain, and safety concerns. Hourly rounding performed to ensure safe environment.
[2017-05-08 17:23] VITALS: BP 121/76
[2017-05-08] MEDS: OLANZapine 5 MG TABLET PO SCH (20:25)
[2017-05-08] MEDS: ATORVASTATIN CALCIUM 20 MG TABLET PO SCH (20:26)
--- NOTE | 2017-05-08 22:33 | NUR ---
Behavior Intervention Response and Plan: BIRP Note: Behavior: Assumed Care of patient, patient located in Patient Room at shift change. Patient exhibited the following behavior Calm, Appropriate, Cooperative. Brief assessment on rounds of vital signs, medication needs, lab studies, and pain. Treatment plan problems 1-2 . Intervention: Patient assessed and the following interventions initiated safety checks 15 Minute Checks Head to toe Assessment , Cognitive Assessment , Medications. Response: After interactions and interventions patient responded in the following manner, Calm , Compliant ,Cooperative. Continue to assess behaviors and condition will continue to monitor throughout the shift as needed. Patient educated on ADL's, and hand hygiene. Plan: Continue to monitor Master Treatment Plan for patient's progress toward short term goals of Improved Mood, Decreased Agitation, terminal clerk goals to return to previous living setting vs placement. Continue to assess patient for changes in above assessment. Monitor for medication needs, pain, and safety concerns. Hourly rounding performed to ensure safe environment.
--- NOTE | 2017-05-08 23:12 | PDOC ---
Exam Bran Demential Exam: Bran Note: Please also refer to the separate dictated note~for this date of service dictated separately.~Patient seen individually. Discussed the patient with Nursing staff reviewed the chart.~Reviewed interim history and current functioning. Reviewed vital signs,~Labs/ Radiology~and current medications noted below. Continue current treatment with the changes noted in the dictated addendum note Assessment: Vital Signs: Vital Signs Date Time Temp Pulse Resp B/P (MAP) Pulse Ox O2 Delivery O2 Flow Rate FiO2 05/08/17 17:23 97.3 46 16 121/76 (91) 95 05/07/17 06:06 Room Air I&O Intake and Output 05/09/17 07:00 Intake Total 1080 ml Balance 1080 ml Intake Oral 1080 ml Current Medications: Meds: Current Medications Olanzapine (ZyPREXA ZYDIS) 5 mg 1X ONCE PO ; Start 04/21/17 at 19:45; Stop at 19:46; Status DC Olanzapine (ZyPREXA IM) 10 mg 1X ONCE IM Last administered on 04/21/17 19:36 ; Start 04/21/17 at 19:45; Stop 04/21/17 at 19:46; Status DC Lorazepam (Ativan) 1 mg 1X ONCE IM Last administered on 04/21/17 20:10; Start 04/21/17 at 19:45; Stop 04/21/17 at 19:46; Status DC Divalproex Sodium (Depakote Sprinkles) 750 mg DAILY PO Last administered on 09:02; Start 04/22/17 at 09:00; Stop 04/26/17 at 10:38; Status DC Fluvoxamine Maleate (Luvox) 150 mg BID PO Last administered on 05/08/17 20:25; Start 04/22/17 at 09:00 Lorazepam (Ativan) 1 mg BID PO Last administered on 04/23/17 19:23; Start at 09:00; Stop 04/25/17 at 19:38; Status DC Mirtazapine (Remeron) 7.5 mg DAILY PO Last administered on 04/25/17 10:55; Start 04/22/17 at 09:00; Stop 04/25/17 at 19:37; Status DC Olanzapine (ZyPREXA) 20 mg DAILY PO Last administered on 04/22/17 08:17; Start 04/22/17 at 09:00; Stop 04/22/17 at 18:13; Status DC Bupropion HCl (Wellbutrin) 75 mg BID PO Last administered on 05/04/17 08:43; Start 04/22/17 at 09:00; Stop 05/04/17 at 16:14; Status DC Acetaminophen (Tylenol) 650 mg PRN Q6HRS PRN PO PAIN / TEMP; Start 04/22/17 at 01:00 Multi-Ingredient Ointment (Analgesic [place]) 1 berkley PRN QID PRN TP MUSCLE PAIN; Start 04/22/17 at 01:00 Al Hydroxide/Mg Hydroxide (Mylanta Plus Xs) 15 ml PRN AFTMEALHC PRN PO DYSPEPSIA; Start 04/22/17 at 01:00 Magnesium Hydroxide (Milk Of Magnesia) 2,400 mg PRN QHS PRN PO CONSTIPATION; Start 04/22/17 at 01:00 Haloperidol (Haldol) 2 mg TID PO Last administered on 04/24/17 08:05; Start at 09:00; Stop 04/24/17 at 11:02; Status DC Quetiapine Fumarate (SEROquel) 300 mg BID PO Last administered on 04/25/17 19: 10; Start 04/22/17 at 09:00; Stop 04/25/17 at 19:37; Status DC Olanzapine (ZyPREXA ZYDIS) 2.5 mg PRN Q2HR PRN PO PSYCHOSIS Last administered on 05/03/17 09:43; Start 04/22/17 at 01:30 Acetaminophen (Tylenol) 1,000 mg TID PO Last administered on 05/08/17 20:26; Start 04/22/17 at 09:00 Atorvastatin Calcium (Lipitor) 20 mg QHS PO Last administered on 05/08/17 20:26 ; Start 04/22/17 at 21:00 Celecoxib (CeleBREX) 100 mg BID PO Last administered on 05/08/17 08:07; Start 04/22/17 at 09:00 Furosemide (Lasix) 40 mg DAILY PO Last administered on 05/08/17 08:03; Start at 09:00 Levothyroxine Sodium (Synthroid) 175 mcg DAILYAC PO Last administered on 07:30; Start 04/22/17 at 08:45 Senna/Docusate Sodium (Senna Plus) 1 tab BID PO Last administered on 05/08/17 20:26; Start 04/22/17 at 09:00 Spironolactone (Aldactone) 25 mg DAILY PO Last administered on 05/08/17 08:03; Start 04/22/17 at 09:00 Tamsulosin HCl (Flomax) 0.4 mg DAILY PO Last administered on 05/08/17 08:07; Start 04/22/17 at 09:00 Vitamin D (Vitamin D3) 5,000 unit DAILY PO Last administered on 05/08/17 08:04 ; Start 04/22/17 at 09:00 Potassium Chloride (Klor-Con) 10 meq DAILYWBKFT PO Last administered on 08:00; Start 04/22/17 at 08:45 Olanzapine (ZyPREXA) 10 mg DAILY PO Last administered on 05/05/17 08:34; Start 04/23/17 at 09:00; Stop 05/05/17 at 18:27; Status DC Trazodone HCl (Desyrel) 100 mg QHS PO Last administered on 04/25/17 19:09; Start 04/22/17 at 21:00; Stop 04/25/17 at 19:37; Status DC Trazodone HCl (Desyrel) 100 mg QHS PRN PO INSOMNIA; Start 04/22/17 at 18:15; Stop 04/24/17 at 11:02; Status DC Trazodone HCl (Desyrel) 12.5 mg TID@0900,1300,1700 PO Last administered on 04/24 08:05; Start 04/23/17 at 09:00; Stop 04/25/17 at 19:37; Status DC Lorazepam (Ativan) 1 mg DAILY IV ; Start 04/23/17 at 09:00; Stop 04/23/17 at 09: 00; Status DC Lorazepam (Ativan) 1 mg DAILY IM Last administered on 04/24/17 07:47; Start at 09:00; Stop 04/24/17 at 11:02; Status DC Trazodone HCl (Desyrel) 100 mg PRN QHS PRN PO INSOMNIA Last administered on 05/02 20:28; Start 04/25/17 at 21:00 Lorazepam (Ativan) 0.5 mg TID PO Last administered on 04/27/17 19:22; Start at 09:00; Stop 04/27/17 at 21:05; Status DC Lorazepam (Ativan) 0.5 mg BID PO Last administered on 04/29/17 21:22; Start at 09:00; Stop 04/29/17 at 21:05; Status DC Lorazepam (Ativan) 0.5 mg DAILY PO Last administered on 05/01/17 08:13; Start 04/30/17 at 09:00; Stop 05/01/17 at 09:05; Status DC Divalproex Sodium (Depakote Sprinkles) 750 mg BID PO Last administered on 08:43; Start 04/26/17 at 21:00; Stop 05/04/17 at 16:14; Status DC Oxcarbazepine (Trileptal) 300 mg BID92 PO Last administered on 05/06/17 13:33; Start 05/05/17 at 09:00; Stop 05/06/17 at 21:00; Status DC Haloperidol (Haldol) 1 mg BID92 PO Last administered on 05/08/17 13:36; Start 05/05/17 at 09:00 Olanzapine (ZyPREXA) 5 mg QHS PO Last administered on 05/08/17 20:25; Start 05/06/17 at 21:00 Oxcarbazepine (Trileptal) 300 mg TID PO Last administered on 05/08/17 20:26; Start 05/07/17 at 09:00 Active Scripts Active Reported Trazodone Hcl 100 Mg Tablet 100 Mg PO PRN QHS PRN Potassium Chloride 10 Meq Tablet.er 10 Meq PO DAILYWBKFT Zyprexa (Olanzapine) 2.5 Mg Tablet 2.5 Mg PO PRN Q2HR PRN Analgesic [place] (Methyl Salicylate/Menthol) 28 Gm Oint...g. 1 Berkley TP PRN QID PRN Mag-Al Plus Xs Suspension (Mag Hydrox/Al Hydrox/Simeth) 30 Ml Oral.susp 15 Ml PO PRN AFTMEALHC PRN Tylenol (Acetaminophen) 325 Mg Tablet 650 Mg PO PRN Q6HRS PRN Atorvastatin Calcium 20 Mg Tablet 20 Mg PO QHS Vitamin D3 (Cholecalciferol (Vitamin D3)) 5,000 Unit Tablet 5,000 Unit PO DAILY Aldactone (Spironolactone) 25 Mg Tablet 25 Mg PO DAILY Tamsulosin Hcl 0.4 Mg Cap.er.24h 0.4 Mg PO DAILY Celebrex (Celecoxib) 100 Mg Capsule 100 Mg PO BID Senna-S Tablet (Sennosides/Docusate Sodium) 1 Each Tablet 1 Each PO BID Lasix (Furosemide) 40 Mg Tablet 40 Mg PO DAILY Depakote Sprinkle (Divalproex Sodium) 125 Mg Cap.sprink 750 Mg PO BID Acetaminophen 500 Mg Tablet 1,000 Mg PO TID Levothyroxine Sodium 175 Mcg Tablet 175 Mcg PO DAILYAC Olanzapine 20 Mg Tablet 10 Mg PO DAILY [bupropion hcl] 75 Mg PO BID Fluvoxamine Maleate 100 Mg Tablet 150 Mg PO BID Diagnosis: Problems: (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
--- NOTE | 2017-05-09 04:19 | PN ---
DATE: 05/07/2017 PSYCHIATRIC PROGRESS NOTE This late entry 05/07/2017 covers elements not covered in my initial note. SUBJECTIVE: I met with the patient in the evening of 05/07/2017. Overall, the patient has had a good day, less psychotic, not aggressive, calm, compliant, had his breakfast in the hallway, still to reduce excess stimulation which makes him aggressive. REVIEW OF SYSTEMS: Ambulation impaired, in a Broda chair. No CV, , pulmonary, eye, ENT system symptoms on review. Reliability varies. MENTAL STATUS EXAM: Oriented to himself and situation. Speech, low in volume, often responses monosyllabic. Abstraction fair, computation impaired, language function intact, attention span short. Mood and affect remain somewhat labile, but better than before. LABORATORY DATA: Reviewed. IMPRESSION: Unchanged from initial note. PLAN: Continue current psychotropics, reviewed drug interactions, risk/benefit ratio favors no further change for now. MAN Vimal GARRIDO MD DR: MEME/giana JOB#: [id number] / [id number]
[2017-05-09 06:09] VITALS: BP 137/85
[2017-05-09] MEDS: ACETAMINOPHEN 500 MG TABLET PO SCH ×3 (07:54→20:14)
[2017-05-09] MEDS: CHOLECALCIFEROL (VITAMIN D3) 1,000 UNIT TABLET PO SCH (07:55)
[2017-05-09] MEDS: POTASSIUM CHLORIDE 10 MEQ TABLET.ER. PO SCH (07:55)
[2017-05-09] MEDS: SPIRONOLACTONE 25 MG TABLET PO SCH (07:57)
[2017-05-09] MEDS: CELECOXIB 100 MG CAPSULE PO SCH ×2 (07:57→20:18)
[2017-05-09] MEDS: SENNOSIDES/DOCUSATE 8.6/50MG TABLET. PO SCH ×2 (07:57→20:14)
[2017-05-09] MEDS: FUROSEMIDE 40 MG TABLET PO SCH (07:57)
[2017-05-09] MEDS: HALOPERIDOL 1 MG TABLET PO SCH ×2 (07:57→13:23)
[2017-05-09] MEDS: TAMSULOSIN 0.4 MG CAP.ER.24H. PO SCH (07:57)
[2017-05-09] MEDS: LEVOTHYROXINE 175 MCG TABLET PO SCH (07:57)
--- NOTE | 2017-05-09 09:10 | NUR ---
Behavior Intervention Response and Plan: BIRP Note: Behavior: Assumed Care of patient, patient located in Dining Room at shift change. Patient exhibited the following behavior Calm, Disorganized, Compliant. Brief assessment on rounds of vital signs, medication needs, lab studies, and pain. Treatment plan problems . Intervention: Patient assessed and the following interventions initiated safety checks 15 Minute Checks Head to toe Assessment , Cognitive Assessment , Medications. Response: After interactions and interventions patient responded in the following manner, Cooperative , Compliant ,Able to Focus on Task. Continue to assess behaviors and condition will continue to monitor throughout the shift as needed. Patient educated on ADL's, and hand hygiene. Plan: Continue to monitor Master Treatment Plan for patient's progress toward short term goals of Improved Mood, Decreased Agitation, terminal worker goals to return to previous living setting vs placement. Continue to assess patient for changes in above assessment. Monitor for medication needs, pain, and safety concerns. Hourly rounding performed to ensure safe environment.
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
--- NOTE | 2017-05-09 13:55 | NUR ---
Patient making SI statements saying I want to repeatedly.
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
[2017-05-09 16:55] VITALS: BP 102/71
--- NOTE | 2017-05-09 20:09 | PDOC ---
Exam Bran Demential Exam: Bran Note: Please also refer to the separate dictated note~for this date of service dictated separately.~Patient seen individually. Discussed the patient with Nursing staff reviewed the chart.~Reviewed interim history and current functioning. Reviewed vital signs,~Labs/ Radiology~and current medications noted below. Continue current treatment with the changes noted in the dictated addendum note Assessment: Vital Signs: Vital Signs Date Time Temp Pulse Resp B/P (MAP) Pulse Ox O2 Delivery O2 Flow Rate FiO2 05/09/17 16:55 97.3 80 16 102/71 (81) 93 05/09/17 06:09 Room Air I&O Intake and Output 05/10/17 07:00 Intake Total 560 ml Balance 560 ml Intake Oral 560 ml Current Medications: Meds: Current Medications Olanzapine (ZyPREXA ZYDIS) 5 mg 1X ONCE PO ; Start 04/21/17 at 19:45; Stop at 19:46; Status DC Olanzapine (ZyPREXA IM) 10 mg 1X ONCE IM Last administered on 04/21/17 19:36 ; Start 04/21/17 at 19:45; Stop 04/21/17 at 19:46; Status DC Lorazepam (Ativan) 1 mg 1X ONCE IM Last administered on 04/21/17 20:10; Start 04/21/17 at 19:45; Stop 04/21/17 at 19:46; Status DC Divalproex Sodium (Depakote Sprinkles) 750 mg DAILY PO Last administered on 09:02; Start 04/22/17 at 09:00; Stop 04/26/17 at 10:38; Status DC Fluvoxamine Maleate (Luvox) 150 mg BID PO Last administered on 05/09/17 07:57 ; Start 04/22/17 at 09:00 Lorazepam (Ativan) 1 mg BID PO Last administered on 04/23/17 19:23; Start at 09:00; Stop 04/25/17 at 19:38; Status DC Mirtazapine (Remeron) 7.5 mg DAILY PO Last administered on 04/25/17 10:55; Start 04/22/17 at 09:00; Stop 04/25/17 at 19:37; Status DC Olanzapine (ZyPREXA) 20 mg DAILY PO Last administered on 04/22/17 08:17; Start 04/22/17 at 09:00; Stop 04/22/17 at 18:13; Status DC Bupropion HCl (Wellbutrin) 75 mg BID PO Last administered on 05/04/17 08:43; Start 04/22/17 at 09:00; Stop 05/04/17 at 16:14; Status DC Acetaminophen (Tylenol) 650 mg PRN Q6HRS PRN PO PAIN / TEMP; Start 04/22/17 at 01:00 Multi-Ingredient Ointment (Analgesic [place]) 1 berkley PRN QID PRN TP MUSCLE PAIN; Start 04/22/17 at 01:00 Al Hydroxide/Mg Hydroxide (Mylanta Plus Xs) 15 ml PRN AFTMEALHC PRN PO DYSPEPSIA; Start 04/22/17 at 01:00 Magnesium Hydroxide (Milk Of Magnesia) 2,400 mg PRN QHS PRN PO CONSTIPATION; Start 04/22/17 at 01:00 Haloperidol (Haldol) 2 mg TID PO Last administered on 04/24/17 08:05; Start at 09:00; Stop 04/24/17 at 11:02; Status DC Quetiapine Fumarate (SEROquel) 300 mg BID PO Last administered on 04/25/17 19: 10; Start 04/22/17 at 09:00; Stop 04/25/17 at 19:37; Status DC Olanzapine (ZyPREXA ZYDIS) 2.5 mg PRN Q2HR PRN PO PSYCHOSIS Last administered on 05/09/17 13:29; Start 04/22/17 at 01:30 Acetaminophen (Tylenol) 1,000 mg TID PO Last administered on 05/09/17 13:23; Start 04/22/17 at 09:00 Atorvastatin Calcium (Lipitor) 20 mg QHS PO Last administered on 05/08/17 20:26 ; Start 04/22/17 at 21:00 Celecoxib (CeleBREX) 100 mg BID PO Last administered on 05/09/17 07:57; Start 04/22/17 at 09:00 Furosemide (Lasix) 40 mg DAILY PO Last administered on 05/09/17 07:57; Start 04/22/17 at 09:00 Levothyroxine Sodium (Synthroid) 175 mcg DAILYAC PO Last administered on 07:57; Start 04/22/17 at 08:45 Senna/Docusate Sodium (Senna Plus) 1 tab BID PO Last administered on 05/09/17 07:57; Start 04/22/17 at 09:00 Spironolactone (Aldactone) 25 mg DAILY PO Last administered on 05/09/17 07:57 ; Start 04/22/17 at 09:00 Tamsulosin HCl (Flomax) 0.4 mg DAILY PO Last administered on 05/09/17 07:57; Start 04/22/17 at 09:00 Vitamin D (Vitamin D3) 5,000 unit DAILY PO Last administered on 05/09/17 07:55 ; Start 04/22/17 at 09:00 Potassium Chloride (Klor-Con) 10 meq DAILYWBKFT PO Last administered on 07:55; Start 04/22/17 at 08:45 Olanzapine (ZyPREXA) 10 mg DAILY PO Last administered on 05/05/17 08:34; Start 04/23/17 at 09:00; Stop 05/05/17 at 18:27; Status DC Trazodone HCl (Desyrel) 100 mg QHS PO Last administered on 04/25/17 19:09; Start 04/22/17 at 21:00; Stop 04/25/17 at 19:37; Status DC Trazodone HCl (Desyrel) 100 mg QHS PRN PO INSOMNIA; Start 04/22/17 at 18:15; Stop 04/24/17 at 11:02; Status DC Trazodone HCl (Desyrel) 12.5 mg TID@0900,1300,1700 PO Last administered on 04/24 08:05; Start 04/23/17 at 09:00; Stop 04/25/17 at 19:37; Status DC Lorazepam (Ativan) 1 mg DAILY IV ; Start 04/23/17 at 09:00; Stop 04/23/17 at 09: 00; Status DC Lorazepam (Ativan) 1 mg DAILY IM Last administered on 04/24/17 07:47; Start at 09:00; Stop 04/24/17 at 11:02; Status DC Trazodone HCl (Desyrel) 100 mg PRN QHS PRN PO INSOMNIA Last administered on 05/02 20:28; Start 04/25/17 at 21:00 Lorazepam (Ativan) 0.5 mg TID PO Last administered on 04/27/17 19:22; Start at 09:00; Stop 04/27/17 at 21:05; Status DC Lorazepam (Ativan) 0.5 mg BID PO Last administered on 04/29/17 21:22; Start at 09:00; Stop 04/29/17 at 21:05; Status DC Lorazepam (Ativan) 0.5 mg DAILY PO Last administered on 05/01/17 08:13; Start 04/30/17 at 09:00; Stop 05/01/17 at 09:05; Status DC Divalproex Sodium (Depakote Sprinkles) 750 mg BID PO Last administered on 08:43; Start 04/26/17 at 21:00; Stop 05/04/17 at 16:14; Status DC Oxcarbazepine (Trileptal) 300 mg BID92 PO Last administered on 05/06/17 13:33; Start 05/05/17 at 09:00; Stop 05/06/17 at 21:00; Status DC Haloperidol (Haldol) 1 mg BID92 PO Last administered on 05/09/17 13:23; Start 05/05/17 at 09:00; Stop 05/09/17 at 17:40; Status DC Olanzapine (ZyPREXA) 5 mg QHS PO Last administered on 05/08/17 20:25; Start 05/06/17 at 21:00 Oxcarbazepine (Trileptal) 300 mg TID PO Last administered on 05/09/17 13:23; Start 05/07/17 at 09:00 Haloperidol (Haldol) 2 mg BID92 PO ; Start 05/10/17 at 09:00 Active Scripts Active Reported Trazodone Hcl 100 Mg Tablet 100 Mg PO PRN QHS PRN Potassium Chloride 10 Meq Tablet.er 10 Meq PO DAILYWBKFT Zyprexa (Olanzapine) 2.5 Mg Tablet 2.5 Mg PO PRN Q2HR PRN Analgesic [place] (Methyl Salicylate/Menthol) 28 Gm Oint...g. 1 Berkley TP PRN QID PRN Mag-Al Plus Xs Suspension (Mag Hydrox/Al Hydrox/Simeth) 30 Ml Oral.susp 15 Ml PO PRN AFTMEALHC PRN Tylenol (Acetaminophen) 325 Mg Tablet 650 Mg PO PRN Q6HRS PRN Atorvastatin Calcium 20 Mg Tablet 20 Mg PO QHS Vitamin D3 (Cholecalciferol (Vitamin D3)) 5,000 Unit Tablet 5,000 Unit PO DAILY Aldactone (Spironolactone) 25 Mg Tablet 25 Mg PO DAILY Tamsulosin Hcl 0.4 Mg Cap.er.24h 0.4 Mg PO DAILY Celebrex (Celecoxib) 100 Mg Capsule 100 Mg PO BID Senna-S Tablet (Sennosides/Docusate Sodium) 1 Each Tablet 1 Each PO BID Lasix (Furosemide) 40 Mg Tablet 40 Mg PO DAILY Depakote Sprinkle (Divalproex Sodium) 125 Mg Cap.sprink 750 Mg PO BID Acetaminophen 500 Mg Tablet 1,000 Mg PO TID Levothyroxine Sodium 175 Mcg Tablet 175 Mcg PO DAILYAC Olanzapine 20 Mg Tablet 10 Mg PO DAILY [bupropion hcl] 75 Mg PO BID Fluvoxamine Maleate 100 Mg Tablet 150 Mg PO BID Diagnosis: Problems: (1) Dementia in Ashwini's disease with behavioral disturbance (2) Anxiety disorder (3) Impulse control disorder (4) Major depressive disorder, recurrent episode (5) Dementia due to Ashwini chorea LIDIA GARRIDO MD May 09, 2017 20:09
[2017-05-09] MEDS: ATORVASTATIN CALCIUM 20 MG TABLET PO SCH (20:14)
[2017-05-09] MEDS: OLANZapine 5 MG TABLET PO SCH (20:22)
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
--- NOTE | 2017-05-09 23:04 | NUR ---
Behavior Intervention Response and Plan: BIRP Note: Behavior: Assumed Care of patient, patient located in Hallway at shift change. Patient exhibited the following behavior Calm, Withdrawn, Cooperative. Brief assessment on rounds of vital signs, medication needs, lab studies, and pain. Treatment plan problems 1-2. Intervention: Patient assessed and the following interventions initiated safety checks 15 Minute Checks Cognitive Assessment , Head to toe Assessment , Medications. Response: After interactions and interventions patient responded in the following manner, Calm , Cooperative ,Withdrawn. Continue to assess behaviors and condition will continue to monitor throughout the shift as needed. Patient educated on ADL's, and hand hygiene. Plan: Continue to monitor Master Treatment Plan for patient's progress toward short term goals of Decreased Agitation, Decreased Aggression, nursing home goals to return to previous living setting vs placement. Continue to assess patient for changes in above assessment. Monitor for medication needs, pain, and safety concerns. Hourly rounding performed to ensure safe environment.
--- NOTE | 2017-05-09 23:43 | PN ---
DATE: 05/08/2017 This late entry, 05/08/2017, covers elements not covered in my initial note of 05/08/2017. SUBJECTIVE: The patient was seen individually evening of 05/08/2017. Overall, the patient remains withdrawn, and according to nursing staff has had a "wonderful day." He has not been aggressive, less psychotic, not tearful. He ate breakfast, lunch, but as I met with him the evening of 05/08/2017, he had refused his supper and stated he was not hungry. REVIEW OF SYSTEMS: Ambulation impaired. He was lying in bed as I met with him in his room. No CV, , pulmonary, eye, ENT system symptoms on review. MENTAL STATUS EXAM: Oriented to self and situation. Speech has some latency, often responses monosyllabic. Abstraction fair, computation impaired, language function intact, attention span short, mood and affect showing improved lability, less psychotic, generally less anxious, less depressed. We will continue to monitor. LABORATORY DATA: Reviewed. IMPRESSION: Unchanged from initial note. PLAN: Continue current psychotropics mentioned in my initial note. Adjust further as clinically indicated. MAN Vimal GARRIDO MD DR: MEME/giana JOB#: [id number] / [id number]
[2017-05-10 06:12] VITALS: BP 132/85
[2017-05-10] MEDS: POTASSIUM CHLORIDE 10 MEQ TABLET.ER. PO SCH (08:27)
[2017-05-10] MEDS: TAMSULOSIN 0.4 MG CAP.ER.24H. PO SCH (08:27)
[2017-05-10] MEDS: CHOLECALCIFEROL (VITAMIN D3) 1,000 UNIT TABLET PO SCH (08:27)
[2017-05-10] MEDS: LEVOTHYROXINE 175 MCG TABLET PO SCH (08:27)
[2017-05-10] MEDS: FUROSEMIDE 40 MG TABLET PO SCH (08:27)
[2017-05-10] MEDS: SPIRONOLACTONE 25 MG TABLET PO SCH (08:27)
[2017-05-10] MEDS: SENNOSIDES/DOCUSATE 8.6/50MG TABLET. PO SCH ×2 (08:27→19:18)
[2017-05-10] MEDS: ACETAMINOPHEN 500 MG TABLET PO SCH ×3 (08:28→19:18)
[2017-05-10] MEDS: HALOPERIDOL 1 MG TABLET PO SCH ×2 (08:30→14:36)
[2017-05-10] MEDS: CELECOXIB 100 MG CAPSULE PO SCH ×2 (08:30→19:33)
--- NOTE | 2017-05-10 09:00 | NUR ---
THERAPEUTIC RECREATION GROUP NOTE TITLE :05/10 [facility] ACTIVITY : Social Events and Holidays GOAL : Facilitate sense of belonging and well-being, increase socialization and social skills. Incorporate traditions. DURATION : 50 Minutes RESPONSE : No participation
--- NOTE | 2017-05-10 10:32 | NUR ---
Behavior Intervention Response and Plan: BIRP Note: Behavior: Assumed Care of patient, patient located in Hallway at shift change. Patient exhibited the following behavior Calm, Withdrawn, Drowsy. Brief assessment on rounds of vital signs, medication needs, lab studies, and pain. Treatment plan problems 1-2. Intervention: Patient assessed and the following interventions initiated safety checks 15 Minute Checks Personal Alarm in place , Cognitive Assessment , Head to toe Assessment. Response: After interactions and interventions patient responded in the following manner, Disorganized , Calm ,Withdrawn. Continue to assess behaviors and condition will continue to monitor throughout the shift as needed. Patient educated on ADL's, and hand hygiene. Plan: Continue to monitor Master Treatment Plan for patient's progress toward short term goals of Decreased Agitation, Decreased Aggression, intermediate accountant goals to return to previous living setting vs placement. Continue to assess patient for changes in above assessment. Monitor for medication needs, pain, and safety concerns. Hourly rounding performed to ensure safe environment.
--- NOTE | 2017-05-10 11:50 | NUR ---
Pt extremely tearful in [facility]. This RN tried to talk with pt and play music. Redirection unsuccessful, pt still yelling and tearful. Pt placed on mats in quiet room for de-escalation. Will continue to monitor.
--- NOTE | 2017-05-10 12:19 | NUR ---
CRISTOPHER faxed updated clinicals to [facility] w/a note to contact Jos Tran RN over the weekend for further information.
--- NOTE | 2017-05-10 12:31 | PN ---
DATE: 05/06/2017 This late entry, date of service 05/06/2017, covers elements not covered in my initial note of 05/06/2017. The patient was staffed at treatment team meeting with the entire team morning of 05/06/2017, seen individually evening of 05/06/2017. The patient sleeps about 8 hours at night, sleeps off and on during the day DICTATION ENDS HERE. LIDIA GARRIDO MD DR: MEME/giana JOB#: [id number] / [id number]
--- NOTE | 2017-05-10 14:05 | NUR ---
THERAPEUTIC RECREATION GROUP NOTE TITLE :Poker-Outside ACTIVITY : Activities and Games GOAL : Increase social interaction, problem solving. Maintain or improve mental functioning. Decrease restlessness DURATION : 60 minutes RESPONSE : No participation
[2017-05-10 16:05] VITALS: BP 95/56
[2017-05-10] MEDS: ATORVASTATIN CALCIUM 20 MG TABLET PO SCH (19:18)
[2017-05-10] MEDS: OLANZapine 5 MG TABLET PO SCH (19:18)
[2017-05-10] MEDS: traZODone 100 MG TABLET. PO PRN (19:21)
--- NOTE | 2017-05-10 19:50 | PDOC ---
Exam Bran Demential Exam: Bran Note: Please also refer to the separate dictated note~for this date of service dictated separately.~Patient seen individually. Discussed the patient with Nursing staff reviewed the chart.~Reviewed interim history and current functioning. Reviewed vital signs,~Labs/ Radiology~and current medications noted below. Continue current treatment with the changes noted in the dictated addendum note Assessment: Vital Signs: Vital Signs Date Time Temp Pulse Resp B/P (MAP) Pulse Ox O2 Delivery O2 Flow Rate FiO2 05/10/17 16:05 97.8 87 16 95/56 (69) 93 05/09/17 06:09 Room Air I&O Intake and Output 05/11/17 07:00 Intake Total 1020 ml Balance 1020 ml Intake Oral 1020 ml # Bowel Movements 1 Current Medications: Meds: Current Medications Olanzapine (ZyPREXA ZYDIS) 5 mg 1X ONCE PO ; Start 04/21/17 at 19:45; Stop at 19:46; Status DC Olanzapine (ZyPREXA IM) 10 mg 1X ONCE IM Last administered on 04/21/17 19:36 ; Start 04/21/17 at 19:45; Stop 04/21/17 at 19:46; Status DC Lorazepam (Ativan) 1 mg 1X ONCE IM Last administered on 04/21/17 20:10; Start 04/21/17 at 19:45; Stop 04/21/17 at 19:46; Status DC Divalproex Sodium (Depakote Sprinkles) 750 mg DAILY PO Last administered on 09:02; Start 04/22/17 at 09:00; Stop 04/26/17 at 10:38; Status DC Fluvoxamine Maleate (Luvox) 150 mg BID PO Last administered on 05/10/17 19:18 ; Start 04/22/17 at 09:00 Lorazepam (Ativan) 1 mg BID PO Last administered on 04/23/17 19:23; Start at 09:00; Stop 04/25/17 at 19:38; Status DC Mirtazapine (Remeron) 7.5 mg DAILY PO Last administered on 04/25/17 10:55; Start 04/22/17 at 09:00; Stop 04/25/17 at 19:37; Status DC Olanzapine (ZyPREXA) 20 mg DAILY PO Last administered on 04/22/17 08:17; Start 04/22/17 at 09:00; Stop 04/22/17 at 18:13; Status DC Bupropion HCl (Wellbutrin) 75 mg BID PO Last administered on 05/04/17 08:43; Start 04/22/17 at 09:00; Stop 05/04/17 at 16:14; Status DC Acetaminophen (Tylenol) 650 mg PRN Q6HRS PRN PO PAIN / TEMP; Start 04/22/17 at 01:00 Multi-Ingredient Ointment (Analgesic [place]) 1 berkley PRN QID PRN TP MUSCLE PAIN; Start 04/22/17 at 01:00 Al Hydroxide/Mg Hydroxide (Mylanta Plus Xs) 15 ml PRN AFTMEALHC PRN PO DYSPEPSIA; Start 04/22/17 at 01:00 Magnesium Hydroxide (Milk Of Magnesia) 2,400 mg PRN QHS PRN PO CONSTIPATION; Start 04/22/17 at 01:00 Haloperidol (Haldol) 2 mg TID PO Last administered on 04/24/17 08:05; Start at 09:00; Stop 04/24/17 at 11:02; Status DC Quetiapine Fumarate (SEROquel) 300 mg BID PO Last administered on 04/25/17 19: 10; Start 04/22/17 at 09:00; Stop 04/25/17 at 19:37; Status DC Olanzapine (ZyPREXA ZYDIS) 2.5 mg PRN Q2HR PRN PO PSYCHOSIS Last administered on 05/03/17 09:43; Start 04/22/17 at 01:30 Acetaminophen (Tylenol) 1,000 mg TID PO Last administered on 05/10/17 19:18; Start 04/22/17 at 09:00 Atorvastatin Calcium (Lipitor) 20 mg QHS PO Last administered on 05/10/17 19: 18; Start 04/22/17 at 21:00 Celecoxib (CeleBREX) 100 mg BID PO Last administered on 05/10/17 19:33; Start 04/22/17 at 09:00 Furosemide (Lasix) 40 mg DAILY PO Last administered on 05/10/17 08:27; Start 04/22/17 at 09:00 Levothyroxine Sodium (Synthroid) 175 mcg DAILYAC PO Last administered on 08:27; Start 04/22/17 at 08:45 Senna/Docusate Sodium (Senna Plus) 1 tab BID PO Last administered on 05/10/17 19:18; Start 04/22/17 at 09:00 Spironolactone (Aldactone) 25 mg DAILY PO Last administered on 05/10/17 08:27 ; Start 04/22/17 at 09:00 Tamsulosin HCl (Flomax) 0.4 mg DAILY PO Last administered on 05/10/17 08:27; Start 04/22/17 at 09:00 Vitamin D (Vitamin D3) 5,000 unit DAILY PO Last administered on 05/10/17 08:27 ; Start 04/22/17 at 09:00 Potassium Chloride (Klor-Con) 10 meq DAILYWBKFT PO Last administered on 08:27; Start 04/22/17 at 08:45 Olanzapine (ZyPREXA) 10 mg DAILY PO Last administered on 05/05/17 08:34; Start 04/23/17 at 09:00; Stop 05/05/17 at 18:27; Status DC Trazodone HCl (Desyrel) 100 mg QHS PO Last administered on 04/25/17 19:09; Start 04/22/17 at 21:00; Stop 04/25/17 at 19:37; Status DC Trazodone HCl (Desyrel) 100 mg QHS PRN PO INSOMNIA; Start 04/22/17 at 18:15; Stop 04/24/17 at 11:02; Status DC Trazodone HCl (Desyrel) 12.5 mg TID@0900,1300,1700 PO Last administered on 04/24 08:05; Start 04/23/17 at 09:00; Stop 04/25/17 at 19:37; Status DC Lorazepam (Ativan) 1 mg DAILY IV ; Start 04/23/17 at 09:00; Stop 04/23/17 at 09: 00; Status DC Lorazepam (Ativan) 1 mg DAILY IM Last administered on 04/24/17 07:47; Start at 09:00; Stop 04/24/17 at 11:02; Status DC Trazodone HCl (Desyrel) 100 mg PRN QHS PRN PO INSOMNIA Last administered on 19:21; Start 04/25/17 at 21:00 Lorazepam (Ativan) 0.5 mg TID PO Last administered on 04/27/17 19:22; Start at 09:00; Stop 04/27/17 at 21:05; Status DC Lorazepam (Ativan) 0.5 mg BID PO Last administered on 04/29/17 21:22; Start at 09:00; Stop 04/29/17 at 21:05; Status DC Lorazepam (Ativan) 0.5 mg DAILY PO Last administered on 05/01/17 08:13; Start 04/30/17 at 09:00; Stop 05/01/17 at 09:05; Status DC Divalproex Sodium (Depakote Sprinkles) 750 mg BID PO Last administered on 08:43; Start 04/26/17 at 21:00; Stop 05/04/17 at 16:14; Status DC Oxcarbazepine (Trileptal) 300 mg BID92 PO Last administered on 05/06/17 13:33; Start 05/05/17 at 09:00; Stop 05/06/17 at 21:00; Status DC Haloperidol (Haldol) 1 mg BID92 PO Last administered on 05/09/17 13:23; Start 05/05/17 at 09:00; Stop 05/09/17 at 17:40; Status DC Olanzapine (ZyPREXA) 5 mg QHS PO Last administered on 05/10/17 19:18; Start at 21:00 Oxcarbazepine (Trileptal) 300 mg TID PO Last administered on 05/10/17 19:21; Start 05/07/17 at 09:00 Haloperidol (Haldol) 2 mg BID92 PO Last administered on 05/10/17 14:36; Start 05/10/17 at 09:00 Active Scripts Active Reported Trazodone Hcl 100 Mg Tablet 100 Mg PO PRN QHS PRN Potassium Chloride 10 Meq Tablet.er 10 Meq PO DAILYWBKFT Zyprexa (Olanzapine) 2.5 Mg Tablet 2.5 Mg PO PRN Q2HR PRN Analgesic [place] (Methyl Salicylate/Menthol) 28 Gm Oint...g. 1 Berkley TP PRN QID PRN Mag-Al Plus Xs Suspension (Mag Hydrox/Al Hydrox/Simeth) 30 Ml Oral.susp 15 Ml PO PRN AFTMEALHC PRN Tylenol (Acetaminophen) 325 Mg Tablet 650 Mg PO PRN Q6HRS PRN Atorvastatin Calcium 20 Mg Tablet 20 Mg PO QHS Vitamin D3 (Cholecalciferol (Vitamin D3)) 5,000 Unit Tablet 5,000 Unit PO DAILY Aldactone (Spironolactone) 25 Mg Tablet 25 Mg PO DAILY Tamsulosin Hcl 0.4 Mg Cap.er.24h 0.4 Mg PO DAILY Celebrex (Celecoxib) 100 Mg Capsule 100 Mg PO BID Senna-S Tablet (Sennosides/Docusate Sodium) 1 Each Tablet 1 Each PO BID Lasix (Furosemide) 40 Mg Tablet 40 Mg PO DAILY Depakote Sprinkle (Divalproex Sodium) 125 Mg Cap.sprink 750 Mg PO BID Acetaminophen 500 Mg Tablet 1,000 Mg PO TID Levothyroxine Sodium 175 Mcg Tablet 175 Mcg PO DAILYAC Olanzapine 20 Mg Tablet 10 Mg PO DAILY [bupropion hcl] 75 Mg PO BID Fluvoxamine Maleate 100 Mg Tablet 150 Mg PO BID Diagnosis: Problems: (1) Dementia in [place]'s disease with behavioral disturbance (2) Anxiety disorder (3) Impulse control disorder (4) Major depressive disorder, recurrent episode (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
--- NOTE | 2017-05-10 20:38 | NUR ---
Behavior Intervention Response and Plan: BIRP Note: Behavior: Assumed Care of patient, patient located in Quiet Room at shift change. Patient exhibited the following behavior Anxious, Restless, Disorganized, crying, loud with tears. Brief assessment on rounds of vital signs, medication needs, lab studies, and pain. Treatment plan problems 1-2. Intervention: Patient assessed and the following interventions initiated safety checks 15 Minute Checks Cognitive Assessment , Head to toe Assessment , Medications. Response: After interactions and interventions patient responded in the following manner, Restless , Cooperative ,Resistive. Continue to assess behaviors and condition will continue to monitor throughout the shift as needed. Patient educated on ADL's, and hand hygiene. Plan: Continue to monitor Master Treatment Plan for patient's progress toward short term goals of Decreased Agitation, Improved Mood, director long term care goals to return to previous living setting vs placement. Continue to assess patient for changes in above assessment. Monitor for medication needs, pain, and safety concerns. Hourly rounding performed to ensure safe environment.
--- NOTE | 2017-05-11 00:44 | NUR ---
Nursing Note Trazodone given at HS for Insomnia.
--- NOTE | 2017-05-11 01:37 | PN ---
DATE: 05/09/2017 PSYCHIATRIC PROGRESS NOTE This late entry of 05/09/2017 covers elements not covered in my initial note of 05/09/2017. I met with the patient on the evening of 05/09/2017. The patient has had a difficult day. In the morning, he was agitated, hitting out at others around him including staff members, tearful, making statements of wanting to , believing he was in the long-term. I met with him in his room on the evening of 05/09/2017. REVIEW OF SYSTEMS: Ambulation impaired. No CV, , pulmonary, eye system symptoms on review. MENTAL STATUS EXAMINATION: Oriented to himself and situation. Speech is coherent, low in volume, often responses monosyllabic. Abstraction fair, computation impaired, language function intact, attention span short. Mood and affect still labile, intermittently psychotic. LABORATORY DATA: Reviewed. IMPRESSION: Unchanged from initial note. PLAN: Increase Haldol from 1 mg b.i.d. to 2 mg b.i.d. Maintain the rest of the psychotropics mentioned in my initial note. Reviewed drug contractions. Risk and benefit ratio favors no further change as of now. LIDIA GARRIDO MD DR: MEME/giana JOB#: [id number] / [id number]
[2017-05-11] MEDS: LEVOTHYROXINE 175 MCG TABLET PO SCH (05:59)
[2017-05-11 06:06] VITALS: BP 128/77
[2017-05-11 07:51] LABS: BASO # 0.1 x10^3/uL (0.0-0.2); BASO % 1 % (0-3); EOS # 0.5 x10^3/uL (0.0-0.7); EOS % 5 % (0-3); HEMATOCRIT 39.4 % (39.0-53.0); HEMOGLOBIN 13.7 g/dL (13.0-17.5); LYMPH # 1.7 x10^3/uL (1.0-4.8); LYMPH % 17 % (24-48); MEAN CORPUSCULAR HEMOGLOBIN 31 pg (25-35); MEAN CORPUSCULAR HGB CONC 35 g/dL (31-37); MEAN CORPUSCULAR VOLUME 88 fL (79-100); MONO # 1.2 x10^3/uL (0.0-1.1); MONO % 12 % (0-9); NEUT # 6.6 x10^3uL (1.8-7.7); NEUT % 66 % (31-73); PLATELET COUNT 237 x10^3/uL (140-400); RED BLOOD COUNT 4.45 x10^6/uL (4.30-5.70); RED CELL DISTRIBUTION WIDTH 15.3 % (11.5-14.5); WHITE BLOOD COUNT 10.1 x10^3/uL (4.0-11.0)
[2017-05-11] MEDS: ACETAMINOPHEN 500 MG TABLET PO SCH ×3 (08:01→19:58)
[2017-05-11] MEDS: SPIRONOLACTONE 25 MG TABLET PO SCH (08:01)
[2017-05-11] MEDS: POTASSIUM CHLORIDE 10 MEQ TABLET.ER. PO SCH (08:01)
[2017-05-11] MEDS: SENNOSIDES/DOCUSATE 8.6/50MG TABLET. PO SCH ×2 (08:01→19:58)
[2017-05-11] MEDS: TAMSULOSIN 0.4 MG CAP.ER.24H. PO SCH (08:01)
[2017-05-11] MEDS: FUROSEMIDE 40 MG TABLET PO SCH (08:01)
[2017-05-11] MEDS: HALOPERIDOL 1 MG TABLET PO SCH ×2 (08:02→14:13)
[2017-05-11] MEDS: CHOLECALCIFEROL (VITAMIN D3) 1,000 UNIT TABLET PO SCH (08:02)
[2017-05-11] MEDS: CELECOXIB 100 MG CAPSULE PO SCH ×2 (08:03→19:59)
[2017-05-11 08:05] LABS: ALBUMIN 3.6 g/dL (3.4-5.0); CALCIUM 9.2 mg/dL (8.5-10.1); GFR 76.5; MAGNESIUM 1.9 mg/dL (1.8-2.4); POTASSIUM 4.7 mmol/L (3.5-5.1); TOTAL BILIRUBIN 0.3 mg/dL (0.2-1.0); TOTAL PROTEIN 7.1 g/dL (6.4-8.2)
--- NOTE | 2017-05-11 09:00 | NUR ---
THERAPEUTIC RECREATION GROUP NOTE TITLE :Coloring: Nora ACTIVITY : Relaxation GOAL : Decrease stress, elevate mood, increase concentration/attention, encourage awareness DURATION : 60 Minutes RESPONSE : No participation
--- NOTE | 2017-05-11 10:01 | NUR ---
Behavior Intervention Response and Plan: BIRP Note: Behavior: Assumed Care of patient, patient located in Hallway at shift change. Patient exhibited the following behavior Restless, Cooperative, Drowsy. Brief assessment on rounds of vital signs, medication needs, lab studies, and pain. Treatment plan problems 1-2. Intervention: Patient assessed and the following interventions initiated safety checks 15 Minute Checks Personal Alarm in place , Cognitive Assessment , Head to toe Assessment. Response: After interactions and interventions patient responded in the following manner, Restless , Compulsive ,Cooperative. Continue to assess behaviors and condition will continue to monitor throughout the shift as needed. Patient educated on ADL's, and hand hygiene. Plan: Continue to monitor Master Treatment Plan for patient's progress toward short term goals of Decreased Agitation, Decreased Aggression, manager terminal goals to return to previous living setting vs placement. Continue to assess patient for changes in above assessment. Monitor for medication needs, pain, and safety concerns. Hourly rounding performed to ensure safe environment.
--- NOTE | 2017-05-11 14:00 | NUR ---
THERAPEUTIC RECREATION GROUP NOTE TITLE :Name that Tune ACTIVITY : Music, Cognitive Stimulation GOAL : Increase socialization, elevate mood, stimulate memory, Maintain or improve cognitive functioning DURATION : 60 minutes RESPONSE : No participation
--- NOTE | 2017-05-11 14:17 | NUR ---
Pt tearful, yelling and crying in hallway. Pt stating "I'm ." Pt escorted to quiet room to lay down and de-escalate. 1400 meds administered. Will continue to monitor.
[2017-05-11 16:06] VITALS: BP 101/67
--- NOTE | 2017-05-11 19:46 | PDOC ---
Exam Bran Demential Exam: Bran Note: Please also refer to the separate dictated note~for this date of service dictated separately.~Patient seen individually. Discussed the patient with Nursing staff reviewed the chart.~Reviewed interim history and current functioning. Reviewed vital signs,~Labs/ Radiology~and current medications noted below. Continue current treatment with the changes noted in the dictated addendum note Assessment: Vital Signs: Vital Signs Date Time Temp Pulse Resp B/P (MAP) Pulse Ox O2 Delivery O2 Flow Rate FiO2 05/11/17 16:06 98.1 69 16 101/67 (78) 92 05/09/17 06:09 Room Air I&O Intake and Output 05/12/17 06:59 Intake Total 1080 ml Balance 1080 ml Intake Oral 1080 ml Labs: Laboratory Tests Test 05/11/17 07:33 White Blood Count 10.1 x10^3/uL (4.0-11.0) Red Blood Count 4.45 x10^6/uL (4.30-5.70) Hemoglobin 13.7 g/dL (13.0-17.5) Hematocrit 39.4 % (39.0-53.0) Mean Corpuscular Volume 88 fL (79-100) Mean Corpuscular Hemoglobin 31 pg (25-35) Mean Corpuscular Hemoglobin Concent 35 g/dL (31-37) Red Cell Distribution Width 15.3 % (11.5-14.5) H Platelet Count 237 x10^3/uL (140-400) Neutrophils (%) (Auto) 66 % (31-73) Lymphocytes (%) (Auto) 17 % (24-48) L Monocytes (%) (Auto) 12 % (0-9) H Eosinophils (%) (Auto) 5 % (0-3) H Basophils (%) (Auto) 1 % (0-3) Neutrophils # (Auto) 6.6 x10^3uL (1.8-7.7) Lymphocytes # (Auto) 1.7 x10^3/uL (1.0-4.8) Monocytes # (Auto) 1.2 x10^3/uL (0.0-1.1) H Eosinophils # (Auto) 0.5 x10^3/uL (0.0-0.7) Basophils # (Auto) 0.1 x10^3/uL (0.0-0.2) Sodium Level 139 mmol/L (136-145) Potassium Level 4.7 mmol/L (3.5-5.1) Chloride Level 103 mmol/L (98-107) Carbon Dioxide Level 32 mmol/L (21-32) Anion Gap 4 (6-14) L Blood Urea Nitrogen 24 mg/dL (8-26) Creatinine 1.0 mg/dL (0.7-1.3) Estimated GFR (Cockcroft-Gault) 76.5 BUN/Creatinine Ratio 24 (6-20) H Glucose Level 104 mg/dL (70-99) H Calcium Level 9.2 mg/dL (8.5-10.1) Magnesium Level 1.9 mg/dL (1.8-2.4) Total Bilirubin 0.3 mg/dL (0.2-1.0) Aspartate Amino Transferase (AST) 11 U/L (15-37) L Alanine Aminotransferase (ALT) 21 U/L (16-63) Alkaline Phosphatase 79 U/L (46-116) Total Protein 7.1 g/dL (6.4-8.2) Albumin 3.6 g/dL (3.4-5.0) Albumin/Globulin Ratio 1.0 (1.0-1.7) Current Medications: Meds: Current Medications Olanzapine (ZyPREXA ZYDIS) 5 mg 1X ONCE PO ; Start 04/21/17 at 19:45; Stop at 19:46; Status DC Olanzapine (ZyPREXA IM) 10 mg 1X ONCE IM Last administered on 04/21/17 19:36 ; Start 04/21/17 at 19:45; Stop 04/21/17 at 19:46; Status DC Lorazepam (Ativan) 1 mg 1X ONCE IM Last administered on 04/21/17 20:10; Start 04/21/17 at 19:45; Stop 04/21/17 at 19:46; Status DC Divalproex Sodium (Depakote Sprinkles) 750 mg DAILY PO Last administered on 09:02; Start 04/22/17 at 09:00; Stop 04/26/17 at 10:38; Status DC Fluvoxamine Maleate (Luvox) 150 mg BID PO Last administered on 05/11/17 08:02 ; Start 04/22/17 at 09:00 Lorazepam (Ativan) 1 mg BID PO Last administered on 04/23/17 19:23; Start at 09:00; Stop 04/25/17 at 19:38; Status DC Mirtazapine (Remeron) 7.5 mg DAILY PO Last administered on 04/25/17 10:55; Start 04/22/17 at 09:00; Stop 04/25/17 at 19:37; Status DC Olanzapine (ZyPREXA) 20 mg DAILY PO Last administered on 04/22/17 08:17; Start 04/22/17 at 09:00; Stop 04/22/17 at 18:13; Status DC Bupropion HCl (Wellbutrin) 75 mg BID PO Last administered on 05/04/17 08:43; Start 04/22/17 at 09:00; Stop 05/04/17 at 16:14; Status DC Acetaminophen (Tylenol) 650 mg PRN Q6HRS PRN PO PAIN / TEMP; Start 04/22/17 at 01:00 Multi-Ingredient Ointment (Analgesic [place]) 1 berkley PRN QID PRN TP MUSCLE PAIN; Start 04/22/17 at 01:00 Al Hydroxide/Mg Hydroxide (Mylanta Plus Xs) 15 ml PRN AFTMEALHC PRN PO DYSPEPSIA; Start 04/22/17 at 01:00 Magnesium Hydroxide (Milk Of Magnesia) 2,400 mg PRN QHS PRN PO CONSTIPATION; Start 04/22/17 at 01:00 Haloperidol (Haldol) 2 mg TID PO Last administered on 04/24/17 08:05; Start at 09:00; Stop 04/24/17 at 11:02; Status DC Quetiapine Fumarate (SEROquel) 300 mg BID PO Last administered on 04/25/17 19: 10; Start 04/22/17 at 09:00; Stop 04/25/17 at 19:37; Status DC Olanzapine (ZyPREXA ZYDIS) 2.5 mg PRN Q2HR PRN PO PSYCHOSIS Last administered on 05/03/17 09:43; Start 04/22/17 at 01:30 Acetaminophen (Tylenol) 1,000 mg TID PO Last administered on 05/11/17 14:13; Start 04/22/17 at 09:00 Atorvastatin Calcium (Lipitor) 20 mg QHS PO Last administered on 05/10/17 19: 18; Start 04/22/17 at 21:00 Celecoxib (CeleBREX) 100 mg BID PO Last administered on 05/11/17 08:03; Start 04/22/17 at 09:00 Furosemide (Lasix) 40 mg DAILY PO Last administered on 05/11/17 08:01; Start 04/22/17 at 09:00 Levothyroxine Sodium (Synthroid) 175 mcg DAILYAC PO Last administered on 05:59; Start 04/22/17 at 08:45 Senna/Docusate Sodium (Senna Plus) 1 tab BID PO Last administered on 05/11/17 08:01; Start 04/22/17 at 09:00 Spironolactone (Aldactone) 25 mg DAILY PO Last administered on 05/11/17 08:01 ; Start 04/22/17 at 09:00 Tamsulosin HCl (Flomax) 0.4 mg DAILY PO Last administered on 05/11/17 08:01; Start 04/22/17 at 09:00 Vitamin D (Vitamin D3) 5,000 unit DAILY PO Last administered on 05/11/17 08:02 ; Start 04/22/17 at 09:00 Potassium Chloride (Klor-Con) 10 meq DAILYWBKFT PO Last administered on 08:01; Start 04/22/17 at 08:45 Olanzapine (ZyPREXA) 10 mg DAILY PO Last administered on 05/05/17 08:34; Start 04/23/17 at 09:00; Stop 05/05/17 at 18:27; Status DC Trazodone HCl (Desyrel) 100 mg QHS PO Last administered on 04/25/17 19:09; Start 04/22/17 at 21:00; Stop 04/25/17 at 19:37; Status DC Trazodone HCl (Desyrel) 100 mg QHS PRN PO INSOMNIA; Start 04/22/17 at 18:15; Stop 04/24/17 at 11:02; Status DC Trazodone HCl (Desyrel) 12.5 mg TID@0900,1300,1700 PO Last administered on 04/24 08:05; Start 04/23/17 at 09:00; Stop 04/25/17 at 19:37; Status DC Lorazepam (Ativan) 1 mg DAILY IV ; Start 04/23/17 at 09:00; Stop 04/23/17 at 09: 00; Status DC Lorazepam (Ativan) 1 mg DAILY IM Last administered on 04/24/17 07:47; Start at 09:00; Stop 04/24/17 at 11:02; Status DC Trazodone HCl (Desyrel) 100 mg PRN QHS PRN PO INSOMNIA Last administered on 19:21; Start 04/25/17 at 21:00 Lorazepam (Ativan) 0.5 mg TID PO Last administered on 04/27/17 19:22; Start at 09:00; Stop 04/27/17 at 21:05; Status DC Lorazepam (Ativan) 0.5 mg BID PO Last administered on 04/29/17 21:22; Start at 09:00; Stop 04/29/17 at 21:05; Status DC Lorazepam (Ativan) 0.5 mg DAILY PO Last administered on 05/01/17 08:13; Start 04/30/17 at 09:00; Stop 05/01/17 at 09:05; Status DC Divalproex Sodium (Depakote Sprinkles) 750 mg BID PO Last administered on 08:43; Start 04/26/17 at 21:00; Stop 05/04/17 at 16:14; Status DC Oxcarbazepine (Trileptal) 300 mg BID92 PO Last administered on 05/06/17 13:33; Start 05/05/17 at 09:00; Stop 05/06/17 at 21:00; Status DC Haloperidol (Haldol) 1 mg BID92 PO Last administered on 05/09/17 13:23; Start 05/05/17 at 09:00; Stop 05/09/17 at 17:40; Status DC Olanzapine (ZyPREXA) 5 mg QHS PO Last administered on 05/10/17 19:18; Start at 21:00 Oxcarbazepine (Trileptal) 300 mg TID PO Last administered on 05/11/17 14:13; Start 05/07/17 at 09:00 Haloperidol (Haldol) 2 mg BID92 PO Last administered on 05/11/17 14:13; Start 05/10/17 at 09:00 Aripiprazole (Abilify) 2.5 mg DAILY PO ; Start 05/12/17 at 09:00 Aripiprazole (Abilify) 2.5 mg DAILY PO ; Start 05/12/17 at 09:00; Stop 05/12/17 at 09:00; Status DC Active Scripts Active Reported Trazodone Hcl 100 Mg Tablet 100 Mg PO PRN QHS PRN Potassium Chloride 10 Meq Tablet.er 10 Meq PO DAILYWBKFT Zyprexa (Olanzapine) 2.5 Mg Tablet 2.5 Mg PO PRN Q2HR PRN Analgesic [place] (Methyl Salicylate/Menthol) 28 Gm Oint...g. 1 Berkley TP PRN QID PRN Mag-Al Plus Xs Suspension (Mag Hydrox/Al Hydrox/Simeth) 30 Ml Oral.susp 15 Ml PO PRN AFTMEALHC PRN Tylenol (Acetaminophen) 325 Mg Tablet 650 Mg PO PRN Q6HRS PRN Atorvastatin Calcium 20 Mg Tablet 20 Mg PO QHS Vitamin D3 (Cholecalciferol (Vitamin D3)) 5,000 Unit Tablet 5,000 Unit PO DAILY Aldactone (Spironolactone) 25 Mg Tablet 25 Mg PO DAILY Tamsulosin Hcl 0.4 Mg Cap.er.24h 0.4 Mg PO DAILY Celebrex (Celecoxib) 100 Mg Capsule 100 Mg PO BID Senna-S Tablet (Sennosides/Docusate Sodium) 1 Each Tablet 1 Each PO BID Lasix (Furosemide) 40 Mg Tablet 40 Mg PO DAILY Depakote Sprinkle (Divalproex Sodium) 125 Mg Cap.sprink 750 Mg PO BID Acetaminophen 500 Mg Tablet 1,000 Mg PO TID Levothyroxine Sodium 175 Mcg Tablet 175 Mcg PO DAILYAC Olanzapine 20 Mg Tablet 10 Mg PO DAILY [bupropion hcl] 75 Mg PO BID Fluvoxamine Maleate 100 Mg Tablet 150 Mg PO BID Diagnosis: Problems: (1) Dementia in [place]'s disease with behavioral disturbance (2) Anxiety disorder (3) Impulse control disorder (4) Major depressive disorder, recurrent episode (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
[2017-05-11] MEDS: OLANZapine 5 MG TABLET PO SCH (19:57)
[2017-05-11] MEDS: ATORVASTATIN CALCIUM 20 MG TABLET PO SCH (19:58)
--- NOTE | 2017-05-11 21:00 | NUR ---
Behavior Intervention Response and Plan: BIRP Note: Behavior: Assumed Care of patient, patient located in Patient Room at shift change. Patient exhibited the following behavior Calm, Drowsy, Sleeping. Brief assessment on rounds of vital signs, medication needs, lab studies, and pain. Treatment plan problems . Intervention: Patient assessed and the following interventions initiated safety checks 15 Minute Checks Head to toe Assessment , Cognitive Assessment , Medications. Response: After interactions and interventions patient responded in the following manner, Disorganized , Cooperative ,Calm. Continue to assess behaviors and condition will continue to monitor throughout the shift as needed. Patient educated on ADL's, and hand hygiene. Plan: Continue to monitor Master Treatment Plan for patient's progress toward short term goals of Improved Mood, Decreased Agitation, salvage determiner goals to return to previous living setting vs placement. Continue to assess patient for changes in above assessment. Monitor for medication needs, pain, and safety concerns. Hourly rounding performed to ensure safe environment.
--- NOTE | 2017-05-12 02:33 | PN ---
DATE: 05/10/2017 This is a late entry for 05/10/2017 and covers the elements not covered in my initial note of 05/10/2017. SUBJECTIVE: I met with the patient in the evening of 05/10/2017. He remains confused, has not been hitting, no statements of wanting to like he did the other day, but he is tearful at times, crying. REVIEW OF SYSTEMS: Ambulation impaired, in a Broda chair. No CV, , pulmonary, eye system symptoms on review. MENTAL STATUS EXAM: Oriented to himself and situation. Speech moderate latency, often responses monosyllabic, low in volume, abstraction fair, computation impaired, language function intact, attention span short. Mood and affect, lability is improved despite ongoing problems, but these better. No aggression. LABORATORY DATA: Reviewed. IMPRESSION: Unchanged from initial note. PLAN: Continue current psychotropics. Reviewed drug interactions. Risk/benefit ratio favors no further change. LIDIA GARRIDO MD DR: MEME/giana JOB#: [id number] / [id number]
[2017-05-12 06:08] VITALS: BP 132/92
[2017-05-12] MEDS: FUROSEMIDE 40 MG TABLET PO SCH (07:51)
[2017-05-12] MEDS: SENNOSIDES/DOCUSATE 8.6/50MG TABLET. PO SCH ×2 (07:51→20:31)
[2017-05-12] MEDS: ACETAMINOPHEN 500 MG TABLET PO SCH ×3 (07:51→20:31)
[2017-05-12] MEDS: SPIRONOLACTONE 25 MG TABLET PO SCH (07:52)
[2017-05-12] MEDS: LEVOTHYROXINE 175 MCG TABLET PO SCH (07:52)
[2017-05-12] MEDS: HALOPERIDOL 1 MG TABLET PO SCH ×2 (07:52→17:21)
[2017-05-12] MEDS: TAMSULOSIN 0.4 MG CAP.ER.24H. PO SCH (07:52)
[2017-05-12] MEDS: CHOLECALCIFEROL (VITAMIN D3) 1,000 UNIT TABLET PO SCH (07:53)
[2017-05-12] MEDS: ARIPiprazole 5 MG TABLET PO SCH (07:57)
[2017-05-12] MEDS: POTASSIUM CHLORIDE 10 MEQ TABLET.ER. PO SCH (07:57)
[2017-05-12] MEDS: CELECOXIB 100 MG CAPSULE PO SCH ×2 (07:57→20:36)
[2017-05-12] MEDS ORDERED: ARIPiprazole 5 MG TABLET PO SCH (09:00)
--- NOTE | 2017-05-12 09:15 | NUR ---
THERAPEUTIC RECREATION GROUP NOTE TITLE :Mood Changers: Laughter, Gratitude, Compliments ACTIVITY : Humor/ Relaxation GOAL : Decrease stress, elevate mood, increase concentration/attention, encourage awareness DURATION : 60 minutes RESPONSE : No participation
--- NOTE | 2017-05-12 10:51 | NUR ---
Behavior Intervention Response and Plan: BIRP Note: Behavior: Assumed Care of patient, patient located in Hallway at shift change. Patient exhibited the following behavior Restless, Disorganized, Compliant. Brief assessment on rounds of vital signs, medication needs, lab studies, and pain. Treatment plan problems 1-2. Intervention: Patient assessed and the following interventions initiated safety checks 15 Minute Checks Personal Alarm in place , Cognitive Assessment , Head to toe Assessment. Response: After interactions and interventions patient responded in the following manner, Disorganized , Restless ,Drowsy. Continue to assess behaviors and condition will continue to monitor throughout the shift as needed. Patient educated on ADL's, and hand hygiene. Plan: Continue to monitor Master Treatment Plan for patient's progress toward short term goals of Decreased Agitation, Decreased Aggression, oysterman goals to return to previous living setting vs placement. Continue to assess patient for changes in above assessment. Monitor for medication needs, pain, and safety concerns. Hourly rounding performed to ensure safe environment.
--- NOTE | 2017-05-12 14:10 | NUR ---
THERAPEUTIC RECREATION GROUP NOTE TITLE :ABC's of Leisure ACTIVITY : Leisure Awareness GOAL : Increase knowledge of leisure activities DURATION : 50 Minutes RESPONSE : No participation
--- NOTE | 2017-05-12 15:22 | NUR ---
Group Note [facility] Group Type Anger Map Start Time: 1:10 End Time: 2:10 Problem: Agitation Purpose: Inc Direction following, Increase stimulation, Increased self awareness, socialization Level of Participation: Absent Behaviors or Symptoms Observed: Interventions: Reframing Response: Plan: Group Participation Additional Comments: SW will continue to try to engage pt.
--- NOTE | 2017-05-12 16:16 | NUR ---
CRISTOPHER contacted PT's dtr/DPOA, Macy, regarding tx team phone call and dc plans. Macy reported to this SW she had her hearing mtg. chuy/Pram[facility] Lawson regarding the appeal of the 30 day notice. Pram[facility] Lawson is still actively looking for placement, although they reported to Macy they understand PT. is their resident and will be taking him back at dc. CRISTOPHER will contact Macy for tx team and plan dc from the date provided by Dr. Lara.
[2017-05-12 16:18] VITALS: BP 142/94
--- NOTE | 2017-05-12 19:58 | PDOC ---
Exam Bran Demential Exam: Bran Note: Please also refer to the separate dictated note~for this date of service dictated separately.~Patient seen individually. Discussed the patient with Nursing staff reviewed the chart.~Reviewed interim history and current functioning. Reviewed vital signs,~Labs/ Radiology~and current medications noted below. Continue current treatment with the changes noted in the dictated addendum note Assessment: Vital Signs: Vital Signs Date Time Temp Pulse Resp B/P (MAP) Pulse Ox O2 Delivery O2 Flow Rate FiO2 05/12/17 16:18 97.4 113 20 142/94 (110) 92 05/09/17 06:09 Room Air I&O Intake and Output 05/13/17 07:00 Intake Total 1200 ml Balance 1200 ml Intake Oral 1200 ml Current Medications: Meds: Current Medications Olanzapine (ZyPREXA ZYDIS) 5 mg 1X ONCE PO ; Start 04/21/17 at 19:45; Stop at 19:46; Status DC Olanzapine (ZyPREXA IM) 10 mg 1X ONCE IM Last administered on 04/21/17 19:36 ; Start 04/21/17 at 19:45; Stop 04/21/17 at 19:46; Status DC Lorazepam (Ativan) 1 mg 1X ONCE IM Last administered on 04/21/17 20:10; Start 04/21/17 at 19:45; Stop 04/21/17 at 19:46; Status DC Divalproex Sodium (Depakote Sprinkles) 750 mg DAILY PO Last administered on 09:02; Start 04/22/17 at 09:00; Stop 04/26/17 at 10:38; Status DC Fluvoxamine Maleate (Luvox) 150 mg BID PO Last administered on 05/12/17 07:54 ; Start 04/22/17 at 09:00; Stop 05/12/17 at 17:58; Status DC Lorazepam (Ativan) 1 mg BID PO Last administered on 04/23/17 19:23; Start at 09:00; Stop 04/25/17 at 19:38; Status DC Mirtazapine (Remeron) 7.5 mg DAILY PO Last administered on 04/25/17 10:55; Start 04/22/17 at 09:00; Stop 04/25/17 at 19:37; Status DC Olanzapine (ZyPREXA) 20 mg DAILY PO Last administered on 04/22/17 08:17; Start 04/22/17 at 09:00; Stop 04/22/17 at 18:13; Status DC Bupropion HCl (Wellbutrin) 75 mg BID PO Last administered on 05/04/17 08:43; Start 04/22/17 at 09:00; Stop 05/04/17 at 16:14; Status DC Acetaminophen (Tylenol) 650 mg PRN Q6HRS PRN PO PAIN / TEMP; Start 04/22/17 at 01:00 Multi-Ingredient Ointment (Analgesic [place]) 1 berkley PRN QID PRN TP MUSCLE PAIN; Start 04/22/17 at 01:00 Al Hydroxide/Mg Hydroxide (Mylanta Plus Xs) 15 ml PRN AFTMEALHC PRN PO DYSPEPSIA; Start 04/22/17 at 01:00 Magnesium Hydroxide (Milk Of Magnesia) 2,400 mg PRN QHS PRN PO CONSTIPATION; Start 04/22/17 at 01:00 Haloperidol (Haldol) 2 mg TID PO Last administered on 04/24/17 08:05; Start at 09:00; Stop 04/24/17 at 11:02; Status DC Quetiapine Fumarate (SEROquel) 300 mg BID PO Last administered on 04/25/17 19: 10; Start 04/22/17 at 09:00; Stop 04/25/17 at 19:37; Status DC Olanzapine (ZyPREXA ZYDIS) 2.5 mg PRN Q2HR PRN PO PSYCHOSIS Last administered on 05/03/17 09:43; Start 04/22/17 at 01:30 Acetaminophen (Tylenol) 1,000 mg TID PO Last administered on 05/12/17 17:21; Start 04/22/17 at 09:00 Atorvastatin Calcium (Lipitor) 20 mg QHS PO Last administered on 05/11/17 19: 58; Start 04/22/17 at 21:00 Celecoxib (CeleBREX) 100 mg BID PO Last administered on 05/12/17 07:57; Start 04/22/17 at 09:00 Furosemide (Lasix) 40 mg DAILY PO Last administered on 05/12/17 07:51; Start 04/22/17 at 09:00 Levothyroxine Sodium (Synthroid) 175 mcg DAILYAC PO Last administered on 07:52; Start 04/22/17 at 08:45 Senna/Docusate Sodium (Senna Plus) 1 tab BID PO Last administered on 05/12/17 07:51; Start 04/22/17 at 09:00 Spironolactone (Aldactone) 25 mg DAILY PO Last administered on 05/12/17 07:52 ; Start 04/22/17 at 09:00 Tamsulosin HCl (Flomax) 0.4 mg DAILY PO Last administered on 05/12/17 07:52; Start 04/22/17 at 09:00 Vitamin D (Vitamin D3) 5,000 unit DAILY PO Last administered on 05/12/17 07:53 ; Start 04/22/17 at 09:00 Potassium Chloride (Klor-Con) 10 meq DAILYWBKFT PO Last administered on 07:57; Start 04/22/17 at 08:45 Olanzapine (ZyPREXA) 10 mg DAILY PO Last administered on 05/05/17 08:34; Start 04/23/17 at 09:00; Stop 05/05/17 at 18:27; Status DC Trazodone HCl (Desyrel) 100 mg QHS PO Last administered on 04/25/17 19:09; Start 04/22/17 at 21:00; Stop 04/25/17 at 19:37; Status DC Trazodone HCl (Desyrel) 100 mg QHS PRN PO INSOMNIA; Start 04/22/17 at 18:15; Stop 04/24/17 at 11:02; Status DC Trazodone HCl (Desyrel) 12.5 mg TID@0900,1300,1700 PO Last administered on 04/24 08:05; Start 04/23/17 at 09:00; Stop 04/25/17 at 19:37; Status DC Lorazepam (Ativan) 1 mg DAILY IV ; Start 04/23/17 at 09:00; Stop 04/23/17 at 09: 00; Status DC Lorazepam (Ativan) 1 mg DAILY IM Last administered on 04/24/17 07:47; Start at 09:00; Stop 04/24/17 at 11:02; Status DC Trazodone HCl (Desyrel) 100 mg PRN QHS PRN PO INSOMNIA Last administered on 19:21; Start 04/25/17 at 21:00 Lorazepam (Ativan) 0.5 mg TID PO Last administered on 04/27/17 19:22; Start at 09:00; Stop 04/27/17 at 21:05; Status DC Lorazepam (Ativan) 0.5 mg BID PO Last administered on 04/29/17 21:22; Start at 09:00; Stop 04/29/17 at 21:05; Status DC Lorazepam (Ativan) 0.5 mg DAILY PO Last administered on 05/01/17 08:13; Start 04/30/17 at 09:00; Stop 05/01/17 at 09:05; Status DC Divalproex Sodium (Depakote Sprinkles) 750 mg BID PO Last administered on 08:43; Start 04/26/17 at 21:00; Stop 05/04/17 at 16:14; Status DC Oxcarbazepine (Trileptal) 300 mg BID92 PO Last administered on 05/06/17 13:33; Start 05/05/17 at 09:00; Stop 05/06/17 at 21:00; Status DC Haloperidol (Haldol) 1 mg BID92 PO Last administered on 05/09/17 13:23; Start 05/05/17 at 09:00; Stop 05/09/17 at 17:40; Status DC Olanzapine (ZyPREXA) 5 mg QHS PO Last administered on 05/11/17 19:57; Start at 21:00 Oxcarbazepine (Trileptal) 300 mg TID PO Last administered on 05/12/17 17:21; Start 05/07/17 at 09:00 Haloperidol (Haldol) 2 mg BID92 PO Last administered on 05/12/17 17:21; Start 05/10/17 at 09:00 Aripiprazole (Abilify) 2.5 mg DAILY PO Last administered on 9/13/17at 07:57; Start 05/12/17 at 09:00 Aripiprazole (Abilify) 2.5 mg DAILY PO ; Start 05/12/17 at 09:00; Stop 05/12/17 at 09:00; Status DC Fluvoxamine Maleate (Luvox) 150 mg QHS PO ; Start 05/12/17 at 21:00 Fluvoxamine Maleate (Luvox) 100 mg DAILY PO ; Start 05/13/17 at 09:00 Active Scripts Active Reported Trazodone Hcl 100 Mg Tablet 100 Mg PO PRN QHS PRN Potassium Chloride 10 Meq Tablet.er 10 Meq PO DAILYWBKFT Zyprexa (Olanzapine) 2.5 Mg Tablet 2.5 Mg PO PRN Q2HR PRN Analgesic [place] (Methyl Salicylate/Menthol) 28 Gm Oint...g. 1 Berkley TP PRN QID PRN Mag-Al Plus Xs Suspension (Mag Hydrox/Al Hydrox/Simeth) 30 Ml Oral.susp 15 Ml PO PRN AFTMEALHC PRN Tylenol (Acetaminophen) 325 Mg Tablet 650 Mg PO PRN Q6HRS PRN Atorvastatin Calcium 20 Mg Tablet 20 Mg PO QHS Vitamin D3 (Cholecalciferol (Vitamin D3)) 5,000 Unit Tablet 5,000 Unit PO DAILY Aldactone (Spironolactone) 25 Mg Tablet 25 Mg PO DAILY Tamsulosin Hcl 0.4 Mg Cap.er.24h 0.4 Mg PO DAILY Celebrex (Celecoxib) 100 Mg Capsule 100 Mg PO BID Senna-S Tablet (Sennosides/Docusate Sodium) 1 Each Tablet 1 Each PO BID Lasix (Furosemide) 40 Mg Tablet 40 Mg PO DAILY Depakote Sprinkle (Divalproex Sodium) 125 Mg Cap.sprink 750 Mg PO BID Acetaminophen 500 Mg Tablet 1,000 Mg PO TID Levothyroxine Sodium 175 Mcg Tablet 175 Mcg PO DAILYAC Olanzapine 20 Mg Tablet 10 Mg PO DAILY [bupropion hcl] 75 Mg PO BID Fluvoxamine Maleate 100 Mg Tablet 150 Mg PO BID Diagnosis: Problems: (1) Dementia in [place]'s disease with behavioral disturbance (2) Anxiety disorder (3) Impulse control disorder (4) Major depressive disorder, recurrent episode (5) 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
[2017-05-12] MEDS: OLANZapine 5 MG TABLET PO SCH (20:31)
[2017-05-12] MEDS: ATORVASTATIN CALCIUM 20 MG TABLET PO SCH (20:31)
--- NOTE | 2017-05-12 21:00 | NUR ---
Behavior Intervention Response and Plan: BIRP Note: Behavior: Assumed Care of patient, patient located in Patient Room at shift change. Patient exhibited the following behavior calm, Disorganized, Delusions. Brief assessment on rounds of vital signs, medication needs, lab studies, and pain. Treatment plan problems 1-2. Intervention: Patient assessed and the following interventions initiated safety checks 15 Minute Checks Personal Alarm in place , Cognitive Assessment , Head to toe Assessment, Oral Hydration, Nutrition. Response: After interactions and interventions patient responded in the following manner, Disorganized, Compliant ,Drowsy. Continue to assess behaviors and condition will continue to monitor throughout the shift as needed. Patient educated on ADL's, and hand hygiene. Plan: Continue to monitor Master Treatment Plan for patient's progress toward short term goals of Decreased Agitation, Decreased Aggression, intermediate goals to return to previous living setting vs placement. Continue to assess patient for changes in above assessment. Monitor for medication needs, pain, and safety concerns. Hourly rounding performed to ensure safe environment.
--- NOTE | 2017-05-13 03:36 | PN ---
DATE: 05/11/2017 This late entry 05/11/2017 covers elements not covered in my initial note of 05/11/2017. Met with the patient in the evening of 05/11/2017. He has been quite tearful and this has been quite significant, per nursing report. At times he is stating "I'm or I'm dying." He was placed in the isolation hallway to reduce stimuli, which seemed to worsen his mood lability. REVIEW OF SYSTEMS: Ambulation impaired, in a Broda chair. No CV, , pulmonary, eye, ENT system symptoms on review. MENTAL STATUS EXAM: Oriented to himself and situation. Speech is coherent, often responses monosyllabic. Abstraction fair, computation impaired, language function intact, attention span short. Mood and affect still labile, but better than before. LABORATORY DATA: Reviewed. IMPRESSION: Unchanged from initial note. PLAN: Continue Luvox 150 b.i.d. augment this with Abilify 2.5 mg a day. Maintain Zyprexa 5 mg at bedtime, trazodone 100 mg at bedtime, may repeat x 1, Trileptal 300 mg 3 times a day, Haldol 2 mg b.i.d. for his [place] chorea and agitation, Zyprexa as p.r.n., adjust further as clinically indicated. Review drug interactions, risk/benefit ratio favors no further. MAN Vimal GARRIDO MD DR: MEME/giana JOB#: [id number] / [id number]
[2017-05-13 06:15] VITALS: BP 145/78
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
[2017-05-13] MEDS: LEVOTHYROXINE 175 MCG TABLET PO SCH (07:33)
[2017-05-13] MEDS: TAMSULOSIN 0.4 MG CAP.ER.24H. PO SCH (08:32)
[2017-05-13] MEDS: SENNOSIDES/DOCUSATE 8.6/50MG TABLET. PO SCH ×2 (08:32→20:00)
[2017-05-13] MEDS: SPIRONOLACTONE 25 MG TABLET PO SCH (08:32)
[2017-05-13] MEDS: FUROSEMIDE 40 MG TABLET PO SCH (08:32)
[2017-05-13] MEDS: ARIPiprazole 5 MG TABLET PO SCH (08:33)
[2017-05-13] MEDS: ACETAMINOPHEN 500 MG TABLET PO SCH ×3 (08:33→19:59)
[2017-05-13] MEDS: CHOLECALCIFEROL (VITAMIN D3) 1,000 UNIT TABLET PO SCH (08:33)
[2017-05-13] MEDS: HALOPERIDOL 1 MG TABLET PO SCH ×2 (08:34→13:55)
[2017-05-13] MEDS: POTASSIUM CHLORIDE 10 MEQ TABLET.ER. PO SCH (08:34)
[2017-05-13] MEDS: CELECOXIB 100 MG CAPSULE PO SCH ×2 (08:37→19:59)
--- NOTE | 2017-05-13 09:10 | NUR ---
THERAPEUTIC RECREATION GROUP NOTE TITLE :Movie- REPORTED BY CNAs ACTIVITY : Activities and Games GOAL : Increase alertness, focus, decrease stress DURATION : 90 minutes RESPONSE : No participation
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
--- NOTE | 2017-05-13 11:30 | NUR ---
THERAPEUTIC RECREATION GROUP NOTE TITLE :Movement to Music:Strength ACTIVITY : Movement/ Exercise GOAL : Increase morale, attention, flexibility. Decrease stress/anxiety. DURATION : 30 Minutes RESPONSE : No participation
--- NOTE | 2017-05-13 13:08 | NUR ---
CRISTOPHER contacted Pt's dtr/dpancelmo, Macy to discuss am behaviors and continued med adjustments. [facility] date set for middle of next week. SW will follow up w/Leatha regarding dc on Wednesday next week. CRISTOPHER faxed updated medication list to [facility] w/new [facility] dc date. Per Macy, a mtg w/ [facility] and family occurred earlier this week and they are stating they will take Pt. back and continue to look for alternative placement. They reported to Macy they are supportive of this facility continuing to make necessary medication adjustments to fully address Pt's behaviors before returning to [facility].
--- NOTE | 2017-05-13 14:34 | NUR ---
Group Note [facility] Group Type: "The Ungame" Start time: 1:00pm End time: 2:00pm Problem: Socializing Purpose: Getting to know each other Level of Participation: Absent. Behavior or symptom observed: Intervention: Response: Plan: Group Participation.
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
--- NOTE | 2017-05-13 15:15 | NUR ---
THERAPEUTIC RECREATION GROUP NOTE TITLE :Internal Clock and Daily Schedule ACTIVITY : Education and Life Skills GOAL : Increase self-expression/insight, coping skills, attention. DURATION : 60 minutes RESPONSE : No participation
--- NOTE | 2017-05-13 15:19 | NUR ---
Nursing Note: Pt became agitated and began flailing in his chair yelling out. Pt given PRN and 5 staff members carried pt to quiet room and placed him on mattress on the floor for safety.
[2017-05-13 16:29] VITALS: BP 96/63
[2017-05-13] MEDS: OLANZapine 5 MG TABLET PO SCH (20:00)
[2017-05-13] MEDS: ATORVASTATIN CALCIUM 20 MG TABLET PO SCH (20:00)
--- NOTE | 2017-05-13 20:13 | PDOC ---
Exam Bran Demential Exam: Bran Note: Please also refer to the separate dictated note~for this date of service dictated separately.~Patient seen individually. Discussed the patient with Nursing staff reviewed the chart.~Reviewed interim history and current functioning. Reviewed vital signs,~Labs/ Radiology~and current medications noted below. Continue current treatment with the changes noted in the dictated addendum note Assessment: Vital Signs: Vital Signs Date Time Temp Pulse Resp B/P (MAP) Pulse Ox O2 Delivery O2 Flow Rate FiO2 05/13/17 16:29 97.9 82 18 96/63 (74) 92 05/09/17 06:09 Room Air I&O Intake and Output 05/14/17 06:59 Intake Total 600 ml Balance 600 ml Intake Oral 600 ml Current Medications: Meds: Current Medications Olanzapine (ZyPREXA ZYDIS) 5 mg 1X ONCE PO ; Start 04/21/17 at 19:45; Stop at 19:46; Status DC Olanzapine (ZyPREXA IM) 10 mg 1X ONCE IM Last administered on 04/21/17 19:36 ; Start 04/21/17 at 19:45; Stop 04/21/17 at 19:46; Status DC Lorazepam (Ativan) 1 mg 1X ONCE IM Last administered on 04/21/17 20:10; Start 04/21/17 at 19:45; Stop 04/21/17 at 19:46; Status DC Divalproex Sodium (Depakote Sprinkles) 750 mg DAILY PO Last administered on 09:02; Start 04/22/17 at 09:00; Stop 04/26/17 at 10:38; Status DC Fluvoxamine Maleate (Luvox) 150 mg BID PO Last administered on 05/12/17 07:54 ; Start 04/22/17 at 09:00; Stop 05/12/17 at 17:58; Status DC Lorazepam (Ativan) 1 mg BID PO Last administered on 04/23/17 19:23; Start at 09:00; Stop 04/25/17 at 19:38; Status DC Mirtazapine (Remeron) 7.5 mg DAILY PO Last administered on 04/25/17 10:55; Start 04/22/17 at 09:00; Stop 04/25/17 at 19:37; Status DC Olanzapine (ZyPREXA) 20 mg DAILY PO Last administered on 04/22/17 08:17; Start 04/22/17 at 09:00; Stop 04/22/17 at 18:13; Status DC Bupropion HCl (Wellbutrin) 75 mg BID PO Last administered on 05/04/17 08:43; Start 04/22/17 at 09:00; Stop 05/04/17 at 16:14; Status DC Acetaminophen (Tylenol) 650 mg PRN Q6HRS PRN PO PAIN / TEMP; Start 04/22/17 at 01:00 Multi-Ingredient Ointment (Analgesic [place]) 1 berkley PRN QID PRN TP MUSCLE PAIN; Start 04/22/17 at 01:00 Al Hydroxide/Mg Hydroxide (Mylanta Plus Xs) 15 ml PRN AFTMEALHC PRN PO DYSPEPSIA; Start 04/22/17 at 01:00 Magnesium Hydroxide (Milk Of Magnesia) 2,400 mg PRN QHS PRN PO CONSTIPATION; Start 04/22/17 at 01:00 Haloperidol (Haldol) 2 mg TID PO Last administered on 04/24/17 08:05; Start at 09:00; Stop 04/24/17 at 11:02; Status DC Quetiapine Fumarate (SEROquel) 300 mg BID PO Last administered on 04/25/17 19: 10; Start 04/22/17 at 09:00; Stop 04/25/17 at 19:37; Status DC Olanzapine (ZyPREXA ZYDIS) 2.5 mg PRN Q2HR PRN PO PSYCHOSIS Last administered on 05/13/17 15:14; Start 04/22/17 at 01:30 Acetaminophen (Tylenol) 1,000 mg TID PO Last administered on 05/13/17 19:59; Start 04/22/17 at 09:00 Atorvastatin Calcium (Lipitor) 20 mg QHS PO Last administered on 05/13/17 20: 00; Start 04/22/17 at 21:00 Celecoxib (CeleBREX) 100 mg BID PO Last administered on 05/13/17 19:59; Start 04/22/17 at 09:00 Furosemide (Lasix) 40 mg DAILY PO Last administered on 05/13/17 08:32; Start 04/22/17 at 09:00 Levothyroxine Sodium (Synthroid) 175 mcg DAILYAC PO Last administered on 07:33; Start 04/22/17 at 08:45 Senna/Docusate Sodium (Senna Plus) 1 tab BID PO Last administered on 05/13/17 20:00; Start 04/22/17 at 09:00 Spironolactone (Aldactone) 25 mg DAILY PO Last administered on 05/13/17 08:32 ; Start 04/22/17 at 09:00 Tamsulosin HCl (Flomax) 0.4 mg DAILY PO Last administered on 05/13/17 08:32; Start 04/22/17 at 09:00 Vitamin D (Vitamin D3) 5,000 unit DAILY PO Last administered on 05/13/17 08:33 ; Start 04/22/17 at 09:00 Potassium Chloride (Klor-Con) 10 meq DAILYWBKFT PO Last administered on 08:34; Start 04/22/17 at 08:45 Olanzapine (ZyPREXA) 10 mg DAILY PO Last administered on 05/05/17 08:34; Start 04/23/17 at 09:00; Stop 05/05/17 at 18:27; Status DC Trazodone HCl (Desyrel) 100 mg QHS PO Last administered on 04/25/17 19:09; Start 04/22/17 at 21:00; Stop 04/25/17 at 19:37; Status DC Trazodone HCl (Desyrel) 100 mg QHS PRN PO INSOMNIA; Start 04/22/17 at 18:15; Stop 04/24/17 at 11:02; Status DC Trazodone HCl (Desyrel) 12.5 mg TID@0900,1300,1700 PO Last administered on 04/24 08:05; Start 04/23/17 at 09:00; Stop 04/25/17 at 19:37; Status DC Lorazepam (Ativan) 1 mg DAILY IV ; Start 04/23/17 at 09:00; Stop 04/23/17 at 09: 00; Status DC Lorazepam (Ativan) 1 mg DAILY IM Last administered on 04/24/17 07:47; Start at 09:00; Stop 04/24/17 at 11:02; Status DC Trazodone HCl (Desyrel) 100 mg PRN QHS PRN PO INSOMNIA Last administered on 19:21; Start 04/25/17 at 21:00 Lorazepam (Ativan) 0.5 mg TID PO Last administered on 04/27/17 19:22; Start at 09:00; Stop 04/27/17 at 21:05; Status DC Lorazepam (Ativan) 0.5 mg BID PO Last administered on 04/29/17 21:22; Start at 09:00; Stop 04/29/17 at 21:05; Status DC Lorazepam (Ativan) 0.5 mg DAILY PO Last administered on 05/01/17 08:13; Start 04/30/17 at 09:00; Stop 05/01/17 at 09:05; Status DC Divalproex Sodium (Depakote Sprinkles) 750 mg BID PO Last administered on 08:43; Start 04/26/17 at 21:00; Stop 05/04/17 at 16:14; Status DC Oxcarbazepine (Trileptal) 300 mg BID92 PO Last administered on 05/06/17 13:33; Start 05/05/17 at 09:00; Stop 05/06/17 at 21:00; Status DC Haloperidol (Haldol) 1 mg BID92 PO Last administered on 05/09/17 13:23; Start 05/05/17 at 09:00; Stop 05/09/17 at 17:40; Status DC Olanzapine (ZyPREXA) 5 mg QHS PO Last administered on 05/13/17 20:00; Start at 21:00 Oxcarbazepine (Trileptal) 300 mg TID PO Last administered on 05/13/17 08:34; Start 05/07/17 at 09:00; Stop 05/13/17 at 11:19; Status DC Haloperidol (Haldol) 2 mg BID92 PO Last administered on 05/13/17 13:55; Start 05/10/17 at 09:00 Aripiprazole (Abilify) 2.5 mg DAILY PO Last administered on 05/13/17 08:33; Start 05/12/17 at 09:00 Aripiprazole (Abilify) 2.5 mg DAILY PO ; Start 05/12/17 at 09:00; Stop 05/12/17 at 09:00; Status DC Fluvoxamine Maleate (Luvox) 150 mg QHS PO Last administered on 05/12/17 20:31 ; Start 05/12/17 at 21:00; Stop 05/13/17 at 11:18; Status DC Fluvoxamine Maleate (Luvox) 100 mg DAILY PO Last administered on 05/13/17 08: 37; Start 05/13/17 at 09:00; Stop 05/13/17 at 11:18; Status DC Fluvoxamine Maleate (Luvox) 150 mg BID PO Last administered on 05/13/17 20:02 ; Start 05/13/17 at 21:00 Oxcarbazepine (Trileptal) 300 mg BID@0900,1400 PO Last administered on 13:55; Start 05/13/17 at 14:00 Oxcarbazepine (Trileptal) 600 mg QHS PO Last administered on 05/13/17 20:02; Start 05/13/17 at 21:00 Active Scripts Active Reported Trazodone Hcl 100 Mg Tablet 100 Mg PO PRN QHS PRN Potassium Chloride 10 Meq Tablet.er 10 Meq PO DAILYWBKFT Zyprexa (Olanzapine) 2.5 Mg Tablet 2.5 Mg PO PRN Q2HR PRN Analgesic [place] (Methyl Salicylate/Menthol) 28 Gm Oint...g. 1 Berkley TP PRN QID PRN Mag-Al Plus Xs Suspension (Mag Hydrox/Al Hydrox/Simeth) 30 Ml Oral.susp 15 Ml PO PRN AFTMEALHC PRN Tylenol (Acetaminophen) 325 Mg Tablet 650 Mg PO PRN Q6HRS PRN Atorvastatin Calcium 20 Mg Tablet 20 Mg PO QHS Vitamin D3 (Cholecalciferol (Vitamin D3)) 5,000 Unit Tablet 5,000 Unit PO DAILY Aldactone (Spironolactone) 25 Mg Tablet 25 Mg PO DAILY Tamsulosin Hcl 0.4 Mg Cap.er.24h 0.4 Mg PO DAILY Celebrex (Celecoxib) 100 Mg Capsule 100 Mg PO BID Senna-S Tablet (Sennosides/Docusate Sodium) 1 Each Tablet 1 Each PO BID Lasix (Furosemide) 40 Mg Tablet 40 Mg PO DAILY Depakote Sprinkle (Divalproex Sodium) 125 Mg Cap.sprink 750 Mg PO BID Acetaminophen 500 Mg Tablet 1,000 Mg PO TID Levothyroxine Sodium 175 Mcg Tablet 175 Mcg PO DAILYAC Olanzapine 20 Mg Tablet 10 Mg PO DAILY [bupropion hcl] 75 Mg PO BID Fluvoxamine Maleate 100 Mg Tablet 150 Mg PO BID Diagnosis: Problems: (1) Anxiety disorder (2) Dementia in [place]'s disease with behavioral disturbance (3) Impulse control disorder (4) Major depressive disorder, recurrent episode (5) Disorder of vitamin D (6) 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
--- NOTE | 2017-05-13 22:48 | NUR ---
Behavior Intervention Response and Plan: BIRP Note: Behavior: Assumed Care of patient, patient located in Hallway at shift change. Patient exhibited the following behavior Labile, Disorganized, Cooperative. Brief assessment on rounds of vital signs, medication needs, lab studies, and pain. Treatment plan problems 1-2. Intervention: Patient assessed and the following interventions initiated safety checks 15 Minute Checks Personal Alarm in place , Cognitive Assessment , Head to toe Assessment, Oral Hydration, Nutrition. Response: After interactions and interventions patient responded in the following manner, Disorganized, Compliant ,Drowsy. Continue to assess behaviors and condition will continue to monitor throughout the shift as needed. Patient educated on ADL's, and hand hygiene. Plan: Continue to monitor Master Treatment Plan for patient's progress toward short term goals of Decreased Agitation, Decreased Aggression, intermediate manager goals to return to previous living setting vs placement. Continue to assess patient for changes in above assessment. Monitor for medication needs, pain, and safety concerns. Hourly rounding performed to ensure safe environment.
[2017-05-14 05:54] VITALS: BP 115/63
--- NOTE | 2017-05-14 07:28 | PN ---
DATE: 05/12/2017 PSYCHIATRIC PROGRESS NOTE This is a late entry for 05/12/2017. This note covers elements not covered in my initial note of 05/12/2017. I met with the patient the evening of 05/12/2017. The patient slept 9-3/4 hours the previous evening. He has been tearful, drowsy, at times sedated during the day, did not eat any lunch, nursing staff attempted to feed him. He has been flat, withdrawn, refusing physical therapy, later walked with PT. REVIEW OF SYSTEMS: Ambulation impaired, in a Broda chair. No CV, , pulmonary, eye, ENT system symptoms on review. Reliability poor. MENTAL STATUS EXAM: Oriented to himself and situation. Speech, often responses monosyllabic. Abstraction fair, computation impaired, language function intact, attention span short, mood and affect somewhat withdrawn, tired. LABORATORY DATA: Reviewed. IMPRESSION: Unchanged from initial note. PLAN: Given his daytime sedation, we will reduce the morning Luvox from 150 mg a day to 100 mg a day, continue 150 mg in the evening. Maintain the rest of the psychotropics. Reviewed drug contractions, risk/benefit ratio favors no further change . LIDIA GARRIDO MD DR: MEME/giana JOB#: [id number] / [id number]
[2017-05-14] MEDS: CELECOXIB 100 MG CAPSULE PO SCH ×2 (07:46→20:03)
[2017-05-14] MEDS: ARIPiprazole 5 MG TABLET PO SCH (07:48)
[2017-05-14] MEDS: FUROSEMIDE 40 MG TABLET PO SCH (07:48)
[2017-05-14] MEDS: SENNOSIDES/DOCUSATE 8.6/50MG TABLET. PO SCH ×2 (07:48→20:01)
[2017-05-14] MEDS: POTASSIUM CHLORIDE 10 MEQ TABLET.ER. PO SCH (07:48)
[2017-05-14] MEDS: SPIRONOLACTONE 25 MG TABLET PO SCH (07:48)
[2017-05-14] MEDS: TAMSULOSIN 0.4 MG CAP.ER.24H. PO SCH (07:48)
[2017-05-14] MEDS: ACETAMINOPHEN 500 MG TABLET PO SCH ×3 (07:48→19:59)
[2017-05-14] MEDS: HALOPERIDOL 1 MG TABLET PO SCH ×2 (07:49→13:29)
[2017-05-14] MEDS: LEVOTHYROXINE 175 MCG TABLET PO SCH (07:49)
[2017-05-14] MEDS: CHOLECALCIFEROL (VITAMIN D3) 1,000 UNIT TABLET PO SCH (07:49)
--- NOTE | 2017-05-14 08:46 | NUR ---
Behavior Intervention Response and Plan: BIRP Note: Behavior: Assumed Care of patient, patient located in Quiet Room at shift change. Patient exhibited the following behavior Disorganized, Restless, Cooperative. Brief assessment on rounds of vital signs, medication needs, lab studies, and pain. Treatment plan problems . Intervention: Patient assessed and the following interventions initiated safety checks 15 Minute Checks Cognitive Assessment , Head to toe Assessment , Medications. Response: After interactions and interventions patient responded in the following manner, Disorganized , Restless ,Compliant. Continue to assess behaviors and condition will continue to monitor throughout the shift as needed. Patient educated on ADL's, and hand hygiene. 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 Continue to assess patient for changes in above assessment. Monitor for medication needs, pain, and safety concerns. Hourly rounding performed to ensure safe environment.
--- NOTE | 2017-05-14 10:00 | NUR ---
THERAPEUTIC RECREATION GROUP NOTE TITLE :Ball Bounce and Daily Awareness ACTIVITY : Activities and Games GOAL : Increase alertness, focus, decrease stress DURATION : 60 minutes RESPONSE : Full participation. Pt. was with the group the entire time. He was pleasant and calm the first half of the session. He was able to track/catch the ball and bounce it back with little trouble. At one point, he stated he needed to kill someone (SANDBLASTING SUPERVISOR could not understand the name). SANDBLASTING SUPERVISOR redirected Pt. to staying positive and explained that is inappropriate. Pt. appeared to understand and he remained appropriate the rest of the session.
--- NOTE | 2017-05-14 11:30 | NUR ---
THERAPEUTIC RECREATION GROUP NOTE TITLE :Movement to Music: Flexibility ACTIVITY : Movement/ Exercise GOAL : Increase morale, attention, flexibility. Decrease stress/anxiety. DURATION : 30 Minutes RESPONSE : Minimal participation. Pt. was with the group the entire time and needed assistance following along with moves.
--- NOTE | 2017-05-14 14:20 | NUR ---
THERAPEUTIC RECREATION GROUP NOTE TITLE :Bingo ACTIVITY : Activities and Games GOAL : Increase alertness, focus, morale, decrease stress, team building, positive communication DURATION : 50 Minutes RESPONSE : Full participation. Pt. was calm, alert, pleasant and played independently most of the time. Needed occasional reminders and redirection.
[2017-05-14 16:39] VITALS: BP 151/95
--- NOTE | 2017-05-14 16:56 | NUR ---
pt up in broda for meals. has been compliant with meds and cares. doing well today. able to be in day room with others. out to meals in
[2017-05-14] MEDS: ATORVASTATIN CALCIUM 20 MG TABLET PO SCH (19:59)
[2017-05-14] MEDS: OLANZapine 5 MG TABLET PO SCH (20:00)
--- NOTE | 2017-05-14 20:41 | PDOC ---
Exam Bran Demential Exam: Bran Note: Please also refer to the separate dictated note~for this date of service dictated separately.~Patient seen individually. Discussed the patient with Nursing staff reviewed the chart.~Reviewed interim history and current functioning. Reviewed vital signs,~Labs/ Radiology~and current medications noted below. Continue current treatment with the changes noted in the dictated addendum note Assessment: Vital Signs: Vital Signs Date Time Temp Pulse Resp B/P (MAP) Pulse Ox O2 Delivery O2 Flow Rate FiO2 05/14/17 16:39 98.6 95 18 151/95 (113) 92 Room Air I&O Intake and Output 05/15/17 07:00 Intake Total 1500 ml Balance 1500 ml Intake Oral 1500 ml Current Medications: Meds: Current Medications Olanzapine (ZyPREXA ZYDIS) 5 mg 1X ONCE PO ; Start 04/21/17 at 19:45; Stop at 19:46; Status DC Olanzapine (ZyPREXA IM) 10 mg 1X ONCE IM Last administered on 04/21/17 19:36 ; Start 04/21/17 at 19:45; Stop 04/21/17 at 19:46; Status DC Lorazepam (Ativan) 1 mg 1X ONCE IM Last administered on 04/21/17 20:10; Start 04/21/17 at 19:45; Stop 04/21/17 at 19:46; Status DC Divalproex Sodium (Depakote Sprinkles) 750 mg DAILY PO Last administered on 09:02; Start 04/22/17 at 09:00; Stop 04/26/17 at 10:38; Status DC Fluvoxamine Maleate (Luvox) 150 mg BID PO Last administered on 05/12/17 07:54 ; Start 04/22/17 at 09:00; Stop 05/12/17 at 17:58; Status DC Lorazepam (Ativan) 1 mg BID PO Last administered on 04/23/17 19:23; Start at 09:00; Stop 04/25/17 at 19:38; Status DC Mirtazapine (Remeron) 7.5 mg DAILY PO Last administered on 04/25/17 10:55; Start 04/22/17 at 09:00; Stop 04/25/17 at 19:37; Status DC Olanzapine (ZyPREXA) 20 mg DAILY PO Last administered on 04/22/17 08:17; Start 04/22/17 at 09:00; Stop 04/22/17 at 18:13; Status DC Bupropion HCl (Wellbutrin) 75 mg BID PO Last administered on 05/04/17 08:43; Start 04/22/17 at 09:00; Stop 05/04/17 at 16:14; Status DC Acetaminophen (Tylenol) 650 mg PRN Q6HRS PRN PO PAIN / TEMP; Start 04/22/17 at 01:00 Multi-Ingredient Ointment (Analgesic [place]) 1 berkley PRN QID PRN TP MUSCLE PAIN; Start 04/22/17 at 01:00 Al Hydroxide/Mg Hydroxide (Mylanta Plus Xs) 15 ml PRN AFTMEALHC PRN PO DYSPEPSIA; Start 04/22/17 at 01:00 Magnesium Hydroxide (Milk Of Magnesia) 2,400 mg PRN QHS PRN PO CONSTIPATION; Start 04/22/17 at 01:00 Haloperidol (Haldol) 2 mg TID PO Last administered on 04/24/17 08:05; Start at 09:00; Stop 04/24/17 at 11:02; Status DC Quetiapine Fumarate (SEROquel) 300 mg BID PO Last administered on 04/25/17 19: 10; Start 04/22/17 at 09:00; Stop 04/25/17 at 19:37; Status DC Olanzapine (ZyPREXA ZYDIS) 2.5 mg PRN Q2HR PRN PO PSYCHOSIS Last administered on 05/13/17 15:14; Start 04/22/17 at 01:30 Acetaminophen (Tylenol) 1,000 mg TID PO Last administered on 05/14/17 19:59; Start 04/22/17 at 09:00 Atorvastatin Calcium (Lipitor) 20 mg QHS PO Last administered on 05/14/17 19: 59; Start 04/22/17 at 21:00 Celecoxib (CeleBREX) 100 mg BID PO Last administered on 05/14/17 20:03; Start 04/22/17 at 09:00 Furosemide (Lasix) 40 mg DAILY PO Last administered on 05/14/17 07:48; Start 04/22/17 at 09:00 Levothyroxine Sodium (Synthroid) 175 mcg DAILYAC PO Last administered on 07:49; Start 04/22/17 at 08:45 Senna/Docusate Sodium (Senna Plus) 1 tab BID PO Last administered on 05/14/17 20:01; Start 04/22/17 at 09:00 Spironolactone (Aldactone) 25 mg DAILY PO Last administered on 05/14/17 07:48 ; Start 04/22/17 at 09:00 Tamsulosin HCl (Flomax) 0.4 mg DAILY PO Last administered on 05/14/17 07:48; Start 04/22/17 at 09:00 Vitamin D (Vitamin D3) 5,000 unit DAILY PO Last administered on 05/14/17 07:49 ; Start 04/22/17 at 09:00 Potassium Chloride (Klor-Con) 10 meq DAILYWBKFT PO Last administered on 07:48; Start 04/22/17 at 08:45 Olanzapine (ZyPREXA) 10 mg DAILY PO Last administered on 05/05/17 08:34; Start 04/23/17 at 09:00; Stop 05/05/17 at 18:27; Status DC Trazodone HCl (Desyrel) 100 mg QHS PO Last administered on 04/25/17 19:09; Start 04/22/17 at 21:00; Stop 04/25/17 at 19:37; Status DC Trazodone HCl (Desyrel) 100 mg QHS PRN PO INSOMNIA; Start 04/22/17 at 18:15; Stop 04/24/17 at 11:02; Status DC Trazodone HCl (Desyrel) 12.5 mg TID@0900,1300,1700 PO Last administered on 04/24 08:05; Start 04/23/17 at 09:00; Stop 04/25/17 at 19:37; Status DC Lorazepam (Ativan) 1 mg DAILY IV ; Start 04/23/17 at 09:00; Stop 04/23/17 at 09: 00; Status DC Lorazepam (Ativan) 1 mg DAILY IM Last administered on 04/24/17 07:47; Start at 09:00; Stop 04/24/17 at 11:02; Status DC Trazodone HCl (Desyrel) 100 mg PRN QHS PRN PO INSOMNIA Last administered on 19:21; Start 04/25/17 at 21:00 Lorazepam (Ativan) 0.5 mg TID PO Last administered on 04/27/17 19:22; Start at 09:00; Stop 04/27/17 at 21:05; Status DC Lorazepam (Ativan) 0.5 mg BID PO Last administered on 04/29/17 21:22; Start at 09:00; Stop 04/29/17 at 21:05; Status DC Lorazepam (Ativan) 0.5 mg DAILY PO Last administered on 05/01/17 08:13; Start 04/30/17 at 09:00; Stop 05/01/17 at 09:05; Status DC Divalproex Sodium (Depakote Sprinkles) 750 mg BID PO Last administered on 08:43; Start 04/26/17 at 21:00; Stop 05/04/17 at 16:14; Status DC Oxcarbazepine (Trileptal) 300 mg BID92 PO Last administered on 05/06/17 13:33; Start 05/05/17 at 09:00; Stop 05/06/17 at 21:00; Status DC Haloperidol (Haldol) 1 mg BID92 PO Last administered on 05/09/17 13:23; Start 05/05/17 at 09:00; Stop 05/09/17 at 17:40; Status DC Olanzapine (ZyPREXA) 5 mg QHS PO Last administered on 05/14/17 20:00; Start at 21:00 Oxcarbazepine (Trileptal) 300 mg TID PO Last administered on 05/13/17 08:34; Start 05/07/17 at 09:00; Stop 05/13/17 at 11:19; Status DC Haloperidol (Haldol) 2 mg [id number] PO Last administered on 05/14/17 13:29; Start 05/10/17 at 09:00 Aripiprazole (Abilify) 2.5 mg DAILY PO Last administered on 05/14/17 07:48; Start 05/12/17 at 09:00 Aripiprazole (Abilify) 2.5 mg DAILY PO ; Start 05/12/17 at 09:00; Stop 05/12/17 at 09:00; Status DC Fluvoxamine Maleate (Luvox) 150 mg QHS PO Last administered on 05/12/17 20:31 ; Start 05/12/17 at 21:00; Stop 05/13/17 at 11:18; Status DC Fluvoxamine Maleate (Luvox) 100 mg DAILY PO Last administered on 05/13/17 08: 37; Start 05/13/17 at 09:00; Stop 05/13/17 at 11:18; Status DC Fluvoxamine Maleate (Luvox) 150 mg BID PO Last administered on 05/14/17 20:00 ; Start 05/13/17 at 21:00 Oxcarbazepine (Trileptal) 300 mg BID@0900,1400 PO Last administered on 13:29; Start 05/13/17 at 14:00 Oxcarbazepine (Trileptal) 600 mg QHS PO Last administered on 05/14/17 20:00; Start 05/13/17 at 21:00 Active Scripts Active Reported Trazodone Hcl 100 Mg Tablet 100 Mg PO PRN QHS PRN Potassium Chloride 10 Meq Tablet.er 10 Meq PO DAILYWBKFT Zyprexa (Olanzapine) 2.5 Mg Tablet 2.5 Mg PO PRN Q2HR PRN Analgesic [place] (Methyl Salicylate/Menthol) 28 Gm Oint...g. 1 Berkley TP PRN QID PRN Mag-Al Plus Xs Suspension (Mag Hydrox/Al Hydrox/Simeth) 30 Ml Oral.susp 15 Ml PO PRN AFTMEALHC PRN Tylenol (Acetaminophen) 325 Mg Tablet 650 Mg PO PRN Q6HRS PRN Atorvastatin Calcium 20 Mg Tablet 20 Mg PO QHS Vitamin D3 (Cholecalciferol (Vitamin D3)) 5,000 Unit Tablet 5,000 Unit PO DAILY Aldactone (Spironolactone) 25 Mg Tablet 25 Mg PO DAILY Tamsulosin Hcl 0.4 Mg Cap.er.24h 0.4 Mg PO DAILY Celebrex (Celecoxib) 100 Mg Capsule 100 Mg PO BID Senna-S Tablet (Sennosides/Docusate Sodium) 1 Each Tablet 1 Each PO BID Lasix (Furosemide) 40 Mg Tablet 40 Mg PO DAILY Depakote Sprinkle (Divalproex Sodium) 125 Mg Cap.sprink 750 Mg PO BID Acetaminophen 500 Mg Tablet 1,000 Mg PO TID Levothyroxine Sodium 175 Mcg Tablet 175 Mcg PO DAILYAC Olanzapine 20 Mg Tablet 10 Mg PO DAILY [bupropion hcl] 75 Mg PO BID Fluvoxamine Maleate 100 Mg Tablet 150 Mg PO BID Diagnosis: Problems: (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
--- NOTE | 2017-05-15 02:15 | NUR ---
Behavior Intervention Response and Plan: BIRP Note: Behavior: Assumed Care of patient, patient located in Quiet Room at shift change. Patient exhibited the following behavior Disorganized, Calm, Cooperative. Brief assessment on rounds of vital signs, medication needs, lab studies, and pain. Treatment plan problems . Intervention: Patient assessed and the following interventions initiated safety checks 15 Minute Checks Cognitive Assessment , Head to toe Assessment , Medications. Response: After interactions and interventions patient responded in the following manner, Disorganized , Calm ,Compliant. Continue to assess behaviors and condition will continue to monitor throughout the shift as needed. Patient educated on ADL's, and hand hygiene. Plan: Continue to monitor Master Treatment Plan for patient's progress toward short term goals of Decreased Agitation, Decreased Aggression, longterm goals to return to previous living setting vs placement. Continue to assess patient for changes in above assessment. Monitor for medication needs, pain, and safety concerns. Hourly rounding performed to ensure safe environment.
--- NOTE | 2017-05-15 04:29 | PN ---
DATE: 05/13/2017 This late entry for 05/13/2017 covers elements not covered in my initial note of 05/13/2017. SUBJECTIVE: The patient was staffed at a treatment team meeting with the entire team in the morning of 05/13/2017 seen individually evening of 05/13/2017. At the treatment team meeting, reviewed the patient's history, diagnosis, discharge and aftercare plans. He slept 9 hours previous evening. The patient's daughter, Varsha was to attend, but was not available. He gets agitated, trying to throw himself out of the chair, took 5 staff members to take him to the quiet room, hit, screams, lashes out at staff at times, quite disruptive, received Zyprexa at 06:50 p.m. Again, threw himself out of the chair, punched nursing staff, crying, labile. REVIEW OF SYSTEMS: Ambulation impaired, in Broda chair. No CV, , pulmonary, eye, ENT system symptoms on review. MENTAL STATUS EXAM: Oriented to self, situations. He is trying to kick and hit me as I visited him. Insight, judgment, recent memory is impaired, attention span short, language function intact. Mood and affect remains intermittently labile. LABORATORY DATA: Reviewed. Valproic acid level 71, slept 6 hours previous evening 2 days ago. IMPRESSION: Unchanged from initial note. PLAN: Staff wonder whether some of his mood symptoms, obsessiveness has worsened since Luvox was reduced and we will increase it back to 150 mg twice a day, Trileptal 300 mg 3 times a day. We will increase to 300 mg twice a day and 600 mg at bedtime. Maintain Zyprexa 5 mg at bedtime, trazodone at night, Haldol 2 mg twice a day, Zyprexa Zydis p.r.n., Abilify 2.5 mg a day to augment the Luvox. Reviewed drug interactions. Risk/benefit ratio favors no further change as of now. LIDIA GARRIDO MD DR: MEME/giana JOB#: [id number] / [id number]
[2017-05-15] MEDS: LEVOTHYROXINE 175 MCG TABLET PO SCH (06:02)
[2017-05-15 06:14] VITALS: BP 120/83
[2017-05-15] MEDS: POTASSIUM CHLORIDE 10 MEQ TABLET.ER. PO SCH (09:16)
[2017-05-15] MEDS: ARIPiprazole 5 MG TABLET PO SCH (09:17)
[2017-05-15] MEDS: SPIRONOLACTONE 25 MG TABLET PO SCH (09:17)
[2017-05-15] MEDS: SENNOSIDES/DOCUSATE 8.6/50MG TABLET. PO SCH ×2 (09:18→21:07)
[2017-05-15] MEDS: FUROSEMIDE 40 MG TABLET PO SCH (09:18)
[2017-05-15] MEDS: HALOPERIDOL 1 MG TABLET PO SCH ×2 (09:18→13:34)
[2017-05-15] MEDS: TAMSULOSIN 0.4 MG CAP.ER.24H. PO SCH (09:18)
[2017-05-15] MEDS: CELECOXIB 100 MG CAPSULE PO SCH ×2 (09:18→21:09)
[2017-05-15] MEDS: CHOLECALCIFEROL (VITAMIN D3) 1,000 UNIT TABLET PO SCH (09:19)
[2017-05-15] MEDS: ACETAMINOPHEN 500 MG TABLET PO SCH ×3 (09:19→21:06)
--- NOTE | 2017-05-15 11:40 | NUR ---
Behavior Intervention Response and Plan: BIRP Note: Behavior: Assumed Care of patient, patient located in Quiet Room at shift change. Patient exhibited the following behavior Disorganized, Calm, appropriate, Cooperative. Brief assessment on rounds of vital signs, medication needs, lab studies, and pain. Treatment plan problems . Intervention: Patient assessed and the following interventions initiated safety checks 15 Minute Checks Cognitive Assessment , Head to toe Assessment , Medications. Response: After interactions and interventions patient responded in the following manner, Disorganized, appropriate, Calm, Compliant. Continue to assess behaviors and condition will continue to monitor throughout the shift as needed. Patient educated on ADL's, and hand hygiene. 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 Continue to assess patient for changes in above assessment. Monitor for medication needs, pain, and safety concerns. Hourly rounding performed to ensure safe environment.
[2017-05-15 15:50] VITALS: BP 116/81
[2017-05-15] MEDS: ATORVASTATIN CALCIUM 20 MG TABLET PO SCH (21:06)
[2017-05-15] MEDS: OLANZapine 5 MG TABLET PO SCH (21:06)
--- NOTE | 2017-05-15 23:00 | PDOC ---
Exam Bran Demential Exam: Bran Note: Please also refer to the separate dictated note~for this date of service dictated separately.~Patient seen individually. Discussed the patient with Nursing staff reviewed the chart.~Reviewed interim history and current functioning. Reviewed vital signs,~Labs/ Radiology~and current medications noted below. Continue current treatment with the changes noted in the dictated addendum note Assessment: Vital Signs: Vital Signs Date Time Temp Pulse Resp B/P (MAP) Pulse Ox O2 Delivery O2 Flow Rate FiO2 05/15/17 15:50 98.0 80 16 116/81 (93) 94 05/14/17 16:39 Room Air I&O Intake and Output 05/16/17 07:00 Intake Total 1560 ml Balance 1560 ml Intake Oral 1560 ml # Bowel Movements 1 Current Medications: Meds: Current Medications Olanzapine (ZyPREXA ZYDIS) 5 mg 1X ONCE PO ; Start 04/21/17 at 19:45; Stop at 19:46; Status DC Olanzapine (ZyPREXA IM) 10 mg 1X ONCE IM Last administered on 04/21/17 19:36 ; Start 04/21/17 at 19:45; Stop 04/21/17 at 19:46; Status DC Lorazepam (Ativan) 1 mg 1X ONCE IM Last administered on 04/21/17 20:10; Start 04/21/17 at 19:45; Stop 04/21/17 at 19:46; Status DC Divalproex Sodium (Depakote Sprinkles) 750 mg DAILY PO Last administered on 09:02; Start 04/22/17 at 09:00; Stop 04/26/17 at 10:38; Status DC Fluvoxamine Maleate (Luvox) 150 mg BID PO Last administered on 05/12/17 07:54 ; Start 04/22/17 at 09:00; Stop 05/12/17 at 17:58; Status DC Lorazepam (Ativan) 1 mg BID PO Last administered on 04/23/17 19:23; Start at 09:00; Stop 04/25/17 at 19:38; Status DC Mirtazapine (Remeron) 7.5 mg DAILY PO Last administered on 04/25/17 10:55; Start 04/22/17 at 09:00; Stop 04/25/17 at 19:37; Status DC Olanzapine (ZyPREXA) 20 mg DAILY PO Last administered on 04/22/17 08:17; Start 04/22/17 at 09:00; Stop 04/22/17 at 18:13; Status DC Bupropion HCl (Wellbutrin) 75 mg BID PO Last administered on 05/04/17 08:43; Start 04/22/17 at 09:00; Stop 05/04/17 at 16:14; Status DC Acetaminophen (Tylenol) 650 mg PRN Q6HRS PRN PO PAIN / TEMP; Start 04/22/17 at 01:00 Multi-Ingredient Ointment (Analgesic [place]) 1 berkley PRN QID PRN TP MUSCLE PAIN; Start 04/22/17 at 01:00 Al Hydroxide/Mg Hydroxide (Mylanta Plus Xs) 15 ml PRN AFTMEALHC PRN PO DYSPEPSIA; Start 04/22/17 at 01:00 Magnesium Hydroxide (Milk Of Magnesia) 2,400 mg PRN QHS PRN PO CONSTIPATION; Start 04/22/17 at 01:00 Haloperidol (Haldol) 2 mg TID PO Last administered on 04/24/17 08:05; Start at 09:00; Stop 04/24/17 at 11:02; Status DC Quetiapine Fumarate (SEROquel) 300 mg BID PO Last administered on 04/25/17 19: 10; Start 04/22/17 at 09:00; Stop 04/25/17 at 19:37; Status DC Olanzapine (ZyPREXA ZYDIS) 2.5 mg PRN Q2HR PRN PO PSYCHOSIS Last administered on 05/13/17 15:14; Start 04/22/17 at 01:30 Acetaminophen (Tylenol) 1,000 mg TID PO Last administered on 05/15/17 21:06; Start 04/22/17 at 09:00 Atorvastatin Calcium (Lipitor) 20 mg QHS PO Last administered on 05/15/17 21: 06; Start 04/22/17 at 21:00 Celecoxib (CeleBREX) 100 mg BID PO Last administered on 05/15/17 21:09; Start 04/22/17 at 09:00 Furosemide (Lasix) 40 mg DAILY PO Last administered on 05/15/17 09:18; Start 04/22/17 at 09:00 Levothyroxine Sodium (Synthroid) 175 mcg DAILYAC PO Last administered on 06:02; Start 04/22/17 at 08:45 Senna/Docusate Sodium (Senna Plus) 1 tab BID PO Last administered on 05/15/17 21:07; Start 04/22/17 at 09:00 Spironolactone (Aldactone) 25 mg DAILY PO Last administered on 05/15/17 09:17 ; Start 04/22/17 at 09:00 Tamsulosin HCl (Flomax) 0.4 mg DAILY PO Last administered on 05/15/17 09:18; Start 04/22/17 at 09:00 Vitamin D (Vitamin D3) 5,000 unit DAILY PO Last administered on 05/15/17 09:19 ; Start 04/22/17 at 09:00 Potassium Chloride (Klor-Con) 10 meq DAILYWBKFT PO Last administered on 09:16; Start 04/22/17 at 08:45 Olanzapine (ZyPREXA) 10 mg DAILY PO Last administered on 05/05/17 08:34; Start 04/23/17 at 09:00; Stop 05/05/17 at 18:27; Status DC Trazodone HCl (Desyrel) 100 mg QHS PO Last administered on 04/25/17 19:09; Start 04/22/17 at 21:00; Stop 04/25/17 at 19:37; Status DC Trazodone HCl (Desyrel) 100 mg QHS PRN PO INSOMNIA; Start 04/22/17 at 18:15; Stop 04/24/17 at 11:02; Status DC Trazodone HCl (Desyrel) 12.5 mg TID@0900,1300,1700 PO Last administered on 04/24 08:05; Start 04/23/17 at 09:00; Stop 04/25/17 at 19:37; Status DC Lorazepam (Ativan) 1 mg DAILY IV ; Start 04/23/17 at 09:00; Stop 04/23/17 at 09: 00; Status DC Lorazepam (Ativan) 1 mg DAILY IM Last administered on 04/24/17 07:47; Start at 09:00; Stop 04/24/17 at 11:02; Status DC Trazodone HCl (Desyrel) 100 mg PRN QHS PRN PO INSOMNIA Last administered on 19:21; Start 04/25/17 at 21:00 Lorazepam (Ativan) 0.5 mg TID PO Last administered on 04/27/17 19:22; Start at 09:00; Stop 04/27/17 at 21:05; Status DC Lorazepam (Ativan) 0.5 mg BID PO Last administered on 04/29/17 21:22; Start at 09:00; Stop 04/29/17 at 21:05; Status DC Lorazepam (Ativan) 0.5 mg DAILY PO Last administered on 05/01/17 08:13; Start 04/30/17 at 09:00; Stop 05/01/17 at 09:05; Status DC Divalproex Sodium (Depakote Sprinkles) 750 mg BID PO Last administered on 08:43; Start 04/26/17 at 21:00; Stop 05/04/17 at 16:14; Status DC Oxcarbazepine (Trileptal) 300 mg BID92 PO Last administered on 05/06/17 13:33; Start 05/05/17 at 09:00; Stop 05/06/17 at 21:00; Status DC Haloperidol (Haldol) 1 mg BID92 PO Last administered on 05/09/17 13:23; Start 05/05/17 at 09:00; Stop 05/09/17 at 17:40; Status DC Olanzapine (ZyPREXA) 5 mg QHS PO Last administered on 05/15/17 21:06; Start at 21:00 Oxcarbazepine (Trileptal) 300 mg TID PO Last administered on 05/13/17 08:34; Start 05/07/17 at 09:00; Stop 05/13/17 at 11:19; Status DC Haloperidol (Haldol) 2 mg BID92 PO Last administered on 05/15/17 13:34; Start 05/10/17 at 09:00 Aripiprazole (Abilify) 2.5 mg DAILY PO Last administered on 05/15/17 09:17; Start 05/12/17 at 09:00 Aripiprazole (Abilify) 2.5 mg DAILY PO ; Start 05/12/17 at 09:00; Stop 05/12/17 at 09:00; Status DC Fluvoxamine Maleate (Luvox) 150 mg QHS PO Last administered on 05/12/17 20:31 ; Start 05/12/17 at 21:00; Stop 05/13/17 at 11:18; Status DC Fluvoxamine Maleate (Luvox) 100 mg DAILY PO Last administered on 05/13/17 08: 37; Start 05/13/17 at 09:00; Stop 05/13/17 at 11:18; Status DC Fluvoxamine Maleate (Luvox) 150 mg BID PO Last administered on 05/15/17 21:07 ; Start 05/13/17 at 21:00 Oxcarbazepine (Trileptal) 300 mg BID@0900,1400 PO Last administered on 13:34; Start 05/13/17 at 14:00 Oxcarbazepine (Trileptal) 600 mg QHS PO Last administered on 05/15/17 21:07; Start 05/13/17 at 21:00 Active Scripts Active Reported Trazodone Hcl 100 Mg Tablet 100 Mg PO PRN QHS PRN Potassium Chloride 10 Meq Tablet.er 10 Meq PO DAILYWBKFT Zyprexa (Olanzapine) 2.5 Mg Tablet 2.5 Mg PO PRN Q2HR PRN Analgesic [place] (Methyl Salicylate/Menthol) 28 Gm Oint...g. 1 Berk[place] TP PRN QID PRN Mag-Al Plus Xs Suspension (Mag Hydrox/Al Hydrox/Simeth) 30 Ml Oral.susp 15 Ml PO PRN AFTMEALHC PRN Tylenol (Acetaminophen) 325 Mg Tablet 650 Mg PO PRN Q6HRS PRN Atorvastatin Calcium 20 Mg Tablet 20 Mg PO QHS Vitamin D3 (Cholecalciferol (Vitamin D3)) 5,000 Unit Tablet 5,000 Unit PO DAILY Aldactone (Spironolactone) 25 Mg Tablet 25 Mg PO DAILY Tamsulosin Hcl 0.4 Mg Cap.er.24h 0.4 Mg PO DAILY Celebrex (Celecoxib) 100 Mg Capsule 100 Mg PO BID Senna-S Tablet (Sennosides/Docusate Sodium) 1 Each Tablet 1 Each PO BID Lasix (Furosemide) 40 Mg Tablet 40 Mg PO DAILY Depakote Sprinkle (Divalproex Sodium) 125 Mg Cap.sprink 750 Mg PO BID Acetaminophen 500 Mg Tablet 1,000 Mg PO TID Levothyroxine Sodium 175 Mcg Tablet 175 Mcg PO DAILYAC Olanzapine 20 Mg Tablet 10 Mg PO DAILY [bupropion hcl] 75 Mg PO BID Fluvoxamine Maleate 100 Mg Tablet 150 Mg PO BID Diagnosis: Problems: (1) Dementia in [place]'s disease with behavioral disturbance (2) Anxiety disorder (3) Impulse control disorder (4) Major depressive disorder, recurrent episode LIDIA GARRIDO MD May 15, 2017 23:00
--- NOTE | 2017-05-16 01:17 | NUR ---
Behavior Intervention Response and Plan: BIRP Note: Behavior: Assumed Care of patient, patient located in Quiet Room at shift change. Patient exhibited the following behavior Restless, Defensive, Agitated. Brief assessment on rounds of vital signs, medication needs, lab studies, and pain. Treatment plan problems :1-2 Intervention: Patient assessed and the following interventions initiated safety checks 15 Minute Checks Cognitive Assessment , Head to toe Assessment , Medications. Response: After interactions and interventions patient responded in the following manner, Interactive , Able to Focus on Task ,Delusions. Continue to assess behaviors and condition will continue to monitor throughout the shift as needed. Patient educated on ADL's, and hand hygiene. Pt was being assisted to the QR @ shift change secondary to agitation & screaming. Approximately 45 min later pt was overheard crying. When questioned as to why he was upset & crying pt stated:" I'm dying." Discussed w/ pt that while he has HD he is in fairly good shape AEB his labwork & VS. After being told this pt almost immediately stopped crying. He was compliant w/ meds & assessment & afterwards requested a shower. Pt was given a shower, even though it was not due, as a comfort measure & he settled in bed without further difficulty. 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 Continue to assess patient for changes in above assessment. Monitor for medication needs, pain, and safety concerns. Hourly rounding performed to ensure safe environment.
[2017-05-16 05:55] VITALS: BP 134/86
--- NOTE | 2017-05-16 06:33 | PN ---
DATE: 05/14/2017 PSYCHIATRIC PROGRESS NOTE This late entry 05/14/2017 covers elements not covered in my initial note of 05/14/2017. SUBJECTIVE: I met with the patient evening of 05/14/2017. He has had a better day on 05/14/2017, slept quietly in his room previous evening, less paranoid, agitated, aggressive, 05/14/2017, gone to the dining room for all his meals, which is an improvement. REVIEW OF SYSTEMS: Ambulation impaired, in a Broda chair. No CV, , pulmonary, eye, ENT system symptoms on review. Reliability poor. MENTAL STATUS EXAM: Oriented to self, situation. Speech, often responses monosyllabic, low in volume. Abstraction fair, computation impaired, language function intact, attention span short, mood and affect withdrawn, but less tearful, less labile. LABORATORY DATA: Reviewed. IMPRESSION: Unchanged from initial note. PLAN: Continue current psychotropics, reviewed drug contractions risk/benefit ratio favors no further change. MAN Vimal GARRIDO MD DR: MEME/giana JOB#: [id number] / [id number]
[2017-05-16] MEDS: LEVOTHYROXINE 175 MCG TABLET PO SCH (07:29)
[2017-05-16] MEDS: POTASSIUM CHLORIDE 10 MEQ TABLET.ER. PO SCH (09:10)
[2017-05-16] MEDS: ARIPiprazole 5 MG TABLET PO SCH (09:10)
[2017-05-16] MEDS: SPIRONOLACTONE 25 MG TABLET PO SCH (09:11)
[2017-05-16] MEDS: HALOPERIDOL 1 MG TABLET PO SCH ×2 (09:12→14:06)
[2017-05-16] MEDS: TAMSULOSIN 0.4 MG CAP.ER.24H. PO SCH (09:12)
[2017-05-16] MEDS: FUROSEMIDE 40 MG TABLET PO SCH (09:12)
[2017-05-16] MEDS: CELECOXIB 100 MG CAPSULE PO SCH ×2 (09:12→19:30)
[2017-05-16] MEDS: SENNOSIDES/DOCUSATE 8.6/50MG TABLET. PO SCH ×2 (09:13→19:29)
[2017-05-16] MEDS: ACETAMINOPHEN 500 MG TABLET PO SCH ×3 (09:13→19:29)
[2017-05-16] MEDS: CHOLECALCIFEROL (VITAMIN D3) 1,000 UNIT TABLET PO SCH (09:14)
--- NOTE | 2017-05-16 10:20 | NUR ---
Behavior Intervention Response and Plan: BIRP Note: Behavior: Assumed Care of patient, patient located in Quiet Room at shift change. Patient exhibited the following behavior Disorganized, Calm, Cooperative. Brief assessment on rounds of vital signs, medication needs, lab studies, and pain. Treatment plan problems . Intervention: Patient assessed and the following interventions initiated safety checks 15 Minute Checks Cognitive Assessment , Head to toe Assessment , Medications. Response: After interactions and interventions patient responded in the following manner, Disorganized, appropriate, Compliant. Continue to assess behaviors and condition will continue to monitor throughout the shift as needed. Patient educated on ADL's, and hand hygiene. 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 Continue to assess patient for changes in above assessment. Monitor for medication needs, pain, and safety concerns. Hourly rounding performed to ensure safe environment.
[2017-05-16 10:57] LABS: BASO # 0.1 x10^3/uL (0.0-0.2); BASO % 1 % (0-3); EOS # 0.2 x10^3/uL (0.0-0.7); EOS % 2 % (0-3); HEMATOCRIT 38.4 % (39.0-53.0); HEMOGLOBIN 13.5 g/dL (13.0-17.5); LYMPH # 1.4 x10^3/uL (1.0-4.8); LYMPH % 16 % (24-48); MEAN CORPUSCULAR HEMOGLOBIN 31 pg (25-35); MEAN CORPUSCULAR HGB CONC 35 g/dL (31-37); MEAN CORPUSCULAR VOLUME 88 fL (79-100); MONO # 0.9 x10^3/uL (0.0-1.1); MONO % 11 % (0-9); NEUT # 5.8 x10^3uL (1.8-7.7); NEUT % 70 % (31-73); PLATELET COUNT 259 x10^3/uL (140-400); RED BLOOD COUNT 4.39 x10^6/uL (4.30-5.70); RED CELL DISTRIBUTION WIDTH 14.5 % (11.5-14.5); WHITE BLOOD COUNT 8.4 x10^3/uL (4.0-11.0)
[2017-05-16 11:12] LABS: ALBUMIN 3.6 g/dL (3.4-5.0); CALCIUM 8.7 mg/dL (8.5-10.1); CREATININE 0.9 mg/dL (0.7-1.3); GFR 86.4; POTASSIUM 4.1 mmol/L (3.5-5.1); TOTAL BILIRUBIN 0.3 mg/dL (0.2-1.0); TOTAL PROTEIN 7.2 g/dL (6.4-8.2)
[2017-05-16 16:09] VITALS: BP 109/73
[2017-05-16] MEDS: ATORVASTATIN CALCIUM 20 MG TABLET PO SCH (19:29)
[2017-05-16] MEDS: OLANZapine 5 MG TABLET PO SCH (19:29)
--- NOTE | 2017-05-16 20:05 | PDOC ---
Exam Bran Demential Exam: Bran Note: Please also refer to the separate dictated note~for this date of service dictated separately.~Patient seen individually. Discussed the patient with Nursing staff reviewed the chart.~Reviewed interim history and current functioning. Reviewed vital signs,~Labs/ Radiology~and current medications noted below. Continue current treatment with the changes noted in the dictated addendum note Assessment: Vital Signs: Vital Signs Date Time Temp Pulse Resp B/P (MAP) Pulse Ox O2 Delivery O2 Flow Rate FiO2 05/16/17 16:09 97.5 69 20 109/73 (85) 92 05/14/17 16:39 Room Air I&O Intake and Output 05/17/17 07:00 Intake Total 1200 ml Balance 1200 ml Intake Oral 1200 ml # Bowel Movements 1 Labs: Laboratory Tests Test 05/16/17 10:40 White Blood Count 8.4 x10^3/uL (4.0-11.0) Red Blood Count 4.39 x10^6/uL (4.30-5.70) Hemoglobin 13.5 g/dL (13.0-17.5) Hematocrit 38.4 % (39.0-53.0) L Mean Corpuscular Volume 88 fL (79-100) Mean Corpuscular Hemoglobin 31 pg (25-35) Mean Corpuscular Hemoglobin Concent 35 g/dL (31-37) Red Cell Distribution Width 14.5 % (11.5-14.5) Platelet Count 259 x10^3/uL (140-400) Neutrophils (%) (Auto) 70 % (31-73) Lymphocytes (%) (Auto) 16 % (24-48) L Monocytes (%) (Auto) 11 % (0-9) H Eosinophils (%) (Auto) 2 % (0-3) Basophils (%) (Auto) 1 % (0-3) Neutrophils # (Auto) 5.8 x10^3uL (1.8-7.7) Lymphocytes # (Auto) 1.4 x10^3/uL (1.0-4.8) Monocytes # (Auto) 0.9 x10^3/uL (0.0-1.1) Eosinophils # (Auto) 0.2 x10^3/uL (0.0-0.7) Basophils # (Auto) 0.1 x10^3/uL (0.0-0.2) Sodium Level 131 mmol/L (136-145) L Potassium Level 4.1 mmol/L (3.5-5.1) Chloride Level 97 mmol/L (98-107) L Carbon Dioxide Level 29 mmol/L (21-32) Anion Gap 5 (6-14) L Blood Urea Nitrogen 18 mg/dL (8-26) Creatinine 0.9 mg/dL (0.7-1.3) Estimated GFR (Cockcroft-Gault) 86.4 BUN/Creatinine Ratio 20 (6-20) Glucose Level 128 mg/dL (70-99) H Calcium Level 8.7 mg/dL (8.5-10.1) Total Bilirubin 0.3 mg/dL (0.2-1.0) Aspartate Amino Transferase (AST) 12 U/L (15-37) L Alanine Aminotransferase (ALT) 25 U/L (16-63) Alkaline Phosphatase 93 U/L (46-116) Total Protein 7.2 g/dL (6.4-8.2) Albumin 3.6 g/dL (3.4-5.0) Albumin/Globulin Ratio 1.0 (1.0-1.7) Current Medications: Meds: Current Medications Olanzapine (ZyPREXA ZYDIS) 5 mg 1X ONCE PO ; Start 04/21/17 at 19:45; Stop at 19:46; Status DC Olanzapine (ZyPREXA IM) 10 mg 1X ONCE IM Last administered on 04/21/17 19:36 ; Start 04/21/17 at 19:45; Stop 04/21/17 at 19:46; Status DC Lorazepam (Ativan) 1 mg 1X ONCE IM Last administered on 04/21/17 20:10; Start 04/21/17 at 19:45; Stop 04/21/17 at 19:46; Status DC Divalproex Sodium (Depakote Sprinkles) 750 mg DAILY PO Last administered on 09:02; Start 04/22/17 at 09:00; Stop 04/26/17 at 10:38; Status DC Fluvoxamine Maleate (Luvox) 150 mg BID PO Last administered on 05/12/17 07:54 ; Start 04/22/17 at 09:00; Stop 05/12/17 at 17:58; Status DC Lorazepam (Ativan) 1 mg BID PO Last administered on 04/23/17 19:23; Start at 09:00; Stop 04/25/17 at 19:38; Status DC Mirtazapine (Remeron) 7.5 mg DAILY PO Last administered on 04/25/17 10:55; Start 04/22/17 at 09:00; Stop 04/25/17 at 19:37; Status DC Olanzapine (ZyPREXA) 20 mg DAILY PO Last administered on 04/22/17 08:17; Start 04/22/17 at 09:00; Stop 04/22/17 at 18:13; Status DC Bupropion HCl (Wellbutrin) 75 mg BID PO Last administered on 05/04/17 08:43; Start 04/22/17 at 09:00; Stop 05/04/17 at 16:14; Status DC Acetaminophen (Tylenol) 650 mg PRN Q6HRS PRN PO PAIN / TEMP; Start 04/22/17 at 01:00 Multi-Ingredient Ointment (Analgesic [place]) 1 berkley PRN QID PRN TP MUSCLE PAIN; Start 04/22/17 at 01:00 Al Hydroxide/Mg Hydroxide (Mylanta Plus Xs) 15 ml PRN AFTMEALHC PRN PO DYSPEPSIA; Start 04/22/17 at 01:00 Magnesium Hydroxide (Milk Of Magnesia) 2,400 mg PRN QHS PRN PO CONSTIPATION; Start 04/22/17 at 01:00 Haloperidol (Haldol) 2 mg TID PO Last administered on 04/24/17 08:05; Start at 09:00; Stop 04/24/17 at 11:02; Status DC Quetiapine Fumarate (SEROquel) 300 mg BID PO Last administered on 04/25/17 19: 10; Start 04/22/17 at 09:00; Stop 04/25/17 at 19:37; Status DC Olanzapine (ZyPREXA ZYDIS) 2.5 mg PRN Q2HR PRN PO PSYCHOSIS Last administered on 05/13/17 15:14; Start 04/22/17 at 01:30 Acetaminophen (Tylenol) 1,000 mg TID PO Last administered on 05/16/17 19:29; Start 04/22/17 at 09:00 Atorvastatin Calcium (Lipitor) 20 mg QHS PO Last administered on 05/16/17 19: 29; Start 04/22/17 at 21:00 Celecoxib (CeleBREX) 100 mg BID PO Last administered on 05/16/17 19:30; Start 04/22/17 at 09:00 Furosemide (Lasix) 40 mg DAILY PO Last administered on 05/16/17 09:12; Start 04/22/17 at 09:00 Levothyroxine Sodium (Synthroid) 175 mcg DAILYAC PO Last administered on 07:29; Start 04/22/17 at 08:45; Stop 05/16/17 at 07:52; Status DC Senna/Docusate Sodium (Senna Plus) 1 tab BID PO Last administered on 05/16/17 19:29; Start 04/22/17 at 09:00 Spironolactone (Aldactone) 25 mg DAILY PO Last administered on 05/16/17 09:11 ; Start 04/22/17 at 09:00 Tamsulosin HCl (Flomax) 0.4 mg DAILY PO Last administered on 05/16/17 09:12; Start 04/22/17 at 09:00 Vitamin D (Vitamin D3) 5,000 unit DAILY PO Last administered on 05/16/17 09:14 ; Start 04/22/17 at 09:00 Potassium Chloride (Klor-Con) 10 meq DAILYWBKFT PO Last administered on 09:10; Start 04/22/17 at 08:45 Olanzapine (ZyPREXA) 10 mg DAILY PO Last administered on 05/05/17 08:34; Start 04/23/17 at 09:00; Stop 05/05/17 at 18:27; Status DC Trazodone HCl (Desyrel) 100 mg QHS PO Last administered on 04/25/17 19:09; Start 04/22/17 at 21:00; Stop 04/25/17 at 19:37; Status DC Trazodone HCl (Desyrel) 100 mg QHS PRN PO INSOMNIA; Start 04/22/17 at 18:15; Stop 04/24/17 at 11:02; Status DC Trazodone HCl (Desyrel) 12.5 mg TID@0900,1300,1700 PO Last administered on 04/24 08:05; Start 04/23/17 at 09:00; Stop 04/25/17 at 19:37; Status DC Lorazepam (Ativan) 1 mg DAILY IV ; Start 04/23/17 at 09:00; Stop 04/23/17 at 09: 00; Status DC Lorazepam (Ativan) 1 mg DAILY IM Last administered on 04/24/17 07:47; Start at 09:00; Stop 04/24/17 at 11:02; Status DC Trazodone HCl (Desyrel) 100 mg PRN QHS PRN PO INSOMNIA Last administered on 19:21; Start 04/25/17 at 21:00 Lorazepam (Ativan) 0.5 mg TID PO Last administered on 04/27/17 19:22; Start at 09:00; Stop 04/27/17 at 21:05; Status DC Lorazepam (Ativan) 0.5 mg BID PO Last administered on 04/29/17 21:22; Start at 09:00; Stop 04/29/17 at 21:05; Status DC Lorazepam (Ativan) 0.5 mg DAILY PO Last administered on 05/01/17 08:13; Start 04/30/17 at 09:00; Stop 05/01/17 at 09:05; Status DC Divalproex Sodium (Depakote Sprinkles) 750 mg BID PO Last administered on 08:43; Start 04/26/17 at 21:00; Stop 05/04/17 at 16:14; Status DC Oxcarbazepine (Trileptal) 300 mg BID92 PO Last administered on 05/06/17 13:33; Start 05/05/17 at 09:00; Stop 05/06/17 at 21:00; Status DC Haloperidol (Haldol) 1 mg BID92 PO Last administered on 05/09/17 13:23; Start 05/05/17 at 09:00; Stop 05/09/17 at 17:40; Status DC Olanzapine (ZyPREXA) 5 mg QHS PO Last administered on 05/16/17 19:29; Start at 21:00 Oxcarbazepine (Trileptal) 300 mg TID PO Last administered on 05/13/17 08:34; Start 05/07/17 at 09:00; Stop 05/13/17 at 11:19; Status DC Haloperidol (Haldol) 2 mg BID92 PO Last administered on 05/16/17 14:06; Start 05/10/17 at 09:00 Aripiprazole (Abilify) 2.5 mg DAILY PO Last administered on 05/16/17 09:10; Start 05/12/17 at 09:00 Aripiprazole (Abilify) 2.5 mg DAILY PO ; Start 05/12/17 at 09:00; Stop 05/12/17 at 09:00; Status DC Fluvoxamine Maleate (Luvox) 150 mg QHS PO Last administered on 05/12/17 20:31 ; Start 05/12/17 at 21:00; Stop 05/13/17 at 11:18; Status DC Fluvoxamine Maleate (Luvox) 100 mg DAILY PO Last administered on 05/13/17 08: 37; Start 05/13/17 at 09:00; Stop 05/13/17 at 11:18; Status DC Fluvoxamine Maleate (Luvox) 150 mg BID PO Last administered on 05/16/17 09:13 ; Start 05/13/17 at 21:00; Stop 05/16/17 at 18:39; Status DC Oxcarbazepine (Trileptal) 300 mg BID@0900,1400 PO Last administered on 14:06; Start 05/13/17 at 14:00 Oxcarbazepine (Trileptal) 600 mg QHS PO Last administered on 05/16/17 19:29; Start 05/13/17 at 21:00 Levothyroxine Sodium (Synthroid) 175 mcg DAILY06 PO ; Start 05/17/17 at 06:00 Fluvoxamine Maleate (Luvox) 150 mg DAILY PO ; Start 05/17/17 at 09:00 Fluvoxamine Maleate (Luvox) 100 mg HS PO Last administered on 9/17/17at 19:30; Start 05/16/17 at 21:00 Active Scripts Active Reported Trazodone Hcl 100 Mg Tablet 100 Mg PO PRN QHS PRN Potassium Chloride 10 Meq Tablet.er 10 Meq PO DAILYWBKFT Zyprexa (Olanzapine) 2.5 Mg Tablet 2.5 Mg PO PRN Q2HR PRN Analgesic [place] (Methyl Salicylate/Menthol) 28 Gm Oint...g. 1 [place] TP PRN QID PRN Mag-Al Plus Xs Suspension (Mag Hydrox/Al Hydrox/Simeth) 30 Ml Oral.susp 15 Ml PO PRN AFTMEALHC PRN Tylenol (Acetaminophen) 325 Mg Tablet 650 Mg PO PRN Q6HRS PRN Atorvastatin Calcium 20 Mg Tablet 20 Mg PO QHS Vitamin D3 (Cholecalciferol (Vitamin D3)) 5,000 Unit Tablet 5,000 Unit PO DAILY Aldactone (Spironolactone) 25 Mg Tablet 25 Mg PO DAILY Tamsulosin Hcl 0.4 Mg Cap.er.24h 0.4 Mg PO DAILY Celebrex (Celecoxib) 100 Mg Capsule 100 Mg PO BID Senna-S Tablet (Sennosides/Docusate Sodium) 1 Each Tablet 1 Each PO BID Lasix (Furosemide) 40 Mg Tablet 40 Mg PO DAILY Depakote Sprinkle (Divalproex Sodium) 125 Mg Cap.sprink 750 Mg PO BID Acetaminophen 500 Mg Tablet 1,000 Mg PO TID Levothyroxine Sodium 175 Mcg Tablet 175 Mcg PO DAILYAC Olanzapine 20 Mg Tablet 10 Mg PO DAILY [bupropion hcl] 75 Mg PO BID Fluvoxamine Maleate 100 Mg Tablet 150 Mg PO BID Diagnosis: Problems: (1) Dementia in [place]'s disease with behavioral disturbance (2) Anxiety disorder (3) Impulse control disorder (4) Major depressive disorder, recurrent episode (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
--- NOTE | 2017-05-16 22:23 | NUR ---
Behavior Intervention Response and Plan: BIRP Note: Behavior: Assumed Care of patient, patient located in Hallway at shift change. Patient exhibited the following behavior Agitated, Anxious, Delusions. Brief assessment on rounds of vital signs, medication needs, lab studies, and pain. Treatment plan problems :1-2 Intervention: Patient assessed and the following interventions initiated safety checks 15 Minute Checks Cognitive Assessment , Head to toe Assessment , Medications. Response: After interactions and interventions patient responded in the following manner, Able to Focus on Task , Anxious ,Compliant. Continue to assess behaviors and condition will continue to monitor throughout the shift as needed. Patient educated on ADL's, and hand hygiene. Pt began screaming & crying once again @shift change. Pt cont. to believe that he is dying. Pt reassured that @ present his physical status is stable. He was given a brief shoulder massage & a snack & settled for HS without difficulty. 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 Continue to assess patient for changes in above assessment. Monitor for medication needs, pain, and safety concerns. Hourly rounding performed to ensure safe environment.
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
[2017-05-17] MEDS: LEVOTHYROXINE 175 MCG TABLET PO SCH (05:53)
[2017-05-17 06:25] VITALS: BP 126/81
[2017-05-17] MEDS: POTASSIUM CHLORIDE 10 MEQ TABLET.ER. PO SCH (07:59)
[2017-05-17] MEDS: SPIRONOLACTONE 25 MG TABLET PO SCH (08:00)
[2017-05-17] MEDS: ARIPiprazole 5 MG TABLET PO SCH (08:00)
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
[2017-05-17] MEDS: TAMSULOSIN 0.4 MG CAP.ER.24H. PO SCH (08:01)
[2017-05-17] MEDS: CELECOXIB 100 MG CAPSULE PO SCH ×2 (08:01→19:59)
[2017-05-17] MEDS: FUROSEMIDE 40 MG TABLET PO SCH (08:02)
[2017-05-17] MEDS: SENNOSIDES/DOCUSATE 8.6/50MG TABLET. PO SCH ×2 (08:02→19:58)
[2017-05-17] MEDS: HALOPERIDOL 1 MG TABLET PO SCH ×2 (08:02→13:52)
[2017-05-17] MEDS: ACETAMINOPHEN 500 MG TABLET PO SCH ×3 (08:03→19:58)
[2017-05-17] MEDS: CHOLECALCIFEROL (VITAMIN D3) 1,000 UNIT TABLET PO SCH (08:03)
--- NOTE | 2017-05-17 10:00 | NUR ---
THERAPEUTIC RECREATION GROUP NOTE TITLE :Fall Festival Decoration ACTIVITY : Arts/ Crafts GOAL : Increase socialization, fine motor skills, creativity DURATION : 90 Minutes RESPONSE : No participation.
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
--- NOTE | 2017-05-17 14:00 | NUR ---
THERAPEUTIC RECREATION GROUP NOTE TITLE :Picture Puzzles ACTIVITY : Cognitive Stimulation GOAL : Maintain or improve cognitive functioning and memory. DURATION : 60 Minutes RESPONSE : No participation.
--- NOTE | 2017-05-17 14:14 | NUR ---
Group Note [facility] Group Type Enthusiasm and Attitude Start Time: 1:10 End Time: 2:00pm Problem: Depression Purpose: Increase Motivation,increased positivity, socialization, elevate mood, express feelings, Level of Participation: Absent Behaviors or Symptoms Observed: Interventions: Reframing Response: Plan: Group Participation Additional Comments:
[2017-05-17 16:24] VITALS: BP 118/81
[2017-05-17] MEDS: ATORVASTATIN CALCIUM 20 MG TABLET PO SCH (19:58)
[2017-05-17] MEDS: OLANZapine 5 MG TABLET PO SCH (19:59)
--- NOTE | 2017-05-17 20:30 | NUR ---
Behavior Intervention Response and Plan: BIRP Note: Behavior: Assumed Care of patient, patient located in Day Room at shift change. Patient exhibited the following behavior Cooperative, Calm, Demanding. Brief assessment on rounds of vital signs, medication needs, lab studies, and pain. Treatment plan problems . Intervention: Patient assessed and the following interventions initiated safety checks 15 Minute Checks Cognitive Assessment , Head to toe Assessment , Medications. Response: After interactions and interventions patient responded in the following manner, Calm , Compliant ,Cooperative. Continue to assess behaviors and condition will continue to monitor throughout the shift as needed. Patient educated on ADL's, and hand hygiene. Plan: Continue to monitor Master Treatment Plan for patient's progress toward short term goals of Decreased Agitation, Decreased Anxiety, jail goals to return to previous living setting vs placement. Continue to assess patient for changes in above assessment. Monitor for medication needs, pain, and safety concerns. Hourly rounding performed to ensure safe environment.
[2017-05-18] MEDS: LEVOTHYROXINE 175 MCG TABLET PO SCH (04:50)
--- NOTE | 2017-05-18 05:49 | PN ---
DATE: 05/16/2017 This late entry 05/16/2017 covers elements not covered in my initial note of 05/16/2017. SUBJECTIVE: I met with the patient in the evening of 05/16/2017. contact center agent, he was "grumpy" per nursing report, had "scowl" on his face per nursing report. When nursing staff questioned him if he was grumpy, he replied "yep" and then said he wanted to be "left alone." Much of his verbal responses monosyllabic if that. Sodium 131. Nursing staff truly feel he gets sedated on Luvox, which we will again reduce from 150 b.1i.d. to 150 in the morning, 100 in the evening. He is compliant with his medications. Two of his daughters called Varsha came to visit as well. He took a nap post-lunch, delusional regarding assistant in nursing and being in fdc, was crying the previous evening. However, after I visited with him the evening of 05/16/2017, he was again yelling, labile, but seems to worsen in the evening, feeling alone and abandoned. REVIEW OF SYSTEMS: Ambulation impaired, in Broda chair. No CV, , pulmonary, eye, ENT system symptoms on review. MENTAL STATUS EXAM: Oriented to himself and situation. Speech, often responses monosyllabic. Abstraction fair, computation impaired, language function intact, attention span short. Mood and affect somewhat labile, more so in the evening, paranoid. LABORATORY DATA: Reviewed. IMPRESSION: Unchanged from initial note. PLAN: Change the Luvox as noted. Maintain the rest unchanged. Make further adjustments as clinically indicated. MAN Vimal GARRIDO MD DR: MEME/giana JOB#: [id number] / [id number]
[2017-05-18 06:06] VITALS: BP 147/88
[2017-05-18] MEDS: CHOLECALCIFEROL (VITAMIN D3) 1,000 UNIT TABLET PO SCH (07:58)
[2017-05-18] MEDS: TAMSULOSIN 0.4 MG CAP.ER.24H. PO SCH (07:58)
[2017-05-18] MEDS: FUROSEMIDE 40 MG TABLET PO SCH (07:58)
[2017-05-18] MEDS: POTASSIUM CHLORIDE 10 MEQ TABLET.ER. PO SCH (07:58)
[2017-05-18] MEDS: SPIRONOLACTONE 25 MG TABLET PO SCH (07:58)
[2017-05-18] MEDS: SENNOSIDES/DOCUSATE 8.6/50MG TABLET. PO SCH ×2 (07:58→20:00)
[2017-05-18] MEDS: ACETAMINOPHEN 500 MG TABLET PO SCH ×3 (07:59→20:01)
[2017-05-18] MEDS: HALOPERIDOL 1 MG TABLET PO SCH ×2 (07:59→14:13)
[2017-05-18] MEDS: CELECOXIB 100 MG CAPSULE PO SCH ×2 (08:00→20:00)
[2017-05-18] MEDS: ARIPiprazole 5 MG TABLET PO SCH (08:00)
--- NOTE | 2017-05-18 09:50 | NUR ---
Behavior Intervention Response and Plan: BIRP Note: Behavior: Assumed Care of patient, patient located in Dining Room at shift change. Patient exhibited the following behavior Delusions, Compliant, Drowsy. Brief assessment on rounds of vital signs, medication needs, lab studies, and pain. Treatment plan problems 1-2. Intervention: Patient assessed and the following interventions initiated safety checks 15 Minute Checks Personal Alarm in place , Cognitive Assessment , Head to toe Assessment. Response: After interactions and interventions patient responded in the following manner, Restless , Cooperative ,Drowsy. Continue to assess behaviors and condition will continue to monitor throughout the shift as needed. Patient educated on ADL's, and hand hygiene. Plan: Continue to monitor Master Treatment Plan for patient's progress toward short term goals of Decreased Anxiety, Improved Mood, heel gouger goals to return to previous living setting vs placement. Continue to assess patient for changes in above assessment. Monitor for medication needs, pain, and safety concerns. Hourly rounding performed to ensure safe environment.
--- NOTE | 2017-05-18 10:30 | NUR ---
THERAPEUTIC RECREATION GROUP NOTE TITLE :40 Ways to Relax in 5 ACTIVITY : Relaxation GOAL : Decrease stress, elevate mood, increase concentration/attention, encourage awareness DURATION : 60 Minutes RESPONSE : No participation
--- NOTE | 2017-05-18 11:02 | NUR ---
After pt received communion on the unit, pt became tearful and began yelling out. Pt stating that he's dying. This RN sat with pt and attempted to help calm him. Pt removed from dayroom and placed in [facility] for de-escalation. Will continue to monitor. Pt continues to cry and is very restless in the broda. Pt placed on mats in the quiet room for safety.
--- NOTE | 2017-05-18 14:00 | NUR ---
THERAPEUTIC RECREATION GROUP NOTE TITLE :Sing along with Kecia ACTIVITY : Music GOAL : Increase socialization, elevate mood, stimulate memory DURATION : 60 minutes RESPONSE : Full participation. Pt. followed along with the lyrics and was mostly calm. He became tearful towards the end.
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
[2017-05-18 15:54] VITALS: BP 138/89
--- NOTE | 2017-05-18 19:56 | PDOC ---
Exam Bran Demential Exam: Bran Note: Please also refer to the separate dictated note~for this date of service dictated separately.~Patient seen individually. Discussed the patient with Nursing staff reviewed the chart.~Reviewed interim history and current functioning. Reviewed vital signs,~Labs/ Radiology~and current medications noted below. Continue current treatment with the changes noted in the dictated addendum note Assessment: Vital Signs: Vital Signs Date Time Temp Pulse Resp B/P (MAP) Pulse Ox O2 Delivery O2 Flow Rate FiO2 05/18/17 15:54 97.3 74 16 138/89 (105) 93 05/14/17 16:39 Room Air I&O Intake and Output 05/19/17 07:00 Intake Total 480 ml Balance 480 ml Intake Oral 480 ml Current Medications: Meds: Current Medications Olanzapine (ZyPREXA ZYDIS) 5 mg 1X ONCE PO ; Start 04/21/17 at 19:45; Stop at 19:46; Status DC Olanzapine (ZyPREXA IM) 10 mg 1X ONCE IM Last administered on 04/21/17 19:36 ; Start 04/21/17 at 19:45; Stop 04/21/17 at 19:46; Status DC Lorazepam (Ativan) 1 mg 1X ONCE IM Last administered on 04/21/17 20:10; Start 04/21/17 at 19:45; Stop 04/21/17 at 19:46; Status DC Divalproex Sodium (Depakote Sprinkles) 750 mg DAILY PO Last administered on 09:02; Start 04/22/17 at 09:00; Stop 04/26/17 at 10:38; Status DC Fluvoxamine Maleate (Luvox) 150 mg BID PO Last administered on 05/12/17 07:54 ; Start 04/22/17 at 09:00; Stop 05/12/17 at 17:58; Status DC Lorazepam (Ativan) 1 mg BID PO Last administered on 04/23/17 19:23; Start at 09:00; Stop 04/25/17 at 19:38; Status DC Mirtazapine (Remeron) 7.5 mg DAILY PO Last administered on 04/25/17 10:55; Start 04/22/17 at 09:00; Stop 04/25/17 at 19:37; Status DC Olanzapine (ZyPREXA) 20 mg DAILY PO Last administered on 04/22/17 08:17; Start 04/22/17 at 09:00; Stop 04/22/17 at 18:13; Status DC Bupropion HCl (Wellbutrin) 75 mg BID PO Last administered on 05/04/17 08:43; Start 04/22/17 at 09:00; Stop 05/04/17 at 16:14; Status DC Acetaminophen (Tylenol) 650 mg PRN Q6HRS PRN PO PAIN / TEMP; Start 04/22/17 at 01:00 Multi-Ingredient Ointment (Analgesic [place]) 1 berkley PRN QID PRN TP MUSCLE PAIN; Start 04/22/17 at 01:00 Al Hydroxide/Mg Hydroxide (Mylanta Plus Xs) 15 ml PRN AFTMEALHC PRN PO DYSPEPSIA; Start 04/22/17 at 01:00 Magnesium Hydroxide (Milk Of Magnesia) 2,400 mg PRN QHS PRN PO CONSTIPATION; Start 04/22/17 at 01:00 Haloperidol (Haldol) 2 mg TID PO Last administered on 04/24/17 08:05; Start at 09:00; Stop 04/24/17 at 11:02; Status DC Quetiapine Fumarate (SEROquel) 300 mg BID PO Last administered on 04/25/17 19: 10; Start 04/22/17 at 09:00; Stop 04/25/17 at 19:37; Status DC Olanzapine (ZyPREXA ZYDIS) 2.5 mg PRN Q2HR PRN PO PSYCHOSIS Last administered on 05/17/17 11:25; Start 04/22/17 at 01:30 Acetaminophen (Tylenol) 1,000 mg TID PO Last administered on 05/18/17 14:13; Start 04/22/17 at 09:00 Atorvastatin Calcium (Lipitor) 20 mg QHS PO Last administered on 05/17/17 19: 58; Start 04/22/17 at 21:00 Celecoxib (CeleBREX) 100 mg BID PO Last administered on 05/18/17 08:00; Start 04/22/17 at 09:00 Furosemide (Lasix) 40 mg DAILY PO Last administered on 05/18/17 07:58; Start 04/22/17 at 09:00 Levothyroxine Sodium (Synthroid) 175 mcg DAILYAC PO Last administered on 07:29; Start 04/22/17 at 08:45; Stop 05/16/17 at 07:52; Status DC Senna/Docusate Sodium (Senna Plus) 1 tab BID PO Last administered on 05/18/17 07:58; Start 04/22/17 at 09:00 Spironolactone (Aldactone) 25 mg DAILY PO Last administered on 05/18/17 07:58 ; Start 04/22/17 at 09:00 Tamsulosin HCl (Flomax) 0.4 mg DAILY PO Last administered on 05/18/17 07:58; Start 04/22/17 at 09:00 Vitamin D (Vitamin D3) 5,000 unit DAILY PO Last administered on 05/18/17 07:58 ; Start 04/22/17 at 09:00 Potassium Chloride (Klor-Con) 10 meq DAILYWBKFT PO Last administered on 07:58; Start 04/22/17 at 08:45 Olanzapine (ZyPREXA) 10 mg DAILY PO Last administered on 05/05/17 08:34; Start 04/23/17 at 09:00; Stop 05/05/17 at 18:27; Status DC Trazodone HCl (Desyrel) 100 mg QHS PO Last administered on 04/25/17 19:09; Start 04/22/17 at 21:00; Stop 04/25/17 at 19:37; Status DC Trazodone HCl (Desyrel) 100 mg QHS PRN PO INSOMNIA; Start 04/22/17 at 18:15; Stop 04/24/17 at 11:02; Status DC Trazodone HCl (Desyrel) 12.5 mg TID@0900,1300,1700 PO Last administered on 04/24 08:05; Start 04/23/17 at 09:00; Stop 04/25/17 at 19:37; Status DC Lorazepam (Ativan) 1 mg DAILY IV ; Start 04/23/17 at 09:00; Stop 04/23/17 at 09: 00; Status DC Lorazepam (Ativan) 1 mg DAILY IM Last administered on 04/24/17 07:47; Start at 09:00; Stop 04/24/17 at 11:02; Status DC Trazodone HCl (Desyrel) 100 mg PRN QHS PRN PO INSOMNIA Last administered on 19:21; Start 04/25/17 at 21:00 Lorazepam (Ativan) 0.5 mg TID PO Last administered on 04/27/17 19:22; Start at 09:00; Stop 04/27/17 at 21:05; Status DC Lorazepam (Ativan) 0.5 mg BID PO Last administered on 04/29/17 21:22; Start at 09:00; Stop 04/29/17 at 21:05; Status DC Lorazepam (Ativan) 0.5 mg DAILY PO Last administered on 05/01/17 08:13; Start 04/30/17 at 09:00; Stop 05/01/17 at 09:05; Status DC Divalproex Sodium (Depakote Sprinkles) 750 mg BID PO Last administered on 08:43; Start 04/26/17 at 21:00; Stop 05/04/17 at 16:14; Status DC Oxcarbazepine (Trileptal) 300 mg BID92 PO Last administered on 05/06/17 13:33; Start 05/05/17 at 09:00; Stop 05/06/17 at 21:00; Status DC Haloperidol (Haldol) 1 mg BID92 PO Last administered on 05/09/17 13:23; Start 05/05/17 at 09:00; Stop 05/09/17 at 17:40; Status DC Olanzapine (ZyPREXA) 5 mg QHS PO Last administered on 05/17/17 19:59; Start at 21:00 Oxcarbazepine (Trileptal) 300 mg TID PO Last administered on 05/13/17 08:34; Start 05/07/17 at 09:00; Stop 05/13/17 at 11:19; Status DC Haloperidol (Haldol) 2 mg BID92 PO Last administered on 05/18/17 14:13; Start 05/10/17 at 09:00 Aripiprazole (Abilify) 2.5 mg DAILY PO Last administered on 05/17/17 08:00; Start 05/12/17 at 09:00; Stop 05/17/17 at 18:33; Status DC Aripiprazole (Abilify) 2.5 mg DAILY PO ; Start 05/12/17 at 09:00; Stop 05/12/17 at 09:00; Status DC Fluvoxamine Maleate (Luvox) 150 mg QHS PO Last administered on 05/12/17 20:31 ; Start 05/12/17 at 21:00; Stop 05/13/17 at 11:18; Status DC Fluvoxamine Maleate (Luvox) 100 mg DAILY PO Last administered on 05/13/17 08: 37; Start 05/13/17 at 09:00; Stop 05/13/17 at 11:18; Status DC Fluvoxamine Maleate (Luvox) 150 mg BID PO Last administered on 05/16/17 09:13 ; Start 05/13/17 at 21:00; Stop 05/16/17 at 18:39; Status DC Oxcarbazepine (Trileptal) 300 mg BID@0900,1400 PO Last administered on 14:13; Start 05/13/17 at 14:00 Oxcarbazepine (Trileptal) 600 mg QHS PO Last administered on 05/17/17 19:58; Start 05/13/17 at 21:00 Levothyroxine Sodium (Synthroid) 175 mcg DAILY06 PO Last administered on 04:50; Start 05/17/17 at 06:00 Fluvoxamine Maleate (Luvox) 150 mg DAILY PO Last administered on 05/18/17 07: 59; Start 05/17/17 at 09:00 Fluvoxamine Maleate (Luvox) 100 mg HS PO Last administered on 05/17/17 19:58; Start 05/16/17 at 21:00 Aripiprazole (Abilify) 5 mg DAILY PO Last administered on 05/18/17 08:00; Start 05/18/17 at 09:00 Active Scripts Active Reported Trazodone Hcl 100 Mg Tablet 100 Mg PO PRN QHS PRN Potassium Chloride 10 Meq Tablet.er 10 Meq PO DAILYWBKFT Zyprexa (Olanzapine) 2.5 Mg Tablet 2.5 Mg PO PRN Q2HR PRN Analgesic [place] (Methyl Salicylate/Menthol) 28 Gm Oint...g. 1 Berkley TP PRN QID PRN Mag-Al Plus Xs Suspension (Mag Hydrox/Al Hydrox/Simeth) 30 Ml Oral.susp 15 Ml PO PRN AFTMEALHC PRN Tylenol (Acetaminophen) 325 Mg Tablet 650 Mg PO PRN Q6HRS PRN Atorvastatin Calcium 20 Mg Tablet 20 Mg PO QHS Vitamin D3 (Cholecalciferol (Vitamin D3)) 5,000 Unit Tablet 5,000 Unit PO DAILY Aldactone (Spironolactone) 25 Mg Tablet 25 Mg PO DAILY Tamsulosin Hcl 0.4 Mg Cap.er.24h 0.4 Mg PO DAILY Celebrex (Celecoxib) 100 Mg Capsule 100 Mg PO BID Senna-S Tablet (Sennosides/Docusate Sodium) 1 Each Tablet 1 Each PO BID Lasix (Furosemide) 40 Mg Tablet 40 Mg PO DAILY Depakote Sprinkle (Divalproex Sodium) 125 Mg Cap.sprink 750 Mg PO BID Acetaminophen 500 Mg Tablet 1,000 Mg PO TID Levothyroxine Sodium 175 Mcg Tablet 175 Mcg PO DAILYAC Olanzapine 20 Mg Tablet 10 Mg PO DAILY [bupropion hcl] 75 Mg PO BID Fluvoxamine Maleate 100 Mg Tablet 150 Mg PO BID Diagnosis: Problems: (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
[2017-05-18] MEDS: OLANZapine 5 MG TABLET PO SCH (20:00)
--- NOTE | 2017-05-18 20:20 | NUR ---
Behavior Intervention Response and Plan: BIRP Note: Behavior: Assumed Care of patient, patient located in Day Room at shift change. Patient exhibited the following behavior Calm, Appropriate, Compliant. Brief assessment on rounds of vital signs, medication needs, lab studies, and pain. Treatment plan problems . Intervention: Patient assessed and the following interventions initiated safety checks 15 Minute Checks Cognitive Assessment , Head to toe Assessment , Medications. Response: After interactions and interventions patient responded in the following manner, Appropriate , Cooperative ,Cooperative. Continue to assess behaviors and condition will continue to monitor throughout the shift as needed. Patient educated on ADL's, and hand hygiene. Plan: Continue to monitor Master Treatment Plan for patient's progress toward short term goals of Decreased Agitation, Decreased Anxiety, correction goals to return to previous living setting vs placement. Continue to assess patient for changes in above assessment. Monitor for medication needs, pain, and safety concerns. Hourly rounding performed to ensure safe environment.
[2017-05-18] MEDS: ATORVASTATIN CALCIUM 20 MG TABLET PO SCH (21:00)
[2017-05-19] MEDS: LEVOTHYROXINE 175 MCG TABLET PO SCH (05:00)
[2017-05-19 05:53] VITALS: BP 138/78
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
[2017-05-19] MEDS: ARIPiprazole 5 MG TABLET PO SCH (08:05)
[2017-05-19] MEDS: POTASSIUM CHLORIDE 10 MEQ TABLET.ER. PO SCH (08:05)
[2017-05-19] MEDS: FUROSEMIDE 40 MG TABLET PO SCH (08:05)
[2017-05-19] MEDS: TAMSULOSIN 0.4 MG CAP.ER.24H. PO SCH (08:06)
[2017-05-19] MEDS: SENNOSIDES/DOCUSATE 8.6/50MG TABLET. PO SCH ×2 (08:06→19:58)
[2017-05-19] MEDS: SPIRONOLACTONE 25 MG TABLET PO SCH (08:06)
[2017-05-19] MEDS: HALOPERIDOL 1 MG TABLET PO SCH ×2 (08:06→14:24)
[2017-05-19] MEDS: ACETAMINOPHEN 500 MG TABLET PO SCH ×3 (08:07→19:58)
[2017-05-19] MEDS: CHOLECALCIFEROL (VITAMIN D3) 1,000 UNIT TABLET PO SCH (08:07)
[2017-05-19] MEDS: CELECOXIB 100 MG CAPSULE PO SCH ×2 (08:08→19:59)
[2017-05-19 10:15] LABS: BASO # 0.1 x10^3/uL (0.0-0.2); BASO % 1 % (0-3); EOS # 0.2 x10^3/uL (0.0-0.7); EOS % 2 % (0-3); HEMATOCRIT 40.4 % (39.0-53.0); LYMPH # 1.2 x10^3/uL (1.0-4.8); LYMPH % 14 % (24-48); MEAN CORPUSCULAR HEMOGLOBIN 30 pg (25-35); MEAN CORPUSCULAR HGB CONC 35 g/dL (31-37); MEAN CORPUSCULAR VOLUME 88 fL (79-100); MONO # 0.7 x10^3/uL (0.0-1.1); MONO % 8 % (0-9); NEUT # 6.4 x10^3uL (1.8-7.7); NEUT % 75 % (31-73); PLATELET COUNT 259 x10^3/uL (140-400); RED BLOOD COUNT 4.59 x10^6/uL (4.30-5.70); RED CELL DISTRIBUTION WIDTH 14.8 % (11.5-14.5); WHITE BLOOD COUNT 8.5 x10^3/uL (4.0-11.0)
--- NOTE | 2017-05-19 10:15 | NUR ---
THERAPEUTIC RECREATION GROUP NOTE TITLE :Funny Videos and Jokes ACTIVITY : Humor GOAL : Decrease stress, elevate mood DURATION : 75 Minutes RESPONSE : No participation
--- NOTE | 2017-05-19 10:17 | NUR ---
Group Note [facility] Orientation Group Start Time: 9:05am End Time: 9:35am Problem: Anxiety Purpose: Reduction of Stress, Orientation, Reduction of Anxiety, Socializing Level of Participation: low Behaviors or Symptoms Observed: Pt sat in group but did not answer questions or participate. Interventions: Clarification Response: Pt remained in group and listened. Plan: Group Participation Additional Comments:
[2017-05-19 10:29] LABS: ALBUMIN 3.7 g/dL (3.4-5.0); CALCIUM 9.2 mg/dL (8.5-10.1); CREATININE 0.8 mg/dL (0.7-1.3); GFR 98.9; POTASSIUM 3.8 mmol/L (3.5-5.1); TOTAL BILIRUBIN 0.2 mg/dL (0.2-1.0); TOTAL PROTEIN 7.5 g/dL (6.4-8.2)
--- NOTE | 2017-05-19 11:50 | NUR ---
Behavior Intervention Response and Plan: BIRP Note: Behavior: Assumed Care of patient, patient located in Dining Room at shift change. Patient exhibited the following behavior Restless, Compliant, Drowsy. Brief assessment on rounds of vital signs, medication needs, lab studies, and pain. Treatment plan problems 1-2. Intervention: Patient assessed and the following interventions initiated safety checks 15 Minute Checks Personal Alarm in place , Cognitive Assessment , Head to toe Assessment. Response: After interactions and interventions patient responded in the following manner, Compulsive , Restless ,Drowsy. Continue to assess behaviors and condition will continue to monitor throughout the shift as needed. Patient educated on ADL's, and hand hygiene. Plan: Continue to monitor Master Treatment Plan for patient's progress toward short term goals of Decreased Agitation, Decreased Aggression, alf goals to return to previous living setting vs placement. Continue to assess patient for changes in above assessment. Monitor for medication needs, pain, and safety concerns. Hourly rounding performed to ensure safe environment.
--- NOTE | 2017-05-19 14:10 | NUR ---
THERAPEUTIC RECREATION GROUP NOTE TITLE :What can we do ALONE, needs NO SUPPLIES, that's FUN, and RELAXING? ACTIVITY : Leisure Awareness GOAL : Increase knowledge of leisure activities DURATION : 60 Minutes RESPONSE : Minimal participation. Pt. joined the group about half way through and was calm and quiet. He did not want to participate.
[2017-05-19 16:58] VITALS: BP 127/87
[2017-05-19] MEDS: ATORVASTATIN CALCIUM 20 MG TABLET PO SCH (19:57)
[2017-05-19] MEDS: OLANZapine 5 MG TABLET PO SCH (19:57)
--- NOTE | 2017-05-19 21:19 | NUR ---
Behavior Intervention Response and Plan: BIRP Note: Behavior: Assumed Care of patient, patient located in Patient Room at shift change. Patient exhibited the following behavior Calm, Cooperative, Drowsy. Brief assessment on rounds of vital signs, medication needs, lab studies, and pain. Treatment plan problems . Intervention: Patient assessed and the following interventions initiated safety checks 15 Minute Checks Cognitive Assessment , Head to toe Assessment , Medications. Response: After interactions and interventions patient responded in the following manner, Calm , Cooperative ,Appropriate. Continue to assess behaviors and condition will continue to monitor throughout the shift as needed. Patient educated on ADL's, and hand hygiene. Plan: Continue to monitor Master Treatment Plan for patient's progress toward short term goals of Decreased Agitation, Decreased Anxiety, exterminator termite goals to return to previous living setting vs placement. Continue to assess patient for changes in above assessment. Monitor for medication needs, pain, and safety concerns. Hourly rounding performed to ensure safe environment.
--- NOTE | 2017-05-19 21:23 | PDOC ---
Exam Bran Demential Exam: Bran Note: Please also refer to the separate dictated note~for this date of service dictated separately.~Patient seen individually. Discussed the patient with Nursing staff reviewed the chart.~Reviewed interim history and current functioning. Reviewed vital signs,~Labs/ Radiology~and current medications noted below. Continue current treatment with the changes noted in the dictated addendum note Assessment: Vital Signs: Vital Signs Date Time Temp Pulse Resp B/P (MAP) Pulse Ox O2 Delivery O2 Flow Rate FiO2 05/19/17 16:58 96.7 81 16 127/87 (100) 94 05/19/17 05:53 Room Air I&O Intake and Output 05/20/17 07:00 Intake Total 2160 ml Balance 2160 ml Intake Oral 2160 ml # Voids 1 # Bowel Movements 1 Labs: Laboratory Tests Test 05/19/17 09:30 White Blood Count 8.5 x10^3/uL (4.0-11.0) Red Blood Count 4.59 x10^6/uL (4.30-5.70) Hemoglobin 14.0 g/dL (13.0-17.5) Hematocrit 40.4 % (39.0-53.0) Mean Corpuscular Volume 88 fL (79-100) Mean Corpuscular Hemoglobin 30 pg (25-35) Mean Corpuscular Hemoglobin Concent 35 g/dL (31-37) Red Cell Distribution Width 14.8 % (11.5-14.5) H Platelet Count 259 x10^3/uL (140-400) Neutrophils (%) (Auto) 75 % (31-73) H Lymphocytes (%) (Auto) 14 % (24-48) L Monocytes (%) (Auto) 8 % (0-9) Eosinophils (%) (Auto) 2 % (0-3) Basophils (%) (Auto) 1 % (0-3) Neutrophils # (Auto) 6.4 x10^3uL (1.8-7.7) Lymphocytes # (Auto) 1.2 x10^3/uL (1.0-4.8) Monocytes # (Auto) 0.7 x10^3/uL (0.0-1.1) Eosinophils # (Auto) 0.2 x10^3/uL (0.0-0.7) Basophils # (Auto) 0.1 x10^3/uL (0.0-0.2) Sodium Level 130 mmol/L (136-145) L Potassium Level 3.8 mmol/L (3.5-5.1) Chloride Level 95 mmol/L (98-107) L Carbon Dioxide Level 29 mmol/L (21-32) Anion Gap 6 (6-14) Blood Urea Nitrogen 16 mg/dL (8-26) Creatinine 0.8 mg/dL (0.7-1.3) Estimated GFR (Cockcroft-Gault) 98.9 BUN/Creatinine Ratio 20 (6-20) Glucose Level 135 mg/dL (70-99) H Calcium Level 9.2 mg/dL (8.5-10.1) Total Bilirubin 0.2 mg/dL (0.2-1.0) Aspartate Amino Transferase (AST) 9 U/L (15-37) L Alanine Aminotransferase (ALT) 20 U/L (16-63) Alkaline Phosphatase 93 U/L (46-116) Total Protein 7.5 g/dL (6.4-8.2) Albumin 3.7 g/dL (3.4-5.0) Albumin/Globulin Ratio 1.0 (1.0-1.7) Current Medications: Meds: Current Medications Olanzapine (ZyPREXA ZYDIS) 5 mg 1X ONCE PO ; Start 04/21/17 at 19:45; Stop at 19:46; Status DC Olanzapine (ZyPREXA IM) 10 mg 1X ONCE IM Last administered on 04/21/17 19:36 ; Start 04/21/17 at 19:45; Stop 04/21/17 at 19:46; Status DC Lorazepam (Ativan) 1 mg 1X ONCE IM Last administered on 04/21/17 20:10; Start 04/21/17 at 19:45; Stop 04/21/17 at 19:46; Status DC Divalproex Sodium (Depakote Sprinkles) 750 mg DAILY PO Last administered on 09:02; Start 04/22/17 at 09:00; Stop 04/26/17 at 10:38; Status DC Fluvoxamine Maleate (Luvox) 150 mg BID PO Last administered on 05/12/17 07:54 ; Start 04/22/17 at 09:00; Stop 05/12/17 at 17:58; Status DC Lorazepam (Ativan) 1 mg BID PO Last administered on 04/23/17 19:23; Start at 09:00; Stop 04/25/17 at 19:38; Status DC Mirtazapine (Remeron) 7.5 mg DAILY PO Last administered on 04/25/17 10:55; Start 04/22/17 at 09:00; Stop 04/25/17 at 19:37; Status DC Olanzapine (ZyPREXA) 20 mg DAILY PO Last administered on 04/22/17 08:17; Start 04/22/17 at 09:00; Stop 04/22/17 at 18:13; Status DC Bupropion HCl (Wellbutrin) 75 mg BID PO Last administered on 05/04/17 08:43; Start 04/22/17 at 09:00; Stop 05/04/17 at 16:14; Status DC Acetaminophen (Tylenol) 650 mg PRN Q6HRS PRN PO PAIN / TEMP; Start 04/22/17 at 01:00 Multi-Ingredient Ointment (Analgesic Holliday) 1 berkley PRN QID PRN TP MUSCLE PAIN; Start 04/22/17 at 01:00 Al Hydroxide/Mg Hydroxide (Mylanta Plus Xs) 15 ml PRN AFTMEALHC PRN PO DYSPEPSIA; Start 04/22/17 at 01:00 Magnesium Hydroxide (Milk Of Magnesia) 2,400 mg PRN QHS PRN PO CONSTIPATION; Start 04/22/17 at 01:00 Haloperidol (Haldol) 2 mg TID PO Last administered on 04/24/17 08:05; Start at 09:00; Stop 04/24/17 at 11:02; Status DC Quetiapine Fumarate (SEROquel) 300 mg BID PO Last administered on 04/25/17 19: 10; Start 04/22/17 at 09:00; Stop 04/25/17 at 19:37; Status DC Olanzapine (ZyPREXA ZYDIS) 2.5 mg PRN Q2HR PRN PO PSYCHOSIS Last administered on 05/17/17 11:25; Start 04/22/17 at 01:30 Acetaminophen (Tylenol) 1,000 mg TID PO Last administered on 05/19/17 19:58; Start 04/22/17 at 09:00 Atorvastatin Calcium (Lipitor) 20 mg QHS PO Last administered on 05/19/17 19: 57; Start 04/22/17 at 21:00 Celecoxib (CeleBREX) 100 mg BID PO Last administered on 05/19/17 19:59; Start 04/22/17 at 09:00 Furosemide (Lasix) 40 mg DAILY PO Last administered on 05/19/17 08:05; Start 04/22/17 at 09:00; Stop 05/19/17 at 14:57; Status DC Levothyroxine Sodium (Synthroid) 175 mcg DAILYAC PO Last administered on 07:29; Start 04/22/17 at 08:45; Stop 05/16/17 at 07:52; Status DC Senna/Docusate Sodium (Senna Plus) 1 tab BID PO Last administered on 05/19/17 19:58; Start 04/22/17 at 09:00 Spironolactone (Aldactone) 25 mg DAILY PO Last administered on 05/19/17 08:06 ; Start 04/22/17 at 09:00 Tamsulosin HCl (Flomax) 0.4 mg DAILY PO Last administered on 05/19/17 08:06; Start 04/22/17 at 09:00 Vitamin D (Vitamin D3) 5,000 unit DAILY PO Last administered on 05/19/17 08:07 ; Start 04/22/17 at 09:00 Potassium Chloride (Klor-Con) 10 meq DAILYWBKFT PO Last administered on 08:05; Start 04/22/17 at 08:45 Olanzapine (ZyPREXA) 10 mg DAILY PO Last administered on 05/05/17 08:34; Start 04/23/17 at 09:00; Stop 05/05/17 at 18:27; Status DC Trazodone HCl (Desyrel) 100 mg QHS PO Last administered on 04/25/17 19:09; Start 04/22/17 at 21:00; Stop 04/25/17 at 19:37; Status DC Trazodone HCl (Desyrel) 100 mg QHS PRN PO INSOMNIA; Start 04/22/17 at 18:15; Stop 04/24/17 at 11:02; Status DC Trazodone HCl (Desyrel) 12.5 mg TID@0900,1300,1700 PO Last administered on 04/24 08:05; Start 04/23/17 at 09:00; Stop 04/25/17 at 19:37; Status DC Lorazepam (Ativan) 1 mg DAILY IV ; Start 04/23/17 at 09:00; Stop 04/23/17 at 09: 00; Status DC Lorazepam (Ativan) 1 mg DAILY IM Last administered on 04/24/17 07:47; Start at 09:00; Stop 04/24/17 at 11:02; Status DC Trazodone HCl (Desyrel) 100 mg PRN QHS PRN PO INSOMNIA Last administered on 19:21; Start 04/25/17 at 21:00 Lorazepam (Ativan) 0.5 mg TID PO Last administered on 04/27/17 19:22; Start at 09:00; Stop 04/27/17 at 21:05; Status DC Lorazepam (Ativan) 0.5 mg BID PO Last administered on 04/29/17 21:22; Start at 09:00; Stop 04/29/17 at 21:05; Status DC Lorazepam (Ativan) 0.5 mg DAILY PO Last administered on 05/01/17 08:13; Start 04/30/17 at 09:00; Stop 05/01/17 at 09:05; Status DC Divalproex Sodium (Depakote Sprinkles) 750 mg BID PO Last administered on 08:43; Start 04/26/17 at 21:00; Stop 05/04/17 at 16:14; Status DC Oxcarbazepine (Trileptal) 300 mg BID92 PO Last administered on 05/06/17 13:33; Start 05/05/17 at 09:00; Stop 05/06/17 at 21:00; Status DC Haloperidol (Haldol) 1 mg BID92 PO Last administered on 05/09/17 13:23; Start 05/05/17 at 09:00; Stop 05/09/17 at 17:40; Status DC Olanzapine (ZyPREXA) 5 mg QHS PO Last administered on 05/19/17 19:57; Start at 21:00 Oxcarbazepine (Trileptal) 300 mg TID PO Last administered on 05/13/17 08:34; Start 05/07/17 at 09:00; Stop 05/13/17 at 11:19; Status DC Haloperidol (Haldol) 2 mg BID92 PO Last administered on 05/19/17 14:24; Start 05/10/17 at 09:00 Aripiprazole (Abilify) 2.5 mg DAILY PO Last administered on 05/17/17 08:00; Start 05/12/17 at 09:00; Stop 05/17/17 at 18:33; Status DC Aripiprazole (Abilify) 2.5 mg DAILY PO ; Start 05/12/17 at 09:00; Stop 05/12/17 at 09:00; Status DC Fluvoxamine Maleate (Luvox) 150 mg QHS PO Last administered on 05/12/17 20:31 ; Start 05/12/17 at 21:00; Stop 05/13/17 at 11:18; Status DC Fluvoxamine Maleate (Luvox) 100 mg DAILY PO Last administered on 05/13/17 08: 37; Start 05/13/17 at 09:00; Stop 05/13/17 at 11:18; Status DC Fluvoxamine Maleate (Luvox) 150 mg BID PO Last administered on 05/16/17 09:13 ; Start 05/13/17 at 21:00; Stop 05/16/17 at 18:39; Status DC Oxcarbazepine (Trileptal) 300 mg BID@0900,1400 PO Last administered on 14:26; Start 05/13/17 at 14:00 Oxcarbazepine (Trileptal) 600 mg QHS PO Last administered on 05/19/17 19:57; Start 05/13/17 at 21:00 Levothyroxine Sodium (Synthroid) 175 mcg DAILY06 PO Last administered on 05:00; Start 05/17/17 at 06:00 Fluvoxamine Maleate (Luvox) 150 mg DAILY PO Last administered on 05/19/17 08: 06; Start 05/17/17 at 09:00 Fluvoxamine Maleate (Luvox) 100 mg HS PO Last administered on 05/19/17 19:57; Start 05/16/17 at 21:00 Aripiprazole (Abilify) 5 mg DAILY PO Last administered on 05/19/17 08:05; Start 05/18/17 at 09:00 Furosemide (Lasix) 20 mg DAILY PO ; Start 05/20/17 at 09:00 Active Scripts Active Reported Trazodone Hcl 100 Mg Tablet 100 Mg PO PRN QHS PRN Potassium Chloride 10 Meq Tablet.er 10 Meq PO DAILYWBKFT Zyprexa (Olanzapine) 2.5 Mg Tablet 2.5 Mg PO PRN Q2HR PRN Analgesic Holliday (Methyl Salicylate/Menthol) 28 Gm Oint...g. 1 Berkley TP PRN QID PRN Mag-Al Plus Xs Suspension (Mag Hydrox/Al Hydrox/Simeth) 30 Ml Oral.susp 15 Ml PO PRN AFTMEALHC PRN Tylenol (Acetaminophen) 325 Mg Tablet 650 Mg PO PRN Q6HRS PRN Atorvastatin Calcium 20 Mg Tablet 20 Mg PO QHS Vitamin D3 (Cholecalciferol (Vitamin D3)) 5,000 Unit Tablet 5,000 Unit PO DAILY Aldactone (Spironolactone) 25 Mg Tablet 25 Mg PO DAILY Tamsulosin Hcl 0.4 Mg Cap.er.24h 0.4 Mg PO DAILY Celebrex (Celecoxib) 100 Mg Capsule 100 Mg PO BID Senna-S Tablet (Sennosides/Docusate Sodium) 1 Each Tablet 1 Each PO BID Lasix (Furosemide) 40 Mg Tablet 40 Mg PO DAILY Depakote Sprinkle (Divalproex Sodium) 125 Mg Cap.sprink 750 Mg PO BID Acetaminophen 500 Mg Tablet 1,000 Mg PO TID Levothyroxine Sodium 175 Mcg Tablet 175 Mcg PO DAILYAC Olanzapine 20 Mg Tablet 10 Mg PO DAILY [bupropion hcl] 75 Mg PO BID Fluvoxamine Maleate 100 Mg Tablet 150 Mg PO BID Diagnosis: Problems: (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
--- NOTE | 2017-05-19 22:30 | NUR ---
Pt awaken by activity of roomate being moved onto his room, upset and shouting, PRN given. New pt moved to another room.
[2017-05-19] MEDS: traZODone 100 MG TABLET. PO PRN (22:46)
[2017-05-19] MEDS ORDERED: MAGN400O7 PO (23:56)
[2017-05-19] MEDS ORDERED: FURO20TA3 PO (23:58)
--- NOTE | 2017-05-20 | NUR ---
Sleeping now, after room quieted and PRN given pt went back to sleep.
[2017-05-20] MEDS ORDERED: ARIP5TAB13 PO (00:02)
[2017-05-20] MEDS ORDERED: OLAN5TAB9 PO (00:05)
[2017-05-20] MEDS ORDERED: OXCA300T PO ×2 (00:08→00:09)
[2017-05-20] MEDS ORDERED: FLUV100T2 PO ×2 (00:10→00:11)
[2017-05-20] MEDS ORDERED: HALO2TAB PO (00:12)
--- NOTE | 2017-05-20 05:38 | PN ---
DATE: 05/18/2017 PSYCHIATRIC PROGRESS NOTE This is a late entry 05/18/2017, covers elements not covered in my initial note of 05/18/2017. Met with the patient in the evening of 05/18/2017. He has done better during parts of the day, but he was crying at times, labile in his mood, has not been physically aggressive, repeatedly making statements, "I am dying." This became fairly prominent after the personal loan specialist had come to the unit and he believed this was because the patient was dying. REVIEW OF SYSTEMS: Ambulation impaired, in a Broda chair. No CV, , pulmonary, eye system symptoms on review. Reliability poor. MENTAL STATUS EXAM: Oriented to himself and situation. Speech moderate latency, often responses monosyllabic. Abstraction fair, computation impaired, language function intact, attention span short. Mood and affect, intermittently labile, but overall showing improvement. LABORATORY DATA: Reviewed. IMPRESSION: Unchanged from initial note. PLAN: Continue current psychotropics. Reviewed drug interactions. Risk/benefit ratio favors no further change. MAN Vimal GARRIDO MD DR: MEME/giana JOB#: [id number] / [id number]
[2017-05-20] MEDS: LEVOTHYROXINE 175 MCG TABLET PO SCH (05:52)
[2017-05-20 06:09] VITALS: BP 132/88
[2017-05-20] MEDS: CELECOXIB 100 MG CAPSULE PO SCH (07:32)
[2017-05-20] MEDS: SPIRONOLACTONE 25 MG TABLET PO SCH (07:32)
[2017-05-20] MEDS: ARIPiprazole 5 MG TABLET PO SCH (07:32)
[2017-05-20] MEDS: TAMSULOSIN 0.4 MG CAP.ER.24H. PO SCH (07:32)
--- NOTE | 2017-05-20 07:32 | NUR ---
[facility] Social Work Discharge Planning Form Patient Name YOGI CAMACHO Admit Date: 04/21/17 DISCHARGE PLAN Discharge Destination: return to [facility] Transportation: Facility coordinated non emergent w/stretcher DISCHARGE TO FACILITY Facility: [facility] Address: [address], [place] [address] Contact Name: PCP: at facility w/in 10-12 days of dc Psychiatrist: at facility w/in 10-12 days of dc
[2017-05-20] MEDS: POTASSIUM CHLORIDE 10 MEQ TABLET.ER. PO SCH (07:33)
[2017-05-20] MEDS: HALOPERIDOL 1 MG TABLET PO SCH (07:33)
[2017-05-20] MEDS: SENNOSIDES/DOCUSATE 8.6/50MG TABLET. PO SCH (07:33)
[2017-05-20] MEDS: CHOLECALCIFEROL (VITAMIN D3) 1,000 UNIT TABLET PO SCH (07:34)
[2017-05-20] MEDS: ACETAMINOPHEN 500 MG TABLET PO SCH (07:34)
[2017-05-20 07:53] LABS: ALBUMIN 3.5 g/dL (3.4-5.0); CALCIUM 9.2 mg/dL (8.5-10.1); CREATININE 0.8 mg/dL (0.7-1.3); GFR 98.9; MAGNESIUM 1.7 mg/dL (1.8-2.4); POTASSIUM 4.2 mmol/L (3.5-5.1); TOTAL BILIRUBIN 0.3 mg/dL (0.2-1.0)
[2017-05-20] MEDS ORDERED: IV NORMAL SALINE 500ML 500 ML IV ONE (08:00)
[2017-05-20] MEDS ORDERED: IV NORMAL SALINE 1,000ML 1,000 ML ONE (08:12)
[2017-05-20] MEDS ORDERED: FUROSEMIDE 20 MG TABLET PO SCH (09:00)
--- NOTE | 2017-05-20 11:14 | NUR ---
Behavior Intervention Response and Plan: BIRP Note: Behavior: Assumed Care of patient, patient located in Dining Room at shift change. Patient exhibited the following behavior Disorganized, Compulsive, Restless. Brief assessment on rounds of vital signs, medication needs, lab studies, and pain. Treatment plan problems 1-2. Intervention: Patient assessed and the following interventions initiated safety checks 15 Minute Checks Personal Alarm in place , Cognitive Assessment , Head to toe Assessment. Response: After interactions and interventions patient responded in the following manner, Restless , Disorganized ,Drowsy. Continue to assess behaviors and condition will continue to monitor throughout the shift as needed. Patient educated on ADL's, and hand hygiene. Plan: Continue to monitor Master Treatment Plan for patient's progress toward short term goals of Decreased Agitation, Decreased Aggression, buttermaker goals to return to previous living setting vs placement. Continue to assess patient for changes in above assessment. Monitor for medication needs, pain, and safety concerns. Hourly rounding performed to ensure safe environment.
--- NOTE | 2017-05-20 11:39 | NUR ---
Transition Record was faxed to follow-up provider with the following elements: Reason for admission, procedures, tests, principal diagnosis, pending studies, patient instructions, 22/03 contact information for unit, phone number to obtain pending test results, plan for follow-up care, physician follow-up, advanced directive information, and medication list with dose, duration and instructions. This information was included in the following documents: History and physical, lab results, study results, progress notes, social work planning form, DC instruction form, patient visit summary, and medication reconciliation form. Date & time record faxed: 05/20/17 Record faxed to: Pramod Lawson Record discussed with/ report given to: Andie
--- NOTE | 2017-05-20 18:06 | PDOC ---
Exam Bran Demential Exam: Bran Note: Please also refer to the separate dictated note~for this date of service dictated separately.~Patient seen individually. Discussed the patient with Nursing staff reviewed the chart.~Reviewed interim history and current functioning. Reviewed vital signs,~Labs/ Radiology~and current medications noted below. Continue current treatment with the changes noted in the dictated addendum note Assessment: Vital Signs: Vital Signs Date Time Temp Pulse Resp B/P (MAP) Pulse Ox O2 Delivery O2 Flow Rate FiO2 05/20/17 06:09 97.4 70 18 132/88 (103) 91 05/19/17 05:53 Room Air I&O Intake and Output 05/21/17 07:00 Intake Total 240 ml Balance 240 ml Intake Oral 240 ml Labs: Laboratory Tests Test 05/20/17 06:53 Sodium Level 129 mmol/L (136-145) L Potassium Level 4.2 mmol/L (3.5-5.1) Chloride Level 97 mmol/L (98-107) L Carbon Dioxide Level 26 mmol/L (21-32) Anion Gap 6 (6-14) Blood Urea Nitrogen 17 mg/dL (8-26) Creatinine 0.8 mg/dL (0.7-1.3) Estimated GFR (Cockcroft-Gault) 98.9 BUN/Creatinine Ratio 21 (6-20) H Glucose Level 107 mg/dL (70-99) H Calcium Level 9.2 mg/dL (8.5-10.1) Magnesium Level 1.7 mg/dL (1.8-2.4) L Total Bilirubin 0.3 mg/dL (0.2-1.0) Aspartate Amino Transferase (AST) 11 U/L (15-37) L Alanine Aminotransferase (ALT) 26 U/L (16-63) Alkaline Phosphatase 90 U/L (46-116) Total Protein 7.0 g/dL (6.4-8.2) Albumin 3.5 g/dL (3.4-5.0) Albumin/Globulin Ratio 1.0 (1.0-1.7) Current Medications: Meds: Current Medications Olanzapine (ZyPREXA ZYDIS) 5 mg 1X ONCE PO ; Start 04/21/17 at 19:45; Stop at 19:46; Status DC Olanzapine (ZyPREXA IM) 10 mg 1X ONCE IM Last administered on 04/21/17 19:36 ; Start 04/21/17 at 19:45; Stop 04/21/17 at 19:46; Status DC Lorazepam (Ativan) 1 mg 1X ONCE IM Last administered on 04/21/17 20:10; Start 04/21/17 at 19:45; Stop 04/21/17 at 19:46; Status DC Divalproex Sodium (Depakote Sprinkles) 750 mg DAILY PO Last administered on 09:02; Start 04/22/17 at 09:00; Stop 04/26/17 at 10:38; Status DC Fluvoxamine Maleate (Luvox) 150 mg BID PO Last administered on 05/12/17 07:54 ; Start 04/22/17 at 09:00; Stop 05/12/17 at 17:58; Status DC Lorazepam (Ativan) 1 mg BID PO Last administered on 04/23/17 19:23; Start at 09:00; Stop 04/25/17 at 19:38; Status DC Mirtazapine (Remeron) 7.5 mg DAILY PO Last administered on 04/25/17 10:55; Start 04/22/17 at 09:00; Stop 04/25/17 at 19:37; Status DC Olanzapine (ZyPREXA) 20 mg DAILY PO Last administered on 04/22/17 08:17; Start 04/22/17 at 09:00; Stop 04/22/17 at 18:13; Status DC Bupropion HCl (Wellbutrin) 75 mg BID PO Last administered on 05/04/17 08:43; Start 04/22/17 at 09:00; Stop 05/04/17 at 16:14; Status DC Acetaminophen (Tylenol) 650 mg PRN Q6HRS PRN PO PAIN / TEMP; Start 04/22/17 at 01:00; Stop 05/20/17 at 14:03; Status DC Multi-Ingredient Ointment (Analgesic Delano) 1 berkley PRN QID PRN TP MUSCLE PAIN; Start 04/22/17 at 01:00; Stop 05/20/17 at 14:03; Status DC Al Hydroxide/Mg Hydroxide (Mylanta Plus Xs) 15 ml PRN AFTMEALHC PRN PO DYSPEPSIA; Start 04/22/17 at 01:00; Stop 05/20/17 at 14:03; Status DC Magnesium Hydroxide (Milk Of Magnesia) 2,400 mg PRN QHS PRN PO CONSTIPATION; Start 04/22/17 at 01:00; Stop 05/20/17 at 14:03; Status DC Haloperidol (Haldol) 2 mg TID PO Last administered on 04/24/17 08:05; Start at 09:00; Stop 04/24/17 at 11:02; Status DC Quetiapine Fumarate (SEROquel) 300 mg BID PO Last administered on 04/25/17 19: 10; Start 04/22/17 at 09:00; Stop 04/25/17 at 19:37; Status DC Olanzapine (ZyPREXA ZYDIS) 2.5 mg PRN Q2HR PRN PO PSYCHOSIS Last administered on 05/20/17 10:57; Start 04/22/17 at 01:30; Stop 05/20/17 at 14:03; Status DC Acetaminophen (Tylenol) 1,000 mg TID PO Last administered on 05/20/17 07:34; Start 04/22/17 at 09:00; Stop 05/20/17 at 14:03; Status DC Atorvastatin Calcium (Lipitor) 20 mg QHS PO Last administered on 05/19/17 19: 57; Start 04/22/17 at 21:00; Stop 05/20/17 at 14:03; Status DC Celecoxib (CeleBREX) 100 mg BID PO Last administered on 05/20/17 07:32; Start 04/22/17 at 09:00; Stop 05/20/17 at 14:03; Status DC Furosemide (Lasix) 40 mg DAILY PO Last administered on 05/19/17 08:05; Start 04/22/17 at 09:00; Stop 05/19/17 at 14:57; Status DC Levothyroxine Sodium (Synthroid) 175 mcg DAILYAC PO Last administered on 07:29; Start 04/22/17 at 08:45; Stop 05/16/17 at 07:52; Status DC Senna/Docusate Sodium (Senna Plus) 1 tab BID PO Last administered on 05/20/17 07:33; Start 04/22/17 at 09:00; Stop 05/20/17 at 14:03; Status DC Spironolactone (Aldactone) 25 mg DAILY PO Last administered on 05/20/17 07:32 ; Start 04/22/17 at 09:00; Stop 05/20/17 at 14:03; Status DC Tamsulosin HCl (Flomax) 0.4 mg DAILY PO Last administered on 05/20/17 07:32; Start 04/22/17 at 09:00; Stop 05/20/17 at 14:03; Status DC Vitamin D (Vitamin D3) 5,000 unit DAILY PO Last administered on 05/20/17 07:34 ; Start 04/22/17 at 09:00; Stop 05/20/17 at 14:03; Status DC Potassium Chloride (Klor-Con) 10 meq DAILYWBKFT PO Last administered on 07:33; Start 04/22/17 at 08:45; Stop 05/20/17 at 14:03; Status DC Olanzapine (ZyPREXA) 10 mg DAILY PO Last administered on 05/05/17 08:34; Start 04/23/17 at 09:00; Stop 05/05/17 at 18:27; Status DC Trazodone HCl (Desyrel) 100 mg QHS PO Last administered on 04/25/17 19:09; Start 04/22/17 at 21:00; Stop 04/25/17 at 19:37; Status DC Trazodone HCl (Desyrel) 100 mg QHS PRN PO INSOMNIA; Start 04/22/17 at 18:15; Stop 04/24/17 at 11:02; Status DC Trazodone HCl (Desyrel) 12.5 mg TID@0900,1300,1700 PO Last administered on 04/24 08:05; Start 04/23/17 at 09:00; Stop 04/25/17 at 19:37; Status DC Lorazepam (Ativan) 1 mg DAILY IV ; Start 04/23/17 at 09:00; Stop 04/23/17 at 09: 00; Status DC Lorazepam (Ativan) 1 mg DAILY IM Last administered on 04/24/17 07:47; Start at 09:00; Stop 04/24/17 at 11:02; Status DC Trazodone HCl (Desyrel) 100 mg PRN QHS PRN PO INSOMNIA Last administered on 22:46; Start 04/25/17 at 21:00; Stop 05/20/17 at 14:03; Status DC Lorazepam (Ativan) 0.5 mg TID PO Last administered on 04/27/17 19:22; Start at 09:00; Stop 04/27/17 at 21:05; Status DC Lorazepam (Ativan) 0.5 mg BID PO Last administered on 04/29/17 21:22; Start at 09:00; Stop 04/29/17 at 21:05; Status DC Lorazepam (Ativan) 0.5 mg DAILY PO Last administered on 05/01/17 08:13; Start 04/30/17 at 09:00; Stop 05/01/17 at 09:05; Status DC Divalproex Sodium (Depakote Sprinkles) 750 mg BID PO Last administered on 08:43; Start 04/26/17 at 21:00; Stop 05/04/17 at 16:14; Status DC Oxcarbazepine (Trileptal) 300 mg BID92 PO Last administered on 05/06/17 13:33; Start 05/05/17 at 09:00; Stop 05/06/17 at 21:00; Status DC Haloperidol (Haldol) 1 mg BID92 PO Last administered on 05/09/17 13:23; Start 05/05/17 at 09:00; Stop 05/09/17 at 17:40; Status DC Olanzapine (ZyPREXA) 5 mg QHS PO Last administered on 05/19/17 19:57; Start at 21:00; Stop 05/20/17 at 14:03; Status DC Oxcarbazepine (Trileptal) 300 mg TID PO Last administered on 05/13/17 08:34; Start 05/07/17 at 09:00; Stop 05/13/17 at 11:19; Status DC Haloperidol (Haldol) 2 mg BID92 PO Last administered on 05/20/17 07:33; Start 05/10/17 at 09:00; Stop 05/20/17 at 14:03; Status DC Aripiprazole (Abilify) 2.5 mg DAILY PO Last administered on 05/17/17 08:00; Start 05/12/17 at 09:00; Stop 05/17/17 at 18:33; Status DC Aripiprazole (Abilify) 2.5 mg DAILY PO ; Start 05/12/17 at 09:00; Stop 05/12/17 at 09:00; Status DC Fluvoxamine Maleate (Luvox) 150 mg QHS PO Last administered on 05/12/17 20:31 ; Start 05/12/17 at 21:00; Stop 05/13/17 at 11:18; Status DC Fluvoxamine Maleate (Luvox) 100 mg DAILY PO Last administered on 05/13/17 08: 37; Start 05/13/17 at 09:00; Stop 05/13/17 at 11:18; Status DC Fluvoxamine Maleate (Luvox) 150 mg BID PO Last administered on 05/16/17 09:13 ; Start 05/13/17 at 21:00; Stop 05/16/17 at 18:39; Status DC Oxcarbazepine (Trileptal) 300 mg BID@0900,1400 PO Last administered on 07:33; Start 05/13/17 at 14:00; Stop 05/20/17 at 14:03; Status DC Oxcarbazepine (Trileptal) 600 mg QHS PO Last administered on 05/19/17 19:57; Start 05/13/17 at 21:00; Stop 05/20/17 at 14:03; Status DC Levothyroxine Sodium (Synthroid) 175 mcg DAILY06 PO Last administered on 05:52; Start 05/17/17 at 06:00; Stop 05/20/17 at 14:03; Status DC Fluvoxamine Maleate (Luvox) 150 mg DAILY PO Last administered on 05/20/17 07: 34; Start 05/17/17 at 09:00; Stop 05/20/17 at 14:03; Status DC Fluvoxamine Maleate (Luvox) 100 mg HS PO Last administered on 05/19/17 19:57; Start 05/16/17 at 21:00; Stop 05/20/17 at 14:03; Status DC Aripiprazole (Abilify) 5 mg DAILY PO Last administered on 05/20/17 07:32; Start 05/18/17 at 09:00; Stop 05/20/17 at 14:03; Status DC Furosemide (Lasix) 20 mg DAILY PO Last administered on 05/20/17 07:35; Start 05/20/17 at 09:00; Stop 05/20/17 at 14:03; Status DC Sodium Chloride 500 ml @ 0 mls/hr 1X ONCE IV Last administered on 05/20/17 08 :00; Start 05/20/17 at 08:00; Stop 05/20/17 at 08:17; Status DC Sodium Chloride 1,000 ml @ As Directed STK-MED ONCE .ROUTE ; Start 05/20/17 at 08:12; Stop 05/20/17 at 08:13; Status DC Active Scripts Active Reported Haloperidol 2 Mg Tablet 2 Mg PO BID Fluvoxamine Maleate 100 Mg Tablet 100 Mg PO QHS Fluvoxamine Maleate 100 Mg Tablet 150 Mg PO DAILY Oxcarbazepine 300 Mg Tablet 600 Mg PO QHS Oxcarbazepine 300 Mg Tablet 300 Mg PO BID92 Olanzapine 5 Mg Tablet 5 Mg PO QHS Abilify (Aripiprazole) 5 Mg Tablet 5 Mg PO DAILY Furosemide 20 Mg Tablet 20 Mg PO DAILY Milk Of Magnesia (Magnesium Hydroxide) 400 Mg/5 Ml Oral.susp 30 Ml PO PRN QHS PRN Trazodone Hcl 100 Mg Tablet 100 Mg PO PRN QHS PRN Potassium Chloride 10 Meq Tablet.er 10 Meq PO DAILYWBKFT Zyprexa (Olanzapine) 2.5 Mg Tablet 2.5 Mg PO PRN Q2HR PRN Analgesic Delano (Methyl Salicylate/Menthol) 28 Gm Oint...g. 1 Berkley TP PRN QID PRN Mag-Al Plus Xs Suspension (Mag Hydrox/Al Hydrox/Simeth) 30 Ml Oral.susp 15 Ml PO PRN AFTMEALHC PRN Tylenol (Acetaminophen) 325 Mg Tablet 650 Mg PO PRN Q6HRS PRN Atorvastatin Calcium 20 Mg Tablet 20 Mg PO QHS Vitamin D3 (Cholecalciferol (Vitamin D3)) 5,000 Unit Tablet 5,000 Unit PO DAILY Aldactone (Spironolactone) 25 Mg Tablet 25 Mg PO DAILY Tamsulosin Hcl 0.4 Mg Cap.er.24h 0.4 Mg PO DAILY Celebrex (Celecoxib) 100 Mg Capsule 100 Mg PO BID Senna-S Tablet (Sennosides/Docusate Sodium) 1 Each Tablet 1 Each PO BID Acetaminophen 500 Mg Tablet 1,000 Mg PO TID Levothyroxine Sodium 175 Mcg Tablet 175 Mcg PO DAILYAC Diagnosis: Problems: (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
--- NOTE | 2017-05-21 04:05 | PN ---
DATE: 05/19/2017 This late entry of 05/19/2017 covers elements not covered in my initial note of 05/19/2017. I met with the patient in the evening of 05/19/2017. The patient has been less tearful, calmer, still withdrawn. Sodium is low, we will defer to Dr. Pacheco. Labs are being repeated morning of 05/20/2017. REVIEW OF SYSTEMS: Ambulation impaired, in Broda chair. No CV, , pulmonary, eye system symptoms on review. MENTAL STATUS EXAMINATION: Oriented to himself off and on. Verbal responses monosyllabic. Abstraction fair, computation impaired, language function intact. Mood somewhat dysphoric, but not tearful as I met with him. No suicidal or homicidal ideation. No clear psychotic symptoms. LABORATORY DATA: Reviewed. IMPRESSION: Unchanged from initial note. PLAN: Continue psychotropics mentioned in my initial note. Reviewed drug interactions. Risk/benefit ratio favors no change at this time. MAN Vimal GARRIDO MD DR: MEME/giana JOB#: [id number] / [id number]
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
--- NOTE | 2017-05-22 01:53 | PN ---
DATE: 05/20/2017 This is a late entry for 05/20/2017 and covers the elements not covered in my initial note of 05/20/2017. Elements of this note are covered in by discharge summary/psychiatric progress note. MAN Vimal GARRIDO MD DR: MEME/giana JOB#: [id number] / [id number]
== END 2017-05-20 11:30 | disposition home or self-care (01) | DRG 884 ==
LOC: ER 19:20 → GEROPSY 21:36
PROVIDERS: ADMIT Psychiatry & Neurology Psychiatry; ATTEND Psychiatry & Neurology Psychiatry
DX: F01.51 Vascular dementia, unspecified severity, with behavioral disturbance (principal); G10 Huntington's disease; F02.81 Dementia in other diseases classified elsewhere, unspecified severity, with behavioral disturbance; F33.3 Major depressive disorder, recurrent, severe with psychotic symptoms; R13.10 Dysphagia, unspecified; I50.9 Heart failure, unspecified; E03.9 Hypothyroidism, unspecified; E78.00 Pure hypercholesterolemia, unspecified; G47.00 Insomnia, unspecified; F41.9 Anxiety disorder, unspecified; F42.9 Obsessive-compulsive disorder, unspecified; F63.9 Impulse disorder, unspecified; N40.0 Benign prostatic hyperplasia without lower urinary tract symptoms; R29.6 Repeated falls; E55.9 Vitamin D deficiency, unspecified; R45.86 Emotional lability; Z66 Do not resuscitate; Z78.1 Physical restraint status; Z87.01 Personal history of pneumonia (recurrent); Z91.81 History of falling
CPT/HCPCS: 36415; 51701; 80053; 80061; 80164; 81001; 82306; 82607; 83540; 83550; 83735; 84436; 84443; 84480; 85025; 86592; 86593; 93005; 96372; J2060; J3490; J7040; 97110; 97116; 97530; 99285-25

== ENCOUNTER 2018-05-22 09:19 | Inpatient (IN) | payer MEDICARE ==
[~2018-05-22] VITALS: Ht 177.8 cm; Wt 98.9 kg
[~2018-05-22 09:19] MED LIST changes: +ARIP5TAB13 PO; +BUPROPION HCL PO; -CHOL20002 PO; +CHOL200059 PO; +CHOL500016 PO; +CLON0.5T11 PO; -CLON0.5T3 PO; -DIVA125C PO; +DIVA125C2 PO; +FURO-68 PO; +FURO20TA3 PO; +HALO2TAB PO; +LORA-254 PO; -LORA1TAB PO; +MIRT15TA3 PO; +OLAN5TAB9 PO; +OXCA300T19 PO; +POTA10TA10 PO; +POTASSIUM CHLORIDE PO; +QUET300T5 PO; -SENN-6 PO; +SENN-82 PO; +SENN1TAB15 PO; +SPIR25TA PO; -SPIR25TA3 PO; +SPIR25TA5 PO; +TRAZ-85 PO; +TRAZ-86 PO; -TRAZ-90 PO; -TRAZ50TA15 PO
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
[2018-05-22] MEDS ORDERED: METHYL SALICYLATE/MENTHOL TOPICAL OINTMENT 29GM TUBE. TP PRN ×2 (11:15→11:45)
[2018-05-22] MEDS ORDERED: MAGNESIUM HYDROXIDE 2,400 MG/30 ML ORAL.SUSP. PO PRN ×2 (11:15→11:45)
[2018-05-22] MEDS ORDERED: ACETAMINOPHEN 325 MG TABLET PO PRN ×2 (11:15→11:45)
[2018-05-22] MEDS ORDERED: MAG HYDROX/AL HYDROX/SIMETH 30 ML ORAL.SUSP PO PRN ×2 (11:15→11:45)
[2018-05-22] MEDS ORDERED: MIRT15TA PO (11:41)
[2018-05-22] MEDS ORDERED: FAMO20TA5 PO (11:41)
[2018-05-22] MEDS ORDERED: NALT50TA PO (11:41)
[2018-05-22] MEDS ORDERED: OLAN10VI2 IM (11:41)
[2018-05-22] MEDS ORDERED: FLU45SYR IM (11:48)
[2018-05-22] MEDS: QUEtiapine 50 MG TABLET. PO SCH ×2 (12:20→17:34)
[2018-05-22] MEDS: LORazepam 0.5 MG TABLET PO PRN ×3 (12:20→20:29)
[2018-05-22] MEDS ORDERED: HALOPERIDOL 5 MG TABLET PO SCH (13:00)
[2018-05-22] MEDS: ACETAMINOPHEN 500 MG TABLET PO SCH ×2 (14:46→20:30)
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
[2018-05-22 16:50] VITALS: BP 113/73
[2018-05-22] MEDS: CELECOXIB 100 MG CAPSULE PO SCH (17:34)
[2018-05-22] MEDS: CHOLECALCIFEROL (VITAMIN D3) 1,000 UNIT TABLET PO SCH (17:34)
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
[2018-05-22] MEDS ORDERED: ATORVASTATIN CALCIUM 20 MG TABLET PO SCH (21:00)
[2018-05-22] MEDS ORDERED: FAMOTIDINE 20 MG TABLET PO SCH (21:00)
[2018-05-22] MEDS ORDERED: MIRTAZAPINE 15 MG TABLET PO SCH (21:00)
--- NOTE | 2018-05-22 21:10 | PDOC ---
Exam Note: Bran Note: Please also refer to the separate dictated note~for this date of service dictated separately.~Patient seen individually. Discussed the patient with Nursing staff reviewed the chart.~Reviewed interim history and current functioning. Reviewed vital signs,~Labs/ Radiology~and current medications noted below. Continue current treatment with the changes noted in the dictated addendum note Assessment: Vital Signs: Vital Signs Date Time Temp Pulse Resp B/P (MAP) Pulse Ox O2 Delivery O2 Flow Rate FiO2 05/22/18 16:50 97.9 68 113/73 (86) 94 Current Medications: Meds: Current Medications Olanzapine (ZyPREXA ZYDIS) 5 mg PRN Q2HR PRN PO PSYCHOSIS Last administered on 05/22/18at 20:30; Start 05/22/18 at 10:45 Acetaminophen (Tylenol) 650 mg PRN Q6HRS PRN PO PAIN / TEMP; Start 05/22/18 at 11:15; Stop 05/22/18 at 12:00; Status DC Multi-Ingredient Ointment (Analgesic De Witt) 1 berkley PRN QID PRN TP MUSCLE PAIN; Start 05/22/18 at 11:15 Al Hydroxide/Mg Hydroxide (Mylanta Plus Xs) 15 ml PRN AFTMEALHC PRN PO DYSPEPSIA; Start 05/22/18 at 11:15 Magnesium Hydroxide (Milk Of Magnesia) 2,400 mg PRN QHS PRN PO CONSTIPATION; Start 05/22/18 at 11:15 Acetaminophen (Tylenol) 650 mg PRN Q6HRS PRN PO PAIN / TEMP; Start 05/22/18 at 11:45 Atorvastatin Calcium (Lipitor) 20 mg QHS PO Last administered on 05/22/18at 20: 30; Start 05/22/18 at 21:00 Levothyroxine Sodium (Synthroid) 150 mcg DAILY06 PO ; Start 05/23/18 at 06:00 Al Hydroxide/Mg Hydroxide (Mylanta Plus Xs) 15 ml PRN AFTMEALHC PRN PO DYSPEPSIA; Start 05/22/18 at 11:45 Magnesium Hydroxide (Milk Of Magnesia) 2,400 mg PRN QHS PRN PO CONSTIPATION; Start 05/22/18 at 11:45 Multi-Ingredient Ointment (Analgesic De Witt) 1 berkley PRN QID PRN TP MUSCLE PAIN; Start 05/22/18 at 11:45 Tamsulosin HCl (Flomax) 0.4 mg DAILY PO ; Start 05/23/18 at 09:00 Acetaminophen (Tylenol) 1,000 mg TID PO Last administered on 05/22/18at 20:30; Start 05/22/18 at 14:00 Celecoxib (CeleBREX) 100 mg BIDBFRMEAL PO Last administered on 05/22/18 17:34 ; Start 05/22/18 at 16:30 Vitamin D (Vitamin D3) 5,000 unit DAILY16 PO Last administered on 05/22/18at 17: 34; Start 05/22/18 at 16:00 Famotidine (Pepcid) 20 mg QHS PO Last administered on 05/22/18at 20:29; Start at 21:00 Potassium Chloride (Klor-Con) 10 meq DAILYWLUN PO ; Start 05/23/18 at 12:00 Spironolactone (Aldactone) 25 mg DAILYWLUN PO ; Start 05/23/18 at 12:00 Haloperidol (Haldol) 20 mg QID PO ; Start 05/22/18 at 13:00; Stop 05/22/18 at 13 :00; Status DC Mirtazapine (Remeron) 15 mg QHS PO Last administered on 05/22/18at 20:29; Start 05/22/18 at 21:00 Naltrexone HCl (Depade) 100 mg DAILY PO ; Start 05/23/18 at 09:00 Olanzapine (ZyPREXA) 10 mg DAILY PO ; Start 05/23/18 at 09:00 Lorazepam (Ativan) 0.5 mg PRN Q2HR PRN PO ANXIETY / AGITATION Last administered on 05/22/18at 20:29; Start 05/22/18 at 12:15 Quetiapine Fumarate (SEROquel) 50 mg 0900,1300,1700 PO Last administered on at 17:34; Start 05/22/18 at 13:00 Active Scripts Active Reported Afluria 8786-5357 Syringe (Flu Vaccin [id number] 5Yr Up/Pf) 45 Mcg/0.5 Ml Syringe 45 Mcg IM Naltrexone Hcl 50 Mg Tablet 100 Mg PO DAILY Famotidine 20 Mg Tablet 1 Tab PO HS Olanzapine Inj (Olanzapine) 10 Mg Vial 10 Mg IM PRN Q4HRS PRN Remeron (Mirtazapine) 15 Mg Tablet 1 Tab PO QHS Haloperidol 2 Mg Tablet 20 Mg PO QID Olanzapine 5 Mg Tablet 10 Mg PO DAILY Milk Of Magnesia (Magnesium Hydroxide) 400 Mg/5 Ml Oral.susp 30 Ml PO PRN QHS PRN Potassium Chloride 10 Meq Tablet.er 10 Meq PO DAILYWLUN Analgesic De Witt (Methyl Salicylate/Menthol) 28 Gm Oint...g. 1 Berkley TP PRN QID PRN Mag-Al Plus Xs Suspension (Mag Hydrox/Al Hydrox/Simeth) 30 Ml Oral.susp 15 Ml PO PRN AFTMEALHC PRN Tylenol (Acetaminophen) 325 Mg Tablet 650 Mg PO PRN Q6HRS PRN Atorvastatin Calcium 20 Mg Tablet 20 Mg PO QHS Vitamin D3 (Cholecalciferol (Vitamin D3)) 5,000 Unit Tablet 5,000 Unit PO DAILY16 Aldactone (Spironolactone) 25 Mg Tablet 25 Mg PO DAILYWLUN Tamsulosin Hcl 0.4 Mg Cap.er.24h 0.4 Mg PO DAILY Celebrex (Celecoxib) 100 Mg Capsule 100 Mg PO BIDBFRMEAL Acetaminophen 500 Mg Tablet 1,000 Mg PO TID Levothyroxine Sodium 175 Mcg Tablet 150 Mcg PO DAILY06 I have reviewed the current psychotropics carefully including drug interactions. Risk benefit ratio favors no change other than as noted in my dictated progress note. 

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
--- NOTE | 2018-05-22 22:00 | NUR ---
Patient up, combative with staff & restless. Dr. Lara paged and gave new order for PRN Trazodone up to x3 if needed. PRN Trazodone 100mg given at 2200.
[2018-05-22] MEDS: traZODone 100 MG TABLET. PO PRN (22:26)
[2018-05-23] MEDS: traZODone 100 MG TABLET. PO PRN ×2 (00:57→01:40)
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
--- NOTE | 2018-05-23 01:28 | NUR ---
Patient continually getting up unassisted in quiet room. Posie alarm notification heard, staff responded to room. Patient walked by 2 staff members followed by a third with wheelchair. Patient wants to be in bed with slippers on. Patient currently laying down on mattress in day room with slippers on, refusing blanket. Will continue to monitor. Addendum: 05/23/18 at 0143 by MAEVE LEAHY RN PRN lorazepam 0.5mg given at 0142 r/t patients continued restlessness, combativeness and impulsiveness.
[2018-05-23] MEDS: LORazepam 0.5 MG TABLET PO PRN ×2 (01:38→17:48)
--- NOTE | 2018-05-23 04:47 | NUR ---
Patient still restless, attempting to trip nurse when she is in room. Nurse has been sitting in room with him 1:1. Soft music on with lights off, posie alarm under patient. PRNs not effective.
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
[2018-05-23] MEDS ORDERED: LORazepam 2 MG/ML VIAL IM ONE (05:45)
[2018-05-23] MEDS ORDERED: traZODone 100 MG TABLET. PO ONE (05:45)
--- NOTE | 2018-05-23 05:47 | NUR ---
PRN ativan 2mg IM given for agitation/aggression per order. PRN trazodone 200mg given for agitation/aggression per order.
[2018-05-23] MEDS ORDERED: LEVOTHYROXINE 150 MCG TABLET PO SCH (06:00)
--- NOTE | 2018-05-23 06:47 | NUR ---
patient has remained restless, combative and in quiet room all night. Rescheduling blood draw for a different time. It is not safe for staff to attempt to hold him or for hub borer to draw blood at this time.
[2018-05-23] MEDS: CELECOXIB 100 MG CAPSULE PO SCH ×2 (08:24→16:30)
[2018-05-23] MEDS: QUEtiapine 50 MG TABLET. PO SCH ×3 (08:24→17:49)
[2018-05-23] MEDS: ACETAMINOPHEN 500 MG TABLET PO SCH ×2 (08:26→13:03)
[2018-05-23] MEDS ORDERED: NALTREXONE HCL 50 MG TABLET PO SCH (09:00)
[2018-05-23] MEDS ORDERED: TAMSULOSIN 0.4 MG CAP.ER.24H. PO SCH (09:00)
[2018-05-23] MEDS ORDERED: OLANZapine 10 MG TABLET PO SCH (09:00)
[2018-05-23 10:08] LABS: ALBUMIN/GLOBULIN RATIO 1.3 (1.0-1.7); CALCIUM 9.1 mg/dL (8.5-10.1); CREATININE 0.9 mg/dL (0.7-1.3); GFR 86.1; MAGNESIUM 1.6 mg/dL (1.8-2.4); POTASSIUM 4.6 mmol/L (3.5-5.1); TOTAL BILIRUBIN 0.4 mg/dL (0.2-1.0); TOTAL PROTEIN 7.1 g/dL (6.4-8.2)
[2018-05-23 10:09] LABS: BASO # 0.1 x10^3/uL (0.0-0.2); BASO % 1 % (0-3); EOS # 0.2 x10^3/uL (0.0-0.7); EOS % 2 % (0-3); HEMATOCRIT 40.3 % (39.0-53.0); HEMOGLOBIN 13.5 g/dL (13.0-17.5); LYMPH # 1.3 x10^3/uL (1.0-4.8); LYMPH % 10 % (24-48); MEAN CORPUSCULAR HEMOGLOBIN 31 pg (25-35); MEAN CORPUSCULAR HGB CONC 33 g/dL (31-37); MEAN CORPUSCULAR VOLUME 93 fL (79-100); MONO # 1.1 x10^3/uL (0.0-1.1); MONO % 9 % (0-9); NEUT % 78 % (31-73); PLATELET COUNT 289 x10^3/uL (140-400); RED BLOOD COUNT 4.35 x10^6/uL (4.30-5.70); RED CELL DISTRIBUTION WIDTH 13.5 % (11.5-14.5); WHITE BLOOD COUNT 12.7 x10^3/uL (4.0-11.0)
--- NOTE | 2018-05-23 10:20 | NUR ---
PHARMACY CONSULT: Pharmacy was asked to see if there were any contraindications to giving clozapine to this patient. The only concerns we found were the possible drug interaction between benzodiazepines and clozapine. Co-administration of ativan and clozapine are generally not recommended due to several reports of delirium, respiratory arrest and . Extreme caution and careful monitoring for decreased respiratory rate and excessive sedation would be required, especially upon initiation of clozapine. Signed: 05/23/18 at 1028 by ALLEN RIVERO
--- NOTE | 2018-05-23 11:50 | NUR ---
Nursing Note: Spoke with Simon in pharmacy, after researching Clozaril, she learned that it is best to wait 48 hour before starting the medication d/t pt receiving Ativan within last 12 hours.. Also, pharmacist found that the medication is effective in treating pt's suffering with Wilkes's disease; however, it is best not to give benzodiazepines with the this medication as it can cause respiratory depression.
--- NOTE | 2018-05-23 11:59 | NUR ---
Nursing Note: Pt has been compliant with medications, walked with staff and sat in the day room, allowed staff to dress him.
[2018-05-23] MEDS ORDERED: POTASSIUM CHLORIDE 10 MEQ TABLET.ER. PO SCH (12:00)
[2018-05-23] MEDS ORDERED: SPIRONOLACTONE 25 MG TABLET PO SCH (12:00)
--- NOTE | 2018-05-23 12:53 | NUR ---
Nursing Note: Pt's daughter, Macy, called to check on pt's behavior over night and this am. She reported that pt had taken Seroquel many years ago and it was not effective. Informed daughter that pharmacy consult had been placed and that medications were being reviewed with the possibility of Clozaril being added and that labs would be drawn Q Wednesday if the medication was added.
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
[2018-05-23 14:06] LABS: THYROID STIM HORMONE (TSH) 0.255 uIU/mL (0.358-3.740)
[2018-05-23] MEDS: CHOLECALCIFEROL (VITAMIN D3) 1,000 UNIT TABLET PO SCH (16:00)
[2018-05-23 16:18] VITALS: BP 119/80
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
[2018-05-23] MEDS ORDERED: cloZAPine 25 MG TABLET PO SCH (19:00)
--- NOTE | 2018-05-23 19:20 | PDOC ---
Exam Note: Bran Note: Please also refer to the separate dictated note~for this date of service dictated separately.~Patient seen individually. Discussed the patient with Nursing staff reviewed the chart.~Reviewed interim history and current functioning. Reviewed vital signs,~Labs/ Radiology~and current medications noted below. Continue current treatment with the changes noted in the dictated addendum note Assessment: Vital Signs: Vital Signs Date Time Temp Pulse Resp B/P (MAP) Pulse Ox O2 Delivery O2 Flow Rate FiO2 05/23/18 16:18 98.3 76 17 119/80 (93) 93 Room Air I&O Intake and Output 05/23/18 07:00 Intake Total 920 ml Balance 920 ml Intake Oral 920 ml # Voids 1 Labs: Laboratory Tests Test 05/23/18 09:45 White Blood Count 12.7 x10^3/uL (4.0-11.0) H Red Blood Count 4.35 x10^6/uL (4.30-5.70) Hemoglobin 13.5 g/dL (13.0-17.5) Hematocrit 40.3 % (39.0-53.0) Mean Corpuscular Volume 93 fL (79-100) Mean Corpuscular Hemoglobin 31 pg (25-35) Mean Corpuscular Hemoglobin Concent 33 g/dL (31-37) Red Cell Distribution Width 13.5 % (11.5-14.5) Platelet Count 289 x10^3/uL (140-400) Neutrophils (%) (Auto) 78 % (31-73) H Lymphocytes (%) (Auto) 10 % (24-48) L Monocytes (%) (Auto) 9 % (0-9) Eosinophils (%) (Auto) 2 % (0-3) Basophils (%) (Auto) 1 % (0-3) Neutrophils # (Auto) 10.0 x10^3uL (1.8-7.7) H Lymphocytes # (Auto) 1.3 x10^3/uL (1.0-4.8) Monocytes # (Auto) 1.1 x10^3/uL (0.0-1.1) Eosinophils # (Auto) 0.2 x10^3/uL (0.0-0.7) Basophils # (Auto) 0.1 x10^3/uL (0.0-0.2) Sodium Level 141 mmol/L (136-145) Potassium Level 4.6 mmol/L (3.5-5.1) Chloride Level 103 mmol/L (98-107) Carbon Dioxide Level 27 mmol/L (21-32) Anion Gap 11 (6-14) Blood Urea Nitrogen 11 mg/dL (8-26) Creatinine 0.9 mg/dL (0.7-1.3) Estimated GFR (Cockcroft-Gault) 86.1 BUN/Creatinine Ratio 12 (6-20) Glucose Level 103 mg/dL (70-99) H Calcium Level 9.1 mg/dL (8.5-10.1) Magnesium Level 1.6 mg/dL (1.8-2.4) L Iron Level 47 ug/dL (65-175) L Total Iron Binding Capacity 271 ug/dL (250-450) Iron Saturation 17 % (15-34) Total Bilirubin 0.4 mg/dL (0.2-1.0) Aspartate Amino Transferase (AST) 38 U/L (15-37) H Alanine Aminotransferase (ALT) 51 U/L (16-63) Alkaline Phosphatase 139 U/L (46-116) H Total Protein 7.1 g/dL (6.4-8.2) Albumin 4.0 g/dL (3.4-5.0) Albumin/Globulin Ratio 1.3 (1.0-1.7) Triglycerides Level 193 mg/dL (0-150) H Cholesterol Level 130 mg/dL (0-200) LDL Cholesterol, Calculated 56 mg/dL (0-100) VLDL Cholesterol, Calculated 38 mg/dL (0-40) Non-HDL Cholesterol Calculated 94 mg/dL (0-129) HDL Cholesterol 36 mg/dL (40-60) L Cholesterol/HDL Ratio 3.0 Vitamin B12 Level 293 pg/mL (247-911) 25-Hydroxy Vitamin D Total 53.1 ng/mL (30-100) Thyroid Stimulating Hormone (TSH) 0.255 uIU/mL (0.358-3.740) Treponema pallidum Antibody Nonreactive (Nonreactive) Current Medications: Meds: Current Medications Olanzapine (ZyPREXA ZYDIS) 5 mg PRN Q2HR PRN PO PSYCHOSIS Last administered on 05/23/18at 17:25; Start 05/22/18 at 10:45 Acetaminophen (Tylenol) 650 mg PRN Q6HRS PRN PO PAIN / TEMP; Start 05/22/18 at 11:15; Stop 05/22/18 at 12:00; Status DC Multi-Ingredient Ointment (Analgesic Seanor) 1 berkley PRN QID PRN TP MUSCLE PAIN; Start 05/22/18 at 11:15; Status Cancel Al Hydroxide/Mg Hydroxide (Mylanta Plus Xs) 15 ml PRN AFTMEALHC PRN PO DYSPEPSIA; Start 05/22/18 at 11:15; Status Cancel Magnesium Hydroxide (Milk Of Magnesia) 2,400 mg PRN QHS PRN PO CONSTIPATION; Start 05/22/18 at 11:15; Status Cancel Acetaminophen (Tylenol) 650 mg PRN Q6HRS PRN PO PAIN / TEMP; Start 05/22/18 at 11:45 Atorvastatin Calcium (Lipitor) 20 mg QHS PO Last administered on 05/22/18at 20: 30; Start 05/22/18 at 21:00 Levothyroxine Sodium (Synthroid) 150 mcg DAILY06 PO Last administered on at 05:13; Start 05/23/18 at 06:00 Al Hydroxide/Mg Hydroxide (Mylanta Plus Xs) 15 ml PRN AFTMEALHC PRN PO DYSPEPSIA; Start 05/22/18 at 11:45 Magnesium Hydroxide (Milk Of Magnesia) 2,400 mg PRN QHS PRN PO CONSTIPATION; Start 05/22/18 at 11:45 Multi-Ingredient Ointment (Analgesic Seanor) 1 berkley PRN QID PRN TP MUSCLE PAIN; Start 05/22/18 at 11:45 Tamsulosin HCl (Flomax) 0.4 mg DAILY PO Last administered on 05/23/18at 08:35; Start 05/23/18 at 09:00 Acetaminophen (Tylenol) 1,000 mg TID PO Last administered on 05/23/18at 13:03; Start 05/22/18 at 14:00 Celecoxib (CeleBREX) 100 mg BIDBFRMEAL PO Last administered on 05/23/18at 08:24 ; Start 05/22/18 at 16:30 Vitamin D (Vitamin D3) 5,000 unit DAILY16 PO Last administered on 05/22/18at 17: 34; Start 05/22/18 at 16:00 Famotidine (Pepcid) 20 mg QHS PO Last administered on 05/22/18at 20:29; Start at 21:00 Potassium Chloride (Klor-Con) 10 meq DAILYWLUN PO Last administered on at 13:02; Start 05/23/18 at 12:00 Spironolactone (Aldactone) 25 mg DAILYWLUN PO Last administered on 05/23/18at 13 :02; Start 05/23/18 at 12:00 Haloperidol (Haldol) 20 mg QID PO ; Start 05/22/18 at 13:00; Stop 05/22/18 at 13 :00; Status DC Mirtazapine (Remeron) 15 mg QHS PO Last administered on 05/22/18at 20:29; Start 05/22/18 at 21:00 Naltrexone HCl (Depade) 100 mg DAILY PO Last administered on 05/23/18at 08:36; Start 05/23/18 at 09:00 Olanzapine (ZyPREXA) 10 mg DAILY PO Last administered on 05/23/18at 11:15; Start 05/23/18 at 09:00 Lorazepam (Ativan) 0.5 mg PRN Q2HR PRN PO ANXIETY / AGITATION Last administered on 05/23/18at 17:48; Start 05/22/18 at 12:15 Quetiapine Fumarate (SEROquel) 50 mg 0900,1300,1700 PO Last administered on at 17:49; Start 05/22/18 at 13:00 Trazodone HCl (Desyrel) 100 mg PRN QHS PRN PO INSOMNIA Last administered on at 01:40; Start 05/22/18 at 22:00 Lorazepam (Ativan) 2 mg DAILY IM ; Start 05/24/18 at 09:00 Trazodone HCl (Desyrel) 200 mg 1X ONCE PO Last administered on 05/23/18at 05:44 ; Start 05/23/18 at 05:45; Stop 05/23/18 at 05:47; Status DC Lorazepam (Ativan) 2 mg ONCE ONCE IM Last administered on 05/23/18at 05:45; Start 05/23/18 at 05:45; Stop 05/23/18 at 05:47; Status DC Clozapine (Clozaril) 25 mg QHS PO Last administered on 05/23/18at 18:53; Start 05/23/18 at 19:00 Quetiapine Fumarate (SEROquel) 100 mg QHS PO ; Start 05/23/18 at 21:00 Active Scripts Active Reported Afluria 2713-8831 Syringe (Flu Vaccin Gr0071-05 5Yr Up/Pf) 45 Mcg/0.5 Ml Syringe 45 Mcg IM Naltrexone Hcl 50 Mg Tablet 100 Mg PO DAILY Famotidine 20 Mg Tablet 1 Tab PO HS Olanzapine Inj (Olanzapine) 10 Mg Vial 10 Mg IM PRN Q4HRS PRN Remeron (Mirtazapine) 15 Mg Tablet 1 Tab PO QHS Haloperidol 2 Mg Tablet 20 Mg PO QID Olanzapine 5 Mg Tablet 10 Mg PO DAILY Milk Of Magnesia (Magnesium Hydroxide) 400 Mg/5 Ml Oral.susp 30 Ml PO PRN QHS PRN Potassium Chloride 10 Meq Tablet.er 10 Meq PO DAILYWLUN Analgesic Seanor (Methyl Salicylate/Menthol) 28 Gm Oint...g. 1 Berkley TP PRN QID PRN Mag-Al Plus Xs Suspension (Mag Hydrox/Al Hydrox/Simeth) 30 Ml Oral.susp 15 Ml PO PRN AFTMEALHC PRN Tylenol (Acetaminophen) 325 Mg Tablet 650 Mg PO PRN Q6HRS PRN Atorvastatin Calcium 20 Mg Tablet 20 Mg PO QHS Vitamin D3 (Cholecalciferol (Vitamin D3)) 5,000 Unit Tablet 5,000 Unit PO DAILY16 Aldactone (Spironolactone) 25 Mg Tablet 25 Mg PO DAILYWLUN Tamsulosin Hcl 0.4 Mg Cap.er.24h 0.4 Mg PO DAILY Celebrex (Celecoxib) 100 Mg Capsule 100 Mg PO BIDBFRMEAL Acetaminophen 500 Mg Tablet 1,000 Mg PO TID Levothyroxine Sodium 175 Mcg Tablet 150 Mcg PO DAILY06 I have reviewed the current psychotropics carefully including drug interactions. Risk benefit ratio favors no change other than as noted in my dictated progress note. 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
[2018-05-23] MEDS ORDERED: LORA-254 PO (19:27)
[2018-05-23] MEDS ORDERED: MIRT15TA PO (19:29)
[2018-05-23] MEDS ORDERED: NALT50TA PO (19:31)
[2018-05-23] MEDS ORDERED: OLAN5TAB3 PO ×2 (19:32→19:33)
[2018-05-23] MEDS ORDERED: QUET100T4 PO (19:36)
[2018-05-23] MEDS ORDERED: TRAZ-86 PO (19:38)
[2018-05-23] MEDS ORDERED: CLOZ25TA7 PO (19:42)
[2018-05-23] MEDS ORDERED: QUET50TA5 PO (19:44)
[2018-05-23] MEDS ORDERED: LORA2DIS2 IJ (19:46)
--- NOTE | 2018-05-23 19:52 | NUR ---
Transition Record was faxed to follow-up provider with the following elements: Reason for admission, procedures, tests, principal diagnosis, pending studies, patient instructions, 22/03 contact information for unit, phone number to obtain pending test results, plan for follow-up care, physician follow-up, advanced directive information, and medication list with dose, duration and instructions. This information was included in the following documents: History and physical, lab results, study results, progress notes, social work planning form, DC instruction form, patient visit summary, and medication reconciliation form. Date & time record faxed:[id number] ICU Record faxed to:ICU [facility] Record discussed with/ report given to: Ana CHUN Food Supervisor
--- NOTE | 2018-05-23 20:08 | NUR ---
Nursing Note: Spoke with daughter Jing and informed her that pt had been transferred to ICU BED 6 with hopes that pt would be possibly transferred to [place] in order for him to be sedated. Daughter given ICU Units phone number.
[2018-05-23] MEDS ORDERED: QUEtiapine 100 MG TABLET. PO SCH (21:00)
[2018-05-23 22:09] LABS: THYROXINE 8.6 ug/dL (4.5-12.0)
[2018-05-24 03:08] LABS: HEMOGLOBIN A1C 5.5 % (4.8-5.6)
[2018-05-24] MEDS ORDERED: LORazepam 2 MG/ML VIAL IM SCH (09:00)
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
== END 2018-05-23 17:15 | disposition short-term general hospital (02) | DRG 885 ==
LOC: GEROPSY 09:19
PROVIDERS: ADMIT Psychiatry & Neurology Psychiatry; ATTEND Psychiatry & Neurology Psychiatry
DX: F25.0 Schizoaffective disorder, bipolar type (principal); F33.9 Major depressive disorder, recurrent, unspecified; G10 Huntington's disease; D53.9 Nutritional anemia, unspecified; E03.9 Hypothyroidism, unspecified; E53.8 Deficiency of other specified B group vitamins; E78.5 Hyperlipidemia, unspecified; F41.9 Anxiety disorder, unspecified; F42.9 Obsessive-compulsive disorder, unspecified; F63.9 Impulse disorder, unspecified; G47.00 Insomnia, unspecified; I50.9 Heart failure, unspecified; I95.89 Other hypotension; M19.90 Unspecified osteoarthritis, unspecified site; N40.0 Benign prostatic hyperplasia without lower urinary tract symptoms; Z66 Do not resuscitate; K59.09 Other constipation; Z79.899 Other long term (current) drug therapy
CPT/HCPCS: 36415; 80053; 80061; 82306; 82607; 83036; 83540; 83550; 83735; 84436; 84443; 84480; 85025; 86592; J2060

== ENCOUNTER 2018-05-23 19:24 | Inpatient (IN) | payer MEDICARE ==
[~2018-05-23] VITALS: Ht 177.8 cm; Wt 86.2 kg
[~2018-05-23 19:24] MED LIST changes: +FAMO20TA5 PO; +FLU45SYR IM; +NALT50TA PO; +OLAN10VI2 IM
[2018-05-23] MEDS ORDERED: LORA-254 PO (19:27)
[2018-05-23] MEDS ORDERED: LORazepam 2 MG/ML VIAL ONE (19:27)
[2018-05-23] MEDS ORDERED: MIRT15TA PO (19:29)
[2018-05-23] MEDS ORDERED: OLANZapine IM 10 MG VIAL. IM ONE (19:30)
[2018-05-23] MEDS ORDERED: LORazepam 2 MG/ML VIAL IM ONE (19:30)
[2018-05-23] MEDS ORDERED: NALT50TA PO (19:31)
[2018-05-23] MEDS ORDERED: OLAN5TAB3 PO ×2 (19:32→19:33)
[2018-05-23] MEDS ORDERED: QUET100T4 PO (19:36)
[2018-05-23] MEDS ORDERED: TRAZ-86 PO (19:38)
[2018-05-23] MEDS ORDERED: CLOZ25TA7 PO (19:42)
[2018-05-23] MEDS ORDERED: QUET50TA5 PO (19:44)
[2018-05-23] MEDS ORDERED: LORA2DIS2 IJ (19:46)
[2018-05-23 20:00] VITALS: BP 99/65
[2018-05-23] MEDS ORDERED: MAGNESIUM HYDROXIDE 2,400 MG/30 ML ORAL.SUSP. PO PRN (20:15)
[2018-05-23] MEDS ORDERED: ACETAMINOPHEN 325 MG TABLET PO PRN (20:15)
[2018-05-23] MEDS ORDERED: METHYL SALICYLATE/MENTHOL TOPICAL OINTMENT 29GM TUBE. TP PRN (20:15)
[2018-05-23] MEDS ORDERED: MAG HYDROX/AL HYDROX/SIMETH 30 ML ORAL.SUSP PO PRN (20:15)
[2018-05-23] MEDS ORDERED: QUEtiapine 100 MG TABLET. PO PRN (20:30)
[2018-05-23] MEDS ORDERED: traZODone 100 MG TABLET. PO PRN (20:30)
[2018-05-23] MEDS ORDERED: MIRTAZAPINE 15 MG TABLET PO SCH (21:00)
[2018-05-23] MEDS ORDERED: MIRTAZAPINE 15 MG PO SCH (21:00)
[2018-05-23] MEDS: ATORVASTATIN CALCIUM 20 MG TABLET PO SCH (21:35)
[2018-05-23] MEDS: FAMOTIDINE 20 MG TABLET PO SCH (21:36)
[2018-05-23] MEDS: ACETAMINOPHEN 500 MG TABLET PO SCH (21:36)
[2018-05-23 22:00] VITALS: BP 116/72
[2018-05-23] MEDS ORDERED: LORazepam 2 MG/ML VIAL IV PRN (23:45)
[2018-05-24] VITALS (8 sets, daily range): BP systolic 111–150; BP diastolic 78–97
[2018-05-24] MEDS: LEVOTHYROXINE 150 MCG TABLET PO SCH (08:34)
[2018-05-24] MEDS: ACETAMINOPHEN 500 MG TABLET PO SCH ×3 (08:34→21:20)
[2018-05-24] MEDS: TAMSULOSIN 0.4 MG CAP.ER.24H. PO SCH (08:34)
[2018-05-24] MEDS: CELECOXIB 100 MG CAPSULE PO SCH ×2 (08:34→21:19)
[2018-05-24] MEDS: QUEtiapine 50 MG TABLET. PO SCH ×2 (08:34→13:16)
[2018-05-24] MEDS: LORazepam 2 MG/ML VIAL IM SCH ×2 (08:35→16:02)
[2018-05-24] MEDS: cloZAPine 25 MG TABLET PO SCH (08:35)
[2018-05-24] MEDS: OLANZapine 10 MG TABLET PO SCH (08:38)
[2018-05-24] MEDS: NALTREXONE HCL 50 MG TABLET PO SCH (08:38)
[2018-05-24] MEDS: POTASSIUM CHLORIDE 10 MEQ TABLET.ER. PO SCH (13:17)
[2018-05-24] MEDS: SPIRONOLACTONE 25 MG TABLET PO SCH (13:18)
[2018-05-24] MEDS: traZODone 50 MG TABLET. PO SCH ×2 (16:02→18:00)
[2018-05-24] MEDS: CHOLECALCIFEROL (VITAMIN D3) 1,000 UNIT TABLET PO SCH (16:02)
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
--- NOTE | 2018-05-24 18:46 | PDOC ---
Exam Note: Bran Note: Please also refer to the separate dictated note~for this date of service dictated separately.~Patient seen individually. Discussed the patient with Nursing staff reviewed the chart.~Reviewed interim history and current functioning. Reviewed vital signs,~Labs/ Radiology~and current medications noted below. Continue current treatment with the changes noted in the dictated addendum note Assessment: Vital Signs: Vital Signs Date Time Temp Pulse Resp B/P (MAP) Pulse Ox O2 Delivery O2 Flow Rate FiO2 05/24/18 17:51 98.2 85 140/87 (104) 95 Room Air 05/24/18 04:30 2.0 05/24/18 03:30 16 I&O Intake and Output 05/24/18 07:00 Intake Total 0 ml Output Total 0 ml Balance 0 ml Intake Oral 0 ml Output Urine Total 0 ml # Voids 3 Labs: Laboratory Tests Test 05/24/18 08:02 Glucose (Fingerstick) 185 mg/dL (70-99) H Current Medications: Meds: Current Medications Lorazepam (Ativan) 2 mg STK-MED ONCE .ROUTE ; Start 05/23/18 at 19:27; Stop at 19:28; Status DC Olanzapine (ZyPREXA IM) 10 mg 1X ONCE IM Last administered on 05/23/18at 19:42 ; Start 05/23/18 at 19:30; Stop 05/23/18 at 19:48; Status DC Lorazepam (Ativan) 2 mg 1X ONCE IM Last administered on 05/23/18at 19:35; Start 05/23/18 at 19:30; Stop 05/23/18 at 19:47; Status DC Acetaminophen (Tylenol) 650 mg PRN Q6HRS PRN PO PAIN / TEMP; Start 05/23/18 at 20:15 Atorvastatin Calcium (Lipitor) 20 mg QHS PO Last administered on 05/23/18at 21: 35; Start 05/23/18 at 21:00 Levothyroxine Sodium (Synthroid) 150 mcg DAILY06 PO Last administered on at 08:34; Start 05/24/18 at 06:00 Al Hydroxide/Mg Hydroxide (Mylanta Plus Xs) 15 ml PRN AFTMEALHC PRN PO DYSPEPSIA; Start 05/23/18 at 20:15 Magnesium Hydroxide (Milk Of Magnesia) 2,400 mg PRN QHS PRN PO CONSTIPATION; Start 05/23/18 at 20:15 Multi-Ingredient Ointment (Analgesic Withams) 1 berkley PRN QID PRN TP MUSCLE PAIN; Start 05/23/18 at 20:15 Tamsulosin HCl (Flomax) 0.4 mg DAILY PO Last administered on 05/24/18at 08:34; Start 05/24/18 at 09:00 Acetaminophen (Tylenol) 1,000 mg TID PO Last administered on 05/24/18at 16:02; Start 05/23/18 at 21:00 Celecoxib (CeleBREX) 100 mg BIDBFRMEAL PO Last administered on 05/24/18at 08:34 ; Start 05/24/18 at 07:30 Vitamin D (Vitamin D3) 5,000 unit DAILY16 PO Last administered on 05/24/18at 16: 02; Start 05/24/18 at 16:00 Clozapine (Clozaril) 25 mg HS PO Last administered on 05/24/18at 08:35; Start at 21:00 Famotidine (Pepcid) 20 mg HS PO Last administered on 05/23/18at 21:36; Start at 21:00 Lorazepam (Ativan) 2 mg DAILY IM Last administered on 05/24/18at 16:02; Start at 09:00 Mirtazapine (Remeron) 15 mg QHS PO Last administered on 05/23/18at 21:36; Start 05/23/18 at 21:00; Stop 05/24/18 at 15:25; Status DC Non-Formulary Medication (Mirtazapine (Remeron)) 15 mg HS PO ; Start 05/23/18 at 21:00; Status UNV Naltrexone HCl (Depade) 100 mg DAILY PO Last administered on 05/24/18at 08:38; Start 05/24/18 at 09:00 Olanzapine (ZyPREXA) 10 mg DAILY PO Last administered on 05/24/18at 08:38; Start 05/24/18 at 09:00 Olanzapine (ZyPREXA ZYDIS) 5 mg PRN Q2HR PRN PO PSYCHOSIS; Start 05/23/18 at 20 :15; Stop 05/23/18 at 20:21; Status DC Potassium Chloride (Klor-Con) 10 meq DAILYWLUN PO Last administered on at 13:17; Start 05/24/18 at 12:00 Quetiapine Fumarate (SEROquel) 50 mg 0900,1300,1700 PO Last administered on at 13:16; Start 05/24/18 at 09:00 Quetiapine Fumarate (SEROquel) 200 mg PRN QHS PRN PO ANXIETY / AGITATION Last administered on 05/23/18at 21:36; Start 05/23/18 at 20:30; Stop 05/24/18 at 15:25 ; Status DC Spironolactone (Aldactone) 25 mg DAILYWLUN PO Last administered on 05/24/18at 13 :18; Start 05/24/18 at 12:00 Trazodone HCl (Desyrel) 200 mg PRN QHS PRN PO INSOMNIA Last administered on at 21:37; Start 05/23/18 at 20:30 Olanzapine (ZyPREXA ZYDIS) 5 mg PRN Q2HR PRN PO ANXIETY / AGITATION Last administered on 05/24/18at 13:17; Start 05/23/18 at 20:30 Oxcarbazepine (Trileptal) 600 mg 1X ONCE PO Last administered on 05/23/18at 21: 36; Start 05/23/18 at 21:00; Stop 05/23/18 at 21:04; Status DC Oxcarbazepine (Trileptal) 300 mg DAILY PO Last administered on 05/24/18at 08:35 ; Start 05/24/18 at 09:00 Oxcarbazepine (Trileptal) 600 mg HS PO ; Start 05/24/18 at 21:00 Lorazepam (Ativan) 2 mg PRN Q4HRS PRN IV ANXIETY / AGITATION Last administered on 05/24/18at 00:10; Start 05/23/18 at 23:45 Quetiapine Fumarate (SEROquel) 200 mg HS PO ; Start 05/24/18 at 21:00 Trazodone HCl (Desyrel) 50 mg [id number] PO Last administered on 05/24/18at 16:02; Start 05/24/18 at 15:30 Active Scripts Active Reported Lorazepam 2 Mg/1 Ml Disp.syrin 2 Mg IJ DAILY Seroquel (Quetiapine Fumarate) 50 Mg Tablet 50 Mg PO DAILY@0900,1300,1700 Clozapine 25 Mg Tablet 25 Mg PO HS Trazodone Hcl 100 Mg Tablet 200 Mg PO PRN QHS PRN Seroquel (Quetiapine Fumarate) 100 Mg Tablet 200 Mg PO HS PRN Zyprexa (Olanzapine) 5 Mg Tablet 5 Mg PO PRN PRN MDD 30mg/24 hrs Remeron (Mirtazapine) 15 Mg Tablet 15 Mg PO HS Ativan (Lorazepam) 1 Mg Tablet 0.5 Mg PO PRN Q2HR PRN MDD 4mg Afluria [id number] Syringe (Flu Vaccin [id number] 5Yr Up/Pf) 45 Mcg/0.5 Ml Syringe 45 Mcg IM Naltrexone Hcl 50 Mg Tablet 100 Mg PO DAILY Famotidine 20 Mg Tablet 1 Tab PO HS Remeron (Mirtazapine) 15 Mg Tablet 1 Tab PO QHS Olanzapine 5 Mg Tablet 10 Mg PO DAILY Milk Of Magnesia (Magnesium Hydroxide) 400 Mg/5 Ml Oral.susp 30 Ml PO PRN QHS PRN Potassium Chloride 10 Meq Tablet.er 10 Meq PO DAILYWLUN Analgesic Withams (Methyl Salicylate/Menthol) 28 Gm Oint...g. 1 Berkley TP PRN QID PRN Mag-Al Plus Xs Suspension (Mag Hydrox/Al Hydrox/Simeth) 30 Ml Oral.susp 15 Ml PO PRN AFTMEALHC PRN Tylenol (Acetaminophen) 325 Mg Tablet 650 Mg PO PRN Q6HRS PRN Atorvastatin Calcium 20 Mg Tablet 20 Mg PO QHS Vitamin D3 (Cholecalciferol (Vitamin D3)) 5,000 Unit Tablet 5,000 Unit PO DAILY16 Aldactone (Spironolactone) 25 Mg Tablet 25 Mg PO DAILYWLUN Tamsulosin Hcl 0.4 Mg Cap.er.24h 0.4 Mg PO DAILY Celebrex (Celecoxib) 100 Mg Capsule 100 Mg PO BIDBFRMEAL Acetaminophen 500 Mg Tablet 1,000 Mg PO TID Levothyroxine Sodium 175 Mcg Tablet 150 Mcg PO DAILY06 I have reviewed the current psychotropics carefully including drug interactions. Risk benefit ratio favors no change other than as noted in my dictated progress note. Diagnosis: Problems: (1) Dementia in [place]'s disease with behavioral disturbance (2) Impulse control disorder (3) Anxiety disorder LIDIA GARRIDO MD May 24, 2018 18:46
[2018-05-24] MEDS ORDERED: QUEtiapine 100 MG TABLET. PO SCH (21:00)
[2018-05-24] MEDS: traZODone 100 MG TABLET. PO SCH (21:19)
[2018-05-24] MEDS: FAMOTIDINE 20 MG TABLET PO SCH (21:19)
[2018-05-24] MEDS: ATORVASTATIN CALCIUM 20 MG TABLET PO SCH (21:19)
[2018-05-24] MEDS: HALOPERIDOL 5 MG TABLET PO SCH (21:19)
[2018-05-25] VITALS (11 sets, daily range): BP systolic 99–150; BP diastolic 72–107
[2018-05-25 06:38] LABS: BASO # 0.1 x10^3/uL (0.0-0.2); BASO % 1 % (0-3); EOS # 0.3 x10^3/uL (0.0-0.7); EOS % 4 % (0-3); HEMATOCRIT 40.5 % (39.0-53.0); HEMOGLOBIN 13.8 g/dL (13.0-17.5); LYMPH # 1.1 x10^3/uL (1.0-4.8); LYMPH % 13 % (24-48); MEAN CORPUSCULAR HEMOGLOBIN 31 pg (25-35); MEAN CORPUSCULAR HGB CONC 34 g/dL (31-37); MEAN CORPUSCULAR VOLUME 92 fL (79-100); MONO # 0.7 x10^3/uL (0.0-1.1); MONO % 9 % (0-9); NEUT # 6.1 x10^3uL (1.8-7.7); NEUT % 73 % (31-73); PLATELET COUNT 224 x10^3/uL (140-400); RED CELL DISTRIBUTION WIDTH 13.6 % (11.5-14.5); WHITE BLOOD COUNT 8.3 x10^3/uL (4.0-11.0)
[2018-05-25 06:50] LABS: ALBUMIN 3.6 g/dL (3.4-5.0); ALBUMIN/GLOBULIN RATIO 1.2 (1.0-1.7); CREATININE 0.6 mg/dL (0.7-1.3); GFR 137.4; MAGNESIUM 1.9 mg/dL (1.8-2.4); POTASSIUM 4.4 mmol/L (3.5-5.1); TOTAL BILIRUBIN 0.7 mg/dL (0.2-1.0); TOTAL PROTEIN 6.6 g/dL (6.4-8.2)
[2018-05-25] MEDS: LEVOTHYROXINE 150 MCG TABLET PO SCH (11:47)
[2018-05-25] MEDS: traZODone 50 MG TABLET. PO SCH ×3 (11:47→17:56)
[2018-05-25] MEDS: CELECOXIB 100 MG CAPSULE PO SCH ×2 (11:47→15:46)
[2018-05-25] MEDS: ACETAMINOPHEN 500 MG TABLET PO SCH ×3 (12:01→22:24)
[2018-05-25] MEDS: NALTREXONE HCL 50 MG TABLET PO SCH (14:53)
[2018-05-25] MEDS: TAMSULOSIN 0.4 MG CAP.ER.24H. PO SCH (14:53)
[2018-05-25] MEDS: POTASSIUM CHLORIDE 10 MEQ TABLET.ER. PO SCH (14:54)
[2018-05-25] MEDS: SPIRONOLACTONE 25 MG TABLET PO SCH (14:54)
--- NOTE | 2018-05-25 14:58 | PDOC ---
Progress Note. Subjective: Patient is no longer in restraints, RN reports that he fell asleep yesterday evening and has mostly slept since that time. No recurrence of combative behaviors and his vital signs of remained stable. Hospice is scheduled to meet with the patient's family this afternoon and then, evaluate the patient tomorrow morning anticipating possible discharge. Objective: Vital Signs: Vital Signs Date Time Temp Pulse Resp B/P (MAP) Pulse Ox O2 Delivery O2 Flow Rate FiO2 05/25/18 14:11 82 16 121/72 (88) 96 Nasal Cannula 2.0 05/25/18 06:00 98.0 I & O: Intake and Output 05/25/18 07:00 Intake Total 950 ml Balance 950 ml Intake Oral 950 ml # Voids 4 Labs: Laboratory Tests Test 05/24/18 02:00 05/24/18 08:02 05/25/18 06:00 Nasal Screen MRSA (PCR) Negative (Negative) Glucose (Fingerstick) 185 mg/dL (70-99) White Blood Count 8.3 x10^3/uL (4.0-11.0) Red Blood Count 4.40 x10^6/uL (4.30-5.70) Hemoglobin 13.8 g/dL (13.0-17.5) Hematocrit 40.5 % (39.0-53.0) Mean Corpuscular Volume 92 fL (79-100) Mean Corpuscular Hemoglobin 31 pg (25-35) Mean Corpuscular Hemoglobin Concent 34 g/dL (31-37) Red Cell Distribution Width 13.6 % (11.5-14.5) Platelet Count 224 x10^3/uL (140-400) Neutrophils (%) (Auto) 73 % (31-73) Lymphocytes (%) (Auto) 13 % (24-48) Monocytes (%) (Auto) 9 % (0-9) Eosinophils (%) (Auto) 4 % (0-3) Basophils (%) (Auto) 1 % (0-3) Neutrophils # (Auto) 6.1 x10^3uL (1.8-7.7) Lymphocytes # (Auto) 1.1 x10^3/uL (1.0-4.8) Monocytes # (Auto) 0.7 x10^3/uL (0.0-1.1) Eosinophils # (Auto) 0.3 x10^3/uL (0.0-0.7) Basophils # (Auto) 0.1 x10^3/uL (0.0-0.2) Sodium Level 139 mmol/L (136-145) Potassium Level 4.4 mmol/L (3.5-5.1) Chloride Level 103 mmol/L (98-107) Carbon Dioxide Level 30 mmol/L (21-32) Anion Gap 6 (6-14) Blood Urea Nitrogen 14 mg/dL (8-26) Creatinine 0.6 mg/dL (0.7-1.3) Estimated GFR (Cockcroft-Gault) 137.4 BUN/Creatinine Ratio 23 (6-20) Glucose Level 108 mg/dL (70-99) Calcium Level 9.0 mg/dL (8.5-10.1) Magnesium Level 1.9 mg/dL (1.8-2.4) Total Bilirubin 0.7 mg/dL (0.2-1.0) Aspartate Amino Transf (AST/SGOT) 29 U/L (15-37) Alanine Aminotransferase (ALT/SGPT) 40 U/L (16-63) Alkaline Phosphatase 117 U/L (46-116) Total Protein 6.6 g/dL (6.4-8.2) Albumin 3.6 g/dL (3.4-5.0) Albumin/Globulin Ratio 1.2 (1.0-1.7) Physical Exam: Gen.: Sleeping no longer restrained no obvious distress HEENT: Normocephalic atraumatic, no scleral icterus, oral mucosa pink and moist Neck: Supple, no lymphadenopathy, nontender Cardiovascular: Normal S1 and S2 no murmurs Pulmonary: Lungs are clear bilaterally with good air movement no respiratory distress Abdomen: Soft non-distended, bowel sounds present no masses Extremities: No clubbing, cyanosis or edema Skin: Warm, dry Assessment: Ashwini's Dz/Dementia with severe agitation and combativeness now sleeping unrestrained History of hypothyroid, OA, BPH, constipation Await hospice determination tomorrow morning anticipating discharge to long- term facility. PIPPA LEWIS DO May 25, 2018 14:58
[2018-05-25] MEDS: OLANZapine 10 MG TABLET PO SCH (15:44)
[2018-05-25] MEDS: HALOPERIDOL 5 MG TABLET PO SCH ×2 (15:45→22:24)
[2018-05-25] MEDS: CHOLECALCIFEROL (VITAMIN D3) 1,000 UNIT TABLET PO SCH (15:46)
--- NOTE | 2018-05-25 20:38 | PDOC ---
Exam Note: Bran Note: Please also refer to the separate dictated note~for this date of service dictated separately.~Patient seen individually. Discussed the patient with Nursing staff reviewed the chart.~Reviewed interim history and current functioning. Reviewed vital signs,~Labs/ Radiology~and current medications noted below. Continue current treatment with the changes noted in the dictated addendum note Assessment: Vital Signs: Vital Signs Date Time Temp Pulse Resp B/P (MAP) Pulse Ox O2 Delivery O2 Flow Rate FiO2 05/25/18 20:20 89 16 114/75 (88) 98 Nasal Cannula 2.0 05/25/18 06:00 98.0 I&O Intake and Output 05/25/18 07:00 Intake Total 950 ml Balance 950 ml Intake Oral 950 ml # Voids 4 Labs: Laboratory Tests Test 05/25/18 06:00 White Blood Count 8.3 x10^3/uL (4.0-11.0) Red Blood Count 4.40 x10^6/uL (4.30-5.70) Hemoglobin 13.8 g/dL (13.0-17.5) Hematocrit 40.5 % (39.0-53.0) Mean Corpuscular Volume 92 fL (79-100) Mean Corpuscular Hemoglobin 31 pg (25-35) Mean Corpuscular Hemoglobin Concent 34 g/dL (31-37) Red Cell Distribution Width 13.6 % (11.5-14.5) Platelet Count 224 x10^3/uL (140-400) Neutrophils (%) (Auto) 73 % (31-73) Lymphocytes (%) (Auto) 13 % (24-48) L Monocytes (%) (Auto) 9 % (0-9) Eosinophils (%) (Auto) 4 % (0-3) H Basophils (%) (Auto) 1 % (0-3) Neutrophils # (Auto) 6.1 x10^3uL (1.8-7.7) Lymphocytes # (Auto) 1.1 x10^3/uL (1.0-4.8) Monocytes # (Auto) 0.7 x10^3/uL (0.0-1.1) Eosinophils # (Auto) 0.3 x10^3/uL (0.0-0.7) Basophils # (Auto) 0.1 x10^3/uL (0.0-0.2) Sodium Level 139 mmol/L (136-145) Potassium Level 4.4 mmol/L (3.5-5.1) Chloride Level 103 mmol/L (98-107) Carbon Dioxide Level 30 mmol/L (21-32) Anion Gap 6 (6-14) Blood Urea Nitrogen 14 mg/dL (8-26) Creatinine 0.6 mg/dL (0.7-1.3) L Estimated GFR (Cockcroft-Gault) 137.4 BUN/Creatinine Ratio 23 (6-20) H Glucose Level 108 mg/dL (70-99) H Calcium Level 9.0 mg/dL (8.5-10.1) Magnesium Level 1.9 mg/dL (1.8-2.4) Total Bilirubin 0.7 mg/dL (0.2-1.0) Aspartate Amino Transferase (AST) 29 U/L (15-37) Alanine Aminotransferase (ALT) 40 U/L (16-63) Alkaline Phosphatase 117 U/L (46-116) H Total Protein 6.6 g/dL (6.4-8.2) Albumin 3.6 g/dL (3.4-5.0) Albumin/Globulin Ratio 1.2 (1.0-1.7) Current Medications: Meds: Current Medications Lorazepam (Ativan) 2 mg STK-MED ONCE .ROUTE ; Start 05/23/18 at 19:27; Stop at 19:28; Status DC Olanzapine (ZyPREXA IM) 10 mg 1X ONCE IM Last administered on 05/23/18at 19:42 ; Start 05/23/18 at 19:30; Stop 05/23/18 at 19:48; Status DC Lorazepam (Ativan) 2 mg 1X ONCE IM Last administered on 05/23/18at 19:35; Start 05/23/18 at 19:30; Stop 05/23/18 at 19:47; Status DC Acetaminophen (Tylenol) 650 mg PRN Q6HRS PRN PO PAIN / TEMP; Start 05/23/18 at 20:15 Atorvastatin Calcium (Lipitor) 20 mg QHS PO Last administered on 05/24/18at 21: 19; Start 05/23/18 at 21:00 Levothyroxine Sodium (Synthroid) 150 mcg DAILY06 PO Last administered on at 08:34; Start 05/24/18 at 06:00 Al Hydroxide/Mg Hydroxide (Mylanta Plus Xs) 15 ml PRN AFTMEALHC PRN PO DYSPEPSIA; Start 05/23/18 at 20:15 Magnesium Hydroxide (Milk Of Magnesia) 2,400 mg PRN QHS PRN PO CONSTIPATION; Start 05/23/18 at 20:15 Multi-Ingredient Ointment (Analgesic [place]) 1 berkley PRN QID PRN TP MUSCLE PAIN; Start 05/23/18 at 20:15 Tamsulosin HCl (Flomax) 0.4 mg DAILY PO Last administered on 05/24/18at 08:34; Start 05/24/18 at 09:00 Acetaminophen (Tylenol) 1,000 mg TID PO Last administered on 05/24/18at 21:20; Start 05/23/18 at 21:00 Celecoxib (CeleBREX) 100 mg BIDBFRMEAL PO Last administered on 05/25/18at 15:46 ; Start 05/24/18 at 07:30 Vitamin D (Vitamin D3) 5,000 unit DAILY16 PO Last administered on 05/25/18at 15: 46; Start 05/24/18 at 16:00 Clozapine (Clozaril) 25 mg HS PO Last administered on 05/24/18at 08:35; Start at 21:00 Famotidine (Pepcid) 20 mg HS PO Last administered on 05/24/18at 21:19; Start at 21:00 Lorazepam (Ativan) 2 mg DAILY IM Last administered on 05/24/18at 16:02; Start at 09:00; Stop 05/25/18 at 19:02; Status DC Mirtazapine (Remeron) 15 mg QHS PO Last administered on 05/23/18at 21:36; Start 05/23/18 at 21:00; Stop 05/24/18 at 15:25; Status DC Non-Formulary Medication (Mirtazapine (Remeron)) 15 mg HS PO ; Start 05/23/18 at 21:00; Status UNV Naltrexone HCl (Depade) 100 mg DAILY PO Last administered on 05/24/18at 08:38; Start 05/24/18 at 09:00 Olanzapine (ZyPREXA) 10 mg DAILY PO Last administered on 05/25/18at 15:44; Start 05/24/18 at 09:00 Olanzapine (ZyPREXA ZYDIS) 5 mg PRN Q2HR PRN PO PSYCHOSIS; Start 05/23/18 at 20 :15; Stop 05/23/18 at 20:21; Status DC Potassium Chloride (Klor-Con) 10 meq DAILYWLUN PO Last administered on at 13:17; Start 05/24/18 at 12:00 Quetiapine Fumarate (SEROquel) 50 mg 0900,1300,1700 PO Last administered on at 13:16; Start 05/24/18 at 09:00; Stop 05/24/18 at 20:14; Status DC Quetiapine Fumarate (SEROquel) 200 mg PRN QHS PRN PO ANXIETY / AGITATION Last administered on 05/23/18at 21:36; Start 05/23/18 at 20:30; Stop 05/24/18 at 15:25 ; Status DC Spironolactone (Aldactone) 25 mg DAILYWLUN PO Last administered on 05/24/18at 13 :18; Start 05/24/18 at 12:00 Trazodone HCl (Desyrel) 200 mg PRN QHS PRN PO INSOMNIA Last administered on at 21:37; Start 05/23/18 at 20:30; Stop 05/24/18 at 20:14; Status DC Olanzapine (ZyPREXA ZYDIS) 5 mg PRN Q2HR PRN PO ANXIETY / AGITATION Last administered on 05/24/18at 13:17; Start 05/23/18 at 20:30 Oxcarbazepine (Trileptal) 600 mg 1X ONCE PO Last administered on 05/23/18at 21: 36; Start 05/23/18 at 21:00; Stop 05/23/18 at 21:04; Status DC Oxcarbazepine (Trileptal) 300 mg DAILY PO Last administered on 05/24/18at 08:35 ; Start 05/24/18 at 09:00 Oxcarbazepine (Trileptal) 600 mg HS PO Last administered on 05/24/18at 21:19; Start 05/24/18 at 21:00 Lorazepam (Ativan) 2 mg PRN Q4HRS PRN IV ANXIETY / AGITATION Last administered on 05/24/18at 00:10; Start 05/23/18 at 23:45 Quetiapine Fumarate (SEROquel) 200 mg HS PO ; Start 05/24/18 at 21:00; Stop at 21:00; Status DC Trazodone HCl (Desyrel) 50 mg [id number] PO Last administered on 05/25/18at 17:56; Start 05/24/18 at 15:30 Trazodone HCl (Desyrel) 200 mg HS PO Last administered on 05/24/18at 21:19; Start 05/24/18 at 21:00 Haloperidol (Haldol) 5 mg BID PO Last administered on 05/24/18at 21:19; Start at 21:00 Active Scripts Active Reported Lorazepam 2 Mg/1 Ml Disp.syrin 2 Mg IJ DAILY Seroquel (Quetiapine Fumarate) 50 Mg Tablet 50 Mg PO DAILY@0900,1300,1700 Clozapine 25 Mg Tablet 25 Mg PO HS Trazodone Hcl 100 Mg Tablet 200 Mg PO PRN QHS PRN Seroquel (Quetiapine Fumarate) 100 Mg Tablet 200 Mg PO HS PRN Zyprexa (Olanzapine) 5 Mg Tablet 5 Mg PO PRN PRN MDD 30mg/24 hrs Remeron (Mirtazapine) 15 Mg Tablet 15 Mg PO HS Ativan (Lorazepam) 1 Mg Tablet 0.5 Mg PO PRN Q2HR PRN MDD 4mg Afluria 1128-3821 Syringe (Flu Vaccin [id number] 5Yr Up/Pf) 45 Mcg/0.5 Ml Syringe 45 Mcg IM Naltrexone Hcl 50 Mg Tablet 100 Mg PO DAILY Famotidine 20 Mg Tablet 1 Tab PO HS Remeron (Mirtazapine) 15 Mg Tablet 1 Tab PO QHS Olanzapine 5 Mg Tablet 10 Mg PO DAILY Milk Of Magnesia (Magnesium Hydroxide) 400 Mg/5 Ml Oral.susp 30 Ml PO PRN QHS PRN Potassium Chloride 10 Meq Tablet.er 10 Meq PO DAILYWLUN Analgesic [place] (Methyl Salicylate/Menthol) 28 Gm Oint...g. 1 Berkley TP PRN QID PRN Mag-Al Plus Xs Suspension (Mag Hydrox/Al Hydrox/Simeth) 30 Ml Oral.susp 15 Ml PO PRN AFTMEALHC PRN Tylenol (Acetaminophen) 325 Mg Tablet 650 Mg PO PRN Q6HRS PRN Atorvastatin Calcium 20 Mg Tablet 20 Mg PO QHS Vitamin D3 (Cholecalciferol (Vitamin D3)) 5,000 Unit Tablet 5,000 Unit PO DAILY16 Aldactone (Spironolactone) 25 Mg Tablet 25 Mg PO DAILYWLUN Tamsulosin Hcl 0.4 Mg Cap.er.24h 0.4 Mg PO DAILY Celebrex (Celecoxib) 100 Mg Capsule 100 Mg PO BIDBFRMEAL Acetaminophen 500 Mg Tablet 1,000 Mg PO TID Levothyroxine Sodium 175 Mcg Tablet 150 Mcg PO DAILY06 I have reviewed the current psychotropics carefully including drug interactions. Risk benefit ratio favors no change other than as noted in my dictated progress note. 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
[2018-05-25] MEDS: FAMOTIDINE 20 MG TABLET PO SCH (22:23)
[2018-05-25] MEDS: ATORVASTATIN CALCIUM 20 MG TABLET PO SCH (22:24)
[2018-05-25] MEDS: cloZAPine 25 MG TABLET PO SCH (22:24)
[2018-05-25] MEDS: traZODone 100 MG TABLET. PO SCH (22:25)
--- NOTE | 2018-05-25 23:54 | PN ---
DATE: 05/24/2018 This is a late entry for 05/24/2018 covers elements not covered in my initial note of 05/24/2018. SUBJECTIVE: I met with the patient in the evening of 05/24/2018 and I have discussed with nursing staff on several occasions during the day and previous evening on account of the patient's marked agitation, aggression. He had to be restrained in ICU. I talked to the hospitalist at [facility] to attempt to transfer him there, so that anesthesia could be involved in sedating him, but he was not accepted there. We do not have any Anesthesia Services at this hospital. Nevertheless, we made several changes in his psychotropics. 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 Part of this could have been initiation of trazodone as well. We have also restarted him on Trileptal as a mood stabilizer. In the past, he had been on Abilify and Luvox the latter for his OCD symptoms, but we will wait to reconsider that. REVIEW OF SYSTEMS: Ambulation impaired due to his Ashwini's constant movements, but at the time of my visit, he was sedated, sleeping actually. MENTAL STATUS EXAM: Otherwise, when awake, oriented to himself. Insight, judgment, recent memory is impaired. Language function intact. Mood and affect remains labile. LABORATORY DATA: Reviewed. IMPRESSION: Unchanged from initial note. PLAN: Continue psychotropics mentioned in my initial note. We will start and maintain the trazodone scheduled during the day and at night and the other changes as indicated. LIDIA GARRIDO MD DR: MEME/giana JOB#: [id number] / [id number]
[2018-05-26 00:28] VITALS: BP 102/80
[2018-05-26 05:45] VITALS: BP 134/90
[2018-05-26] MEDS: LEVOTHYROXINE 150 MCG TABLET PO SCH (05:50)
[2018-05-26] MEDS: traZODone 50 MG TABLET. PO SCH ×3 (06:34→18:00)
[2018-05-26] MEDS: OLANZapine 10 MG TABLET PO SCH (09:00)
[2018-05-26] MEDS: NALTREXONE HCL 50 MG TABLET PO SCH (09:00)
[2018-05-26] MEDS: TAMSULOSIN 0.4 MG CAP.ER.24H. PO SCH (09:03)
[2018-05-26] MEDS: ACETAMINOPHEN 500 MG TABLET PO SCH ×3 (09:03→20:26)
[2018-05-26] MEDS: HALOPERIDOL 5 MG TABLET PO SCH ×2 (09:03→20:26)
[2018-05-26] MEDS: CELECOXIB 100 MG CAPSULE PO SCH ×2 (09:04→17:35)
[2018-05-26] MEDS: SPIRONOLACTONE 25 MG TABLET PO SCH (11:30)
[2018-05-26] MEDS: POTASSIUM CHLORIDE 10 MEQ TABLET.ER. PO SCH (11:30)
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
[2018-05-26 15:34] VITALS: BP 120/74
[2018-05-26] MEDS: CHOLECALCIFEROL (VITAMIN D3) 1,000 UNIT TABLET PO SCH (15:34)
--- NOTE | 2018-05-26 18:16 | PDOC ---
Exam Note: Bran Note: Please also refer to the separate dictated note~for this date of service dictated separately.~Patient seen individually. Discussed the patient with Nursing staff reviewed the chart.~Reviewed interim history and current functioning. Reviewed vital signs,~Labs/ Radiology~and current medications noted below. Continue current treatment with the changes noted in the dictated addendum note Assessment: Vital Signs: Vital Signs Date Time Temp Pulse Resp B/P (MAP) Pulse Ox O2 Delivery O2 Flow Rate FiO2 05/26/18 15:34 97.8 77 18 120/74 (89) 95 Room Air 05/26/18 08:30 2.0 I&O Intake and Output 05/26/18 07:00 Intake Total 2000 ml Output Total 0 ml Balance 2000 ml Intake Oral 2000 ml Output Urine Total 0 ml # Voids 2 Current Medications: Meds: Current Medications Lorazepam (Ativan) 2 mg STK-MED ONCE .ROUTE ; Start 05/23/18 at 19:27; Stop at 19:28; Status DC Olanzapine (ZyPREXA IM) 10 mg 1X ONCE IM Last administered on 05/23/18at 19:42 ; Start 05/23/18 at 19:30; Stop 05/23/18 at 19:48; Status DC Lorazepam (Ativan) 2 mg 1X ONCE IM Last administered on 05/23/18at 19:35; Start 05/23/18 at 19:30; Stop 05/23/18 at 19:47; Status DC Acetaminophen (Tylenol) 650 mg PRN Q6HRS PRN PO PAIN / TEMP; Start 05/23/18 at 20:15 Atorvastatin Calcium (Lipitor) 20 mg QHS PO Last administered on 05/25/18at 22: 24; Start 05/23/18 at 21:00 Levothyroxine Sodium (Synthroid) 150 mcg DAILY06 PO Last administered on at 05:50; Start 05/24/18 at 06:00 Al Hydroxide/Mg Hydroxide (Mylanta Plus Xs) 15 ml PRN AFTMEALHC PRN PO DYSPEPSIA; Start 05/23/18 at 20:15 Magnesium Hydroxide (Milk Of Magnesia) 2,400 mg PRN QHS PRN PO CONSTIPATION; Start 05/23/18 at 20:15 Multi-Ingredient Ointment (Analgesic Aiken) 1 berkley PRN QID PRN TP MUSCLE PAIN; Start 05/23/18 at 20:15 Tamsulosin HCl (Flomax) 0.4 mg DAILY PO Last administered on 05/26/18at 09:03; Start 05/24/18 at 09:00 Acetaminophen (Tylenol) 1,000 mg TID PO Last administered on 05/26/18at 15:33; Start 05/23/18 at 21:00 Celecoxib (CeleBREX) 100 mg BIDBFRMEAL PO Last administered on 05/26/18at 17:35 ; Start 05/24/18 at 07:30 Vitamin D (Vitamin D3) 5,000 unit DAILY16 PO Last administered on 05/26/18at 15: 34; Start 05/24/18 at 16:00 Clozapine (Clozaril) 25 mg HS PO Last administered on 05/25/18at 22:24; Start at 21:00 Famotidine (Pepcid) 20 mg HS PO Last administered on 05/25/18at 22:23; Start at 21:00 Lorazepam (Ativan) 2 mg DAILY IM Last administered on 05/24/18at 16:02; Start at 09:00; Stop 05/25/18 at 19:02; Status DC Mirtazapine (Remeron) 15 mg QHS PO Last administered on 05/23/18at 21:36; Start 05/23/18 at 21:00; Stop 05/24/18 at 15:25; Status DC Non-Formulary Medication (Mirtazapine (Remeron)) 15 mg HS PO ; Start 05/23/18 at 21:00; Status UNV Naltrexone HCl (Depade) 100 mg DAILY PO Last administered on 05/24/18at 08:38; Start 05/24/18 at 09:00 Olanzapine (ZyPREXA) 10 mg DAILY PO Last administered on 05/25/18at 15:44; Start 05/24/18 at 09:00 Olanzapine (ZyPREXA ZYDIS) 5 mg PRN Q2HR PRN PO PSYCHOSIS; Start 05/23/18 at 20 :15; Stop 05/23/18 at 20:21; Status DC Potassium Chloride (Klor-Con) 10 meq DAILYWLUN PO Last administered on at 11:30; Start 05/24/18 at 12:00 Quetiapine Fumarate (SEROquel) 50 mg 0900,1300,1700 PO Last administered on at 13:16; Start 05/24/18 at 09:00; Stop 05/24/18 at 20:14; Status DC Quetiapine Fumarate (SEROquel) 200 mg PRN QHS PRN PO ANXIETY / AGITATION Last administered on 05/23/18at 21:36; Start 05/23/18 at 20:30; Stop 05/24/18 at 15:25 ; Status DC Spironolactone (Aldactone) 25 mg DAILYWLUN PO Last administered on 05/26/18at 11 :30; Start 05/24/18 at 12:00 Trazodone HCl (Desyrel) 200 mg PRN QHS PRN PO INSOMNIA Last administered on at 21:37; Start 05/23/18 at 20:30; Stop 05/24/18 at 20:14; Status DC Olanzapine (ZyPREXA ZYDIS) 5 mg PRN Q2HR PRN PO ANXIETY / AGITATION Last administered on 05/26/18at 11:30; Start 05/23/18 at 20:30 Oxcarbazepine (Trileptal) 600 mg 1X ONCE PO Last administered on 05/23/18at 21: 36; Start 05/23/18 at 21:00; Stop 05/23/18 at 21:04; Status DC Oxcarbazepine (Trileptal) 300 mg DAILY PO Last administered on 05/26/18at 09:03 ; Start 05/24/18 at 09:00 Oxcarbazepine (Trileptal) 600 mg HS PO Last administered on 05/25/18at 22:24; Start 05/24/18 at 21:00 Lorazepam (Ativan) 2 mg PRN Q4HRS PRN IV ANXIETY / AGITATION Last administered on 05/24/18at 00:10; Start 05/23/18 at 23:45 Quetiapine Fumarate (SEROquel) 200 mg HS PO ; Start 05/24/18 at 21:00; Stop at 21:00; Status DC Trazodone HCl (Desyrel) 50 mg [id number] PO Last administered on 05/26/18at 15:31; Start 05/24/18 at 15:30 Trazodone HCl (Desyrel) 200 mg HS PO Last administered on 05/25/18at 22:25; Start 05/24/18 at 21:00 Haloperidol (Haldol) 5 mg BID PO Last administered on 05/26/18at 09:03; Start at 21:00 Active Scripts Active Reported Lorazepam 2 Mg/1 Ml Disp.syrin 2 Mg IJ DAILY Seroquel (Quetiapine Fumarate) 50 Mg Tablet 50 Mg PO DAILY@0900,1300,1700 Clozapine 25 Mg Tablet 25 Mg PO HS Trazodone Hcl 100 Mg Tablet 200 Mg PO PRN QHS PRN Seroquel (Quetiapine Fumarate) 100 Mg Tablet 200 Mg PO HS PRN Zyprexa (Olanzapine) 5 Mg Tablet 5 Mg PO PRN PRN MDD 30mg/24 hrs Remeron (Mirtazapine) 15 Mg Tablet 15 Mg PO HS Ativan (Lorazepam) 1 Mg Tablet 0.5 Mg PO PRN Q2HR PRN MDD 4mg Afluria [id number] Syringe (Flu Vaccin [id number] 5Yr Up/Pf) 45 Mcg/0.5 Ml Syringe 45 Mcg IM Naltrexone Hcl 50 Mg Tablet 100 Mg PO DAILY Famotidine 20 Mg Tablet 1 Tab PO HS Remeron (Mirtazapine) 15 Mg Tablet 1 Tab PO QHS Olanzapine 5 Mg Tablet 10 Mg PO DAILY Milk Of Magnesia (Magnesium Hydroxide) 400 Mg/5 Ml Oral.susp 30 Ml PO PRN QHS PRN Potassium Chloride 10 Meq Tablet.er 10 Meq PO DAILYWLUN Analgesic Aiken (Methyl Salicylate/Menthol) 28 Gm Oint...g. 1 Berkley TP PRN QID PRN Mag-Al Plus Xs Suspension (Mag Hydrox/Al Hydrox/Simeth) 30 Ml Oral.susp 15 Ml PO PRN AFTMEALHC PRN Tylenol (Acetaminophen) 325 Mg Tablet 650 Mg PO PRN Q6HRS PRN Atorvastatin Calcium 20 Mg Tablet 20 Mg PO QHS Vitamin D3 (Cholecalciferol (Vitamin D3)) 5,000 Unit Tablet 5,000 Unit PO DAILY16 Aldactone (Spironolactone) 25 Mg Tablet 25 Mg PO DAILYWLUN Tamsulosin Hcl 0.4 Mg Cap.er.24h 0.4 Mg PO DAILY Celebrex (Celecoxib) 100 Mg Capsule 100 Mg PO BIDBFRMEAL Acetaminophen 500 Mg Tablet 1,000 Mg PO TID Levothyroxine Sodium 175 Mcg Tablet 150 Mcg PO DAILY06 I have reviewed the current psychotropics carefully including drug interactions. Risk benefit ratio favors no change other than as noted in my dictated progress note. Diagnosis: Problems: (1) Anxiety disorder (2) Impulse control disorder (3) Dementia in [place]'s disease with behavioral disturbance (4) Major depressive disorder, recurrent episode (5) Ashwini's chorea LIDIA GARRIDO MD May 26, 2018 18:16
[2018-05-26 19:48] VITALS: BP 124/84
[2018-05-26] MEDS: cloZAPine 25 MG TABLET PO SCH (20:25)
[2018-05-26] MEDS: traZODone 100 MG TABLET. PO SCH (20:26)
[2018-05-26] MEDS: ATORVASTATIN CALCIUM 20 MG TABLET PO SCH (20:26)
[2018-05-26] MEDS: FAMOTIDINE 20 MG TABLET PO SCH (20:27)
[2018-05-27 05:26] VITALS: BP 128/86
--- NOTE | 2018-05-27 05:59 | PN ---
DATE: 05/25/2018 This is a late entry, 05/25/2018, covers the elements not covered in my initial note. SUBJECTIVE: I met with the patient in the evening. Overall, the patient has been much better during the day. He has been more sedated, seemed to be responding to trazodone in addition to reinitiating low-dose Haldol and the Trileptal together with Remeron. Restraints have been removed. He is somewhat sedated, not relating to any. REVIEW OF SYSTEMS: questions. MENTAL STATUS EXAM: Oriented to himself. Insight, judgment, recent and remote memory, attention, concentration, fund of knowledge poor, consistent with his diagnosis as mentioned in my initial note. PLAN: No change from a psychiatric standpoint. Reportedly, discussions are being held with the family about hospice care and [facility]. LIDIA GARRIDO MD DR: MEME/giana JOB#: [id number] / [id number]
[2018-05-27] MEDS: LEVOTHYROXINE 150 MCG TABLET PO SCH (06:00)
[2018-05-27] MEDS: traZODone 50 MG TABLET. PO SCH (06:01)
[2018-05-27] MEDS: OLANZapine 10 MG TABLET PO SCH (08:11)
[2018-05-27] MEDS: CELECOXIB 100 MG CAPSULE PO SCH (08:11)
[2018-05-27] MEDS: TAMSULOSIN 0.4 MG CAP.ER.24H. PO SCH (08:12)
[2018-05-27] MEDS: HALOPERIDOL 5 MG TABLET PO SCH (08:12)
[2018-05-27] MEDS: NALTREXONE HCL 50 MG TABLET PO SCH (08:12)
[2018-05-27] MEDS: ACETAMINOPHEN 500 MG TABLET PO SCH (08:12)
--- NOTE | 2018-05-27 21:07 | PN ---
DATE: 05/26/2018 This is a late entry for 05/26/2018 covers elements not covered in my initial note. SUBJECTIVE: Discussed with nursing staff on 2 or 3 occasions since my last visit with the patient and prior to my visit with the patient on 05/26/2018. The patient has been much calmer, less agitated. He is doing better on the 5 mg b.i.d. Haldol along with Trileptal total 900 mg a day, Clozaril, which was initiated 25 mg at bedtime, Ativan and the other psychotropics mentioned in my initial note. [facility]2018. REVIEW OF SYSTEMS: No CV, , pulmonary, eye system symptoms on review. Continues to have Brewster's movements. Reliability poor. MENTAL STATUS EXAM: Oriented to himself. Insight, judgment, recent and remote memory, attention, concentration, fund of knowledge poor, consistent with his diagnosis mentioned in my initial note. PLAN: No change from initial note. Continue psychotropics as noted in initial note. MAN Vimal GARRIDO MD DR: MEME/giana JOB#: [id number] / [id number]
== END 2018-05-27 09:19 | disposition home or self-care (01) | DRG 57 ==
LOC: ICU 19:38 → 1 SOUTH 05-26 14:49
PROVIDERS: ADMIT Neuromusculoskeletal Medicine & OMM; ATTEND Neuromusculoskeletal Medicine & OMM
DX: G10 Huntington's disease (principal); F02.81 Dementia in other diseases classified elsewhere, unspecified severity, with behavioral disturbance; F33.9 Major depressive disorder, recurrent, unspecified; D53.9 Nutritional anemia, unspecified; E03.9 Hypothyroidism, unspecified; E53.8 Deficiency of other specified B group vitamins; E78.5 Hyperlipidemia, unspecified; F41.9 Anxiety disorder, unspecified; K59.00 Constipation, unspecified; F42.9 Obsessive-compulsive disorder, unspecified; F63.9 Impulse disorder, unspecified; I95.89 Other hypotension; M19.90 Unspecified osteoarthritis, unspecified site; N40.0 Benign prostatic hyperplasia without lower urinary tract symptoms; Z78.1 Physical restraint status
CPT/HCPCS: 36415; 80053; 82947; 83735; 85025; 87641; J2060; J3490